=== PATIENT | female | born 1970 | race Caucasian/White ===

== ENCOUNTER → 2018-01-14 13:45 | Outpatient (CLI) | payer MEDICAID, SELFPAY ==
[2018-01-14 15:24] LABS: AST(SGOT) 19 U/L (15-37); Alanine Aminotransfer ALT/SGPT 30 U/L (13-56); Albumin, Serum 3.6 g/dL (3.2-5.0); Alkaline Phosphatase 98 U/L (45-117); Anion Gap 9 (5-15); BUN 7 mg/dL (7-18); BUN/Creat Ratio 8.8 RATIO (10-20); Calcium,Total 8.8 mg/dL (8.5-10.1); Chloride 103 mmol/L (98-107); EST Glomerular Filtration Rate 81 mL/min (>60); Est Glom Filt Rate - Afr Amer 98 mL/min (>60); Globulin 3.5 g/dL (2.2-4.2); Glucose 88 mg/dL (74-106); Protein, Total 7.1 g/dL (6.4-8.2); Sodium Level 138 mmol/L (136-145)
== END ==
PROVIDERS: Family Provider Family Medicine; PCP Family Medicine; Visit Provider Family Medicine
DX: R69 Illness, unspecified (principal)
CPT/HCPCS: 80053

== ENCOUNTER 2018-09-04 11:06 | Observation (INO) | payer MEDICAID, SELFPAY ==
[2018-06-19 10:18] VITALS: BMI 24.3
[2018-09-02 10:19] VITALS: BMI 24.3
[2018-09-04] VITALS (15 sets, daily range): BP systolic 95–115; BP diastolic 47–70; PULSE 81–91; RESP 14–16; TEMP 36.1–37.1; O2SAT 91–97; BMI 23.9
--- NOTE | 2018-09-04 00:09 | HP.PCM_ITS ---
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 She has a family history of breast cancer, and her cancerphobia has worsened over the last several months because of a recent diagnosis of breast cancer in her family. She had a mammogram in March,. No significant masses or calcifications were seen in either breast. Also it was noted that the tissue of both breasts is heterogenously dense. This may lower the sensitivity of mammography. This may make cancer surveillance difficult which is concerning to the patient. She is afraid that a breast cancer will be missed which exacerbates her cancerphobia. She denies any trauma to her breasts. A letter was written to her insurance carrier and medical approval has been obtained for prophylactic mastectomies. Her surgery is scheduled for this Friday. She states she has cut down dramatically with her smoking. She is down to about 2-3 cigarettes per day. PAST MEDICAL HISTORY Anemia Anxiety and depression Bleeding disorder Bone fracture Breast lump Cancer Frequent headaches Gallstones Goiter Heart disease Heart valve problem History of blood transfusion Hives IBS (irritable bowel syndrome) Lupus Parathyroid abnormality Pneumonia Thyroid cancer Vitamin deficiency PAST SURGICAL HISTORY cholecystectomy hysterectomy thyroid surgery ALLERGIES codeine hydromorphone [From Dilaudid] Penicillins MEDICATIONS amitriptyline atenolol lorazepam mirtazapine sumatriptan topiramate venlafaxine ER FAMILY HISTORY Other - Anemia, Anesthesia complication, Anxiety, Bleeding disorder, Bowel disease, Breast cancer, CVA (cerebral vascular accident), Cancer, Cervical cancer, Colon cancer, Depression (emotion), Diabetes. Heart disease, High cholesterol, History of blood transfusion, Hypertension, Osteoporosis, Ovarian cancer, Thyroid disorder SOCIAL HISTORY Smoking Status: Current every day smoker alcohol intake: never substance use type: does not use REVIEW OF SYSTEMS General - Denies fever, fatigue, and weight loss. Eyes - Denies cataracts and glaucoma. ENT - Denies nasal congestion and sore throat. Endocrine - Denies excessive thirst and urination. Has thyroid disease. Has f amily history of breast cancer. Skin - Denies suspicious lesions and skin cancer. Musculoskeletal - Denies joint pain, joint stiffness, weakness of muscles and joints, back pain, and arthritis. Neuro - Has headaches. Cardiovascular - Denies chest pain, fatigue, and shortness of breath with exertion. Psych - Denies anxiety and depression. Respiratory - Denies chronic cough and shortness of breath. Patient is a smoker. Gastrointestinal - Denies nausea, vomiting, and constipation. Has diarrhea. Hematologic - Has abnormal bruising. Has anemia. Has lupus. Is on Humira. Genitourinary - Denies hematuria and urinary frequency. PHYSICAL EXAMINATION General - Alert and Oriented. Bra size is 36 C. HEENT - PERRL. EOMI. Throat is clear. Neck - Supple and nontender. No cervical adenopathy. Breasts - soft and symmetrical. No breast masses palpable. Breasts are dense to palpation. No axillary adenopathy. Some pseudoptosis present with the nipples at the inframammary fold with breast tissue below that. Lungs - Clear to auscultation. Heart - Regular rate and rhythm. Abdomen - Soft and nondistended. Some redundant skin and subcutaneous tissue present between the pubic area and the umbilicus. Has a right subcostal scar from a cholecystectomy. Has an upper midline scar from a bleeding ulcer surgery. Has a horizontal scar in the pubic area from a hysterectomy. Extremities - FROM. No axillary adenopathy. Radial pulses are palpable. Neuro - CN II-XII grossly intact. Psych - Normal mood and affect. ASSESSMENT 1. Cancerphobia bilateral breasts. 2. Family history of breast cancer. 3. Lupus. 4. Immunocompromised state from Humira therapy for Lupus. 5. Inconclusive mammography due to dense breasts. 6. Smoker. PLAN Mammogram reviewed from March,. She does have dense breasts which will make cancer surveillance problematic. Discussed with the patient the procedure of prophylactic mastectomy bilateral breasts for cancer phobia. This would necessitate removal of the nipples to further decrease the risk of cancer. Subcutaneous mastectomy can also be used for prophylactic mastectomy. However by saving the nipple, a small percentage of breast tissue would remain which would necessitate future mammography and also still have a small but not zero risk of developing breast cancer. The patient states she wants to proceed with nipple removal with the mastectomy. Also with her immunocompromised state being on Humira for lupus, she is at increased risk of developing cancer in general. With the amount of fear the patient has about developing breast cancer, I feel that bilateral prophylactic mastectomies is warranted. A letter was written to her insurance carrier and medical approval has been obtained. Breast reconstruction, however, will be problematic in this patient. The placement of expanders followed by replacement cohesive gel implants is not a good idea because of her history of lupus which is an autoimmune process. She is at risk for problems with the placement of a foreign body implant with regard to rejection, increased pain, infection, and painful capsulectomy. The other option is using autogenous tissue. The latissimus dorsi flap is not a practical option since it generally requires a small implant underneath the flap for shape and contour. The goal with using autogenous tissue in this patient is not having to use foreign body implants because of her lupus. The abdominal pedicled TRAM flap would not work in this patient because the extensive scarring she has on the abdominal wall, especially the right subcostal scar thus making bilateral TRAM flap impossible. She might be a candidate for the use of the microscope depending on the quality of the vessels secondary to the previous scarring. The other microscope option for her would be bilateral gluteal flaps. That would necessitate going to a tertiary center for the microscope surgery reconstruction. She would also have to stop smoking prior to any attempts at breast reconstruction using the microscope. At the present time, she is more concerned about developing cancer and just wants to proceed with the prophylactic mastectomy. After healing has occurred, and she is more relaxed about not worrying about breast cancer, she will consider breast reconstruction at that time. In the meantime, she will just proceed with external prostheses in a mastectomy bra. In my experience with breast reconstruction after bilateral prophylactic mastectomy, insurance companies generally cover reconstruction with placement of tissue expanders followed by replacement cohesive gel implants, and they generally do not cover reconstruction using autogenous tissue. She voices unde rstanding and will concern herself with breast reconstruction insurance coverage at a later date. At the time of the prophylactic mastectomy, because of some pseudoptosis, a mastopexy incision for the mastectomy can be useful for future reconstruction. However the Tzone area can be an area of suboptimal healing that would require wound care and sometimes antibiotic therapy. This potential suboptimal healing would be exacerbated because of her history of lupus and the use of Humira. Because of that risk, I would proceed with the traditional horizontal incision around the nipple for the mastectomy which will heal easier with her medical situation. Also the Tzone mastopexy incision is usually worthwhile with the plan of placing implants in the future. Since we are not concerning ourselves with implants, that is another reason to proceed with the horizontal incision for the mastopexy. Patient was informed of the risks and complications of the procedure including alternatives to surgery. These were discussed with the patient personally. Patient voices understanding and wishes to proceed. Some of the risks and complications were included in a form from the [employer]. Surgery would be under general anesthesia with a surgical observation overnight stay in the hospital. She would have drains in for several days and be maintained on antibiotics until the drains are removed. Tissue that is removed would be sent to Pathology for analysis to rule out carcinoma. She will wear a chest wall binder for several weeks to minimize seroma formation. Encouraged patient to stop smoking as it may have deleterious effects on wound healing.
--- OUTSIDE RECORDS SUMMARY | 2018-09-04 06:57 | XMS RPT_ITS ---
INSOMNIA NOS [G47.00] INVALID FOR* Type II or unspecified type diabetes mellitus w*INVALID FOR*06/07/2013 Recurrent major depressive disorder, in partial*INVALID FOR* Anxiety state [F41.1] INVALID FOR* HYPERLIPIDEMIA NEC/NOS [E78.5] INVALID FOR* IRRITABLE COLON [K58.9] More... 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] INVALID FOR* POSTSURGICAL HYPOTHYROID [E89.0] INVALID FOR* Prescriptions ordered this encounter Disp Refills Start End TRIAMCINOLONE ACETONIDE 40 MG/ML DAVI* 06/10/2018 06/10/2018 Route: INTRABURSAL Encounter Status:Closed by ABRAHAM CANO DO, V on 06/10/18 progress on 2018-05-18 Protein mass conc HNO ID: [id number] Normal 05-18-2018 [facility] Author: Rula Baumann LPN [place] ([id number]) Service: (none) Author Type: (none) Type: Progress Notes Filed: 05/18/2018 9:57 AM Note Text: Patient presents for B-12 injection. Denies any problems at this time. Patient instructed on any SE of medication, verbalized understanding and agreed to proceed with treatment. Tolerated injection well. Rula Baumann LPN [facility] on 2018-05-18 [facility] Nurse Visit (FAMPWS) Normal 05-18-2018 [place] MARYBETH Hussein ([id number]) 1970 F [facility] Date Time Provider Department ([id number]) 1/7/19 9:30 AM [place] NURSE FAMPWS During your visit today, we recorded the following information about you: Rula Baumann LPN 05/18/2018 9:57 AM Signed Patient presents for B-12 injection. Denies any problems at this time. Patient instructed on any SE of medication, verbalized understanding and agreed to proceed with treatment. Tolerated injection well. uRla Baumann LPN Referring Provider: SPEEDY BYRNE [[id number]] Allergies As of Date: 05/18/2018 Noted Allergy Reaction CIPRO (CIPROFLOXACIN) 04/21/2007 2 - Rash Comments: Rapid heartbeat, flushed CODEINE [Other] 06/17/2005 4 - Hives DILAUDID (HYDROMORPHONE (BULK)) 06/05/2009 HYOSCYAMINE 01/09/2007 2 - Rash 9 - Itching PENICILLINS 06/17/2005 4 - Hives Date Reviewed: 04/09/2018 Reviewed by: Jaleesa Macedo Ma - Fully Assessed Reason for Visit: B-12 Injection [247] Primary Visit Diagnosis:Vitamin B 12 deficiency [E53.8] Prescriptions as of 05/18/2018 Sig: COMPOUNDED PRESCRIPTION 1 wheelchair ICD-10: R26.81 SUMATRIPTAN 100 MG TABLET Take 1 tablet by mouth as nee* TOPIRAMATE 25 MG TABLET TAKE 1 TABLET BY MOUTH AT BED* LORAZEPAM 1 MG TABLET TAKE 1 TABLET EVERY 8 HOURS A* VENLAFAXINE ER 75 MG CAPSULE,* TAKE 1 CAPSULE BY MOUTH EVERY* AMITRIPTYLINE 100 MG TABLET Take 1 AND 1/2 tablets daily at* MIRTAZAPINE 30 MG TABLET TAKE 1/2 (ONE-HALF) OF A TABL* ATENOLOL 50 MG TABLET Take 2 tablets by mouth once * CYANOCOBALAMIN (VIT B-12) 1,0* Inject 1 mL intramuscularly o* VENLAFAXINE ER 150 MG CAPSULE* Take 1 capsule by mouth once * MECLIZINE 25 MG TABLET Take 1 tablet by mouth three * Problem List As Of Date 05/18/2018 Noted Resolved OBESITY [E66.9] INVALID FOR* Migraine without aura [G43.009] INVALID FOR* PALPITATIONS [R00.2] INVALID FOR* INSOMNIA NOS [G47.00] INVALID FOR* Type II or unspecified type diabetes mellitus w*INVALID FOR*06/07/2013 Recurrent major depressive disorder, in partial*INVALID FOR* Anxiety state [F41.1] INVALID FOR* HYPERLIPIDEMIA NEC/NOS [E78.5] INVALID FOR* IRRITABLE COLON [K58.9] More... 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] INVALID FOR* POSTSURGICAL HYPOTHYROID [E89.0] INVALID FOR* Encounter Status:Closed by RULA BAUMANN LPN on 05/18/18 progress on 2018-04-16 Protein mass conc HNO ID: [id number] Normal 04-16-2018 [facility] Author: Rula Baumann LPN [place] ([id number]) Service: (none) Author Type: (none) Type: Progress Notes Filed: 04/16/2018 3:33 PM Note Text: Patient presents for B-12 injection. Denies any problems at this time. Patient instructed on any SE of medication, verbalized understanding and agreed to proceed with treatment. Tolerated injection well. Rula Baumann LPN cnnurse on 2018-04-16 [facility] Nurse Visit (FAMPWS) Normal 04-16-2018 [facility] MARYBETH PHELPS ([id number]) 1970 F [facility] Time Provider Department ([id number]) 04/16/18 3:30 PM [place] NURSE [facility] During your visit today, we recorded the following information about you: Rula Baumann LPN 04/16/2018 3:33 PM Signed Patient presents for B-12 injection. Denies any problems at this time. Patient instructed on any SE of medication, verbalized understanding and agreed to proceed with treatment. Tolerated injection well. Rula Baumann LPN Referring Provider: SPEEDY BYRNE [[id number]] Allergies As of Date: 04/16/2018 Noted Allergy Reaction CIPRO (CIPROFLOXACIN) 04/21/2007 2 - Rash Comments: Rapid heartbeat, flushed CODEINE [Other] 06/17/2005 4 - Hives DILAUDID (HYDROMORPHONE (BULK)) 06/05/2009 HYOSCYAMINE 01/09/2007 2 - Rash 9 - Itching PENICILLINS 06/17/2005 4 - Hives Date Reviewed: 04/09/2018 Reviewed by: Jaleesa Macedo Ma - Fully Assessed Reason for Visit: B-12 Injection [247] Primary Visit Diagnosis:Vitamin B 12 deficiency [E53.8] Prescriptions as of 04/16/2018 Sig: SUMATRIPTAN 100 MG TABLET Take 1 tablet by mouth as nee* TOPIRAMATE 25 MG TABLET TAKE 1 TABLET BY MOUTH AT BED* LORAZEPAM 1 MG TABLET TAKE 1 TABLET EVERY 8 HOURS A* VENLAFAXINE ER 75 MG CAPSULE,* TAKE 1 CAPSULE BY MOUTH EVERY* AMITRIPTYLINE 100 MG TABLET Take 1 AND 1/2 tablets daily at* MIRTAZAPINE 30 MG TABLET TAKE 1/2 (ONE-HALF) OF A TABL* ATENOLOL 50 MG TABLET Take 2 tablets by mouth once * CYANOCOBALAMIN (VIT B-12) 1,0* Inject 1 mL intramuscularly o* VENLAFAXINE ER 150 MG CAPSULE* Take 1 capsule by mouth once * MECLIZINE 25 MG TABLET Take 1 tablet by mouth three * Problem List As Of Date 04/16/2018 Noted Resolved OBESITY [E66.9] INVALID FOR* Migraine without aura [G43.009] INVALID FOR* PALPITATIONS [R00.2] INVALID FOR* INSOMNIA NOS [G47.00] INVALID FOR* Type II or unspecified type diabetes mellitus w*INVALID FOR*06/07/2013 Recurrent major depressive disorder, in partial*INVALID FOR* Anxiety state [F41.1] INVALID FOR* HYPERLIPIDEMIA NEC/NOS [E78.5] INVALID FOR* IRRITABLE COLON [K58.9] More... 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] INVALID FOR* POSTSURGICAL HYPOTHYROID [E89.0] INVALID FOR* Encounter Status:Closed by RULA BAUMANN LPN on 04/16/18 cnsw on 2017-12-03 CNSW Social Work (NAVWST) Normal 12-03-2017 [place] MARYBETH Hussein ([id number]) 1970 [facility] Date Time Provider Department ([id number]) 12/03/17 CHIDI GONCALVES () MANISHALuke During your visit today, we recorded the following information about you: JING Tian 01/23/2018 2:00 PM Signed Opened in error Allergies As of Date: 12/03/2017 Noted Allergy Reaction CIPRO (CIPROFLOXACIN) 04/21/2007 2 - Rash Comments: Rapid heartbeat, flushed CODEINE [Other] 06/17/2005 4 - Hives DILAUDID (HYDROMORPHONE (BULK)) 06/05/2009 HYOSCYAMINE 01/09/2007 2 - Rash 9 - Itching PENICILLINS 06/17/2005 4 - Hives Date Reviewed: 12/03/2017 Reviewed by: Adali Dueñas Teacher Selection Specialist - Fully Assessed Prescriptions as of 12/03/2017 Sig: X NAPROXEN 500 MG TABLET Take 1 tablet by mouth twice * X LORAZEPAM 1 MG TABLET Take 1 tablet by mouth every * ATENOLOL 50 MG TABLET Take 2 tablets by mouth once * X ATENOLOL 50 MG TABLET Take 100 mg by mouth once vicki* X ALBUTEROL SULFATE HFA 90 MCG/* Inhale 2 Puffs as instructed * X MIRTAZAPINE 15 MG TABLET Take 1 tablet by mouth daily * VENLAFAXINE ER 75 MG CAPSULE,* Take 1 capsule by mouth once * CYANOCOBALAMIN (VIT B-12) 1,0* Inject 1 mL intramuscularly o* TOPIRAMATE 25 MG TABLET Take 1 tablet by mouth daily * VENLAFAXINE ER 150 MG CAPSULE* Take 1 capsule by mouth once * AMITRIPTYLINE 50 MG TABLET Take 3 tablets by mouth daily* X FLUTICASONE 50 MCG/ACTUATION * Use 2 Sprays in each nostril * METOPROLOL TARTRATE 25 MG TAB* Take 1 tablet by mouth twice * MECLIZINE 25 MG TABLET Take 1 tablet by mouth three * Problem List As Of Date 12/03/2017 Noted Resolved OBESITY [E66.9] INVALID FOR* MIGRAINE COMMON [G43.009] INVALID FOR* PALPITATIONS [R00.2] INVALID FOR* INSOMNIA NOS [G47.00] INVALID FOR* Type II or unspecified type diabetes mellitus w*INVALID FOR*06/07/2013 DEPRESSIVE DISORDER NEC [F32.9] INVALID FOR* Anxiety state [F41.1] INVALID FOR* HYPERLIPIDEMIA NEC/NOS [E78.5] INVALID FOR* IRRITABLE COLON [K58.9] More... 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] INVALID FOR* POSTSURGICAL HYPOTHYROID [E89.0] INVALID FOR* Encounter Status:Closed by CHIDI BOOTHE on 01/23/18 progress on 2018-01-23 Protein mass conc HNO ID: [id number] Normal 01-23-2018 [facility] Author: Chidi Dougherty) Parth Mosher ([id number]) Service: (none) Author Type: Pilot Manager Type: Progress Notes Filed: 01/23/2018 2:00 PM Note Text: Opened in error progress on 2018-03-17 Protein mass conc HNO ID: [id number] Normal 03-17-2018 [facility] Author: Rula Mosher ([id number]) Service: (none) Author Type: (none) Type: Progress Notes Filed: 03/17/2018 3:02 PM Note Text: Patient presents for B-12 injection. Denies any problems at this time. Patient instructed on any SE of medication, verbalized understanding and agreed to proceed with treatment. Tolerated injection well. Rula Baumann LPN cnnurse on 2018-03-17 [facility] Nurse Visit (FAMPWS) Normal 03-17-2018 [place] MARYBETH Hussein ([id number]) 1970 F [place] Date Time Provider Department ([id number]) 03/17/18 2:45 PM [facility] During your visit today, we recorded the following information about you: Rula Baumann LPN 03/17/2018 3:02 PM Signed Patient presents for B-12 injection. Denies any problems at this time. Patient instructed on any SE of medication, verbalized understanding and agreed to proceed with treatment. Tolerated injection well. Rula Baumann LPN Referring Provider: SPEEDY BYRNE [[id number]] Allergies As of Date: 03/17/2018 Noted Allergy Reaction CIPRO (CIPROFLOXACIN) 04/21/2007 2 - Rash Comments: Rapid heartbeat, flushed CODEINE [Other] 06/17/2005 4 - Hives DILAUDID (HYDROMORPHONE (BULK)) 06/05/2009 HYOSCYAMINE 01/09/2007 2 - Rash 9 - Itching PENICILLINS 06/17/2005 4 - Hives Date Reviewed: 01/14/2018 Reviewed by: Rosenda Holloway - Fully Assessed Reason for Visit: B-12 Injection [247] Primary Visit Diagnosis:Vitamin B 12 deficiency [E53.8] Prescriptions as of 03/17/2018 Sig: LORAZEPAM 1 MG TABLET TAKE 1 TABLET EVERY 8 HOURS A* SUMATRIPTAN 25 MG TABLET TAKE 1 TABLET BY MOUTH ONCE D* VENLAFAXINE ER 75 MG CAPSULE,* TAKE 1 CAPSULE BY MOUTH EVERY* AMITRIPTYLINE 100 MG TABLET Take 1 AND 1/2 tablets daily at* VENTOLIN HFA 90 MCG/ACTUATION* Inhale 2 Puffs as instructed * MIRTAZAPINE 30 MG TABLET TAKE 1/2 (ONE-HALF) OF A TABL* ATENOLOL 50 MG TABLET Take 2 tablets by mouth once * CYANOCOBALAMIN (VIT B-12) 1,0* Inject 1 mL intramuscularly o* TOPIRAMATE 25 MG TABLET Take 1 tablet by mouth daily * VENLAFAXINE ER 150 MG CAPSULE* Take 1 capsule by mouth once * METOPROLOL TARTRATE 25 MG TAB* Take 1 tablet by mouth twice * MECLIZINE 25 MG TABLET Take 1 tablet by mouth three * Problem List As Of Date 03/17/2018 Noted Resolved OBESITY [E66.9] INVALID FOR* MIGRAINE COMMON [G43.009] INVALID FOR* PALPITATIONS [R00.2] INVALID FOR* INSOMNIA NOS [G47.00] INVALID FOR* Type II or unspecified type diabetes mellitus w*INVALID FOR*06/07/2013 Recurrent major depressive disorder, in partial*INVALID FOR* Anxiety state [F41.1] INVALID FOR* HYPERLIPIDEMIA NEC/NOS [E78.5] INVALID FOR* IRRITABLE COLON [K58.9] More... 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] INVALID FOR* POSTSURGICAL HYPOTHYROID [E89.0] INVALID FOR* Encounter Status:Closed by RULA BAUMANN LPN on 03/17/18 cnov on 2018-04-09 [facility] Office Visit (FAMPWS) Normal 04-09-2018 [facility] MATTIE,MARYBETH Allison ([id number]) 1970 F [place] Date Time Provider Department ([id number]) 04/09/18 3:20 PM SPEEDY BYRNE During your visit today, we recorded the following information about you: Pulse Respiration Blood pressure Weight 78/minute 16/minute 112/70 70.8 kg Speedy Byrne MD 04/09/2018 3:59 PM Signed Chief Complaint Patient presents with: F/U 3 Month HPI Marybeth Phelps is a 48 year old female who presents here today for 3 month follow up. Anxiety AND Depression: is taking Effexor XR 150 mg and 75 mg daily. Also taking Ativan 1 mg up to QID. Palpitations: is taking Atenolol 50 mg, 2 tablets daily. Headaches: is taking imitrex 25 mg, states that this dosage is not working well, insurance will only cover 9 tablets, but pt states that she needs 15 tablets a month. Is taking Topamax 25 mg daily and Amitriptyline 100 mg, 2 tablets at night and Remeron 30 mg, half tablet. Insomnia: does not have trouble falling asleep, has trouble staying asleep. She has tried sleepy time teas, and is on several medicines that help with sleep. Melatonin makes her hyper. She has tried plain sleep aids which does not help. She is fatigued. Past medical history, appointments, medications, allergies reviewed. Previous Medical History PAST MEDICAL HISTORY Diagnosis Date - Acute peptic ulcer, unspecified site, with hemorrhage, without mention of obstruction - Anxiety state, unspecified 03/27/2006 - C. difficile colitis - Depressive disorder, not elsewhere classified 03/27/2006 - Dysmenorrhea Resolved - Endometriosis, site unspecified Endometriosis ? - Excessive or frequent menstruation Heavy periods resolved - Female stress incontinence - Generalized anxiety disorder - History of pancreatitis - IBS (irritable bowel syndrome) - Irritable bowel syndrome Irritable bowel - Nontoxic uninodular goiter LEFT - Other and unspecified hyperlipidemia 03/27/2006 - PMH - PAST MEDICAL HISTORY OF 1990 ? BOWEL OBSTRUCTION - SVT (supraventricular tachycardia) (HCC) - Symptomatic menopausal or female climacteric states - Type II or unspecified type diabetes mellitus without mention of complication, not stated as uncontrolled - Unspecified constipation Constipation - Unspecified urinary incontinence - Urge incontinence - Urinary calculus, unspecified Renal stones Previous Surgical History PAST SURGICAL HISTORY Procedure Laterality Date - COLONOSCOPY W/BX 05-24-15 - EGD W/O BRSH SPECIMEN W/BX 05-24-15 - EXPLORATORY OF ABDOMEN DRAINED POST OP HEMATOMA - L'SCOPE DX W/WO BRUSHINGS/WASHINGS FOR ENDOMETRIOSIS/REMOVED R OVCYST - L'SCOPE DX W/WO BRUSHINGS/WASHINGS FOR BOWEL OBSTRUCTION - LIGATE FALLOPIAN TUBE Tubal ligation - REMOVAL GALLBLADDER 10/2004 - THYROID LOBECTOMY,UNILAT 06/02/07 LEFT - TOTAL ABDOM HYSTERECTOMY Hysterectomy, JAZMÍN BSO - TREAT ECTOPIC PREG,NON REMVAL RIGHT ECTOPIC Family History FAMILY HISTORY Problem Relation Age of Onset - Diabetes Father - Cervical Cancer Maternal Aunt - Cancer Maternal Aunt 3 aunts with breast CA - Heart Maternal Grandfather TRIPLE BYPASS SURGERY - Hypertension Maternal Aunt - Diabetes Mother - Coronary Artery Disease Maternal Uncle Lung disease, passed 06/18, - COPD Father - Heart Father Double By-Pass Surgery Patient Allergies ALLERGIES Allergen Reactions - Cipro [Ciprofloxaci* Rash Rapid heartbeat, flushed - Codeine [Other] Hives - Dilaudid [H[employer]romorp* - Hyoscyamine Rash, Itching - Penicillins Hives Current Medications Current Outpatient Prescriptions on File Prior to Visit: topiramate (TOPAMAX) 25 mg tablet TAKE 1 TABLET BY MOUTH AT BEDTIME LORazepam (ATIVAN) 1 mg tablet TAKE 1 TABLET EVERY 8 HOURS NEEDED FOR ANXIETY SUMAtriptan (IMITREX) 25 mg tablet TAKE 1 TABLET BY MOUTH ONCE DAILY NEEDED. may repeat once after 2 (TWO) hours venlafaxine ER (EFFEXOR XR) 75 mg 24 hr capsule TAKE 1 CAPSULE BY MOUTH EVERY DAY along with 150mg amitriptyline (ELAVIL) 100 mg tablet Take 1 AND 1/2 tablets daily at bedtime. mirtazapine (REMERON) 30 mg tablet TAKE 1/2 (ONE-HALF) OF A TABLET EVERY DAY AT BEDTIME atenolol (TENORMIN) 50 mg tablet Take 2 tablets by mouth once daily. cyanocobalamin 1,000 mcg/mL soln Inject 1 mL intramuscularly once every month. venlafaxine XR (EFFEXOR XR) 150 mg 24 hr capsule Take 1 capsule by mouth once daily. meclizine (ANTIVERT) 25 mg tab Take 1 tablet by mouth three times daily as needed (dizziness). VENTOLIN HFA 90 mcg/actuation inhaler Inhale 2 Puffs as instructed every 4 hours as needed for Wheezing/Shortness of Breath. metoprolol tartrate, short acting, (LOPRESSOR) 25 mg tablet Take 1 tablet by mouth twice daily. 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 General Appearance: Well appearing, alert, in no acute distress, well-hydrated, well nourished.. Lungs: lungs clear to auscultation. No wheezing, rhonchi, rales. Heart: RRR without murmur, gallop, or rubs. No ectopy. Health Maintenance List COLORECTAL CANCER SCREENING,SEE MODIFIER due on 2018 ANNUAL PCP TEAM CHRONIC DISEASE VISIT due on 01/14/2019 MAMMOGRAM due on 03/17/2019 DIABETES SCREEN due on 01/14/2021 LIPID SCREEN due on 05/01/2022 DTAP,TDAP,TD(3 - Td) due on 05/25/2026 ONE PNEUMOVAX PRIOR TO AGE 65 Completed INFLUENZA Completed Data reviewed None ASSESSMENT/PLAN: 1. Anxiety state - ICD9: 300.00, ICD10: F41.1 (primary diagnosis) Continue current medications. 2. Palpitations - ICD9: 785.1, ICD10: R00.2 Continue current medications. 3. Primary insomnia - ICD9: 307.42, ICD10: F51.01 Continue current medications. Consult Sleep Medicine-Dr. Lynch 4. Recurrent major depressive disorder, in partial remission (HCC) - ICD9: 296.35, ICD10: F33.41 Continue current medications. 5. Migraine without aura and without status migrainosus, not intractable - ICD9: 346.10, ICD10: G43.009 Increase Imitrex to 100 mg PRN - may use half tab to make Rx last longer Continue current medications. Follow up in 3 months. I agree with the Chief Complaint, ROS, and Past Histories independently gathered by the clinical network desktop support specialist and the remaining scribed note accurately describes my personal service to the patient. Speedy Byrne MD The documentation for this note was completed by Jaleesa Macedo Ma acting as scribe for Speedy Byrne MD. April 09, 2018 3:29 PM. Referring Provider: SPEEDY BYRNE [[id number]] Allergies As of Date: 04/09/2018 Noted Allergy Reaction CIPRO (CIPROFLOXACIN) 04/21/2007 2 - Rash Comments: Rapid heartbeat, flushed CODEINE [Other] 06/17/2005 4 - Hives DILAUDID (HYDROMORPHONE (BULK)) 06/05/2009 HYOSCYAMINE 01/09/2007 2 - Rash 9 - Itching PENICILLINS 06/17/2005 4 - Hives Date Reviewed: 04/09/2018 Reviewed by: Jaleesa Macedo Ma - Fully Assessed Reason for Visit: F/U 3 Month [443] Primary Visit Diagnosis:Anxiety state [F41.1] Other Visit Diagnoses:Palpitations [R00.2] Primary insomnia [F51.01] Recurrent major depressive disorder, in partial remission (HCC) [F33.41] Migraine without aura and without status migrainosus, not intractable [G43.009] Order(s):SUMAtriptan (IMITREX) 100 mg tabletTake 1 tablet by mouth as needed.Disp: 9 tabletRfl: 3 CONSULT TO SLEEP MEDICINE - ADULT [[id number]] Order #: [id number]: 1 Prescriptions as of 04/09/2018 Sig: TOPIRAMATE 25 MG TABLET TAKE 1 TABLET BY MOUTH AT BED* LORAZEPAM 1 MG TABLET TAKE 1 TABLET EVERY 8 HOURS A* VENLAFAXINE ER 75 MG CAPSULE,* TAKE 1 CAPSULE BY MOUTH EVERY* AMITRIPTYLINE 100 MG TABLET Take 1 AND 1/2 tablets daily at* MIRTAZAPINE 30 MG TABLET TAKE 1/2 (ONE-HALF) OF A TABL* ATENOLOL 50 MG TABLET Take 2 tablets by mouth once * CYANOCOBALAMIN (VIT B-12) 1,0* Inject 1 mL intramuscularly o* VENLAFAXINE ER 150 MG CAPSULE* Take 1 capsule by mouth once * MECLIZINE 25 MG TABLET Take 1 tablet by mouth three * SUMATRIPTAN 100 MG TABLET Take 1 tablet by mouth as nee* Problem List As Of Date 04/09/2018 Noted Resolved OBESITY [E66.9] INVALID FOR* Migraine without aura [G43.009] INVALID FOR* PALPITATIONS [R00.2] INVALID FOR* INSOMNIA NOS [G47.00] INVALID FOR* Type II or unspecified type diabetes mellitus w*INVALID FOR*06/07/2013 Recurrent major depressive disorder, in partial*INVALID FOR* Anxiety state [F41.1] INVALID FOR* HYPERLIPIDEMIA NEC/NOS [E78.5] INVALID FOR* IRRITABLE COLON [K58.9] More... 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] INVALID FOR* POSTSURGICAL HYPOTHYROID [E89.0] INVALID FOR* Prescriptions ordered this encounter Disp Refills Start End SUMATRIPTAN 100 MG TABLET 9 ta* 3 04/09/2018 Route: ORAL Sig: Take 1 tablet by mouth as needed. Medications Discontinued During This Encounter VENTOLIN HFA 90 mcg/actuation inhaler 18 g 0 12/31/2017 04/09/2018 Cmt: Med-sync patient. If too soon, we will put new RX on hold for next cycle. Route: INHALATION Sig: Inhale 2 Puffs as instructed every 4 hours as needed for Wheezing/Shortness of Breath. Disc: Reason for discontinue is not on file. metoprolol tartrate, short acting, (* 60 t* 5 02/18/2017 04/09/2018 Route: ORAL Sig: Take 1 tablet by mouth twice daily. Disc: Reason for discontinue is not on file. SUMAtriptan (IMITREX) 25 mg tablet 15 t* 3 02/24/2018 04/09/2018 Sig: TAKE 1 TABLET BY MOUTH ONCE DAILY NEEDED. may repeat once after 2 (TWO) hours Disc: Reason for discontinue is not on file. Disposition: Return in about 3 months (around 07/09/2018). Follow-up and Disposition History Recorded Encounter Status:Closed by SPEEDY BYRNE MD on 04/09/18 [facility] screening on 2018-03-17 [facility] SCREENING * * *Final Report* * * Normal 03-17-2018 [facility] DATE OF EXAM: Mar 17 2018 3:26PM [facility] ([id number]) [facility] 0581 - [facility] SCREENING / PROCEDURE REASON: Screening for breast cancer * * * * Physician Interpretation * * * * RESULT: #[id number] - [facility] SCREENING BILATERAL DIGITAL SCREENING MAMMOGRAM WITH CAD: 03/17/2018 HISTORY: Screening For Breast Cancer\ Screening Mammogram - patient reports NO breast symptoms /priors available for comparison. RESULT: TECHNIQUE: The study was acquired using full field digital technology and interpreted from soft copy. Current study was also evaluated with a Computer Aided Detection (CAD). Comparison is made to exams dated: 01/21/2017 mammogram - [facility], 06/24/2013 mammogram - [facility], and 12/16/2007 mammogram. The tissue of both breasts is heterogeneously dense. This may lower the sensitivity of mammography. No significant masses, calcifications, or other findings are seen in either breast. There has been no significant interval change. IMPRESSION: NEGATIVE There is no mammographic evidence of malignancy. A 1 year screening mammogram is recommended. Machelle Savage M.D., jr/hoda:03/17/2018 16:45:41 [facility]endant [facility]: Jamila WASHINGTON(Lilia)(Juventino), [facility] letter sent: Normal over 40 Mammogram BI-RADS: 1 Negative Multiple national specialty organizations have released breast cancer screening guidelines for women at average risk for developing breast cancer - guidelines that are based on both evidence and opinion, yet differ on when to start and how often to screen for breast cancer. With representation from Breast Imaging, Internal Medicine, Women's Health, Family Medicine, and Medical/Surgical Oncology, the [facility] has carefully reviewed the data and reached the following consensus: 1) All women should engage in shared decision-making with their providers to decide when to start and how often to screen; 2) All women should have the opportunity to start screening mammography at age 40; 3) For women ages 45-55, we recommend annual screening mammograms; 4) For women ages 55 and over, we support both the transition from an annual to a biennial interval if this aligns more with patient's values and preferences, or continuation with annual screening; 5) All women should discuss with their providers when to stop screening mammograms. Picking Tech: Hoda Transcribe Date/Time: Mar 17 2018 3:28P Dictated by: MACHELLE SAVAGE MD This examination was interpreted and the report reviewed and electronically signed by: MACHELLE SAVAGE MD on Mar 17 2018 4:45PM EST [id number] cnptoutreach on 2018-03-24 CNPTOUTREA Patient Outreach (FAMPST) Normal 03-24-2018 [facility] MARYBETH PHELPS ([id number]) 1970 F [facility] Date Time Provider Department ([id number]) 03/24/18 SPEEDY BYRNE FAMT During your visit today, we recorded the following information about you: Allergies As of Date: 03/24/2018 Noted Allergy Reaction CIPRO (CIPROFLOXACIN) 04/21/2007 2 - Rash Comments: Rapid heartbeat, flushed CODEINE [Other] 06/17/2005 4 - Hives DILAUDID (HYDROMORPHONE (BULK)) 06/05/2009 HYOSCYAMINE 01/09/2007 2 - Rash 9 - Itching PENICILLINS 06/17/2005 4 - Hives Date Reviewed: 01/14/2018 Reviewed by: Rosenda Mcdonald Ct - Fully Assessed Visit Diagnosis:Medication management [Z79.899] Order(s):LIPID PANEL BASIC [SQLIPB] Order #: [id number] FUTURE Prescriptions as of 03/24/2018 Sig: AMITRIPTYLINE 100 MG TABLET Take 1 AND 1/2 tablets daily at* ATENOLOL 50 MG TABLET Take 2 tablets by mouth once * CYANOCOBALAMIN (VIT B-12) 1,0* Inject 1 mL intramuscularly o* LORAZEPAM 1 MG TABLET TAKE 1 TABLET EVERY 8 HOURS A* MECLIZINE 25 MG TABLET Take 1 tablet by mouth three * MIRTAZAPINE 30 MG TABLET TAKE 1/2 (ONE-HALF) OF A TABL* VENLAFAXINE ER 75 MG CAPSULE,* TAKE 1 CAPSULE BY MOUTH EVERY* VENLAFAXINE ER 150 MG CAPSULE* Take 1 capsule by mouth once * X METOPROLOL TARTRATE 25 MG TAB* Take 1 tablet by mouth twice * X SUMATRIPTAN 25 MG TABLET TAKE 1 TABLET BY MOUTH ONCE D* X TOPIRAMATE 25 MG TABLET Take 1 tablet by mouth daily * X VENTOLIN HFA 90 MCG/ACTUATION* Inhale 2 Puffs as instructed * Problem List As Of Date 03/24/2018 Noted Resolved OBESITY [E66.9] INVALID FOR* MIGRAINE COMMON [G43.009] INVALID FOR* PALPITATIONS [R00.2] INVALID FOR* INSOMNIA NOS [G47.00] INVALID FOR* Type II or unspecified type diabetes mellitus w*INVALID FOR*06/07/2013 Recurrent major depressive disorder, in partial*INVALID FOR* Anxiety state [F41.1] INVALID FOR* HYPERLIPIDEMIA NEC/NOS [E78.5] INVALID FOR* IRRITABLE COLON [K58.9] More... 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] INVALID FOR* POSTSURGICAL HYPOTHYROID [E89.0] INVALID FOR* Encounter Status:Closed by SANTIAGO PRODUSER on 04/24/18 cnco on 2018-03-17 CNCO HNO ID: [id number] Normal 03-17-2018 [facility] Author: Mammography Coordinator ([id number]) Service: (none) Author Type: Physician Type: Letter Filed: 03/18/2018 11:33 PM Note Text: March 17, 2018 PID: [id number] Marybeth Rowe Mattie [address] 05/13 [address] [place] [address] Dear Monse Phelps, We are pleased to inform you that the results of your recent breast imaging exam on 03/17/2018 are normal. Your mammogram demonstrates that you have dense breast tissue, which could hide abnormalities. Dense breast tissue, in and of itself, is a relatively common condition. Therefore, this information is not provided to cause undue concern; rather, it is to raise your awareness and promote discussion with your health care provider regarding the presence of dense breast tissue in addition to other risk factors. Early detection of cancer is very important. We also understand recommendations regarding breast cancer screening are controversial. Please discuss with your primary care provider which strategy is best for you and whether a mammogram is right for you. Your imaging studies and report will be kept on file at [facility] as part of your permanent medical record and are available for your continuing care. Thank you for allowing us to help in meeting your health care needs. Sincerely, Dr. Savage Interpreting Radiologist [facility] (Normal over 40) cnnurse on 2017-11-07 [facility] Nurse Visit (FAMPWS) Normal 11-07-2017 [facility] MARYBETH PHELPS ([id number]) 1970 F [place] Date Time Provider Department ([id number]) 11/07/17 10:30 AM [place] NURSE FAMPWS During your visit today, we recorded the following information about you: Rula Baumann LPN 11/07/2017 10:39 AM Signed Patient presents for B-12 injection. Denies any problems at this time. Patient instructed on any SE of medication, verbalized understanding and agreed to proceed with treatment. Tolerated injection well. Rula Baumann LPN Referring Provider: SPEEDY BYRNE [[id number]] Allergies As of Date: 11/07/2017 Noted Allergy Reaction CIPRO (CIPROFLOXACIN) 04/21/2007 2 - Rash Comments: Rapid heartbeat, flushed CODEINE [Other] 06/17/2005 4 - Hives DILAUDID (HYDROMORPHONE (BULK)) 06/05/2009 HYOSCYAMINE 01/09/2007 2 - Rash 9 - Itching PENICILLINS 06/17/2005 4 - Hives Date Reviewed: 10/21/2017 Reviewed by: Mila Cuellar LPN - Fully Assessed Reason for Visit: B-12 Injection [247] Primary Visit Diagnosis:Vitamin B 12 deficiency [E53.8] Prescriptions as of 11/07/2017 Sig: ALBUTEROL SULFATE HFA 90 MCG/* Inhale 2 Puffs as instructed * MIRTAZAPINE 15 MG TABLET Take 1 tablet by mouth daily * VENLAFAXINE ER 75 MG CAPSULE,* Take 1 capsule by mouth once * CYANOCOBALAMIN (VIT B-12) 1,0* Inject 1 mL intramuscularly o* TOPIRAMATE 25 MG TABLET Take 1 tablet by mouth daily * VENLAFAXINE ER 150 MG CAPSULE* Take 1 capsule by mouth once * AMITRIPTYLINE 50 MG TABLET Take 3 tablets by mouth daily* OMEPRAZOLE 20 MG CAPSULE,CINDY* Take 1 capsule by mouth daily* Patient not taking: Reported on 10/18/2017 FLUTICASONE 50 MCG/ACTUATION * Use 2 Sprays in each nostril * METOPROLOL TARTRATE 25 MG TAB* Take 1 tablet by mouth twice * MECLIZINE 25 MG TABLET Take 1 tablet by mouth three * Problem List As Of Date 11/07/2017 Noted Resolved OBESITY [E66.9] INVALID FOR* MIGRAINE COMMON [G43.009] INVALID FOR* PALPITATIONS [R00.2] INVALID FOR* INSOMNIA NOS [G47.00] INVALID FOR* Type II or unspecified type diabetes mellitus w*INVALID FOR*06/07/2013 DEPRESSIVE DISORDER NEC [F32.9] INVALID FOR* Anxiety state [F41.1] INVALID FOR* HYPERLIPIDEMIA NEC/NOS [E78.5] INVALID FOR* IRRITABLE COLON [K58.9] More... 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] INVALID FOR* POSTSURGICAL HYPOTHYROID [E89.0] INVALID FOR* Encounter Status:Closed by RULA BAUMANN LPN on 11/07/17 progress on 2018-01-06 Protein mass HNO ID: [id number] Normal 01-06-2018 [facility] Author: [facility]edy [facility] ([id number]) Service: (none) Author Type: Physician Type: Progress Notes Filed: 01/08/2018 5:20 PM Note Text: Chief Complaint No chief complaint on file. HPI Marybeth Phelps is a 47 year old female who presents here today for medication follow up. Pt here today for a follow up. Insomnia - No improvement with use of Amitriptyline 50 mg 3 caps po at one at bedtime. Also taking Remeron 30 mg 0.5 tab hs. Still up 3-4 hours at night. HTN - Denies checking BP at home. Denies sob. Admits to tightening in her chest from time to time and dizziness. Anxiety/Depression - State that she is still doing horrible. A lot of stress with her daughter. She is on effexor 225 mg daily, amitriptyline at bedtime, topamax, remeron, ativan. WALKER - States that WALKER are a little more controllable now. States the Imitrex does work to help WALKER's. Skin: complains of erythematous patches, slighty itchy, come and goe Past medical history, appointments, medications, allergies reviewed. Previous Medical History PAST MEDICAL HISTORY Diagnosis Date - Acute peptic ulcer, unspecified site, with hemorrhage, without mention of obstruction - Anxiety state, unspecified 03/27/2006 - C. difficile colitis - Depressive disorder, not elsewhere classified 03/27/2006 - Dysmenorrhea Resolved - Endometriosis, site unspecified Endometriosis ? - Excessive or frequent menstruation Heavy periods resolved - Female stress incontinence - Generalized anxiety disorder - History of pancreatitis - IBS (irritable bowel syndrome) - Irritable bowel syndrome Irritable bowel - Nontoxic uninodular goiter LEFT - Other and unspecified hyperlipidemia 03/27/2006 - PMH - PAST MEDICAL HISTORY OF 1989 ? BOWEL OBSTRUCTION - SVT (supraventricular tachycardia) (HCC) - Symptomatic menopausal or female climacteric states - Type II or unspecified type diabetes mellitus without mention of complication, not stated as uncontrolled - Unspecified constipation Constipation - Unspecified urinary incontinence - Urge incontinence - Urinary calculus, unspecified Renal stones Previous Surgical History PAST SURGICAL HISTORY Procedure Laterality Date - COLONOSCOPY W/BX 05-24-15 - EGD W/O BRSH SPECIMEN W/BX 05-24-15 - EXPLORATORY OF ABDOMEN DRAINED POST OP HEMATOMA - L'SCOPE DX W/WO BRUSHINGS/WASHINGS FOR ENDOMETRIOSIS/REMOVED R OVCYST - L'SCOPE DX W/WO BRUSHINGS/WASHINGS FOR BOWEL OBSTRUCTION - LIGATE FALLOPIAN TUBE Tubal ligation - REMOVAL GALLBLADDER 10/2004 - THYROID LOBECTOMY,UNILAT 06/02/07 LEFT - TOTAL ABDOM HYSTERECTOMY Hysterectomy, JAZMÍN BSO - TREAT ECTOPIC PREG,NON REMVAL RIGHT ECTOPIC Family History FAMILY HISTORY Problem Relation Age of Onset - Diabetes Father - Cervical Cancer Maternal Aunt - Cancer Maternal Aunt 3 aunts with breast CA - Heart Maternal Grandfather TRIPLE BYPASS SURGERY - Hypertension Maternal Aunt - Diabetes Mother - Coronary Artery Disease Maternal Uncle Lung disease, passed 06/18, - COPD Father - Heart Father Double By-Pass Surgery Patient Allergies ALLERGIES Allergen Reactions - Cipro [Ciprofloxaci* Rash Rapid heartbeat, flushed - Codeine [Other] Hives - Dilaudid [[employer]* - Hyoscyamine Rash, Itching - Penicillins Hives Current Medications Current Outpatient Prescriptions on File Prior to Visit: VENTOLIN HFA 90 mcg/actuation inhaler Inhale 2 Puffs as instructed every 4 hours as needed for Wheezing/Shortness of Breath. LORazepam (ATIVAN) 1 mg tablet TAKE 1 TABLET BY MOUTH EVERY 8 HOURS NEEDED FOR ANXIETY SUMAtriptan (IMITREX) 25 mg tablet Take 1 tablet by mouth as needed. Ok to repeat once after 2 hours mirtazapine (REMERON) 30 mg tablet TAKE 1/2 (ONE-HALF) OF A TABLET EVERY DAY AT BEDTIME atenolol (TENORMIN) 50 mg tablet Take 2 tablets by mouth once daily. venlafaxine ER (EFFEXOR XR) 75 mg 24 hr capsule Take 1 capsule by mouth once daily. Take along with 150 mg pill cyanocobalamin 1,000 mcg/mL soln Inject 1 mL intramuscularly once every month. topiramate (TOPAMAX) 25 mg tablet Take 1 tablet by mouth daily at bedtime. venlafaxine XR (EFFEXOR XR) 150 mg 24 hr capsule Take 1 capsule by mouth once daily. amitriptyline (ELAVIL) 50 mg tablet Take 3 tablets by mouth daily at bedtime. metoprolol tartrate, short acting, (LOPRESSOR) 25 mg tablet Take 1 tablet by mouth twice daily. meclizine (ANTIVERT) 25 mg tab Take 1 tablet by mouth three times daily as needed (dizziness). 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 General Appearance: Well appearing, alert, in no acute distress, well-hydrated, well nourished.. Lungs: Lungs clear to auscultation. No wheezing, rhonchi, rales. Heart: RRR without murmur, gallop, or rubs. No ectopy. Skin: several faintly erythematous patches on arms, chest Health Maintenance List MAMMOGRAM due on 06/24/2014 INFLUENZA(1) due on 01/10/2018 DIABETES SCREEN due on 10/07/2020 LIPID SCREEN due on 05/01/2022 DTAP,TDAP,TD(3 - Td) due on 05/25/2026 ONE PNEUMOVAX PRIOR TO AGE 65 Completed Data reviewed None ASSESSMENT/PLAN: 1. Dermatitis - ICD9: 692.9, ICD10: L30.9 (primary diagnosis) Will place on a course of prednisone; appears allergic in nature - PREDNISONE 10 MG TABLET - PREDNISONE 10 MG TABLET 2. Recurrent major depressive disorder, in partial remission (HCC) - ICD9: 296.35, ICD10: F33.41 Continue current medications. Follow up in 3 months Speedy Byrne MD The documentation for this note was completed by Bhavya Lynne Ma acting as scribe for Speedy Byrne MD. January 06, 2018 3:32 PM. progress on 2018-01-13 Protein mass HNO ID: [id number] Normal 01-13-2018 [facility] conc Author: Waldo Bishop [place] ([id number]) Service: (none) Author Type: Physician Type: Progress Notes Filed: 01/13/2018 5:44 PM Note Text: Marybeth Phelps is a 47 year old female who presents for problem visit for RLQ pain. RLQ pain started a few weeks ago. Describes it as pressure. Radiates into groin and down the anterior right thigh, to the knee. She reports it hurts to touch with light pressure over RLQ. No inciting event. [id number]. She states she has the pain too many times during the day, so she cannot tell number of episodes that she has in a day. Lasts 20min-1hr. Sits still and holds a pillow over abdomen, and she says she shifts around until the pain goes away. No diarrhea or constipation. Last BM was today, describes it as watery. No blood in stools. No dysuria or hematuria. No vaginal discharge. Occasional spotting since her hysterectomy. +Nausea and fatigue. Last pap - normal - 2003 She denies hx of abnormal paps S/p JAZMÍN, BSO for menorrhagia PAST MEDICAL HISTORY Diagnosis Date - Acute peptic ulcer, unspecified site, with hemorrhage, without mention of obstruction - Anxiety state, unspecified 03/27/2006 - C. difficile colitis - Depressive disorder, not elsewhere classified 03/27/2006 - Dysmenorrhea Resolved - Endometriosis, site unspecified Endometriosis ? - Excessive or frequent menstruation Heavy periods resolved - Female stress incontinence - Generalized anxiety disorder - History of pancreatitis - IBS (irritable bowel syndrome) - Irritable bowel syndrome Irritable bowel - Nontoxic uninodular goiter LEFT - Other and unspecified hyperlipidemia 03/27/2006 - PMH - PAST MEDICAL HISTORY OF 1989 ? BOWEL OBSTRUCTION - SVT (supraventricular tachycardia) (HCC) - Symptomatic menopausal or female climacteric states - Type II or unspecified type diabetes mellitus without mention of complication, not stated as uncontrolled - Unspecified constipation Constipation - Unspecified urinary incontinence - Urge incontinence - Urinary calculus, unspecified Renal stones PAST SURGICAL HISTORY Procedure Laterality Date - COLONOSCOPY W/BX 05-24-15 - EGD W/O BRSH SPECIMEN W/BX 05-24-15 - EXPLORATORY OF ABDOMEN DRAINED POST OP HEMATOMA - L'SCOPE DX W/WO BRUSHINGS/WASHINGS FOR ENDOMETRIOSIS/REMOVED R OVCYST - L'SCOPE DX W/WO BRUSHINGS/WASHINGS FOR BOWEL OBSTRUCTION - LIGATE FALLOPIAN TUBE Tubal ligation - REMOVAL GALLBLADDER 10/2004 - THYROID LOBECTOMY,UNILAT 06/02/07 LEFT - TOTAL ABDOM HYSTERECTOMY Hysterectomy, JAZMÍN BSO - TREAT ECTOPIC PREG,NON REMVAL RIGHT ECTOPIC FAMILY HISTORY Problem Relation Age of Onset - Diabetes Father - Cervical Cancer Maternal Aunt - Cancer Maternal Aunt 3 aunts with breast CA - Heart Maternal Grandfather TRIPLE BYPASS SURGERY - Hypertension Maternal Aunt - Diabetes Mother - Coronary Artery Disease Maternal Uncle Lung disease, passed 06/18, - COPD Father - Heart Father Double By-Pass Surgery Social History Marital status: Spouse name: Antonio Years of education: 14 Number of children: 2 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 History 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 LORazepam (ATIVAN) 1 mg tablet TAKE 1 TABLET BY MOUTH EVERY 8 HOURS NEEDED FOR ANXIETY SUMAtriptan (IMITREX) 25 mg tablet Take 1 tablet by mouth as needed. Ok to repeat once after 2 hours mirtazapine (REMERON) 30 mg tablet TAKE 1/2 (ONE-HALF) OF A TABLET EVERY DAY AT BEDTIME atenolol (TENORMIN) 50 mg tablet Take 2 tablets by mouth once daily. venlafaxine ER (EFFEXOR XR) 75 mg 24 hr capsule Take 1 capsule by mouth once daily. Take along with 150 mg pill cyanocobalamin 1,000 mcg/mL soln Inject 1 mL intramuscularly once every month. topiramate (TOPAMAX) 25 mg tablet Take 1 tablet by mouth daily at bedtime. venlafaxine XR (EFFEXOR XR) 150 mg 24 hr capsule Take 1 capsule by mouth once daily. amitriptyline (ELAVIL) 50 mg tablet Take 3 tablets by mouth daily at bedtime. metoprolol tartrate, short acting, (LOPRESSOR) 25 mg tablet Take 1 tablet by mouth twice daily. meclizine (ANTIVERT) 25 mg tab Take 1 tablet by mouth three times daily as needed (dizziness). predniSONE (DELTASONE) 10 mg tablet Take 4 tabs daily for 3 days, then 2 tabs daily for 3 days, then 1 tab daily for 3 days with food. (Patient not taking: Reported on 01/13/2018 ) Current Facility-Administered Medications: cyanocobalamin 1,000 mcg injection 1,000 mcg INTRAMUSCULAR q 1 MONTH Allergies As of Date: 01/13/2018 Allergen Noted Reaction CIPRO [CIPROFLOXACIN] 04/21/2007 Rash CODEINE [OTHER] 06/17/2005 Hives DILAUDID [HYDROMORPHONE (BULK)] 06/05/2009 HYOSCYAMINE 01/09/2007 Rash and Itching PENICILLINS 06/17/2005 Hives Fully Assessed 01/13/2018 REVIEW OF SYSTEMS Abdomen: See HPI Bladder: No dysuria, gross hematuria, urinary frequency. Expanded ROS: GENERAL: No fevers or chills. Positive for fatigue BONBON CREAM WARMER: No vaginal discharge, pruritis, pain MUSCULOSKELETAL: Reports pain radiated into her right leg Allergies and current medication updated:Yes EXAM: BP 90/64 Wt 148 lb 3.2 oz (67.2kg) GENERAL: pleasant, female in no apparent distress HEENT: Normocephalic and atraumatic NECK: full range of motion DERMATOLOGY: Normal and without lesions CHEST: Normal inspiratory effort ABDOMEN: soft, no masses, non-distended, +moderate tenderness in RLQ, no rebounding, no guarding, no rigidity PELVIC: external genitalia normal, good vaginal support, physiologic discharge present, normal vaginal cuff and mucosa, no masses or lesions noted BIMANUAL: no adnexal masses and non-tender NEURO: alert and oriented x3,exam grossly non-focal EXTREMITIES: normal ASSESSMENT AND PLAN: Encounter Diagnosis ICD-10-CM 1. RLQ abdominal pain R10.31 ? Review prior op notes to confirm history of JAZMÍN, BSO ? Normal pelvic exam today ? No acute peritoneal signs on abdominal exam today. Does not appear to be acute appendicitis. Patient reports good appetite, and ate okay today. No fevers, chills, vomiting. Reviewed to go to the ED or call if she experiences severe pain, new fevers, loss of appetite, nausea and vomiting ? Encouraged patient to follow up with PCP for other ideas on what could be causing this RLQ pain radiating into her right leg ? Return for annual exams or sooner if needed Waldo Bishop, DO comp metabolic panel on 2018-01-14 Albumin mass conc Test sent to [facility] 3.9-4.9 Normal 01-14-2018 [facility] ([id number]) Comment: Result Comment: Account Credited HIDE ALP enzyme act/vol Test sent to [facility] 32-117 Normal 01-14-2018 [facility] ([id number]) Comment: Result Comment: Account Credited HIDE ALT enzyme act/vol Test sent to [facility] 7-38 Normal 2018 [facility] ([id number]) Comment: Result Comment: Account Credited HIDE Anion gap molar Test sent to [facility] 9-18 Normal 01-14-[address] [facility] ([id number]) Comment: Result Comment: Account Credited HIDE AST enzyme act/vol Test sent to [facility] 13-35 Normal 01-14-2018 [facility] ([id number]) Comment: Result Comment: Account Credited HIDE Bilirubin mass conc Test sent to 0.2-1.3 Normal 2018 [facility] ([id number]) [facility]. Comment: Result Comment: Account Credited HIDE Calcium mass conc Test sent to 8.5-10.2 Normal 2018 [facility] ([id number]) [facility]. Comment: Result Comment: Account Credited HIDE Chloride molar conc Test sent to [facility] 97-105 Normal 2018 [facility] ([id number]) Comment: Result Comment: Account Credited HIDE CO2 molar conc Test sent to [facility] 22-30 Normal 01-14-2018 [facility] ([id number]) Comment: Result Comment: Account Credited HIDE Creatinine mass Test sent to 0.58-0.96 Normal 01-14-2018 [facility] ([id number]) [facility]. Comment: Result Comment: Account Credited HIDE eGFR- Amer. Test sent to [facility] Normal 01-14-2018 [facility] ([id number]) Comment: Result Comment: Account Credited HIDE GFR/1.73 sq M Test sent to [facility] Normal 01-14-2018 [facility] ([id number]) non-blacks MDRD vol rate/area (S/P/Bld) Comment: Result Comment: Account Credited HIDE Glucose mass conc Test sent to [facility] 74-99 Normal 01-14-2018 [facility] ([id number]) Comment: Result Comment: Account Credited HIDE Potassium molar Test sent to 3.7-5.1 Normal 01-14-2018 [facility] ([id number]) [facility]. Comment: Result Comment: Account Credited HIDE Protein mass conc Test sent to [facility] 6.3-8.0 Normal 01-14-2018 [facility] ([id number]) Comment: Result Comment: Account Credited HIDE Sodium molar conc Test sent to [facility] 136-144 Normal 01-14-2018 [facility] ([id number]) Comment: Result Comment: Account Credited HIDE Urea nitrogen mass Test sent to [facility] 7-21 Normal 01-14-[address] [facility] ([id number]) Comment: Result Comment: Account Credited HIDE [facility] cbc and diff on 2018-01-14 Eosinophils/100 WBC (Bld) 1.2 % Normal 01-14-2018 [facility] ([id number]) Erythrocyte distribution 12.9 11.5-15.0 % Normal 01-14-2018 [facility] width Ratio (RBC) [facility] ([id number]) Hematocrit Volume Fraction 39.8 36.0-46.0 % Normal 01-14-2018 [facility] (Bld) [place] ([id number]) Hemoglobin mass conc (Bld) 13.3 11.5-15.5 g/dL Normal 01-14-2018 [facility] ([id number]) Lymphocytes/100 WBC (Bld) 26.5 % Normal 01-14-2018 [facility] ([id number]) MCH Entitic mass (RBC) 31.1 26.0-34.0 pg Normal 01-14-2018 [facility] ([id number]) MCHC mass conc (RBC) 33.4 30.5-36.0 g/dL Normal 01-14-2018 [facility] ([id number]) MCV Entitic volume (RBC) 93.0 80.0-100.0 fL Normal 01-14-2018 [facility] ([id number]) Platelet mean volume 9.3 9.0-12.7 fL Normal 01-14-2018 [facility] Entitic volume (Bld) Josephine ([id number]) Comment: Result Comment: Test performed at: [facility], [address] [place] [address]., [place] [address]. RBC #/vol (Bld) 4.28 3.90-5.20 m/uL Normal 01-14-2018 [facility] ([id number]) WBC #/vol (Bld) 8.63 3.70-11.00 k/uL Normal 01-14-2018 [facility] ([id number]) Jefferson Abs Baso 0.03 <0.11 k/uL Normal 01-14-2018 [facility] ([id number]) Oneil Abs Eos 0.10 <0.46 k/uL Normal 01-14-2018 [facility] ([id number]) Oneil Abs Lymp 2.29 1.00-4.00 k/uL Normal 01-14-2018 [facility] ([id number]) Jefferson Abs School[place] 0.69 <0.87 k/uL Normal 01-14-2018 [facility] ([id number]) Jefferson Abs Neut 5.52 1.45-7.50 k/uL Normal 01-14-2018 [facility] ([id number]) Oneil Baso% 0.3 % Normal 01-14-2018 [facility] ([id number]) Jefferson Schoolcraft% 8.0 % Normal 01-14-2018 [facility] ([id number]) Oneil Neut% 64.0 % Normal 01-14-2018 [facility] ([id number]) Oneil Platelet Cnt 319 150-400 k/uL Normal 01-14-2018 [facility] ([id number]) cnov on 2017-10-21 CNOV Office Visit ([facility]) Normal 10-21-2017 [facility] Eboni HIGGINSTSMARYBETH A ([id number]) 1970 F [facility] Date Time Provider Department ([id number]) 10/21/17 11:45 AM JAMISON HINES (KISHORE) [facility] During your visit today, we recorded the following information about you: Temperature Pulse Respiration Blood pressure 97.9 degrees 68/minute 16/minute 118/60 Weight 67.6 kg Jamison Hines PA-C 10/21/2017 12:54 PM Signed Subjective HPI Pt presents with chief complaint of right ear pain. She was here 4 days ago and had an abrasion from a qtip. Her ear canal has started to swell and become more painful so she came in for evaluation. She has been taking 200mg ibuprofen for pain. No nvd. No fever or chills. No cough or congestion. Review of Systems HENT: Positive for ear pain. All other systems reviewed and are negative. PAST MEDICAL HISTORY Diagnosis Date - Acute peptic ulcer, unspecified site, with hemorrhage, without mention of obstruction - Anxiety state, unspecified 03/27/2006 - C. difficile colitis - Depressive disorder, not elsewhere classified 03/27/2006 - Dysmenorrhea Resolved - Endometriosis, site unspecified Endometriosis ? - Excessive or frequent menstruation Heavy periods resolved - Female stress incontinence - Generalized anxiety disorder - History of pancreatitis - IBS (irritable bowel syndrome) - Irritable bowel syndrome Irritable bowel - Nontoxic uninodular goiter LEFT - Other and unspecified hyperlipidemia 03/27/2006 - PMH - PAST MEDICAL HISTORY OF 1990 ? BOWEL OBSTRUCTION - SVT (supraventricular tachycardia) (HCC) - Symptomatic menopausal or female climacteric states - Type II or unspecified type diabetes mellitus without mention of complication, not stated as uncontrolled - Unspecified constipation Constipation - Unspecified urinary incontinence - Urge incontinence - Urinary calculus, unspecified Renal stones Current Outpatient Prescriptions: albuterol HFA (VENTOLIN HFA) 90 mcg/actuation inhaler Inhale 2 Puffs as instructed every 4 hours as needed for Wheezing/Shortness of Breath. Disp: 1 Inhaler Rfl: 0 mirtazapine (REMERON) 15 mg tablet Take 1 tablet by mouth daily at bedtime. Disp: 30 tablet Rfl: 1 LORazepam (ATIVAN) 1 mg tablet Take 1 tablet by mouth every 8 hours as needed for Anxiety for up to 90 days. Disp: 60 tablet Rfl: 2 venlafaxine ER (EFFEXOR XR) 75 mg 24 hr capsule Take 1 capsule by mouth once daily. Take along with 150 mg pill Disp: 90 capsule Rfl: 2 cyanocobalamin 1,000 mcg/mL soln Inject 1 mL intramuscularly once every month. Disp: 1 mL Rfl: 12 topiramate (TOPAMAX) 25 mg tablet Take 1 tablet by mouth daily at bedtime. Disp: 30 tablet Rfl: 5 venlafaxine XR (EFFEXOR XR) 150 mg 24 hr capsule Take 1 capsule by mouth once daily. Disp: 90 capsule Rfl: 3 amitriptyline (ELAVIL) 50 mg tablet Take 3 tablets by mouth daily at bedtime. Disp: 270 tablet Rfl: 1 fluticasone (FLONASE) 50 mcg/actuation nasal spray Use 2 Sprays in each nostril once daily. Rinse mouth after use. Disp: 1 Bottle Rfl: 1 metoprolol tartrate, short acting, (LOPRESSOR) 25 mg tablet Take 1 tablet by mouth twice daily. Disp: 60 tablet Rfl: 5 meclizine (ANTIVERT) 25 mg tab Take 1 tablet by mouth three times daily as needed (dizziness). Disp: 30 tablet Rfl: 0 lwpjttyf-kzsggqpjn-ozgdwmdzamhzfu (CORTISPORIN) 3.5-10,000-1 mg/mL-unit/mL-% otic suspension Use 3 Drops in the right ear four times daily for 7 days. Disp: 1 Bottle Rfl: 0 omeprazole (PRILOSEC) 20 mg capsule Take 1 capsule by mouth daily before breakfast. 1/2 hr before meal. (Patient not taking: Reported on 10/18/2017 ) Disp: 30 capsule Rfl: 5 Current Facility-Administered Medications: cyanocobalamin 1,000 mcg injection 1,000 mcg INTRAMUSCULAR q 1 MONTH Speedy D [place]brock 1,000 mcg at 10/07/17 1313 PAST SURGICAL HISTORY Procedure Laterality Date - COLONOSCOPY W/BX 05-24-15 - EGD W/O BRSH SPECIMEN W/BX 05-24-15 - EXPLORATORY OF ABDOMEN DRAINED POST OP HEMATOMA - L'SCOPE DX W/WO BRUSHINGS/WASHINGS FOR ENDOMETRIOSIS/REMOVED R OVCYST - L'SCOPE DX W/WO BRUSHINGS/WASHINGS FOR BOWEL OBSTRUCTION - LIGATE FALLOPIAN TUBE Tubal ligation - REMOVAL GALLBLADDER 10/2004 - THYROID LOBECTOMY,UNILAT 06/02/07 LEFT - TOTAL ABDOM HYSTERECTOMY Hysterectomy, JAZMÍN BSO - TREAT ECTOPIC PREG,NON REMVAL RIGHT ECTOPIC FAMILY HISTORY Problem Relation Age of Onset - Diabetes Father - Cervical Cancer Maternal Aunt - Cancer Maternal Aunt 3 aunts with breast CA - Heart Maternal Grandfather TRIPLE BYPASS SURGERY - Hypertension Maternal Aunt - Diabetes Mother - Coronary Artery Disease Maternal Uncle Lung disease, passed 06/18, - COPD Father - Heart Father Double By-Pass Surgery Social History Substance Use Topics - Smoking status: Current Every Day Smoker Packs/day: 0.50 Years: 21.00 - Smokeless tobacco: Never Used Comment: 1/2 pack / day - Alcohol use Yes Comment: social event, rarely BP 118/60 Pulse 68 Temp 36.6 ?C (97.9 ?F) Resp 16 Wt 67.6 kg (149 lb) BMI 24.38 kg/m? Objective Physical Exam Constitutional: She is oriented to person, place, and time and well-developed, well-nourished, and in no distress. HENT: Head: Normocephalic and atraumatic. Right Ear: Tympanic membrane and external ear normal. Left Ear: Tympanic membrane, external ear and ear canal normal. Right EAC is swollen with erythema and drainage present. Tender when I pull on the pinna. Normal TM. Neck: Normal range of motion. Neck supple. Cardiovascular: Normal rate, regular rhythm and normal heart sounds. Pulmonary/Chest: Effort normal and breath sounds normal. Lymphadenopathy: She has no cervical adenopathy. Neurological: She is alert and oriented to person, place, and time. Skin: Skin is warm and dry. No rash noted. Psychiatric: Affect and judgment normal. Nursing note and vitals reviewed. ASSESSMENT/PLAN: 1. Acute otitis externa of right ear, unspecified type - ICD9: 380.10, ICD10: H60.501 Will treat with cortisporin otic. Discussed keeping the ear dry and taking ibuprofen and tylenol for pain with appropriate dosing addressed. Discussed with patient concerning symptoms to go to the emergency department or follow up here. Pt agreeable with this plan. Jamison Hines PA-C Referring Provider: SELF [[id number]] Allergies As of Date: 10/21/2017 Noted Allergy Reaction CIPRO (CIPROFLOXACIN) 04/21/2007 2 - Rash Comments: Rapid heartbeat, flushed CODEINE [Other] 06/17/2005 4 - Hives DILAUDID (HYDROMORPHONE (BULK)) 06/05/2009 HYOSCYAMINE 01/09/2007 2 - Rash 9 - Itching PENICILLINS 06/17/2005 4 - Hives Date Reviewed: 10/21/2017 Reviewed by: Mila Cuellar LPN - Fully Assessed Reason for Visit: Ear Pain [817] Cmt: x 1 week right ear pain and swelling Primary Visit Diagnosis:Acute otitis externa of right ear, unspecified type [H60.501] Order(s):jwjwrfai-jvybbfkvs-pmcggtbtvbntdp (CORTISPORIN) 3.5-10,000-1 mg/mL-unit/mL-% otic suspensionUse 3 Drops in the right ear four times daily for 7 days.Disp: 1 BottleRfl: 0 Prescriptions as of 10/21/2017 Sig: ALBUTEROL SULFATE HFA 90 MCG/* Inhale 2 Puffs as instructed * MIRTAZAPINE 15 MG TABLET Take 1 tablet by mouth daily * LORAZEPAM 1 MG TABLET Take 1 tablet by mouth every * VENLAFAXINE ER 75 MG CAPSULE,* Take 1 capsule by mouth once * CYANOCOBALAMIN (VIT B-12) 1,0* Inject 1 mL intramuscularly o* TOPIRAMATE 25 MG TABLET Take 1 tablet by mouth daily * VENLAFAXINE ER 150 MG CAPSULE* Take 1 capsule by mouth once * AMITRIPTYLINE 50 MG TABLET Take 3 tablets by mouth daily* FLUTICASONE 50 MCG/ACTUATION * Use 2 Sprays in each nostril * METOPROLOL TARTRATE 25 MG TAB* Take 1 tablet by mouth twice * MECLIZINE 25 MG TABLET Take 1 tablet by mouth three * ETMGUZEO-ZRQLPEFCM-KGQNMKASX * Use 3 Drops in the right ear * OMEPRAZOLE 20 MG CAPSULE,CINDY* Take 1 capsule by mouth daily* Patient not taking: Reported on 10/18/2017 Problem List As Of Date 10/21/2017 Noted Resolved OBESITY [E66.9] INVALID FOR* MIGRAINE COMMON [G43.009] INVALID FOR* PALPITATIONS [R00.2] INVALID FOR* INSOMNIA NOS [G47.00] INVALID FOR* Type II or unspecified type diabetes mellitus w*INVALID FOR*06/07/2013 DEPRESSIVE DISORDER NEC [F32.9] INVALID FOR* Anxiety state [F41.1] INVALID FOR* HYPERLIPIDEMIA NEC/NOS [E78.5] INVALID FOR* IRRITABLE COLON [K58.9] More... 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] INVALID FOR* POSTSURGICAL HYPOTHYROID [E89.0] INVALID FOR* Prescriptions ordered this encounter Disp Refills Start End JQZFAQVM-EJTJCDZVV-AOHQXJYQU 3.5 MG-* 1 Garrison* 0 10/21/2017 10/28/2017 Route: RIGHT EAR Sig: Use 3 Drops in the right ear four times daily for 7 days. Encounter Status:Closed by JAMISON HINES PA-C on 10/21/17 progress on 2017-12-28 Protein mass conc HNO ID: [id number] Normal 12-28-2017 [facility] Author: Cecelia Pierre (Rt) Lam Easley ([id number]) Service: (none) Author Type: Airline Operations Agent Type: Progress Notes Filed: 12/28/2017 11:49 AM Note Text: Radiology Service Progress Note PATIENT NAME: Marybeth Phelps DATE OF SERVICE: December 28, 2017 TIME: 11:31 AM PATIENT IDENTITY VERIFICATION COMPLETED USING TWO (2) METHODS: Patient confirmed name verbally and Date of . PATIENT GENDER DATA: Female. status: : No status: NO. PATIENT RELEVANT IMPLANT DATA REVIEWED: Not Applicable RADIOLOGY DEPARTMENT: General X-ray: Exam(s) Completed: Rib X-Ray: Right Pelvis X-Ray: Pelvis with Hip Right PERIPHERAL IV DATA: Not applicable SIGNED BY: RT Eduin December 28, 2017 11:31 AM Protein mass conc HNO ID: [id number] Normal 12-28-2017 [facility] ([id number][facility] Service: (none) Author Type: Nurse Practitioner Type: Progress Notes Filed: 12/28/2017 12:17 PM Note Text: Subjective HPI Marybeth Phelps is a 47 year old female who presents with right sided rib and hip pain after falling down 6 wooden steps at home 5 days ago. She rates the pain a 7/10 and has taken naproxen. The naproxen upsets her stomach. Review of Systems Constitutional: Negative. Negative for fever. Respiratory: Negative. Negative for cough and shortness of breath. Cardiovascular: Negative. Negative for chest pain. Gastrointestinal: Negative. Negative for abdominal pain, nausea and vomiting. Genitourinary: Negative. Negative for hematuria. Musculoskeletal: Positive for falls and joint pain. BP 90/60 Pulse 74 Temp 36.9 ?C (98.5 ?F) (Left Tympanic) Resp 14 Wt 67.6 kg (149 lb) BMI 24.38 kg/m? PAST MEDICAL HISTORY Diagnosis Date - Acute peptic ulcer, unspecified site, with hemorrhage, without mention of obstruction - Anxiety state, unspecified 03/27/2006 - C. difficile colitis - Depressive disorder, not elsewhere classified 03/27/2006 - Dysmenorrhea Resolved - Endometriosis, site unspecified Endometriosis ? - Excessive or frequent menstruation Heavy periods resolved - Female stress incontinence - Generalized anxiety disorder - History of pancreatitis - IBS (irritable bowel syndrome) - Irritable bowel syndrome Irritable bowel - Nontoxic uninodular goiter LEFT - Other and unspecified hyperlipidemia 03/27/2006 - PMH - PAST MEDICAL HISTORY OF 1990 ? BOWEL OBSTRUCTION - SVT (supraventricular tachycardia) (HCC) - Symptomatic menopausal or female climacteric states - Type II or unspecified type diabetes mellitus without mention of complication, not stated as uncontrolled - Unspecified constipation Constipation - Unspecified urinary incontinence - Urge incontinence - Urinary calculus, unspecified Renal stones PAST SURGICAL HISTORY Procedure Laterality Date - COLONOSCOPY W/BX 05-24-15 - EGD W/O BRSH SPECIMEN W/BX 05-24-15 - EXPLORATORY OF ABDOMEN DRAINED POST OP HEMATOMA - L'SCOPE DX W/WO BRUSHINGS/WASHINGS FOR ENDOMETRIOSIS/REMOVED R OVCYST - L'SCOPE DX W/WO BRUSHINGS/WASHINGS FOR BOWEL OBSTRUCTION - LIGATE FALLOPIAN TUBE Tubal ligation - REMOVAL GALLBLADDER 10/2004 - THYROID LOBECTOMY,UNILAT 06/02/07 LEFT - TOTAL ABDOM HYSTERECTOMY Hysterectomy, JAZMÍN BSO - TREAT ECTOPIC PREG,NON REMVAL RIGHT ECTOPIC ALLERGIES Cipro [Ciprofloxacin]; Codeine [Other]; Dilaudid [Hydromorphone (Bulk)]; Hyoscyamine; Penicillins MEDICATIONS SUMAtriptan (IMITREX) 25 mg tablet Take 1 tablet by mouth as needed. Ok to repeat once after 2 hours mirtazapine (REMERON) 30 mg tablet TAKE 1/2 (ONE-HALF) OF A TABLET EVERY DAY AT BEDTIME naproxen (NAPROSYN) 500 mg tablet Take 1 tablet by mouth twice daily as needed (for pain/inflammation). Take with food. LORazepam (ATIVAN) 1 mg tablet Take 1 tablet by mouth every 8 hours as needed for Anxiety for up to 90 days. atenolol (TENORMIN) 50 mg tablet Take 2 tablets by mouth once daily. atenolol (TENORMIN) 50 mg tablet Take 100 mg by mouth once daily. albuterol HFA (VENTOLIN HFA) 90 mcg/actuation inhaler Inhale 2 Puffs as instructed every 4 hours as needed for Wheezing/Shortness of Breath. venlafaxine ER (EFFEXOR XR) 75 mg 24 hr capsule Take 1 capsule by mouth once daily. Take along with 150 mg pill cyanocobalamin 1,000 mcg/mL soln Inject 1 mL intramuscularly once every month. topiramate (TOPAMAX) 25 mg tablet Take 1 tablet by mouth daily at bedtime. venlafaxine XR (EFFEXOR XR) 150 mg 24 hr capsule Take 1 capsule by mouth once daily. amitriptyline (ELAVIL) 50 mg tablet Take 3 tablets by mouth daily at bedtime. metoprolol tartrate, short acting, (LOPRESSOR) 25 mg tablet Take 1 tablet by mouth twice daily. meclizine (ANTIVERT) 25 mg tab Take 1 tablet by mouth three times daily as needed (dizziness). FAMILY HISTORY Problem Relation Age of Onset - Diabetes Father - Cervical Cancer Maternal Aunt - Cancer Maternal Aunt 3 aunts with breast CA - Heart Maternal Grandfather TRIPLE BYPASS SURGERY - Hypertension Maternal Aunt - Diabetes Mother - Coronary Artery Disease Maternal Uncle Lung disease, passed 06/18, - COPD Father - Heart Father Double By-Pass Surgery Social History Substance Use Topics - Smoking status: Current Every Day Smoker Packs/day: 1.00 Years: 21.00 - Smokeless tobacco: Never Used - Alcohol use Yes Comment: social event, rarely Objective Physical Exam Constitutional: She is well-developed, well-nourished, and in no distress. Cardiovascular: Normal rate and regular rhythm. Pulmonary/Chest: Effort normal and breath sounds normal. No respiratory distress. She has no wheezes. She has no rales. She exhibits tenderness. She exhibits no bony tenderness, no crepitus, no deformity and no swelling. Abdominal: Soft. She exhibits no distension and no mass. There is no tenderness. There is no guarding. Musculoskeletal: Legs: No bruising Neurological: She is alert. Gait normal. Skin: Skin is warm and dry. Nursing note and vitals reviewed. ASSESSMENT/PLAN: 1. Right hip pain - ICD9: 719.45, ICD10: M25.551 (primary diagnosis) - XR HIP GENERAL 3V PELV/AP/LAT RT. My reading: negative. Radiologist RESULT: Pelvic ring is intact. ?Hips are located and axial joint spaces are maintained. ?No fracture. ?No osseous erosion. ?Sacral ala largely obscured by overlying bowel gas. ?SI joints are symmetric. Impression IMPRESSION: No acute/significant pathology. Dictated by : RIA BENEDICT MD 2. Rib pain on right side - ICD9: 786.50, ICD10: R07.81 - XR RIBS/CHEST 3V AP RIB/OBLS/CXR RT. My reading: negative. Radiologist RESULT: No acute rib fracture. ?No pneumothorax. ?No alveolar airspace opacity. ?Heart size and pulmonary vasculature are within normal limits. ? Metallic clips in the right upper quadrant. Impression IMPRESSION: No rib fracture. ?No radiographic evidence for acute cardiopulmonary disease. Dictated by : RIA BENEDICT MD - recommend alternating heat and ice application. - NSAIDS and/or tylenol PRN pain. - Follow-up with your PCP in 3-5 days if symptoms have not improved or sooner if symptoms worsen - Discussed red flags and need for immediate medical evaluation if any occur. - Discussed supportive care treatment with fluids, rest and analgesia. - Discussed expected course of illness Savana Tilley APRN.FIELD ARTILLERY CANNONEER cnov on 2018-01-06 CNOV Office Visit ([facility]) Normal 01-06-2018 [facility] MARYBETH PHELPS ([id number]) 1970 [facility] Date Time Provider Department ([id number]) 01/06/18 3:20 PM [facility] During your visit today, we recorded the following information about you: Pulse Respiration Blood pressure Weight 84/minute 16/minute 100/70 67.2 kg Speedy Byrne MD 01/08/2018 5:20 PM Signed Chief Complaint No chief complaint on file. HPI Marybeth Phelps is a 47 year old female who presents here today for medication follow up. Pt here today for a follow up. Insomnia - No improvement with use of Amitriptyline 50 mg 3 caps po at one at bedtime. Also taking Remeron 30 mg 0.5 tab hs. Still up 3-4 hours at night. HTN - Denies checking BP at home. Denies sob. Admits to tightening in her chest from time to time and dizziness. Anxiety/Depression - State that she is still doing horrible. A lot of stress with her daughter. She is on effexor 225 mg daily, amitriptyline at bedtime, topamax, remeron, ativan. WALKER - States that WALKER are a little more controllable now. States the Imitrex does work to help WALKER's. Skin: complains of erythematous patches, slighty itchy, come and goe Past medical history, appointments, medications, allergies reviewed. Previous Medical History PAST MEDICAL HISTORY Diagnosis Date - Acute peptic ulcer, unspecified site, with hemorrhage, without mention of obstruction - Anxiety state, unspecified 03/27/2006 - C. difficile colitis - Depressive disorder, not elsewhere classified 03/27/2006 - Dysmenorrhea Resolved - Endometriosis, site unspecified Endometriosis ? - Excessive or frequent menstruation Heavy periods resolved - Female stress incontinence - Generalized anxiety disorder - History of pancreatitis - IBS (irritable bowel syndrome) - Irritable bowel syndrome Irritable bowel - Nontoxic uninodular goiter LEFT - Other and unspecified hyperlipidemia 03/27/2006 - PMH - PAST MEDICAL HISTORY OF 1990 ? BOWEL OBSTRUCTION - SVT (supraventricular tachycardia) (HCC) - Symptomatic menopausal or female climacteric states - Type II or unspecified type diabetes mellitus without mention of complication, not stated as uncontrolled - Unspecified constipation Constipation - Unspecified urinary incontinence - Urge incontinence - Urinary calculus, unspecified Renal stones Previous Surgical History PAST SURGICAL HISTORY Procedure Laterality Date - COLONOSCOPY W/BX 05-24-15 - EGD W/O BRSH SPECIMEN W/BX 05-24-15 - EXPLORATORY OF ABDOMEN DRAINED POST OP HEMATOMA - L'SCOPE DX W/WO BRUSHINGS/WASHINGS FOR ENDOMETRIOSIS/REMOVED R OVCYST - L'SCOPE DX W/WO BRUSHINGS/WASHINGS FOR BOWEL OBSTRUCTION - LIGATE FALLOPIAN TUBE Tubal ligation - REMOVAL GALLBLADDER 10/2004 - THYROID LOBECTOMY,UNILAT 06/02/07 LEFT - TOTAL ABDOM HYSTERECTOMY Hysterectomy, JAZMÍN BSO - TREAT ECTOPIC PREG,NON REMVAL RIGHT ECTOPIC Family History FAMILY HISTORY Problem Relation Age of Onset - Diabetes Father - Cervical Cancer Maternal Aunt - Cancer Maternal Aunt 3 aunts with breast CA - Heart Maternal Grandfather TRIPLE BYPASS SURGERY - Hypertension Maternal Aunt - Diabetes Mother - Coronary Artery Disease Maternal Uncle Lung disease, passed 06/18, - COPD Father - Heart Father Double By-Pass Surgery Patient Allergies ALLERGIES Allergen Reactions - Cipro [Ciprofloxaci* Rash Rapid heartbeat, flushed - Codeine [Other] Hives - Dilaudid [Hydromorp* - Hyoscyamine Rash, Itching - Penicillins Hives Current Medications Current Outpatient Prescriptions on File Prior to Visit: VENTOLIN HFA 90 mcg/actuation inhaler Inhale 2 Puffs as instructed every 4 hours as needed for Wheezing/Shortness of Breath. LORazepam (ATIVAN) 1 mg tablet TAKE 1 TABLET BY MOUTH EVERY 8 HOURS NEEDED FOR ANXIETY SUMAtriptan (IMITREX) 25 mg tablet Take 1 tablet by mouth as needed. Ok to repeat once after 2 hours mirtazapine (REMERON) 30 mg tablet TAKE 1/2 (ONE-HALF) OF A TABLET EVERY DAY AT BEDTIME atenolol (TENORMIN) 50 mg tablet Take 2 tablets by mouth once daily. venlafaxine ER (EFFEXOR XR) 75 mg 24 hr capsule Take 1 capsule by mouth once daily. Take along with 150 mg pill cyanocobalamin 1,000 mcg/mL soln Inject 1 mL intramuscularly once every month. topiramate (TOPAMAX) 25 mg tablet Take 1 tablet by mouth daily at bedtime. venlafaxine XR (EFFEXOR XR) 150 mg 24 hr capsule Take 1 capsule by mouth once daily. amitriptyline (ELAVIL) 50 mg tablet Take 3 tablets by mouth daily at bedtime. metoprolol tartrate, short acting, (LOPRESSOR) 25 mg tablet Take 1 tablet by mouth twice daily. meclizine (ANTIVERT) 25 mg tab Take 1 tablet by mouth three times daily as needed (dizziness). 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 General Appearance: Well appearing, alert, in no acute distress, well-hydrated, well nourished.. Lungs: Lungs clear to auscultation. No wheezing, rhonchi, rales. Heart: RRR without murmur, gallop, or rubs. No ectopy. Skin: several faintly erythematous patches on arms, chest Health Maintenance List MAMMOGRAM due on 06/24/2014 INFLUENZA(1) due on 01/10/2018 DIABETES SCREEN due on 10/07/2020 LIPID SCREEN due on 05/01/2022 DTAP,TDAP,TD(3 - Td) due on 05/25/2026 ONE PNEUMOVAX PRIOR TO AGE 63 Completed Data reviewed None ASSESSMENT/PLAN: 1. Dermatitis - ICD9: 692.9, ICD10: L30.9 (primary diagnosis) Will place on a course of prednisone; appears allergic in nature - PREDNISONE 10 MG TABLET - PREDNISONE 10 MG TABLET 2. Recurrent major depressive disorder, in partial remission (HCC) - ICD9: 296.35, ICD10: F33.41 Continue current medications. Follow up in 3 months Speedy Byrne MD The documentation for this note was completed by Bhavya Lynne Ma acting as scribe for Speedy Byrne MD. January 06, 2018 3:32 PM. Referring Provider: SPEEDY BYRNE [[id number]] Allergies As of Date: 01/06/2018 Noted Allergy Reaction CIPRO (CIPROFLOXACIN) 04/21/2007 2 - Rash Comments: Rapid heartbeat, flushed CODEINE [Other] 06/17/2005 4 - Hives DILAUDID (HYDROMORPHONE (BULK)) 06/05/2009 HYOSCYAMINE 01/09/2007 2 - Rash 9 - Itching PENICILLINS 06/17/2005 4 - Hives Date Reviewed: 01/06/2018 Reviewed by: Bhavya Lynne Ma - Fully Assessed Primary Visit Diagnosis:Dermatitis [L30.9] Other Visit Diagnoses:Recurrent major depressive disorder, in partial remission (HCC) [F33.41] Anxiety state [F41.1] Postsurgical hypothyroidism [E89.0] Order(s):predniSONE (DELTASONE) 10 mg tabletTake 4 tabs daily for 3 days, then 2 tabs daily for 3 days, then 1 tab daily for 3 days with food.Disp: 21 tabletRfl: 0 Prescriptions as of 01/06/2018 Sig: VENTOLIN HFA 90 MCG/ACTUATION* Inhale 2 Puffs as instructed * LORAZEPAM 1 MG TABLET TAKE 1 TABLET BY MOUTH EVERY * SUMATRIPTAN 25 MG TABLET Take 1 tablet by mouth as nee* MIRTAZAPINE 30 MG TABLET TAKE 1/2 (ONE-HALF) OF A TABL* ATENOLOL 50 MG TABLET Take 2 tablets by mouth once * VENLAFAXINE ER 75 MG CAPSULE,* Take 1 capsule by mouth once * CYANOCOBALAMIN (VIT B-12) 1,0* Inject 1 mL intramuscularly o* TOPIRAMATE 25 MG TABLET Take 1 tablet by mouth daily * VENLAFAXINE ER 150 MG CAPSULE* Take 1 capsule by mouth once * AMITRIPTYLINE 50 MG TABLET Take 3 tablets by mouth daily* METOPROLOL TARTRATE 25 MG TAB* Take 1 tablet by mouth twice * MECLIZINE 25 MG TABLET Take 1 tablet by mouth three * PREDNISONE 10 MG TABLET Take 4 tabs daily for 3 days,* Problem List As Of Date 01/06/2018 Noted Resolved OBESITY [E66.9] INVALID FOR* MIGRAINE COMMON [G43.009] INVALID FOR* PALPITATIONS [R00.2] INVALID FOR* INSOMNIA NOS [G47.00] INVALID FOR* Type II or unspecified type diabetes mellitus w*INVALID FOR*06/07/2013 Recurrent major depressive disorder, in partial*INVALID FOR* Anxiety state [F41.1] INVALID FOR* HYPERLIPIDEMIA NEC/NOS [E78.5] INVALID FOR* IRRITABLE COLON [K58.9] More... 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] INVALID FOR* POSTSURGICAL HYPOTHYROID [E89.0] INVALID FOR* Prescriptions ordered this encounter Disp Refills Start End PREDNISONE 10 MG TABLET 21 t* 0 01/06/2018 01/06/2018 Sig: Take 4 tabs daily for 3 days, then 2 tabs daily for 3 days, then 1 tab daily for 3 days with food. PREDNISONE 10 MG TABLET 21 t* 0 01/06/2018 01/15/2018 Sig: Take 4 tabs daily for 3 days, then 2 tabs daily for 3 days, then 1 tab daily for 3 days with food. Medications Discontinued During This Encounter naproxen (NAPROSYN) 500 mg tablet 60 t* 0 12/03/2017 01/06/2018 Route: ORAL Sig: Take 1 tablet by mouth twice daily as needed (for pain/inflammation). Take with food. Disc: Adverse Reaction atenolol (TENORMIN) 50 mg tablet 5 09/11/2017 01/06/2018 Class: Historical Med Route: ORAL Sig: Take 100 mg by mouth once daily. Disc: Duplicate Entry predniSONE (DELTASONE) 10 mg tablet 21 t* 0 01/06/2018 01/06/2018 Sig: Take 4 tabs daily for 3 days, then 2 tabs daily for 3 days, then 1 tab daily for 3 days with food. Disc: Reason for discontinue is not on file. Disposition: Return in about 3 months (around 04/08/2018). Follow-up and Disposition History Recorded Letter Text Speedy Byrne MD [address], [place] [address] 01/06/2018 TO WHOM IT MAY CONCERN: This is to confirm that Marybeth Phelps had an appointment and was seen at the [facility] in the Department of Family Medicine by Speedy Byrne MDon 01/06/2018. Sincerely yours, Dr. Speedy Byrne MD Encounter Status:Closed by SPEEDY BYRNE MD on 01/08/18 xr rib/chst 3v ap rib/obl/chst r on 2017-12-28 XR RIB/CHST 3V AP * * *Final Report* * * Normal 12-28-2017 Josephine RIB/OBL/CHST R DATE OF EXAM: Dec 28 2017 11:49AM [facility] WOX [id number] - XR RIB/CHST 3V AP RIB/OBL/CHST R / Josephine PROCEDURE REASON: Pleurodynia ([id number]) * * * * Physician Interpretation * * * * RIGHT RIBS X-RAY WITH CHEST X-RAY TECHNIQUE: 5 images: AP and oblique views of the ribs; frontal view of the chest COMPARISON: No relevant prior INDICATION: Pleurodynia RESULT: No acute rib fracture. No pneumothorax. No alveolar airspace opacity. Heart size and pulmonary vasculature are within normal limits. Metallic clips in the right upper quadrant. - IMPRESSION: No rib fracture. No radiographic evidence for acute cardiopulmonary disease. Picking Tech: PSCB Transcribe Date/Time: Dec 28 2017 11:51A Dictated by : RIA BENEDICT MD This examination was interpreted and the report reviewed and electronically signed by: RIA BENEDICT MD on Dec 28 2017 11:52AM EST [id number] cnov on 2017-10-18 CNOV Office Visit (UCWSTR) Normal 10-18-2017 Josephine MARYBETH Hussein ([id number]) 1970 [facility] Time Provider Department ([id number]) 10/18/17 8:30 AM PANCHO SMITH [facility] During your visit today, we recorded the following information about you: Temperature Pulse Respiration Blood pressure 97.3 degrees 80/minute 16/minute 102/72 Weight 65.2 kg Pancho Smith MD 10/18/2017 9:07 AM Signed Patient presents with: right ear pain-noticed blood coming out of ear: x 2 days HPI: Feeling right ear pain for 2-3 days. Noticed blood using a qtip in the shower. Positive symptoms: blood draining from the ear, external pain with palpation, pain with head movement or chewing, hearing change, intermittent headache, Negative symptoms: Nasal Congestion, Rhinorrhea, Fever, OTC: none. PAST MEDICAL HISTORY Diagnosis Date - Acute peptic ulcer, unspecified site, with hemorrhage, without mention of obstruction - Anxiety state, unspecified 03/27/2006 - C. difficile colitis - Depressive disorder, not elsewhere classified 03/27/2006 - Dysmenorrhea Resolved - Endometriosis, site unspecified Endometriosis ? - Excessive or frequent menstruation Heavy periods resolved - Female stress incontinence - Generalized anxiety disorder - History of pancreatitis - IBS (irritable bowel syndrome) - Irritable bowel syndrome Irritable bowel - Nontoxic uninodular goiter LEFT - Other and unspecified hyperlipidemia 03/27/2006 - PMH - PAST MEDICAL HISTORY OF 1990 ? BOWEL OBSTRUCTION - SVT (supraventricular tachycardia) (HCC) - Symptomatic menopausal or female climacteric states - Type II or unspecified type diabetes mellitus without mention of complication, not stated as uncontrolled - Unspecified constipation Constipation - Unspecified urinary incontinence - Urge incontinence - Urinary calculus, unspecified Renal stones MEDICATIONS: Current Outpatient Prescriptions: albuterol HFA (VENTOLIN HFA) 90 mcg/actuation inhaler Inhale 2 Puffs as instructed every 4 hours as needed for Wheezing/Shortness of Breath. mirtazapine (REMERON) 15 mg tablet Take 1 tablet by mouth daily at bedtime. LORazepam (ATIVAN) 1 mg tablet Take 1 tablet by mouth every 8 hours as needed for Anxiety for up to 90 days. venlafaxine ER (EFFEXOR XR) 75 mg 24 hr capsule Take 1 capsule by mouth once daily. Take along with 150 mg pill cyanocobalamin 1,000 mcg/mL soln Inject 1 mL intramuscularly once every month. topiramate (TOPAMAX) 25 mg tablet Take 1 tablet by mouth daily at bedtime. venlafaxine XR (EFFEXOR XR) 150 mg 24 hr capsule Take 1 capsule by mouth once daily. amitriptyline (ELAVIL) 50 mg tablet Take 3 tablets by mouth daily at bedtime. metoprolol tartrate, short acting, (LOPRESSOR) 25 mg tablet Take 1 tablet by mouth twice daily. meclizine (ANTIVERT) 25 mg tab Take 1 tablet by mouth three times daily as needed (dizziness). omeprazole (PRILOSEC) 20 mg capsule Take 1 capsule by mouth daily before breakfast. 1/2 hr before meal. (Patient not taking: Reported on 10/18/2017 ) fluticasone (FLONASE) 50 mcg/actuation nasal spray Use 2 Sprays in each nostril once daily. Rinse mouth after use. (Patient not taking: Reported on 10/18/2017 ) Current Facility-Administered Medications: cyanocobalamin 1,000 mcg injection 1,000 mcg INTRAMUSCULAR q 1 MONTH ALLERGIES: ALLERGIES Allergen Reactions - Cipro [Ciprofloxaci* Rash Rapid heartbeat, flushed - Codeine [Other] Hives - Dilaudid [Hydromorp* - Hyoscyamine Rash, Itching - Penicillins Hives VITALS: BP 102/72 Pulse 80 Temp 36.3 ?C (97.3 ?F) (Tympanic) Resp 16 Wt 65.2 kg (143 lb 12.8 oz) BMI 23.53 kg/m? Last 6 Encounter Wt Readings: Date: Wt: 10/18/2017 65.2 kg (143 lb 12.8 oz) 05/23/2017 68.5 kg (151 lb) 05/09/2017 73 kg (161 lb) 03/20/2017 71.2 kg (157 lb) 03/12/2017 71.7 kg (158 lb) 11/06/2016 71.8 kg (158 lb 6.4 oz) PHYSICAL EXAM: GEN: Pleasant, in no acute distress. HEENT: PERRL, EOMI, conjunctiva clear Ears: canals clear, TMs without erythema, bulge, or effusion. Small dark red debris against the border of the right TM at 2:00. Sinuses: non-tender frontal sinus, non-tender maxillary sinuses Throat: moist mucous membranes, mild erythema, no exudate Neck: supple, no thyromegaly, no lymphadenopathy HEART: regular rate and rhythm, no murmurs LUNGS: clear to auscultation, no wheezes or crackles, no increased WOB ASSESSMENT/PLAN: 1. Otalgia, right - ICD9: 388.70, ICD10: H92.01 Appears to be blood from cotton tipped swab injury. No visible perforation. Analgesia PRN. Avoid inserting foreign bodies into the auditory canals. Follow up with ENT if pain persists. Pancho Smith MD Referring Provider: SELF [[id number]] Allergies As of Date: 10/18/2017 Noted Allergy Reaction CIPRO (CIPROFLOXACIN) 04/21/2007 2 - Rash Comments: Rapid heartbeat, flushed CODEINE [Other] 06/17/2005 4 - Hives DILAUDID (HYDROMORPHONE (BULK)) 06/05/2009 HYOSCYAMINE 01/09/2007 2 - Rash 9 - Itching PENICILLINS 06/17/2005 4 - Hives Date Reviewed: 10/18/2017 Reviewed by: Suzanne Aleman LPN - Fully Assessed Reason for Visit: right ear pain-noticed blood coming out of ear [Other] Cmt: x 2 days Primary Visit Diagnosis:Otalgia, right [H92.01] Prescriptions as of 10/18/2017 Sig: ALBUTEROL SULFATE HFA 90 MCG/* Inhale 2 Puffs as instructed * MIRTAZAPINE 15 MG TABLET Take 1 tablet by mouth daily * LORAZEPAM 1 MG TABLET Take 1 tablet by mouth every * VENLAFAXINE ER 75 MG CAPSULE,* Take 1 capsule by mouth once * CYANOCOBALAMIN (VIT B-12) 1,0* Inject 1 mL intramuscularly o* TOPIRAMATE 25 MG TABLET Take 1 tablet by mouth daily * VENLAFAXINE ER 150 MG CAPSULE* Take 1 capsule by mouth once * AMITRIPTYLINE 50 MG TABLET Take 3 tablets by mouth daily* METOPROLOL TARTRATE 25 MG TAB* Take 1 tablet by mouth twice * MECLIZINE 25 MG TABLET Take 1 tablet by mouth three * OMEPRAZOLE 20 MG CAPSULE,CINDY* Take 1 capsule by mouth daily* Patient not taking: Reported on 10/18/2017 FLUTICASONE 50 MCG/ACTUATION * Use 2 Sprays in each nostril * Patient not taking: Reported on 10/18/2017 Problem List As Of Date 10/18/2017 Noted Resolved OBESITY [E66.9] INVALID FOR* MIGRAINE COMMON [G43.009] INVALID FOR* PALPITATIONS [R00.2] INVALID FOR* INSOMNIA NOS [G47.00] INVALID FOR* Type II or unspecified type diabetes mellitus w*INVALID FOR*06/07/2013 DEPRESSIVE DISORDER NEC [F32.9] INVALID FOR* Anxiety state [F41.1] INVALID FOR* HYPERLIPIDEMIA NEC/NOS [E78.5] INVALID FOR* IRRITABLE COLON [K58.9] More... 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] INVALID FOR* POSTSURGICAL HYPOTHYROID [E89.0] INVALID FOR* Medications Discontinued During This Encounter fluticasone (FLONASE) 50 mcg/actuati* 16 g 0 05/12/2016 10/18/2017 Route: EACH NOSTRIL Sig: Use 1 Cicero in each nostril once daily. Patient not taking: Reported on 10/18/2017 Disc: Reason for discontinue is not on file. benzonatate (TESSALON PERLE) 100 mg * 60 c* 0 05/23/2017 10/18/2017 Route: ORAL Sig: Take 1 capsule by mouth three times daily as needed. Patient not taking: Reported on 10/18/2017 Disc: Reason for discontinue is not on file. dicyclomine (BENTYL) 10 mg capsule 20 c* 0 06/27/2016 10/18/2017 Route: ORAL Sig: Take 1 capsule by mouth before meals and at bedtime. Patient not taking: Reported on 10/18/2017 Disc: Reason for discontinue is not on file. Encounter Status:Closed by PANCHO SMITH MD on 10/18/17 progress on 2017-12-03 Protein mass HNO ID: [id number] Normal 12-03-2017 [facility] Author: Brian ([employer]) Silver Mosher ([id number]) Service: (none) Author Type: Nurse Practitioner Type: Progress Notes Filed: 12/03/2017 9:55 AM Note Text: Chief Complaint Patient presents with: Pain HPI Marybeth Phelps is a 47 year old female who presents here today for Above Complaints.. Patient presents to bilateral hip pain with right greater than left. Has been present for approximately 3 weeks. No falls or injury that preceded this complaint. No abnormally new activities. She is an avid walker. Location is on the lateral side of the hip. Described as pulsating. Intermittent, stabbing pain. States that she has difficulty getting off the ground after being in a laying position with her grandson. Will walk with a stiff gait when this occurs and then will slowly improve with movement. Has used Advil, Aleve, Bengay, ice, heat, elevation without any improvement. Has a difficult time with finding a comfortable position in bed. Has received cortisone injections to both hips in the past. Past medical history, appointments, medications, allergies reviewed. Previous Medical History PAST MEDICAL HISTORY Diagnosis Date - Acute peptic ulcer, unspecified site, with hemorrhage, without mention of obstruction - Anxiety state, unspecified 03/27/2006 - C. difficile colitis - Depressive disorder, not elsewhere classified 03/27/2006 - Dysmenorrhea Resolved - Endometriosis, site unspecified Endometriosis ? - Excessive or frequent menstruation Heavy periods resolved - Female stress incontinence - Generalized anxiety disorder - History of pancreatitis - IBS (irritable bowel syndrome) - Irritable bowel syndrome Irritable bowel - Nontoxic uninodular goiter LEFT - Other and unspecified hyperlipidemia 03/27/2006 - PMH - PAST MEDICAL HISTORY OF 1989 ? BOWEL OBSTRUCTION - SVT (supraventricular tachycardia) (HCC) - Symptomatic menopausal or female climacteric states - Type II or unspecified type diabetes mellitus without mention of complication, not stated as uncontrolled - Unspecified constipation Constipation - Unspecified urinary incontinence - Urge incontinence - Urinary calculus, unspecified Renal stones Previous Surgical History PAST SURGICAL HISTORY Procedure Laterality Date - COLONOSCOPY W/BX 05-24-15 - EGD W/O BRSH SPECIMEN W/BX 05-24-15 - EXPLORATORY OF ABDOMEN DRAINED POST OP HEMATOMA - L'SCOPE DX W/WO BRUSHINGS/WASHINGS FOR ENDOMETRIOSIS/REMOVED R OVCYST - L'SCOPE DX W/WO BRUSHINGS/WASHINGS FOR BOWEL OBSTRUCTION - LIGATE FALLOPIAN TUBE Tubal ligation - REMOVAL GALLBLADDER 10/2004 - THYROID LOBECTOMY,UNILAT 06/02/07 LEFT - TOTAL ABDOM HYSTERECTOMY Hysterectomy, JAZMÍN BSO - TREAT ECTOPIC PREG,NON REMVAL RIGHT ECTOPIC Family History FAMILY HISTORY Problem Relation Age of Onset - Diabetes Father - Cervical Cancer Maternal Aunt - Cancer Maternal Aunt 3 aunts with breast CA - Heart Maternal Grandfather TRIPLE BYPASS SURGERY - Hypertension Maternal Aunt - Diabetes Mother - Coronary Artery Disease Maternal Uncle Lung disease, passed 06/18, - COPD Father - Heart Father Double By-Pass Surgery Patient Allergies ALLERGIES Allergen Reactions - Cipro [Ciprofloxaci* Rash Rapid heartbeat, flushed - Codeine [Other] Hives - Dilaudid [Hydromorp* - Hyoscyamine Rash, Itching - Penicillins Hives Current Medications Current Outpatient Prescriptions on File Prior to Visit: LORazepam (ATIVAN) 1 mg tablet Take 1 tablet by mouth every 8 hours as needed for Anxiety for up to 90 days. atenolol (TENORMIN) 50 mg tablet Take 2 tablets by mouth once daily. atenolol (TENORMIN) 50 mg tablet Take 100 mg by mouth once daily. albuterol HFA (VENTOLIN HFA) 90 mcg/actuation inhaler Inhale 2 Puffs as instructed every 4 hours as needed for Wheezing/Shortness of Breath. mirtazapine (REMERON) 15 mg tablet Take 1 tablet by mouth daily at bedtime. venlafaxine ER (EFFEXOR XR) 75 mg 24 hr capsule Take 1 capsule by mouth once daily. Take along with 150 mg pill cyanocobalamin 1,000 mcg/mL soln Inject 1 mL intramuscularly once every month. topiramate (TOPAMAX) 25 mg tablet Take 1 tablet by mouth daily at bedtime. venlafaxine XR (EFFEXOR XR) 150 mg 24 hr capsule Take 1 capsule by mouth once daily. amitriptyline (ELAVIL) 50 mg tablet Take 3 tablets by mouth daily at bedtime. fluticasone (FLONASE) 50 mcg/actuation nasal spray Use 2 Sprays in each nostril once daily. Rinse mouth after use. metoprolol tartrate, short acting, (LOPRESSOR) 25 mg tablet Take 1 tablet by mouth twice daily. meclizine (ANTIVERT) 25 mg tab Take 1 tablet by mouth three times daily as needed (dizziness). 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 Reviewed relevant PMHx, PSHx, Social Hx, current medications and allergies. EXAM: BP 92/58 Pulse 88 Temp 36.8 ?C (98.3 ?F) (Tympanic) Wt 66.7 kg (147 lb) BMI 24.05 kg/m? General Appearance: Well appearing, alert, in no acute distress, well-hydrated, well nourished.. Lungs: Lungs clear to auscultation. No wheezing, rhonchi, rales. Heart: RRR without murmur, gallop, or rubs. No ectopy. Musculoskeletal: Right hip: Moderate lateral hip pain with palpation. Patient is able to go through ROM with internal and external rotation without any restriction. Left hip: Mild lateral hip pain with palpation. Patient is able to go through ROM with internal and external rotation without any restriction Health Maintenance List MAMMOGRAM due on 06/24/2014 INFLUENZA(1) due on 01/10/2018 DIABETES SCREEN due on 10/07/2020 LIPID SCREEN due on 05/01/2022 DTAP,TDAP,TD(3 - Td) due on 05/25/2026 ONE PNEUMOVAX PRIOR TO AGE 63 Completed Data reviewed Results Final Report DATE OF EXAM: Jun ?3:32PM ? WOX ? [id number] ?- ?XR HIP AP/LAT W/PELVIS B / PROCEDURE REASON: ENTHESOPATHY OF HIP Physician Interpretation RESULT: PELVIS AND BILATERAL HIPS AP view of pelvis and AP and frogleg lateral views of bilateral hip joints reveal normal bilateral hip joint spaces. ?There is a small lateral osteophyte arising from right acetabulum. ?No bony erosion. ? Bilateral sacroiliac joints appear unremarkable. ?There is no fracture or subluxation. ?Remaining pelvic bones and soft tissue do not show any abnormality. IMPRESSION: 1. ?SMALL POSSIBLE DEGENERATIVE OSTEOPHYTE OF RIGHT HIP JOINT. ? 2. ?NORMAL LEFT HIP JOINT. 3. ?NO OTHER ABNORMALITY OF AP PELVIS. Picking Tech: KIMBERLY Transcribe Date/Time: Jun ?3:38P Dictated by : GIDEON WILLIAMSON M.D. This document has been electronically signed by: GIDEON WILLIAMSON M.D. On Jun ?3:38PM ASSESSMENT/PLAN: 1. Hip pain, bilateral - ICD9: 719.45, ICD10: M25.551, M25.552 (primary diagnosis) - Etiology includes Bursitis vs less likely arthritic. We will start with daily anti-inflammatories, get imaging of the joint space and have her see Dr. Cano in ortho for possible treatment. - Discussed rest, demonstrated stretching with patient. - NAPROXEN 500 MG TABLET - XR HIP GENERAL 3V PELV/AP/LAT RT - XR HIP GENERAL 3V PELV/AP/LAT LT - CONSULT TO ORTHOPAEDICS 2. Screening for breast cancer - ICD9: V76.10, ICD10: Z12.31 - [facility] SCREENING Get imaging, see ortho for recs. Brian Sheppard, DRIVE THRU ORDER TAKER.FIELD ARTILLERY CANNONEER progress on 2017-12-22 Protein mass HNO ID: [id number] Normal 12-22-2017 [facility] Author: Marybeth (Marixa) Hilary Mosher ([id number]) Service: (none) Author Type: Nurse Practitioner Type: Progress Notes Filed: 12/22/2017 4:08 PM Note Text: 12/22/2017 Patient presents with: Headache SUBJECTIVE: This is a 47 year old that is here today for change in headaches. She states that she has had migraines for some time and she does not feel that these are the same. She states that these seem to be coming in clusters and before the relief can completely come, the headache returns. Located in the back of the head and described as an ache. + nausea no vomiting. just feels miserable. She states that it is coming on a few times a day and it is making it really hard to do what needs done. She denies vision changes, weakness, CP, palpitations, SOB. She states that she has tried naproxen, advil, tylenol, excedrin, ice/heat. She is taking her elavil and topamax as ordered. She states that she has had toradol injections in the past and she is wondering if she could try that. PAST MEDICAL HISTORY Diagnosis Date - Acute peptic ulcer, unspecified site, with hemorrhage, without mention of obstruction - Anxiety state, unspecified 03/27/2006 - C. difficile colitis - Depressive disorder, not elsewhere classified 03/27/2006 - Dysmenorrhea Resolved - Endometriosis, site unspecified Endometriosis ? - Excessive or frequent menstruation Heavy periods resolved - Female stress incontinence - Generalized anxiety disorder - History of pancreatitis - IBS (irritable bowel syndrome) - Irritable bowel syndrome Irritable bowel - Nontoxic uninodular goiter LEFT - Other and unspecified hyperlipidemia 03/27/2006 - PMH - PAST MEDICAL HISTORY OF 1990 ? BOWEL OBSTRUCTION - SVT (supraventricular tachycardia) (HCC) - Symptomatic menopausal or female climacteric states - Type II or unspecified type diabetes mellitus without mention of complication, not stated as uncontrolled - Unspecified constipation Constipation - Unspecified urinary incontinence - Urge incontinence - Urinary calculus, unspecified Renal stones ALLERGIES Cipro [Ciprofloxacin]; Codeine [Other]; Dilaudid [Hydromorphone (Bulk)]; Hyoscyamine; Penicillins MEDICATIONS Current Outpatient Prescriptions: mirtazapine (REMERON) 30 mg tablet TAKE 1/2 (ONE-HALF) OF A TABLET EVERY DAY AT BEDTIME naproxen (NAPROSYN) 500 mg tablet Take 1 tablet by mouth twice daily as needed (for pain/inflammation). Take with food. LORazepam (ATIVAN) 1 mg tablet Take 1 tablet by mouth every 8 hours as needed for Anxiety for up to 90 days. atenolol (TENORMIN) 50 mg tablet Take 2 tablets by mouth once daily. atenolol (TENORMIN) 50 mg tablet Take 100 mg by mouth once daily. albuterol HFA (VENTOLIN HFA) 90 mcg/actuation inhaler Inhale 2 Puffs as instructed every 4 hours as needed for Wheezing/Shortness of Breath. venlafaxine ER (EFFEXOR XR) 75 mg 24 hr capsule Take 1 capsule by mouth once daily. Take along with 150 mg pill cyanocobalamin 1,000 mcg/mL soln Inject 1 mL intramuscularly once every month. topiramate (TOPAMAX) 25 mg tablet Take 1 tablet by mouth daily at bedtime. venlafaxine XR (EFFEXOR XR) 150 mg 24 hr capsule Take 1 capsule by mouth once daily. amitriptyline (ELAVIL) 50 mg tablet Take 3 tablets by mouth daily at bedtime. metoprolol tartrate, short acting, (LOPRESSOR) 25 mg tablet Take 1 tablet by mouth twice daily. meclizine (ANTIVERT) 25 mg tab Take 1 tablet by mouth three times daily as needed (dizziness). fluticasone (FLONASE) 50 mcg/actuation nasal spray Use 2 Sprays in each nostril once daily. Rinse mouth after use. Current Facility-Administered Medications: cyanocobalamin 1,000 mcg injection 1,000 mcg INTRAMUSCULAR q 1 MONTH Medications and allergies reviewed by this provider. 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 . Vital signs reviewed by this provider. PHYSICAL EXAMINATION: General appearance: Well appearing, alert, in no acute distress, well-hydrated, well nourished. Skin: Skin color, texture, turgor normal, no suspicious rashes or lesions Head: Normocephalic, no masses, lesions, tenderness or abnormalities Eyes: Anicteric sclera. Pupils are equally round and reactive to light. Extraocular movements are intact. Ears: External ears normal, canals clear, Positive findings: R TM: haile fluid noted behind TM and bulging, L TM: haile fluid noted behind TM and bulging Neck: Supple, no adenopathy; thyroid symmetric, normal size, no bruits Lungs: Lungs clear to auscultation. No wheezing, rhonchi, rales Heart: RRR without murmur, gallop, or rubs. No ectopy Extremities: No deformities, edema, skin discoloration, clubbing or cyanosis. Good capillary refill. , Pulses: 2+ Neuro: Gait normal. Reflexes normal and symmetric. Sensation grossly intact., Negative findings: speech normal, mental status intact, Romberg negative, muscle tone normal, muscle strength normal, rapid alternating movements normal, finger to nose normal ASSESSMENT/PLAN: 1. Intractable cluster headache syndrome, unspecified chronicity pattern - ICD9: 339.00, ICD10: G44.001 (primary diagnosis) - will give toradol today, educated to avoid NSAIDs. Imitrex as needed if the cluster headaches return. Will refer to neuro for the increase/change in headache symptoms. - SUMATRIPTAN 25 MG TABLET - KETOROLAC 60 MG/2 ML INTRAMUSCULAR SOLUTION - CONSULT TO NEUROLOGY 2. History of migraine - ICD9: V12.49, ICD10: Z86.69 - CONSULT TO NEUROLOGY Marybeth Haile APRN.MARIXA sosa on 2017-12-22 CNOV Office Visit (FAMPWS) Normal 12-22-2017 [facility] MARYBETH PHELPS ([id number]) 1970 F [facility] Date Time Provider Department ([id number]) 12/22/17 3:00 PM MARYBETH HAILE (MARIXA) FAMIndiaWS During your visit today, we recorded the following information about you: Pulse Respiration Blood pressure Weight 78/minute 20/minute 118/76 66.7 kg Marybeth Haile APRN.CNP 12/22/2017 4:08 PM Signed 12/22/2017 Patient presents with: Headache SUBJECTIVE: This is a 47 year old that is here today for change in headaches. She states that she has had migraines for some time and she does not feel that these are the same. She states that these seem to be coming in clusters and before the relief can completely come, the headache returns. Located in the back of the head and described as an ache. + nausea no vomiting. just feels miserable. She states that it is coming on a few times a day and it is making it really hard to do what needs done. She denies vision changes, weakness, CP, palpitations, SOB. She states that she has tried naproxen, advil, tylenol, excedrin, ice/heat. She is taking her elavil and topamax as ordered. She states that she has had toradol injections in the past and she is wondering if she could try that. PAST MEDICAL HISTORY Diagnosis Date - Acute peptic ulcer, unspecified site, with hemorrhage, without mention of obstruction - Anxiety state, unspecified 03/27/2006 - C. difficile colitis - Depressive disorder, not elsewhere classified 03/27/2006 - Dysmenorrhea Resolved - Endometriosis, site unspecified Endometriosis ? - Excessive or frequent menstruation Heavy periods resolved - Female stress incontinence - Generalized anxiety disorder - History of pancreatitis - IBS (irritable bowel syndrome) - Irritable bowel syndrome Irritable bowel - Nontoxic uninodular goiter LEFT - Other and unspecified hyperlipidemia 03/27/2006 - PMH - PAST MEDICAL HISTORY OF 1990 ? BOWEL OBSTRUCTION - SVT (supraventricular tachycardia) (HCC) - Symptomatic menopausal or female climacteric states - Type II or unspecified type diabetes mellitus without mention of complication, not stated as uncontrolled - Unspecified constipation Constipation - Unspecified urinary incontinence - Urge incontinence - Urinary calculus, unspecified Renal stones ALLERGIES Cipro [Ciprofloxacin]; Codeine [Other]; Dilaudid [Hydromorphone (Bulk)]; Hyoscyamine; Penicillins MEDICATIONS Current Outpatient Prescriptions: mirtazapine (REMERON) 30 mg tablet TAKE 1/2 (ONE-HALF) OF A TABLET EVERY DAY AT BEDTIME naproxen (NAPROSYN) 500 mg tablet Take 1 tablet by mouth twice daily as needed (for pain/inflammation). Take with food. LORazepam (ATIVAN) 1 mg tablet Take 1 tablet by mouth every 8 hours as needed for Anxiety for up to 90 days. atenolol (TENORMIN) 50 mg tablet Take 2 tablets by mouth once daily. atenolol (TENORMIN) 50 mg tablet Take 100 mg by mouth once daily. albuterol HFA (VENTOLIN HFA) 90 mcg/actuation inhaler Inhale 2 Puffs as instructed every 4 hours as needed for Wheezing/Shortness of Breath. venlafaxine ER (EFFEXOR XR) 75 mg 24 hr capsule Take 1 capsule by mouth once daily. Take along with 150 mg pill cyanocobalamin 1,000 mcg/mL soln Inject 1 mL intramuscularly once every month. topiramate (TOPAMAX) 25 mg tablet Take 1 tablet by mouth daily at bedtime. venlafaxine XR (EFFEXOR XR) 150 mg 24 hr capsule Take 1 capsule by mouth once daily. amitriptyline (ELAVIL) 50 mg tablet Take 3 tablets by mouth daily at bedtime. metoprolol tartrate, short acting, (LOPRESSOR) 25 mg tablet Take 1 tablet by mouth twice daily. meclizine (ANTIVERT) 25 mg tab Take 1 tablet by mouth three times daily as needed (dizziness). fluticasone (FLONASE) 50 mcg/actuation nasal spray Use 2 Sprays in each nostril once daily. Rinse mouth after use. Current Facility-Administered Medications: cyanocobalamin 1,000 mcg injection 1,000 mcg INTRAMUSCULAR q 1 MONTH Medications and allergies reviewed by this provider. 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 . Vital signs reviewed by this provider. PHYSICAL EXAMINATION: General appearance: Well appearing, alert, in no acute distress, well-hydrated, well nourished. Skin: Skin color, texture, turgor normal, no suspicious rashes or lesions Head: Normocephalic, no masses, lesions, tenderness or abnormalities Eyes: Anicteric sclera. Pupils are equally round and reactive to light. Extraocular movements are intact. Ears: External ears normal, canals clear, Positive findings: R TM: haile fluid noted behind TM and bulging, L TM: haile fluid noted behind TM and bulging Neck: Supple, no adenopathy; thyroid symmetric, normal size, no bruits Lungs: Lungs clear to auscultation. No wheezing, rhonchi, rales Heart: RRR without murmur, gallop, or rubs. No ectopy Extremities: No deformities, edema, skin discoloration, clubbing or cyanosis. Good capillary refill. , Pulses: 2+ Neuro: Gait normal. Reflexes normal and symmetric. Sensation grossly intact., Negative findings: speech normal, mental status intact, Romberg negative, muscle tone normal, muscle strength normal, rapid alternating movements normal, finger to nose normal ASSESSMENT/PLAN: 1. Intractable cluster headache syndrome, unspecified chronicity pattern - ICD9: 339.00, ICD10: G44.001 (primary diagnosis) - will give toradol today, educated to avoid NSAIDs. Imitrex as needed if the cluster headaches return. Will refer to neuro for the increase/change in headache symptoms. - SUMATRIPTAN 25 MG TABLET - KETOROLAC 60 MG/2 ML INTRAMUSCULAR SOLUTION - CONSULT TO NEUROLOGY 2. History of migraine - ICD9: V12.49, ICD10: Z86.69 - CONSULT TO NEUROLOGY Marybeth Haile APRN.FIELD ARTILLERY CANNONEER Referring Provider: SELF [[id number]] Allergies As of Date: 12/22/2017 Noted Allergy Reaction CIPRO (CIPROFLOXACIN) 04/21/2007 2 - Rash Comments: Rapid heartbeat, flushed CODEINE [Other] 06/17/2005 4 - Hives DILAUDID (HYDROMORPHONE (BULK)) 06/05/2009 HYOSCYAMINE 01/09/2007 2 - Rash 9 - Itching PENICILLINS 06/17/2005 4 - Hives Date Reviewed: 12/22/2017 Reviewed by: Kate (Tricia) TRICIA Henson - Fully Assessed Reason for Visit: Headache [52] Primary Visit Diagnosis:Intractable cluster headache syndrome, unspecified chronicity pattern [G44.001] Other Visit Diagnosis:History of migraine [Z86.69] Order(s):SUMAtriptan (IMITREX) 25 mg tabletTake 1 tablet by mouth as needed. Ok to repeat once after 2 hoursDisp: 15 tabletRfl: 0 [] ketorolac 60 mg injection (TORADOL)Disp: Rfl: CONSULT TO NEUROLOGY [2400] Order #: [id number]: 1 Prescriptions as of 12/22/2017 Sig: MIRTAZAPINE 30 MG TABLET TAKE 1/2 (ONE-HALF) OF A TABL* NAPROXEN 500 MG TABLET Take 1 tablet by mouth twice * LORAZEPAM 1 MG TABLET Take 1 tablet by mouth every * ATENOLOL 50 MG TABLET Take 2 tablets by mouth once * ATENOLOL 50 MG TABLET Take 100 mg by mouth once vicki* ALBUTEROL SULFATE HFA 90 MCG/* Inhale 2 Puffs as instructed * VENLAFAXINE ER 75 MG CAPSULE,* Take 1 capsule by mouth once * CYANOCOBALAMIN (VIT B-12) 1,0* Inject 1 mL intramuscularly o* TOPIRAMATE 25 MG TABLET Take 1 tablet by mouth daily * VENLAFAXINE ER 150 MG CAPSULE* Take 1 capsule by mouth once * AMITRIPTYLINE 50 MG TABLET Take 3 tablets by mouth daily* METOPROLOL TARTRATE 25 MG TAB* Take 1 tablet by mouth twice * MECLIZINE 25 MG TABLET Take 1 tablet by mouth three * SUMATRIPTAN 25 MG TABLET Take 1 tablet by mouth as nee* Problem List As Of Date 12/22/2017 Noted Resolved OBESITY [E66.9] INVALID FOR* MIGRAINE COMMON [G43.009] INVALID FOR* PALPITATIONS [R00.2] INVALID FOR* INSOMNIA NOS [G47.00] INVALID FOR* Type II or unspecified type diabetes mellitus w*INVALID FOR*06/07/2013 DEPRESSIVE DISORDER NEC [F32.9] INVALID FOR* Anxiety state [F41.1] INVALID FOR* HYPERLIPIDEMIA NEC/NOS [E78.5] INVALID FOR* IRRITABLE COLON [K58.9] More... 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] INVALID FOR* POSTSURGICAL HYPOTHYROID [E89.0] INVALID FOR* Prescriptions ordered this encounter Disp Refills Start End SUMATRIPTAN 25 MG TABLET 15 t* 0 12/22/2017 Route: ORAL Sig: Take 1 tablet by mouth as needed. Ok to repeat once after 2 hours KETOROLAC 60 MG/2 ML INTRAMUSCULAR S* 12/22/2017 12/22/2017 Route: INTRAMUSCULA Medications Discontinued During This Encounter fluticasone (FLONASE) 50 mcg/actuati* 1 Garrison* 1 03/20/2017 12/22/2017 Route: EACH NOSTRIL Sig: Use 2 Sprays in each nostril once daily. Rinse mouth after use. Disc: Reason for discontinue is not on file. Encounter Status:Closed by MARYBETH HAILE on 12/22/17 comp metabolic panel on 2017-10-07 Albumin mass conc 4.0 3.9-4.9 g/dL Normal 10-07-2017 [facility] ([id number]) Comment: Performed By: #### CBCDIF, CMP, TSH #### [facility] [address] [place], [place] [address] ALP enzyme act/vol 96 32-117 U/L Normal 10-07-2017 [facility] ([id number]) Comment: Performed By: #### CBCDIF, CMP, TSH #### [facility] [address] [place], [place] [address] ALT enzyme act/vol 25 7-38 U/L Normal 10-07-2017 [facility] ([id number]) Comment: Performed By: #### CBCDIF, CMP, TSH #### [facility] [address] [place] [phone] Anion gap molar conc 13 9-18 mmol/L Normal 10-07-2017 [facility] ([id number]) Comment: Performed By: #### CBCDIF, CMP, TSH #### [facility] [address] [place] [phone] AST enzyme act/vol 23 13-35 U/L Normal 10-07-2017 [facility] ([id number]) Comment: Performed By: #### CBCDIF, CMP, TSH #### [facility] [address] [place] [phone] Bilirubin mass conc 0.4 0.2-1.3 mg/dL Normal 10-07-2017 [facility] ([id number]) Comment: Performed By: #### CBCDIF, CMP, TSH #### [facility] [address] [phone] Calcium mass conc 9.0 8.5-10.2 mg/dL Normal 10-07-2017 [facility] ([id number]) Comment: Performed By: #### CBCDIF, CMP, TSH #### [facility] [address] [place] [phone] Chloride molar conc 101 97-105 mmol/L Normal 10-07-2017 [facility] ([id number]) Comment: Performed By: #### CBCDIF, CMP, TSH #### [facility] [address] [place] [phone] CO2 molar conc 24 22-30 mmol/L Normal 10-07-2017 [facility] ([id number]) Comment: Performed By: #### CBCDIF, CMP, TSH #### [facility] [address] [place] [phone] Creatinine mass conc 0.79 0.58-0.96 mg/dL Normal 10-07-2017 [facility] ([id number]) Comment: Performed By: #### CORAL TENORIO, TSH #### [facility] [address] [place], [place] [address] eGFR- Amer. >60 Normal 10-07-2017 [facility] ([id number]) Comment: Performed By: #### CORAL TENORIO, TSH #### [facility] [address] [place] [phone] GFR/1.73 sq M predicted >60 mL/min/{1.73_m2} Normal 10-07-2017 [facility] among non-blacks [facility] ([id number]) vol rate/area (S/P/Bld) Comment: Result Comment: eGFR (Estimated GFR) Units of measure: mL/min/1.73 meters squared eGFR is derived from the reexpressed MDRD Study equation using the following parameters: serum creatinine, age, gender and race. The creatinine assay has been calibrated to be traceable to IDMS. An eGFR <60 mL/min/1.73m2 for >3 months is consistent with chronic kidney disease. Refer to KDOQI guidelines for clinical interpretation. In patients with unstable renal function, e.g. those with acute kidney injury, the eGFR may not accurately reflect actual GFR. Performed By: #### CORAL TENORIO, TSH #### [facility] [address] [place] [place] [phone] Glucose mass conc 70 74-99 mg/dL Low 10-07-2017 [facility] ([id number]) Comment: Result Comment: The [place] [employer] (ADA) provides guidance for cutoff values for fasting glucose and random glucose. The ADA defines fasting as no caloric intake for at least 8 hours. Fas ting plasma glucose results between 100 to 125 mg/dL indicate increased risk for diabetes (prediabetes). Fasting plasma glucose results greater than or equal to 126 mg/dL meet the criteria for diagnosis of diabetes. In the absence of unequivocal hyperglycemia, results should be confirmed by repeat testing. In a patient with classic symptoms of hyperglycemia or hyperglycemic crisis, random plasma glucose results greater than or equal to 200 mg/dL meet the criteria for diagnosis of diabetes. Reference: Standards of Medical Care in Diabetes 2016, [place] [employer]. Diabetes Care. 2016.39(Suppl 1). Performed By: #### CBCDIF, CMP, TSH #### [facility] [address] [place] [address] Potassium molar conc 4.2 3.7-5.1 mmol/L Normal 10-07-2017 [facility] ([id number]) Comment: Performed By: #### CBCDIF, CMP, TSH #### [facility] [address] [place] [address] Protein mass conc 6.7 6.3-8.0 g/dL Normal 10-07-2017 [facility] ([id number]) Comment: Performed By: #### CBCDIF, CMP, TSH #### [place] [address] Sodium molar conc 138 136-144 mmol/L Normal 10-07-2017 [facility] ([id number]) Comment: Performed By: #### CBCDIF, CMP, TSH #### [facility] [address] [place] [address] Urea nitrogen mass conc 12 7-21 mg/dL Normal 10-07-2017 [facility] ([id number]) Comment: Performed By: #### CBCDIF, CMP, TSH #### [place] [phone] progress on 2017-10-21 Protein mass HNO ID: [id number] Normal 10-21-2017 [facility] Author: Jamison Sifuentes) [facility] Service: (none) [facility] Author Type: Physician [facility] ([id number]) Type: Progress Notes Filed: 10/21/2017 12:54 PM Note Text: Subjective HPI Pt presents with chief complaint of right ear pain. She was here 4 days ago and had an abrasion from a qtip. Her ear canal has started to swell and become more painful so she came in for evaluation. She has been taking 200mg ibuprofen for pain. No nvd. No fever or chills. No cough or congestion. Review of Systems HENT: Positive for ear pain. All other systems reviewed and are negative. PAST MEDICAL HISTORY Diagnosis Date - Acute peptic ulcer, unspecified site, with hemorrhage, without mention of obstruction - Anxiety state, unspecified 03/27/2006 - C. difficile colitis - Depressive disorder, not elsewhere classified 03/27/2006 - Dysmenorrhea Resolved - Endometriosis, site unspecified Endometriosis ? - Excessive or frequent menstruation Heavy periods resolved - Female stress incontinence - Generalized anxiety disorder - History of pancreatitis - IBS (irritable bowel syndrome) - Irritable bowel syndrome Irritable bowel - Nontoxic uninodular goiter LEFT - Other and unspecified hyperlipidemia 03/27/2006 - PMH - PAST MEDICAL HISTORY OF 1990 ? BOWEL OBSTRUCTION - SVT (supraventricular tachycardia) (HCC) - Symptomatic menopausal or female climacteric states - Type II or unspecified type diabetes mellitus without mention of complication, not stated as uncontrolled - Unspecified constipation Constipation - Unspecified urinary incontinence - Urge incontinence - Urinary calculus, unspecified Renal stones Current Outpatient Prescriptions: albuterol HFA (VENTOLIN HFA) 90 mcg/actuation inhaler Inhale 2 Puffs as instructed every 4 hours as needed for Wheezing/Shortness of Breath. Disp: 1 Inhaler Rfl: 0 mirtazapine (REMERON) 15 mg tablet Take 1 tablet by mouth daily at bedtime. Disp: 30 tablet Rfl: 1 LORazepam (ATIVAN) 1 mg tablet Take 1 tablet by mouth every 8 hours as needed for Anxiety for up to 90 days. Disp: 60 tablet Rfl: 2 venlafaxine ER (EFFEXOR XR) 75 mg 24 hr capsule Take 1 capsule by mouth once daily. Take along with 150 mg pill Disp: 90 capsule Rfl: 2 cyanocobalamin 1,000 mcg/mL soln Inject 1 mL intramuscularly once every month. Disp: 1 mL Rfl: 12 topiramate (TOPAMAX) 25 mg tablet Take 1 tablet by mouth daily at bedtime. Disp: 30 tablet Rfl: 5 venlafaxine XR (EFFEXOR XR) 150 mg 24 hr capsule Take 1 capsule by mouth once daily. Disp: 90 capsule Rfl: 3 amitriptyline (ELAVIL) 50 mg tablet Take 3 tablets by mouth daily at bedtime. Disp: 270 tablet Rfl: 1 fluticasone (FLONASE) 50 mcg/actuation nasal spray Use 2 Sprays in each nostril once daily. Rinse mouth after use. Disp: 1 Bottle Rfl: 1 metoprolol tartrate, short acting, (LOPRESSOR) 25 mg tablet Take 1 tablet by mouth twice daily. Disp: 60 tablet Rfl: 5 meclizine (ANTIVERT) 25 mg tab Take 1 tablet by mouth three times daily as needed (dizziness). Disp: 30 tablet Rfl: 0 yafbljmx-etefjhfmc-ipgozxmfzjampy (CORTISPORIN) 3.5-10,000-1 mg/mL-unit/mL-% otic suspension Use 3 Drops in the right ear four times daily for 7 days. Disp: 1 Bottle Rfl: 0 omeprazole (PRILOSEC) 20 mg capsule Take 1 capsule by mouth daily before breakfast. 1/2 hr before meal. (Patient not taking: Reported on 10/18/2017 ) Disp: 30 capsule Rfl: 5 Current Facility-Administered Medications: cyanocobalamin 1,000 mcg injection 1,000 mcg INTRAMUSCULAR q 1 MONTH Speedy D [place]brock 1,000 mcg at 10/07/17 1313 PAST SURGICAL HISTORY Procedure Laterality Date - COLONOSCOPY W/BX 05-24-15 - EGD W/O BRSH SPECIMEN W/BX 05-24-15 - EXPLORATORY OF ABDOMEN DRAINED POST OP HEMATOMA - L'SCOPE DX W/WO BRUSHINGS/WASHINGS FOR ENDOMETRIOSIS/REMOVED R OVCYST - L'SCOPE DX W/WO BRUSHINGS/WASHINGS FOR BOWEL OBSTRUCTION - LIGATE FALLOPIAN TUBE Tubal ligation - REMOVAL GALLBLADDER 10/2004 - THYROID LOBECTOMY,UNILAT 06/02/07 LEFT - TOTAL ABDOM HYSTERECTOMY Hysterectomy, JAZMÍN BSO - TREAT ECTOPIC PREG,NON REMVAL RIGHT ECTOPIC FAMILY HISTORY Problem Relation Age of Onset - Diabetes Father - Cervical Cancer Maternal Aunt - Cancer Maternal Aunt 3 aunts with breast CA - Heart Maternal Grandfather TRIPLE BYPASS SURGERY - Hypertension Maternal Aunt - Diabetes Mother - Coronary Artery Disease Maternal Uncle Lung disease, passed 06/18, - COPD Father - Heart Father Double By-Pass Surgery Social History Substance Use Topics - Smoking status: Current Every Day Smoker Packs/day: 0.50 Years: 21.00 - Smokeless tobacco: Never Used Comment: 1/2 pack / day - Alcohol use Yes Comment: social event, rarely BP 118/60 Pulse 68 Temp 36.6 ?C (97.9 ?F) Resp 16 Wt 67.6 kg (149 lb) BMI 24.38 kg/m? Objective Physical Exam Constitutional: She is oriented to person, place, and time and well-developed, well-nourished, and in no distress. HENT: Head: Normocephalic and atraumatic. Right Ear: Tympanic membrane and external ear normal. Left Ear: Tympanic membrane, external ear and ear canal normal. Right EAC is swollen with erythema and drainage present. Tender when I pull on the pinna. Normal TM. Neck: Normal range of motion. Neck supple. Cardiovascular: Normal rate, regular rhythm and normal heart sounds. Pulmonary/Chest: Effort normal and breath sounds normal. Lymphadenopathy: She has no cervical adenopathy. Neurological: She is alert and oriented to person, place, and time. Skin: Skin is warm and dry. No rash noted. Psychiatric: Affect and judgment normal. Nursing note and vitals reviewed. ASSESSMENT/PLAN: 1. Acute otitis externa of right ear, unspecified type - ICD9: 380.10, ICD10: H60.501 Will treat with cortisporin otic. Discussed keeping the ear dry and taking ibuprofen and tylenol for pain with appropriate dosing addressed. Discussed with patient concerning symptoms to go to the emergency department or follow up here. Pt agreeable with this plan. Jamison Hines PA-C progress on 2017-11-07 Protein mass conc HNO ID: [id number] Normal 11-07-2017 [facility] Author: Rula Baumann LPN [facility] ([id number]) Service: (none) Author Type: (none) Type: Progress Notes Filed: 11/07/2017 10:39 AM Note Text: Patient presents for B-12 injection. Denies any problems at this time. Patient instructed on any SE of medication, verbalized understanding and agreed to proceed with treatment. Tolerated injection well. Rula Baumann LPN cnely on 2017-12-03 CNOV Office Visit (FAMPWS) Normal 12-03-2017 [facility] MARYBETH PHELPS ([id number]) 1970 F [facility] Time Provider Department ([id number]) 12/03/17 9:00 AM BRIAN SHEPPARD (FIELD ARTILLERY CANNONEER) ULISES During your visit today, we recorded the following information about you: Temperature Pulse Blood pressure Weight 98.3 degrees 88/minute 92/58 66.7 kg Brian Sheppard APRN.CNP 12/03/2017 9:55 AM Signed Chief Complaint Patient presents with: Pain HPI Marybeth Phelps is a 47 year old female who presents here today for Above Complaints.. Patient presents to bilateral hip pain with right greater than left. Has been present for approximately 3 weeks. No falls or injury that preceded this complaint. No abnormally new activities. She is an avid walker. Location is on the lateral side of the hip. Described as pulsating. Intermittent, stabbing pain. States that she has difficulty getting off the ground after being in a laying position with her grandson. Will walk with a stiff gait when this occurs and then will slowly improve with movement. Has used Advil, Aleve, Bengay, ice, heat, elevation without any improvement. Has a difficult time with finding a comfortable position in bed. Has received cortisone injections to both hips in the past. Past medical history, appointments, medications, allergies reviewed. Previous Medical History PAST MEDICAL HISTORY Diagnosis Date - Acute peptic ulcer, unspecified site, with hemorrhage, without mention of obstruction - Anxiety state, unspecified 03/27/2006 - C. difficile colitis - Depressive disorder, not elsewhere classified 03/27/2006 - Dysmenorrhea Resolved - Endometriosis, site unspecified Endometriosis ? - Excessive or frequent menstruation Heavy periods resolved - Female stress incontinence - Generalized anxiety disorder - History of pancreatitis - IBS (irritable bowel syndrome) - Irritable bowel syndrome Irritable bowel - Nontoxic uninodular goiter LEFT - Other and unspecified hyperlipidemia 03/27/2006 - PMH - PAST MEDICAL HISTORY OF 1990 ? BOWEL OBSTRUCTION - SVT (supraventricular tachycardia) (HCC) - Symptomatic menopausal or female climacteric states - Type II or unspecified type diabetes mellitus without mention of complication, not stated as uncontrolled - Unspecified constipation Constipation - Unspecified urinary incontinence - Urge incontinence - Urinary calculus, unspecified Renal stones Previous Surgical History PAST SURGICAL HISTORY Procedure Laterality Date - COLONOSCOPY W/BX 05-24-15 - EGD W/O BRSH SPECIMEN W/BX 05-24-15 - EXPLORATORY OF ABDOMEN DRAINED POST OP HEMATOMA - L'SCOPE DX W/WO BRUSHINGS/WASHINGS FOR ENDOMETRIOSIS/REMOVED R OVCYST - L'SCOPE DX W/WO BRUSHINGS/WASHINGS FOR BOWEL OBSTRUCTION - LIGATE FALLOPIAN TUBE Tubal ligation - REMOVAL GALLBLADDER 10/2004 - THYROID LOBECTOMY,UNILAT 06/02/07 LEFT - TOTAL ABDOM HYSTERECTOMY Hysterectomy, JAZMÍN BSO - TREAT ECTOPIC PREG,NON REMVAL RIGHT ECTOPIC Family History FAMILY HISTORY Problem Relation Age of Onset - Diabetes Father - Cervical Cancer Maternal Aunt - Cancer Maternal Aunt 3 aunts with breast CA - Heart Maternal Grandfather TRIPLE BYPASS SURGERY - Hypertension Maternal Aunt - Diabetes Mother - Coronary Artery Disease Maternal Uncle Lung disease, passed 06/18, - COPD Father - Heart Father Double By-Pass Surgery Patient Allergies ALLERGIES Allergen Reactions - Cipro [Ciprofloxaci* Rash Rapid heartbeat, flushed - Codeine [Other] Hives - Dilaudid [Hydromorp* - Hyoscyamine Rash, Itching - Penicillins Hives Current Medications Current Outpatient Prescriptions on File Prior to Visit: LORazepam (ATIVAN) 1 mg tablet Take 1 tablet by mouth every 8 hours as needed for Anxiety for up to 90 days. atenolol (TENORMIN) 50 mg tablet Take 2 tablets by mouth once daily. atenolol (TENORMIN) 50 mg tablet Take 100 mg by mouth once daily. albuterol HFA (VENTOLIN HFA) 90 mcg/actuation inhaler Inhale 2 Puffs as instructed every 4 hours as needed for Wheezing/Shortness of Breath. mirtazapine (REMERON) 15 mg tablet Take 1 tablet by mouth daily at bedtime. venlafaxine ER (EFFEXOR XR) 75 mg 24 hr capsule Take 1 capsule by mouth once daily. Take along with 150 mg pill cyanocobalamin 1,000 mcg/mL soln Inject 1 mL intramuscularly once every month. topiramate (TOPAMAX) 25 mg tablet Take 1 tablet by mouth daily at bedtime. venlafaxine XR (EFFEXOR XR) 150 mg 24 hr capsule Take 1 capsule by mouth once daily. amitriptyline (ELAVIL) 50 mg tablet Take 3 tablets by mouth daily at bedtime. fluticasone (FLONASE) 50 mcg/actuation nasal spray Use 2 Sprays in each nostril once daily. Rinse mouth after use. metoprolol tartrate, short acting, (LOPRESSOR) 25 mg tablet Take 1 tablet by mouth twice daily. meclizine (ANTIVERT) 25 mg tab Take 1 tablet by mouth three times daily as needed (dizziness). 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 Reviewed relevant PMHx, PSHx, Social Hx, current medications and allergies. EXAM: BP 92/58 Pulse 88 Temp 36.8 ?C (98.3 ?F) (Tympanic) Wt 66.7 kg (147 lb) BMI 24.05 kg/m? General Appearance: Well appearing, alert, in no acute distress, well-hydrated, well nourished.. Lungs: Lungs clear to auscultation. No wheezing, rhonchi, rales. Heart: RRR without murmur, gallop, or rubs. No ectopy. Musculoskeletal: Right hip: Moderate lateral hip pain with palpation. Patient is able to go through ROM with internal and external rotation without any restriction. Left hip: Mild lateral hip pain with palpation. Patient is able to go through ROM with internal and external rotation without any restriction Health Maintenance List MAMMOGRAM due on 06/24/2014 INFLUENZA(1) due on 01/10/2018 DIABETES SCREEN due on 10/07/2020 LIPID SCREEN due on 05/01/2022 DTAP,TDAP,TD(3 - Td) due on 05/25/2026 ONE PNEUMOVAX PRIOR TO AGE 65 Completed Data reviewed Results Final Report DATE OF EXAM: Jun ?2007 ?3:32PM ? WOX ? [id number] ?- ?XR HIP AP/LAT W/PELVIS B / PROCEDURE REASON: ENTHESOPATHY OF HIP Physician Interpretation RESULT: PELVIS AND BILATERAL HIPS AP view of pelvis and AP and frogleg lateral views of bilateral hip joints reveal normal bilateral hip joint spaces. ?There is a small lateral osteophyte arising from right acetabulum. ?No bony erosion. ? Bilateral sacroiliac joints appear unremarkable. ?There is no fracture or subluxation. ?Remaining pelvic bones and soft tissue do not show any abnormality. IMPRESSION: 1. ?SMALL POSSIBLE DEGENERATIVE OSTEOPHYTE OF RIGHT HIP JOINT. ? 2. ?NORMAL LEFT HIP JOINT. 3. ?NO OTHER ABNORMALITY OF AP PELVIS. Picking Tech: PSC Transcribe Date/Time: Jun ?2007 ?3:38P Dictated by : GIDEON WILLIAMSON M.D. This document has been electronically signed by: GIDEON WILLIAMSON M.D. On Jun ?2007 ?3:38PM ASSESSMENT/PLAN: 1. Hip pain, bilateral - ICD9: 719.45, ICD10: M25.551, M25.552 (primary diagnosis) - Etiology includes Bursitis vs less likely arthritic. We will start with daily anti-inflammatories, get imaging of the joint space and have her see Dr. Cano in ortho for possible treatment. - Discussed rest, demonstrated stretching with patient. - NAPROXEN 500 MG TABLET - XR HIP GENERAL 3V PELV/AP/LAT RT - XR HIP GENERAL 3V PELV/AP/LAT LT - CONSULT TO ORTHOPAEDICS 2. Screening for breast cancer - ICD9: V76.10, ICD10: Z12.31 - YANIRA SCREENING Get imaging, see ortho for recs. Brian Sheppard APRN.FIELD ARTILLERY CANNONEER Referring Provider: SELF [[id number]] Allergies As of Date: 12/03/2017 Noted Allergy Reaction CIPRO (CIPROFLOXACIN) 04/21/2007 2 - Rash Comments: Rapid heartbeat, flushed CODEINE [Other] 06/17/2005 4 - Hives DILAUDID (HYDROMORPHONE (BULK)) 06/05/2009 HYOSCYAMINE 01/09/2007 2 - Rash 9 - Itching PENICILLINS 06/17/2005 4 - Hives Date Reviewed: 12/03/2017 Reviewed by: Adali Dueñas Teacher Selection Specialist - Fully Assessed Reason for Visit: Pain [78] Primary Visit Diagnosis:Hip pain, bilateral [M25.551, M25.552] Other Visit Diagnoses:Screening for breast cancer [Z12.31] Vitamin B 12 deficiency [E53.8] Order(s):[facility] SCREENING [[id number]] Order #: [id number] FUTURE naproxen (NAPROSYN) 500 mg tabletTake 1 tablet by mouth twice daily as needed (for pain/inflammation). Take with food.Disp: 60 tabletRfl: 0 XR HIP GENERAL 3V PELV/AP/LAT RT [[id number]] Order #: [id number] FUTURE XR HIP GENERAL 3V PELV/AP/LAT LT [[id number]] Order #: [id number] FUTURE CONSULT TO ORTHOPAEDICS [9026] Order #: [id number]: 1 Prescriptions as of 12/03/2017 Sig: LORAZEPAM 1 MG TABLET Take 1 tablet by mouth every * ATENOLOL 50 MG TABLET Take 2 tablets by mouth once * ATENOLOL 50 MG TABLET Take 100 mg by mouth once vicki* ALBUTEROL SULFATE HFA 90 MCG/* Inhale 2 Puffs as instructed * MIRTAZAPINE 15 MG TABLET Take 1 tablet by mouth daily * VENLAFAXINE ER 75 MG CAPSULE,* Take 1 capsule by mouth once * CYANOCOBALAMIN (VIT B-12) 1,0* Inject 1 mL intramuscularly o* TOPIRAMATE 25 MG TABLET Take 1 tablet by mouth daily * VENLAFAXINE ER 150 MG CAPSULE* Take 1 capsule by mouth once * AMITRIPTYLINE 50 MG TABLET Take 3 tablets by mouth daily* FLUTICASONE 50 MCG/ACTUATION * Use 2 Sprays in each nostril * METOPROLOL TARTRATE 25 MG TAB* Take 1 tablet by mouth twice * MECLIZINE 25 MG TABLET Take 1 tablet by mouth three * NAPROXEN 500 MG TABLET Take 1 tablet by mouth twice * Problem List As Of Date 12/03/2017 Noted Resolved OBESITY [E66.9] INVALID FOR* MIGRAINE COMMON [G43.009] INVALID FOR* PALPITATIONS [R00.2] INVALID FOR* INSOMNIA NOS [G47.00] INVALID FOR* Type II or unspecified type diabetes mellitus w*INVALID FOR*06/07/2013 DEPRESSIVE DISORDER NEC [F32.9] INVALID FOR* Anxiety state [F41.1] INVALID FOR* HYPERLIPIDEMIA NEC/NOS [E78.5] INVALID FOR* IRRITABLE COLON [K58.9] More... 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] INVALID FOR* POSTSURGICAL HYPOTHYROID [E89.0] INVALID FOR* Prescriptions ordered this encounter Disp Refills Start End NAPROXEN 500 MG TABLET 60 t* 0 12/03/2017 Route: ORAL Sig: Take 1 tablet by mouth twice daily as needed (for pain/inflammation). Take with food. Medications Discontinued During This Encounter omeprazole (PRILOSEC) 20 mg capsule 30 c* 5 05/23/2017 12/03/2017 Route: ORAL Sig: Take 1 capsule by mouth daily before breakfast. 1/2 hr before meal. Disc: Discontinued by Patient Disposition: Return if symptoms worsen or fail to improve. Follow-up and Disposition History Recorded Encounter Status:Closed by BRIAN SHEPPARD CNP on 12/03/17 cnpn on 2017-10-21 MARIXAN Telephone (FAMPWS) Normal 10-21-2017 [facility] MARYBETH PHELPS ([id number]) 1970 F [place] Date Time Provider Department ([id number]) 10/21/17 SPEEDY BYRNEWS During your visit today, we recorded the following information about you: Haroon Bruno RN 10/21/2017 1:40 PM Signed Patient calls stating Cortisporin suspension is expensive without insurance. Wondering if you can call in the solution form instead? Please advise. Haroon Hines PA-C 10/21/2017 2:05 PM Signed I switched the suspension to the solution. Per pharmacist this should be about $35. Mila Cuellar LPN 10/21/2017 2:17 PM Signed Pt aware. Mila Cuellar LPN Allergies As of Date: 10/21/2017 Noted Allergy Reaction CIPRO (CIPROFLOXACIN) 04/21/2007 2 - Rash Comments: Rapid heartbeat, flushed CODEINE [Other] 06/17/2005 4 - Hives DILAUDID (HYDROMORPHONE (BULK)) 06/05/2009 HYOSCYAMINE 01/09/2007 2 - Rash 9 - Itching PENICILLINS 06/17/2005 4 - Hives Date Reviewed: 10/21/2017 Reviewed by: Mila Cuellar LPN - Fully Assessed Reason for Visit: Medication Problem [65] Prescriptions as of 10/21/2017 Sig: [id number] * Use 3 Drops in the right ear * ALBUTEROL SULFATE HFA 90 MCG/* Inhale 2 Puffs as instructed * MIRTAZAPINE 15 MG TABLET Take 1 tablet by mouth daily * LORAZEPAM 1 MG TABLET Take 1 tablet by mouth every * VENLAFAXINE ER 75 MG CAPSULE,* Take 1 capsule by mouth once * CYANOCOBALAMIN (VIT B-12) 1,0* Inject 1 mL intramuscularly o* TOPIRAMATE 25 MG TABLET Take 1 tablet by mouth daily * VENLAFAXINE ER 150 MG CAPSULE* Take 1 capsule by mouth once * AMITRIPTYLINE 50 MG TABLET Take 3 tablets by mouth daily* OMEPRAZOLE 20 MG CAPSULE,CINDY* Take 1 capsule by mouth daily* Patient not taking: Reported on 10/18/2017 FLUTICASONE 50 MCG/ACTUATION * Use 2 Sprays in each nostril * METOPROLOL TARTRATE 25 MG TAB* Take 1 tablet by mouth twice * MECLIZINE 25 MG TABLET Take 1 tablet by mouth three * Problem List As Of Date 10/21/2017 Noted Resolved OBESITY [E66.9] INVALID FOR* MIGRAINE COMMON [G43.009] INVALID FOR* PALPITATIONS [R00.2] INVALID FOR* INSOMNIA NOS [G47.00] INVALID FOR* Type II or unspecified type diabetes mellitus w*INVALID FOR*06/07/2013 DEPRESSIVE DISORDER NEC [F32.9] INVALID FOR* Anxiety state [F41.1] INVALID FOR* HYPERLIPIDEMIA NEC/NOS [E78.5] INVALID FOR* IRRITABLE COLON [K58.9] More... 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] INVALID FOR* POSTSURGICAL HYPOTHYROID [E89.0] INVALID FOR* Encounter Status:Closed by MILA CUELLAR LPN on 10/21/17 progress on 2017-10-18 Protein mass HNO ID: [id number] Normal 10-18-2017 [facility] conc Author: Pancho Smith [place] ([id number]) Service: (none) Author Type: Physician Type: Progress Notes Filed: 10/18/2017 9:07 AM Note Text: Patient presents with: right ear pain-noticed blood coming out of ear: x 2 days HPI: Feeling right ear pain for 2-3 days. Noticed blood using a qtip in the shower. Positive symptoms: blood draining from the ear, external pain with palpation, pain with head movement or chewing, hearing change, intermittent headache, Negative symptoms: Nasal Congestion, Rhinorrhea, Fever, OTC: none. PAST MEDICAL HISTORY Diagnosis Date - Acute peptic ulcer, unspecified site, with hemorrhage, without mention of obstruction - Anxiety state, unspecified 03/27/2006 - C. difficile colitis - Depressive disorder, not elsewhere classified 03/27/2006 - Dysmenorrhea Resolved - Endometriosis, site unspecified Endometriosis ? - Excessive or frequent menstruation Heavy periods resolved - Female stress incontinence - Generalized anxiety disorder - History of pancreatitis - IBS (irritable bowel syndrome) - Irritable bowel syndrome Irritable bowel - Nontoxic uninodular goiter LEFT - Other and unspecified hyperlipidemia 03/27/2006 - PMH - PAST MEDICAL HISTORY OF 1990 ? BOWEL OBSTRUCTION - SVT (supraventricular tachycardia) (HCC) - Symptomatic menopausal or female climacteric states - Type II or unspecified type diabetes mellitus without mention of complication, not stated as uncontrolled - Unspecified constipation Constipation - Unspecified urinary incontinence - Urge incontinence - Urinary calculus, unspecified Renal stones MEDICATIONS: Current Outpatient Prescriptions: albuterol HFA (VENTOLIN HFA) 90 mcg/actuation inhaler Inhale 2 Puffs as instructed every 4 hours as needed for Wheezing/Shortness of Breath. mirtazapine (REMERON) 15 mg tablet Take 1 tablet by mouth daily at bedtime. LORazepam (ATIVAN) 1 mg tablet Take 1 tablet by mouth every 8 hours as needed for Anxiety for up to 90 days. venlafaxine ER (EFFEXOR XR) 75 mg 24 hr capsule Take 1 capsule by mouth once daily. Take along with 150 mg pill cyanocobalamin 1,000 mcg/mL soln Inject 1 mL intramuscularly once every month. topiramate (TOPAMAX) 25 mg tablet Take 1 tablet by mouth daily at bedtime. venlafaxine XR (EFFEXOR XR) 150 mg 24 hr capsule Take 1 capsule by mouth once daily. amitriptyline (ELAVIL) 50 mg tablet Take 3 tablets by mouth daily at bedtime. metoprolol tartrate, short acting, (LOPRESSOR) 25 mg tablet Take 1 tablet by mouth twice daily. meclizine (ANTIVERT) 25 mg tab Take 1 tablet by mouth three times daily as needed (dizziness). omeprazole (PRILOSEC) 20 mg capsule Take 1 capsule by mouth daily before breakfast. 1/2 hr before meal. (Patient not taking: Reported on 10/18/2017 ) fluticasone (FLONASE) 50 mcg/actuation nasal spray Use 2 Sprays in each nostril once daily. Rinse mouth after use. (Patient not taking: Reported on 10/18/2017 ) Current Facility-Administered Medications: cyanocobalamin 1,000 mcg injection 1,000 mcg INTRAMUSCULAR q 1 MONTH ALLERGIES: ALLERGIES Allergen Reactions - Cipro [Ciprofloxaci* Rash Rapid heartbeat, flushed - Codeine [Other] Hives - Dilaudid [Hydromorp* - Hyoscyamine Rash, Itching - Penicillins Hives VITALS: BP 102/72 Pulse 80 Temp 36.3 ?C (97.3 ?F) (Tympanic) Resp 16 Wt 65.2 kg (143 lb 12.8 oz) BMI 23.53 kg/m? Last 6 Encounter Wt Readings: Date: Wt: 10/18/2017 65.2 kg (143 lb 12.8 oz) 05/23/2017 68.5 kg (151 lb) 05/09/2017 73 kg (161 lb) 03/20/2017 71.2 kg (157 lb) 03/12/2017 71.7 kg (158 lb) 11/06/2016 71.8 kg (158 lb 6.4 oz) PHYSICAL EXAM: GEN: Pleasant, in no acute distress. HEENT: PERRL, EOMI, conjunctiva clear Ears: canals clear, TMs without erythema, bulge, or effusion. Small dark red debris against the border of the right TM at 2:00. Sinuses: non-tender frontal sinus, non-tender maxillary sinuses Throat: moist mucous membranes, mild erythema, no exudate Neck: supple, no thyromegaly, no lymphadenopathy HEART: regular rate and rhythm, no murmurs LUNGS: clear to auscultation, no wheezes or crackles, no increased WOB ASSESSMENT/PLAN: 1. Otalgia, right - ICD9: 388.70, ICD10: H92.01 Appears to be blood from cotton tipped swab injury. No visible perforation. Analgesia PRN. Avoid inserting foreign bodies into the auditory canals. Follow up with ENT if pain persists. Pancho Smith MD tsh on 2017-10-07 Thyrotropin Qn 4.330 0.400-5.500 uU/mL Normal 10-07-2017 [facility] ([id number]) Comment: Result Comment: If the patient is , TSH reference range varies by gestational period: First Trimester 0.100-2.500 uU/mL Second Trimester 0.200-3.000 uU/mL Third Trimester 0.300-3.000 uU/mL References: 1. De Christianot L, Dwight[place]is[place] M, Dennis EK, et al. Management of Thyroid Dysfunction during and : An Endocrine Society Clinical Practice Guideline. J Clin Endocrinol Metab, 2012:97:4451-1712. 2. Kyree DYE. Overview of thyroid disease in . UpToDate. 2016. Accessed on October 27, 2015. Performed By: #### CBCDIF, CMP, TSH #### [facility] [address] [id number] progress on 2017-10-07 Protein mass conc HNO ID: [id number] Normal 10-07-2017 [facility] Author: Rula Baumann LPN [place] ([id number]) Service: (none) Author Type: (none) Type: Progress Notes Filed: 10/07/2017 1:14 PM Note Text: Patient presents for B-12 injection. Patient instructed on any SE of medication, verbalized understanding and agreed to proceed with treatment. Tolerated injection well. Rula Baumann LPN cnnurse on 2017-10-07 [facility] Nurse Visit (FAMPWS) Normal 10-07-2017 [facility] MARYBETH PHELPS ([id number]) 1970 [facility] Date Time Provider Department ([id number]) 10/07/17 1:00 PM [facility] [facility] During your visit today, we recorded the following information about you: Rula Baumann LPN 10/07/2017 1:14 PM Signed Patient presents for B-12 injection. Patient instructed on any SE of medication, verbalized understanding and agreed to proceed with treatment. Tolerated injection well. Rula Baumann LPN Referring Provider: SPEEDY BYRNE [[id number]] Allergies As of Date: 10/07/2017 Noted Allergy Reaction CIPRO (CIPROFLOXACIN) 04/21/2007 2 - Rash Comments: Rapid heartbeat, flushed CODEINE [Other] 06/17/2005 4 - Hives DILAUDID (HYDROMORPHONE (BULK)) 06/05/2009 HYOSCYAMINE 01/09/2007 2 - Rash 9 - Itching PENICILLINS 06/17/2005 4 - Hives Date Reviewed: 05/23/2017 Reviewed by: Yoel Guillory LPN - Fully Assessed Reason for Visit: B-12 Injection [247] Primary Visit Diagnosis:Vitamin B 12 deficiency [E53.8] Prescriptions as of 10/07/2017 Sig: MIRTAZAPINE 15 MG TABLET Take 1 tablet by mouth daily * LORAZEPAM 1 MG TABLET Take 1 tablet by mouth every * VENLAFAXINE ER 75 MG CAPSULE,* Take 1 capsule by mouth once * CYANOCOBALAMIN (VIT B-12) 1,0* Inject 1 mL intramuscularly o* BENZONATATE 100 MG CAPSULE Take 1 capsule by mouth three* TOPIRAMATE 25 MG TABLET Take 1 tablet by mouth daily * VENLAFAXINE ER 150 MG CAPSULE* Take 1 capsule by mouth once * AMITRIPTYLINE 50 MG TABLET Take 3 tablets by mouth daily* OMEPRAZOLE 20 MG CAPSULE,CINDY* Take 1 capsule by mouth daily* FLUTICASONE 50 MCG/ACTUATION * Use 2 Sprays in each nostril * METOPROLOL TARTRATE 25 MG TAB* Take 1 tablet by mouth twice * DICYCLOMINE 10 MG CAPSULE Take 1 capsule by mouth befor* FLUTICASONE 50 MCG/ACTUATION * Use 1 Cicero in each nostril o* MECLIZINE 25 MG TABLET Take 1 tablet by mouth three * Problem List As Of Date 10/07/2017 Noted Resolved OBESITY [E66.9] INVALID FOR* MIGRAINE COMMON [G43.009] INVALID FOR* PALPITATIONS [R00.2] INVALID FOR* INSOMNIA NOS [G47.00] INVALID FOR* Type II or unspecified type diabetes mellitus w*INVALID FOR*06/07/2013 DEPRESSIVE DISORDER NEC [F32.9] INVALID FOR* Anxiety state [F41.1] INVALID FOR* HYPERLIPIDEMIA NEC/NOS [E78.5] INVALID FOR* IRRITABLE COLON [K58.9] More... 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] INVALID FOR* POSTSURGICAL HYPOTHYROID [E89.0] INVALID FOR* Encounter Status:Closed by RULA BAUMANN LPN on 10/07/17 cbc and differential on 2017-10-07 Abs Baso 0.04 <0.11 k/uL Normal 10-07-2017 [facility] ([id number]) Comment: Performed By: #### CBCDIF, CMP, TSH #### [facility] [address] [address] Abs [place] 0.63 <0.87 k/uL Normal 10-07-2017 [facility] ([id number]) Comment: Performed By: #### CBCDIF, CMP, TSH #### [address] [place] [address] Abs Neut 4.98 1.45-7.50 k/uL Normal 10-07-2017 [facility] ([id number]) Comment: Performed By: #### CBCDIF, CMP, TSH #### [address] [place] [address] Absolute nRBC <0.01 <0.01 Normal 10-07-2017 [facility] ([id number]) Comment: Performed By: #### CBCDIF, CMP, TSH #### [address] [place] [address] Basophils/100 WBC (Bld) 0.5 % Normal 10-07-2017 [facility] ([id number]) Comment: Performed By: #### CBCDIF, CMP, TSH #### [facility] [address] [address] DTYPE Auto Diff Normal 10-07-2017 [facility] ([id number]) Comment: Performed By: #### CBCDIF, CMP, TSH #### [facility] [address] [address] Eosinophils #/vol (Bld) 0.08 <0.46 k/uL Normal 10-07-2017 [facility] ([id number]) Comment: Performed By: #### CBCDIF, CMP, TSH #### [facility] [address] [address] Eosinophils/100 WBC (Bld) 1.0 % Normal 10-07-2017 [facility] ([id number]) Comment: Performed By: #### CBCDIF, CMP, TSH #### [facility] [address] [place] [phone] Erythrocyte distribution 13.0 11.5-15.0 % Normal 10-07-2017 [facility] width Ratio (RBC) [facility] ([id number]) Comment: Performed By: #### CBCDIF, CMP, TSH #### [address] [place] [phone] Hematocrit Volume Fraction 40.5 36.0-46.0 % Normal 10-07-2017 [facility] ([facility]) [facility] ([id number]) Comment: Performed By: #### CBCDIF, CMP, TSH #### [address] [place] [phone] Hemoglobin mass conc 13.0 11.5-15.5 g/dL Normal 10-07-2017 [facility] [facility] [place] ([id number]) Comment: Performed By: #### CBCDIF, CMP, TSH #### [place] [phone] Lymphocytes #/vol (d) 2.16 1.00-4.00 k/uL Normal 10-07-2017 [facility] ([id number]) Comment: Performed By: #### CBCDIF, CMP, TSH #### [place] [id number] [place] [phone] Lymphocytes/100 WBC (d) 27.4 % Normal 10-07-2017 [facility] ([id number]) Comment: Performed By: #### CBCDIF, CMP, TSH #### [place] [id number] [place] [phone] MCH Entitic mass (RBC) 30.7 26.0-34.0 pG Normal 10-07-2017 [facility] ([id number]) Comment: Performed By: #### CBCDIF, CMP, TSH #### [phone] MCHC mass conc (RBC) 32.1 30.5-36.0 g/dL Normal 10-07-2017 [facility] ([id number]) Comment: Performed By: #### CBCDIF, CMP, TSH #### [facility] [address] [place] [address] MCV Entitic volume 95.7 80.0-100.0 fL Normal 10-07-2017 [facility] ([facility]) [place] ([id number]) Comment: Performed By: #### CBCDIF, CMP, TSH #### [place] [address] [place] [address] Monocytes/100 WBC (Bld) 8.0 % Normal 10-07-2017 [facility] ([id number]) Comment: Performed By: #### CBCDIF, CMP, TSH #### [place] [address] [place] [address] Neutrophils/100 WBC (Bld) 63.1 % Normal 10-07-2017 [facility] ([id number]) Comment: Performed By: #### CBCDIF, CMP, TSH #### [place] [address] [place] [address] NRBCs 0.0 0 /100 WBC Normal 10-07-2017 [facility] ([id number]) Comment: Performed By: #### CBCDIF, CMP, TSH #### [facility] [address] [place] [address] Platelet mean volume 10.8 9.0-12.7 fL Normal 10-07-2017 [facility] Entitic volume (Bld) [place] ([id number]) Comment: Performed By: #### CBCDIF, CMP, TSH #### [place] [address] [place] [address] Platelets #/vol (Bld) 293 150-400 k/uL Normal 10-07-2017 [facility] ([id number]) Comment: Performed By: #### CBCDIF, CMP, TSH #### [facility] [address] [place] [id number] RBC #/vol (Bld) 4.23 3.90-5.20 m/uL Normal 10-07-2017 [facility] ([id number]) Comment: Performed By: #### CBCDIF, CMP, TSH #### [facility] [address] [place] [address] WBC #/vol (Bld) 7.89 3.70-11.00 k/uL Normal 10-07-2017 [facility] ([id number]) Comment: Performed By: #### CBCDIF, CMP, TSH #### [facility] [address] [place] [address] progress on 2017-09-05 Protein mass conc HNO ID: [id number] Normal 09-05-2017 [facility] Author: Rula Baumann LPN [place] ([id number]) Service: (none) Author Type: (none) Type: Progress Notes Filed: 09/05/2017 1:23 PM Note Text: Patient presents for B-12 injection. Denies any problems at this time. Patient instructed on any SE of medication, verbalized understanding and agreed to proceed with treatment. Tolerated injection well. Rula Baumann LPN cnnurse on 2017-09-05 [facility] Nurse Visit (FAMPWS) Normal 09-05-2017 [place] MARYBETH Hussein ([id number]) 1970 F [place] Date Time Provider Department ([id number]) 09/05/17 12:45 PM [place] NURSE FAMPWS During your visit today, we recorded the following information about you: Rula Baumann LPN 09/05/2017 1:23 PM Signed Patient presents for B-12 injection. Denies any problems at this time. Patient instructed on any SE of medication, verbalized understanding and agreed to proceed with treatment. Tolerated injection well. Rula Bauamnn LPN Referring Provider: SPEEDY BYRNE [[id number]] Allergies As of Date: 09/05/2017 Noted Allergy Reaction CIPRO (CIPROFLOXACIN) 04/21/2007 2 - Rash Comments: Rapid heartbeat, flushed CODEINE [Other] 06/17/2005 4 - Hives DILAUDID (HYDROMORPHONE (BULK)) 06/05/2009 HYOSCYAMINE 01/09/2007 2 - Rash 9 - Itching PENICILLINS 06/17/2005 4 - Hives Date Reviewed: 05/23/2017 Reviewed by: Yoel Guillory LPN - Fully Assessed Reason for Visit: B-12 Injection [247] Primary Visit Diagnosis:Vitamin B 12 deficiency [E53.8] Prescriptions as of 09/05/2017 Sig: LORAZEPAM 1 MG TABLET Take 1 tablet by mouth every * VENLAFAXINE ER 75 MG CAPSULE,* Take 1 capsule by mouth once * CYANOCOBALAMIN (VIT B-12) 1,0* Inject 1 mL intramuscularly o* BENZONATATE 100 MG CAPSULE Take 1 capsule by mouth three* TOPIRAMATE 25 MG TABLET Take 1 tablet by mouth daily * VENLAFAXINE ER 150 MG CAPSULE* Take 1 capsule by mouth once * AMITRIPTYLINE 50 MG TABLET Take 3 tablets by mouth daily* OMEPRAZOLE 20 MG CAPSULE,CINDY* Take 1 capsule by mouth daily* FLUTICASONE 50 MCG/ACTUATION * Use 2 Sprays in each nostril * METOPROLOL TARTRATE 25 MG TAB* Take 1 tablet by mouth twice * DICYCLOMINE 10 MG CAPSULE Take 1 capsule by mouth befor* FLUTICASONE 50 MCG/ACTUATION * Use 1 Cicero in each nostril o* MECLIZINE 25 MG TABLET Take 1 tablet by mouth three * Medication notes this encounter CYANOCOBALAMIN (VIT B-12) 1,000 MCG/ML INJECTION SOLUTION >> Rula Baumann LPN 09/05/2017 1:22 PM >> RULA BAUMANN LPN FriSep 05, 2017 1:22 PM The patient is here for an injection of Vitamin B12 (Cyanocobalamin). Dose: 1000mcg/1ml Amount wasted: none. Route: Intramuscular Site: right deltoid Store Mgr: [employer] Lot #: [id number] Expiration Date: 02/08/2019 The date due for the next injection is one month Rula Baumann LPN Problem List As Of Date 09/05/2017 Noted Resolved OBESITY [E66.9] INVALID FOR* MIGRAINE COMMON [G43.009] INVALID FOR* PALPITATIONS [R00.2] INVALID FOR* INSOMNIA NOS [G47.00] INVALID FOR* Type II or unspecified type diabetes mellitus w*INVALID FOR*06/07/2013 DEPRESSIVE DISORDER NEC [F32.9] INVALID FOR* Anxiety state [F41.1] INVALID FOR* HYPERLIPIDEMIA NEC/NOS [E78.5] INVALID FOR* IRRITABLE COLON [K58.9] More... 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] INVALID FOR* POSTSURGICAL HYPOTHYROID [E89.0] INVALID FOR* Encounter Status:Closed by RULA BAUMANN LPN on 09/05/17 Encounters Date Type Reason Provider Location 08-21-2018 - Patient encounter MARYBETH ([facility]) [facility] 08-24-2018 procedure [place] ([id number]) 08-19-2018 - Patient encounter MARYBETH ([facility]) [facility] 08-21-2018 procedure [place] ([id number]) 07-15-2018 - Patient encounter ABRAHAM Delatorre [facility] 07-17-2018 procedure [facility] ([id number]) 07-14-2018 - Patient encounter SPEEDY Delatorre [facility] 07-16-2018 procedure SPEEDY Delatorre [facility] ([id number]) 06-18-2018 - Patient encounter SPEEDY Delatorre [facility] 06-19-2018 procedure [place] ([id number]) 06-10-2018 - Patient encounter ABRAHAM Delatorre [facility] 06-11-2018 procedure [facility] ([id number]) 05-18-2018 - Patient encounter SPEEDY Delatorre [facility] 05-19-2018 procedure [facility] ([id number]) 04-16-2018 - Patient encounter SPEEDY Delatorre [facility] 04-17-2018 procedure [place] ([id number]) 04-09-2018 - Patient encounter SPEEDY Delatorre [facility] 04-10-2018 procedure SPEEDY Delatorre [facility] ([id number]) 03-17-2018 - Patient encounter SPEEDY Delatorre [facility] 03-18-2018 procedure BRIAN ([facility]) [facility] [place] ([id number]) 01-14-2018 - Patient encounter MARYBETH ([facility] [employer]) [facility] 01-15-2018 procedure [place] ([id number]) 01-13-2018 - Patient encounter WALDO [facility] 01-17-2018 procedure [place] ([id number]) 01-06-2018 - Patient encounter SPEEDY Delatorre [facility] 01-10-2018 procedure SPEEDY Delatorre [facility] ([id number]) 12-28-2017 - Patient encounter SAVANA ([facility]) [facility] 12-31-[facility][id number][facility] 12-22-2017 - Patient encounter MARYBETH ([facility] [employer] [facility]) [facility] 01-09-2018 procedure [place] ([id number]) 12-03-2017 - Patient encounter BRIAN ([facility]) [facility] 12-10-2017 procedure [place] ([id number]) 11-07-2017 - Patient encounter SPEEDY Delatorre [facility] 11-07-2017 procedure [facility] ([id number]) 10-21-2017 - Patient encounter [facility] 10-22-2017 procedure [place] ([id number]) 10-18-2017 - Patient encounter [facility] 10-20-2017 procedure [facility] ([id number]) 10-07-2017 - Patient encounter SPEEDY Delatorre [facility] 10-08-2017 procedure [facility] ([id number]) 09-05-2017 - Patient encounter SPEEDY Delatorre [facility] 09-08-2017 procedure [facility] ([id number]) Summary Purpose DATE CREATED AUTHOR AUTHOR'S ORGANIZATION 08/24/2018 [facility] Family History No Family History Records Found Advance Directives No Advanced Directives Records Found Additional Source Comments FOR RECORDS PERTAINING TO PATIENTS WHO ARE OR HAVE BEEN ENROLLED IN A CHEMICAL DEPENDENCY/SUBSTANCE ABUSE PROGRAM, SOME INFORMATION MAY BE OMITTED. This clinical summary was aggregated from multiple sources. Caution should be exercised in using it in the provision of clinical care. This summary normalizes information from multiple sources, and as a consequence, information in this document may materially changethe coding, format and clinical context of patient data. In addition, data may be omittedin some cases. CLINICAL DECISIONS SHOULD BE BASED ON THE PRIMARY CLINICAL RECORDS. [facility] provides no warranty or guarantee of the accuracy or completeness of information in this document. UNRECOGNIZED CONTENT PROVIDED BELOW FOR UNRECOGNIZED SECTION INFORMATION SOURCE DATE CREATED AUTHOR AUTHOR'S ORGANIZATION 08/24/2018 [facility]
--- NOTE | 2018-09-04 07:10 | EKG12_ITS ---
Test Reason : PRE OP Blood Pressure : / mmHG Vent. Rate : 087 BPM Atrial Rate : 087 BPM P-R Int : 120 ms QRS Dur : 098 ms QT Int : 348 ms P-R-T Axes : 039 092 058 degrees QTc Int : 418 ms Normal sinus rhythm Normal ECG Confirmed by COLIN ROSA, LAUREN ([id number]), editor book JER GIBBS ([id number]) on 09/08/2018 11:42:40 AM Referred By: Panfilo Hickman Confirmed By:LAUREN SHAW MD
--- NOTE | 2018-09-04 08:30 | BREAST_PTH ---
PATIENT: ERNST PHELPS LOC: MS3 U#:[id number] AGE/SX: 48/F ROOM: [facility] RE09/04/[address]: Dr. Panfilo Hickman MD : 1970 BED: 1 DIS: 09/06/2018 SPEC #: [id number] RECD: 09/04/18 12:03 STATUS: MICHAEL REAdriana #: [id number] AMANDA: 09/04/18 08:[address]: Panfilo Hickman DEPT: SURGICAL PATHOLOGY RECD BY: Jon Roman ENTERED: 09/04/18 12:29 SP TYPE: BREAST OTHR DR: Anson Rios MD Tissues: A - Right breast, NOS B - Left breast, NOS Procedures: Surgery Specimen Level V HEADER OPERATION: Prophylactic mastectomy, bilateral breast PRE-OP DIAGNOSIS: Cancer phobia bilateral breasts; family history breast cancer TISSUE SUBMITTED: A - Right breast mastectomy tissue, B - Left breast mastectomy tissue MICROSCOPIC DIAGNOSIS A. Right breast, simple prophylactic mastectomy: Benign breast tissue with extensive dense fibrosis and focal fibrocystic changes. Focal microcalcifications. Nipple, no pathologic diagnosis. B. Left breast, simple prophylactic mastectomy: Benign breast tissue with extensive dense fibrosis. Focal microcalcifications. Nipple, no pathologic diagnosis. :rosy 09/08/18 MICROSCOPIC DESCRIPTION Slides are reviewed. GROSS DESCRIPTION A - Received in fixative is one container labeled with the patient's name and designated right breast mastectomy tissue. The specimen consists of a mastectomy specimen consisting of breast tissue with overlying skin ellipse. The breast tissue measures 19 x 17 x 5 cm. The overlying skin ellipse measures 11 x 4.5 cm. The nipple measures 0.5 cm in thickness. No skin lesion is identified. The specimen is inked as follows: superior - black, inferior - green, anterior - yellow, posterior - blue, medial - red and lateral - orange. Sections reveal yellow adipose cut surfaces mixed with betts-white fibrous areas. Sections will be submitted after overnight fixation. / : 09/04/18 Environmental Intern sections are submitted as follows: 1 - nipple, entirely submitted, 2-5 - most lateral portion of the breast, 6-9 - central portion of the breast tissue, 10-12 - medial portion of the breast tissue. / :rosy 09/07/18 B - Received in fixative is one container labeled with the patient's name and designated left breast mastectomy tissue. The specimen consists of a mastectomy specimen consisting of breast tissue with overlying skin ellipse. The breast tissue measures 17 x 17 x 4.5 cm. Also present in the container are multiple pieces of fibroadipose tissue measuring in aggregate 9 x 8 x 3 cm. The overlying skin ellipse measures 12 x 4.5 cm. The nipple measures 0.8 cm in greatest dimension. No skin lesion is identified. The specimen is inked as follows: anterior - yellow, posterior - black, superior - blue, inferior - green, medial - red and lateral - orange. Sections of the breast tissue reveal yellow adipose cut surfaces mixed with betts-white fibrous areas. No mass lesion is identified. Sections of detached pieces of tissue also reveal betts-yellow adipose cut surfaces mixed with betts-white fibrous areas. Sections will be submitted after overnight fixation. / Price 09/04/18 Environmental Intern sections are submitted as follows: 1 - nipple, entirely submitted, 2-5 - most lateral portion of the breast, 6-9 - central portion of the breast tissue, 10-12 - medial portion of the breast tissue. / Price 09/07/18 TC:5 CPT: 03776 x2
--- NOTE | 2018-09-04 11:01 | PCM.OPRPT ---
Report of Operation Date of Procedure: 09/04/18 Pre-Operative Diagnosis: 1. Cancerphobia bilateral breasts. 2. Family history of breast cancer. 3. Lupus. 4. Immunocompromised state from Humira therapy for Lupus. 5. Inconclusive mammography due to dense breasts. 6. Smoker. Post-Operative Diagnosis: Same. Surgery/Procedure Performed:: Prophylactic mastectomy bilateral breasts. Description of Surgical Findings:: 48 year old woman presents with cancerphobia of her breasts. She has a family history of breast cancer, and her cancerphobia has worsened over the last several months because of a recent diagnosis of breast cancer in her family. She had a mammogram in March,. No significant masses or calcifications were seen in either breast. Also it was noted that the tissue of both breasts is heterogenously dense. This may lower the sensitivity of mammography. This may make cancer surveillance difficult which is concerning to the patient. She is afraid that a breast cancer will be missed which exacerbates her cancerphobia. She denies any trauma to her breasts. A letter was written to her insurance carrier and medical approval has been obtained for prophylactic mastectomies. Her surgery is scheduled for this Friday. She states she has cut down dramatically with her smoking. She is down to about 2-3 cigarettes per day. Patient was informed of the risks and complications of the procedure including alternatives to surgery. These were discussed with the patient personally. Patient voices understanding and wishes to proceed. Some of the risks and complications were included in a form from the [employer]. Encouraged patient to stop smoking as it may have deleterious effects on wound healing. I used Colby absorbable hemostat, (I used 2 vials, one in each breast). Reference Number - [id number]. Lot Number - [id number]. Expiration - April 08, 2023. options advisor: Lisa Ordaz. Type of Anesthesia:: General Specimen's removed: 1. Left breast tissue to Pathology. 2. Right breast tissue to Pathology. Drains: Que x2 (one in each breast). Estimated Blood Loss (mL): 50 ml. Fluids Replaced: 1225 ml (IV Fluids 1100 ml, Urine Output 125 ml). Description of Procedure: Patient was placed in sitting position in preop area and markings were made. I marked the inframammary fold and horizontal elliptical markings around the nipple area. Patient lifted her arms up to make sure not too much skin will be removed laterally. Patient was then taken to OR in supine position and was placed under general anesthesia. The breasts were prepped and draped in the usual fashion. SCD's were placed for DVT prophylaxis. Perioperative antibiotics were given intravenously. A swann catheter was placed. Using xylocaine with epinephrine, the horizontal elliptical markings were infiltrated. After waiting 5 minutes for the anesthetic to take effect, I proceeded with prophylactic mastectomy first on the left side and then on the right side. Elliptical incisions were made into the subcutaneous tissue. I dissected the left breast tissue at the level of Cecil's fascia down to the pectoralis major muscular fascia. I dissected superiorly to the clavicle and medially to the sternum and inferiorly to the inframammary fold and laterally to the anterior axillary line. The left breast tissue was then dissected off the pectoralis major muscular fascia and sent to Pathology for analysis to rule out carcinoma. The left breast wound was irrigated with saline. Hemostasis was obtained with electrocautery. I placed a size 15 Que drain through a separate stab incision laterally and secured to the skin with 3-0 Nylon suture. I then sprayed Colby absorbable hemostat into the left breast wound to minimize seroma formation. The left breast wound was then closed in a layered fashion with 3-0 Monocryl interrupted sutures for the deep dermis and subcutaneous tissue. The skin was approximated with 3-0 V lock unidirectional barbed running subcuticular suture followed by Histoacryl skin tissue adhesive. I then proceeded with prophylactic mastectomy on the right side. Elliptical incisions were made into the subcutaneous tissue. I dissected the right breast tissue at the level of Cecil's fascia down to the pectoralis major muscular fascia. I dissected superiorly to the clavicle and medially to the sternum and inferiorly to the inframammary fold and laterally to the anterior axillary line. The right breast tissue was then dissected off the pectoralis major muscular fascia and sent to Pathology for analysis to rule out carcinoma. The right breast wound was irrigated with saline. Hemostasis was obtained with electrocautery. I placed a size 15 Que drain through a separate stab incision laterally and secured to the skin with 3-0 Nylon suture. I then sprayed Colby absorbable hemostat into the right breast wound to minimize seroma formation. The right breast wound was then closed in a layered fashion with 3-0 Monocryl interrupted sutures for the deep dermis and subcutaneous tissue. The skin was approximated with 3-0 V lock unidirectional barbed running subcuticular suture followed by Histoacryl skin tissue adhesive. Kerlix gauze dressing was applied followed by a compression BARRETT wrap. Patient tolerated the procedure well and was sent to PACU in satisfactory condition. Patient will be sent upstairs for continued postop care. Grafts/Implants Used: None. - Complications None. - Admit VTE Documentation VTE Present on Admission: No VTE Mechan Device Prophylaxis: SCD's VTE Pharm Prophylaxis ordered?: Yes Code Visit Surgery Charges CPT - 68811 ICD-10 - F40.298, Z80.3, R92.2, M32.9, Z79.899, F17.200 [id number] F40.298, Z80.3, R92.2, M32.9, Z79.899, F17.200
--- NOTE | 2018-09-04 11:05 | OP.PCM_ITS ---
Report of Operation Date of Procedure: 09/04/18 Pre-Operative Diagnosis: 1. Cancerphobia bilateral breasts. 2. Family history of breast cancer. 3. Lupus. 4. Immunocompromised state from Humira therapy for Lupus. 5. Inconclusive mammography due to dense breasts. 6. Smoker. Post-Operative Diagnosis: Same. Surgery/Procedure Performed:: Prophylactic mastectomy bilateral breasts. Description of Surgical Findings:: 48 year old woman presents with cancerphobia of her breasts. She has a family history of breast cancer, and her cancerphobia has worsened over the last several months because of a recent diagnosis of breast cancer in her family. She had a mammogram in March,. No significant masses or calcifications were seen in either breast. Also it was noted that the tissue of both breasts is heterogenously dense. This may lower the sensitivity of mammography. This may make cancer surveillance difficult which is concerning to the patient. She is afraid that a breast cancer will be missed which exacerbates her c ancerphobia. She denies any trauma to her breasts. A letter was written to her insurance carrier and medical approval has been obtained for prophylactic mastectomies. Her surgery is scheduled for this Friday. She states she has cut down dramatically with her smoking. She is down to about 2-3 cigarettes per day. Patient was informed of the risks and complications of the procedure including alternatives to surgery. These were discussed with the patient personally. Patient voices understanding and wishes to proceed. Some of the risks and complications were included in a form from the [employer]. Encouraged patient to stop smoking as it may have deleterious effects on wound healing. I used Colby absorbable hemostat, (I used 2 vials, one in each breast). Reference Number - [id number]. Lot Number - [id number]. Expiration - April 08, 2023. tree surgeon helper: Lisa Ordaz. Type of Anesthesia:: General Specimen's removed: 1. Left breast tissue to Pathology. 2. Right breast tissue to Pathology. Drains: Que x2 (one in each breast). Estimated Blood Loss (mL): 50 ml. Fluids Replaced: 1225 ml (IV Fluids 1100 ml, Urine Output 125 ml). Description of Procedure: Patient was placed in sitting position in preop area and markings were made. I marked the inframammary fold and horizontal elliptical markings around the nipple area. Patient lifted her arms up to make sure not too much skin will be removed laterally. Patient was then taken to OR in supine position and was placed under general anesthesia. The breasts were prepped and draped in the usual fashion. SCD's were placed for DVT prophylaxis. Perioperative antibiotics were given intravenously. A swann catheter was placed. Using xylocaine with epinephrine, the horizontal elliptical markings were infiltrated. After waiting 5 minutes for the anesthetic to take effect, I proceeded with prophylactic mastectomy first on the left side and then on the right side. Elliptical incisions were made into the subcutaneous tissue. I dissected the left breast tissue at the level of Cecil's fascia down to the pectoralis major muscular fascia. I dissected superiorly to the clavicle and medially to the sternum and inferiorly to the inframammary fold and laterally to the anterior axillary line. The left breast tissue was then dissected off the pectoralis major muscular fascia and sent to Pathology for analysis to rule out carcinoma. The left breast wound was irrigated with saline. Hemostasis was obtained with electrocautery. I placed a size 15 Que drain through a separate stab incision laterally and secured to the skin with 3-0 Nylon suture. I then sprayed Colby absorbable hemostat into the left breast wound to minimize seroma formation. The left breast wound was then closed in a layered fashion with 3-0 Monocryl interrupted sutures for the deep dermis and subcutaneous tissue. The skin was approximated with 3-0 V lock unidirectional barbed running subcuticular suture followed by Histoacryl skin tissue adhesive. I then proceeded with prophylactic mastectomy on the right side. Elliptical incisions were made into the subcutaneous tissue. I dissected the right breast tissue at the level of Cecil's fascia down to the pectoralis major muscular fascia. I dissected superiorly to the clavicle and medially to the sternum and inferiorly to the inframammary fold and laterally to the anterior axillary line. The right breast tissue was then dissected off the pectoralis major muscular fascia and sent to Pathology for analysis to rule out carcinoma. The right breast wound was irrigated with saline. Hemostasis was obtained with electrocautery. I placed a size 15 Que drain through a separate stab incision laterally and secured to the skin with 3-0 Nylon suture. I then sprayed Colby absorbable hemostat into the right breast wound to minimize seroma formation. The right breast wound was then closed in a layered fashion with 3-0 Monocryl interrupted sutures for the deep dermis and subcutaneous tissue. The skin was approximated with 3-0 V lock unidirectional barbed running subcuticular suture followed by Histoacryl skin tissue adhesive. Kerlix gauze dressing was applied followed by a compression BARRETT wrap. Patient tolerated the procedure well and was sent to PACU in satisfactory condition. Patient will be sent upstairs for continued postop care. Grafts/Implants Used: None. - Complications None. - Admit VTE Documentation VTE Present on Admission: No VTE Mechan Device Prophylaxis: SCD's VTE Pharm Prophylaxis ordered?: Yes Code Visit Surgery Charges CPT - 38392 ICD-10 - F40.298, Z80.3, R92.2, M32.9, Z79.899, F17.200 [id number] F40.298, Z80.3, R92.2, M32.9, Z79.899, F17.200
[2018-09-04] MEDS: HYDROmorphone 1 MG/ML Syringe IV ×2 (14:14→20:49)
[2018-09-04] MEDS: Lactated Ringers 1,000 ML 60 ML IV (16:49)
[2018-09-04] MEDS: oxyCODONE 5 MG Tablet 10 MG PO (17:05)
[2018-09-04] MEDS: Ondansetron 4 MG/2 ML Vial IV (17:08)
[2018-09-04] MEDS: Acetaminophen 500 MG Tablet PO (20:08)
[2018-09-04] MEDS: Rizatriptan Benzoate 5 MG Tablet PO (20:09)
[2018-09-04] MEDS: 0.9% NaCl Peripheral Flush Adult/Peds IV (20:49)
[2018-09-04] MEDS: Amitriptyline 100 MG Tablet 150 MG PO (20:50)
[2018-09-04] MEDS: Docusate Sodium 100 MG Capsule PO (20:50)
[2018-09-04] MEDS: Mirtazapine 30 MG Tablet PO (20:51)
[2018-09-04] MEDS: Topiramate 25 MG Tablet PO (20:53)
[2018-09-05 00:02] VITALS: BP 100/52; PULSE 103; RESP 14; TEMP 37.6; O2SAT 97
--- NOTE | 2018-09-05 00:05 | NURSING ---
stood pt at bedside with FARIDEH marinelli. pt stood and took a few steps to head of bed. pt denies feeling light headed or dizzy. pt reports moderate pain and minimal nausea. medicated for nausea and pain after returning pt to bed.
[2018-09-05] MEDS: Ondansetron 4 MG/2 ML Vial IV ×2 (00:30→09:38)
[2018-09-05] MEDS: oxyCODONE 5 MG Tablet 10 MG PO ×5 (00:31→20:31)
[2018-09-05] MEDS: 0.9% NaCl Peripheral Flush Adult/Peds IV (00:31)
[2018-09-05 05:06] VITALS: BP 103/59; PULSE 110; RESP 14; TEMP 37.2; O2SAT 94
[2018-09-05] MEDS: Enoxaparin 30 MG/0.3 ML Syringe SC (05:10)
[2018-09-05 06:50] LABS: Hematocrit 43.6 % (37-47); Hemoglobin 14.6 g/dl (12.0-15.0); Mean Corp Hgb Conc 33.5 g/gl (32-36); Mean Corpuscular Hgb 31.4 pg (27.0-32.0); Mean Corpuscular Volume 93.8 fL (81-99); Mean Platelet Vol. 9.5 fl (6.2-12.0); Platelet Count 273 K/mm3 (150-450); RBC Distribution Width CV 13.2 % (11.6-14.6); RBC Distribution Width SD 44.2 fl (35.1-43.9); Red Blood Count 4.65 M/mm3 (4.2-5.4); Scan Indicated on CBC? Y/N NO; White Blood Count 12.9 K/mm3 (4.4-11.0)
[2018-09-05 07:07] LABS: Anion Gap 6 (5-15); BUN 8 mg/dL (7-18); BUN/Creat Ratio 10.2 RATIO (10-20); Calcium,Total 8.6 mg/dL (8.5-10.1); Chloride 104 mmol/L (98-107); Creatinine, Serum 0.79 mg/dL (0.55-1.02); EST Glomerular Filtration Rate 82 mL/min (>60); Est Glom Filt Rate - Afr Amer 100 mL/min (>60); Estimated Creatinine Clearance 79.75 ml/min; Glucose 116 mg/dL (74-106); Potassium 3.8 mmol/L (3.5-5.1); Prealbumin 18.7 mg/dL (20.0-40.0); Sodium Level 138 mmol/L (136-145)
[2018-09-05] MEDS: Lactated Ringers 1,000 ML 60 ML IV ×2 (09:37→23:47)
[2018-09-05] MEDS: Acetaminophen 500 MG Tablet PO ×2 (09:37→20:31)
[2018-09-05] MEDS: Docusate Sodium 100 MG Capsule PO ×2 (09:38→20:32)
[2018-09-05] MEDS: Atenolol 50 MG Tablet PO (09:43)
[2018-09-05 09:51] VITALS: BP 123/80; PULSE 112; RESP 16; TEMP 36.9; O2SAT 95
[2018-09-05 09:53] VITALS: PULSE 112
--- NOTE | 2018-09-05 10:02 | PCM.PN.SRG ---
Subjective: Postop #1 Patient has incisional pain. She is a little unsteady with ambulation. - Physical Exam General: Alert, Oriented x3 HEENT: PERRLA, EOMI Oral: Moist Mucosa Neck: Supple Abdomen: Soft, Non-Distended Skin: Incision - bilateral breast incisions are dry and intact. No clinical evidence of hematoma. Neurological: Cranial nerves II-XII grossly intact Psych/Mental Status: Normal Affect, Appropriate Vital Signs Temp Pulse Resp BP Pulse Ox 98.5 F 112 H 16 123/80 H 95 09/05/18 09:51 09/05/18 09:53 09/05/18 09:51 09/05/18 09:51 09/05/18 09:51 Oxygen Delivery Method Room Air Weight: 148 lb 5.938 oz Body Mass Index (BMI) 23.9 Intake and Output for Last 24 Hours 09/03/18 09/04/18 09/05/18 23:59 23:59 23:59 Intake Total 2678 / 2678 1809 / 1809 Output Total 1000 / 1000 1300 / 1300 Balance 1678 / 1678 509 / 509 Drainage 45 ml yesterday. Laboratory Tests Past 24 Hrs 09/05/18 09/05/18 06:20 06:20 WBC 12.9 H RBC 4.65 Hgb 14.6 Hct 43.6 MCV 93.8 MCH 31.4 MCHC 33.5 RDW 13.2 RDW Differential 44.2 H Plt Count 273 MPV 9.5 Sodium 138 Potassium 3.8 Chloride 104 Carbon Dioxide 28.0 Anion Gap 6 BUN 8 Creatinine 0.79 Estim Creat Clear Calc 79.75 Est GFR (MDRD) Af Amer 100 Est GFR (MDRD) Non-Af 82 BUN/Creatinine Ratio 10.2 Glucose 116 H Calcium 8.6 Prealbumin 18.7 L Medical Necessity - Tobacco Use Smoking Status: Current every day smoker Tobacco Use: Cigarettes Assessment/Plan 1. Cancerphobia bilateral breasts. 2. Family history of breast cancer. 3. Lupus. 4. Immunocompromised state from Humira therapy for Lupus. 5. Inconclusive mammography due to dense breasts. 6. Smoker. 7. s/p prophylactic mastectomy bilateral breasts. Incisions are dry and intact. No clinical evidence of hematoma. Patient has some incisional pain. She is a little unsteady on her feet with ambulation. Will keep one more day. Anticipate discharge tomorrow. Prealbumin was 18.7. Encourage nutritional supplementation with protein to help the healing process. Keep head elevated.
[2018-09-05 13:59] VITALS: BP 101/66; PULSE 90; RESP 18; TEMP 36.8; O2SAT 97
[2018-09-05] MEDS: Venlafaxine XR 75 MG Capsule 225 MG PO (20:31)
[2018-09-05] MEDS: Topiramate 25 MG Tablet PO (20:32)
[2018-09-05] MEDS: Mirtazapine 30 MG Tablet PO (20:32)
[2018-09-05] MEDS: Amitriptyline 100 MG Tablet 150 MG PO (20:32)
[2018-09-05 20:43] VITALS: BP 114/80; PULSE 94; RESP 16; TEMP 37.6; O2SAT 97
[2018-09-06] MEDS: oxyCODONE 5 MG Tablet 10 MG PO (03:44)
[2018-09-06 03:47] VITALS: BP 104/75; PULSE 99; RESP 16; TEMP 37; O2SAT 96
[2018-09-06] MEDS: Enoxaparin 30 MG/0.3 ML Syringe SC (05:25)
--- NOTE | 2018-09-06 09:44 | PCM.PN.SRG ---
Subjective: Postop #2 Patient is resting comfortably. - Physical Exam General: Alert, Oriented x3 HEENT: Atraumatic, EOMI Oral: Moist Mucosa Neck: Supple Abdomen: Soft, Non-Distended Skin: Incision - bilateral breast incisions are dry and intact. No clinical evidence of hematoma. Neurological: Cranial nerves II-XII grossly intact Psych/Mental Status: Normal Affect, Appropriate Vital Signs Temp Pulse Resp BP Pulse Ox 98.6 F 99 16 104/75 96 09/06/18 03:47 09/06/18 03:47 09/06/18 03:47 09/06/18 03:47 09/06/18 03:47 Oxygen Delivery Method Room Air Weight: 148 lb 5.938 oz Body Mass Index (BMI) 23.9 Intake and Output for Last 24 Hours 09/04/18 09/05/18 09/06/18 23:59 23:59 23:59 Intake Total 2678 / 2678 3937 / 3937 249 / 249 Output Total 1000 / 1000 2530 / 2530 20 / 20 Balance 1678 / 1678 1407 / 1407 229 / 229 Drainage 180 ml yesterday, 20 ml today. Medical Necessity - Tobacco Use Smoking Status: Current every day smoker Tobacco Use: Cigarettes Assessment/Plan 1. Cancerphobia bilateral breasts. 2. Family history of breast cancer. 3. Lupus. 4. Immunocompromised state from Humira therapy for Lupus. 5. Inconclusive mammography due to dense breasts. 6. Smoker. 7. s/p prophylactic mastectomy bilateral breasts. Incisions are dry and intact. No clinical evidence of hematoma. Patient has some incisional pain. She is tolerating po analgesia. She is more steady on her feet with ambulation. Prealbumin was 18.7. Encourage nutritional supplementation with protein to help the healing process. Continue lifting restriction. Keep head elevated. Discharge home today. Followup one week. Will remove drains in the office. Wrote script for Cleocin for 10 days. May stop once the drains are removed. Wrote script for Phenergan for nausea (30 tabs) with a refill. Wrote scripts for Percocet for pain (50 tabs) and for Valium for spasm (30 tabs). Encouraged patient to stop smoking as it may have deleterious effects on wound healing.
--- NOTE | 2018-09-06 10:04 | DCINST_ITS ---
You will use the following diet at home:: No restrictions Discharge Activity: May not drive while taking narcotic pain medications., May Not Shower - until the drains are removed., - - no heavy lifting. keep head elevated. May shower in (days): 10 - after the drains are removed. May resume sexual activity in: 10-14 days Weight Bearing Status: Weight bearing as tolerated Lifting Restrictions: 20 lbs. Keep extremity elevated above heart level: - - elevate head. Call your doctor if your incision/area has: Continuous Slow Oozing, Sudden Increased Bleeding, Increased Pain/ Swelling, Increased Redness, Foul Smelling Discharge, Swelling at the incision site Call your doctor if you observe: Fever of 101 or Higher, Coldness, Increased Pain, Shortness of breath, Chest pain, Calf discomfort, Uncontrolled pain Suture Line Care: - - dry dressings daily followed by compression tommie wrap. Change Dressing in (Days):: 1 - dry dressings daily followed by compression tommie wrap. Cleanse incision/area with: - - may get incisions wet in the shower after the drains are removed. Drain: Suction - kenneth drains x2 to bulb suction. empty and record output daily. Allergies/Adverse Reactions: Allergies codeine Allergy (Verified 09/02/18 10:19) ALLERGY hydromorphone [From Dilaudid] Allergy (Verified 09/02/18 10:19) ALLERGY Penicillins Allergy (Verified 09/02/18 10:19) ALLERGY Medications to take at Discharge amitriptyline 50 mg tablet 150 mg PO QHS tab 06/19/18 atenolol 50 mg tablet 50 mg PO DAILY 06/19/18 mirtazapine 30 mg tablet 30 mg PO QHS 06/19/18 sumatriptan 25 mg tablet 25 mg PO ONCE 06/19/18 topiramate 25 mg tablet 25 mg PO QHS 06/19/18 venlafaxine ER 150 mg capsule,extended release 24 hr 225 mg PO QHS 06/19/18 Clindamycin HCl [Cleocin] 300 mg PO TID #30 cap 09/06/18 Diazepam [Valium] 5 mg PO 4X/DAY PRN PRN #30 tab 09/06/18 Oxycodone HCl/Acetaminophen [Percocet 5/325] 1 - 2 tab PO 4X/DAY PRN PRN 7 Days #50 tab 09/06/18 proMETHazine tablet [Phenergan tablet] 25 mg PO 4X/DAY PRN PRN #30 tab 09/06/18 The following prescriptions were given: Diazepam [Valium] 5 mg PO 4X/DAY PRN PRN #30 tab PRN Reason: Spasms Oxycodone HCl/Acetaminophen [Percocet 5/325] 1 - 2 tab PO 4X/DAY PRN PRN 7 Days #50 tab PRN Reason: Pain proMETHazine tablet [Phenergan tablet] 25 mg PO 4X/DAY PRN PRN #30 tab PRN Reason: Nausea/Vomiting Clindamycin HCl [Cleocin] 300 mg PO TID #30 cap Primary Care Physician: Anson Rios MD [Primary Care Provider] - Test Results: Test results from this visit will be discussed in further detail at your follow- up appointment, if applicable. Please Follow Up With: Panfilo Hickman MD When: call [phone] for appt. Proposed Discharge Date: 09/06/18
[2018-09-06 10:28] VITALS: BP 110/72; PULSE 101; RESP 18; TEMP 36.9; O2SAT 95
[2018-09-06] MEDS: Docusate Sodium 100 MG Capsule PO (10:34)
[2018-09-06] MEDS: Atenolol 50 MG Tablet PO (10:34)
== END 2018-09-06 12:45 | disposition home health service (06) ==
LOC: MS3 12:31
PROVIDERS: Admitting Provider Surgery; Family Provider Family Medicine; PCP Family Medicine; Referring Provider Surgery; Visit Provider Surgery
PROC: (CPT 19303; principal; 2018-09-04 08:15)
DX: Z40.01 Encounter for prophylactic removal of breast (principal); F45.29 Other hypochondriacal disorders; M32.9 Systemic lupus erythematosus, unspecified; R92.2 Inconclusive mammogram; F17.210 Nicotine dependence, cigarettes, uncomplicated; Z80.3 Family history of malignant neoplasm of breast; Z79.899 Other long term (current) drug therapy; F41.9 Anxiety disorder, unspecified; F32.9 Major depressive disorder, single episode, unspecified; K58.9 Irritable bowel syndrome, unspecified; Z85.850 Personal history of malignant neoplasm of thyroid; N60.32 Fibrosclerosis of left breast; N60.31 Fibrosclerosis of right breast; I10 Essential (primary) hypertension
CPT/HCPCS: 00400; 19303; 36415; 80048; 84134; 85027; 88307; 93005; 96365; 96366; 96372; 96375; 96376; 99218; 99406; J7120; A4216; G0378; G0379; J2405

== ENCOUNTER → 2018-10-15 | Outpatient (CLI) | payer MEDICAID, SELFPAY ==
[2018-10-15 16:13] VITALS: BMI 23.9
== END | disposition home or self-care (01) ==
PROVIDERS: Family Provider Family Medicine; PCP Family Medicine; Referring Provider Nurse Practitioner Family; Visit Provider Nurse Practitioner Family
DX: R92.2 Inconclusive mammogram (principal); M32.9 Systemic lupus erythematosus, unspecified; F17.200 Nicotine dependence, unspecified, uncomplicated; Z80.3 Family history of malignant neoplasm of breast; F40.298 Other specified phobia; S21.001A Unspecified open wound of right breast, initial encounter
CPT/HCPCS: 87070; 87205

== ENCOUNTER 2018-11-03 13:05 | Observation (INO) | payer MEDICAID, SELFPAY ==
[2018-10-20 11:09] VITALS: BMI 23.9
[2018-10-28 15:35] VITALS: BMI 23.9
--- NOTE | 2018-10-29 11:37 | NURSING ---
PT REQUESTS THAT ONLY TO RECEIVE PERSONAL INFORMATION ABOUT SURGERY, [email or web address].
[2018-11-03] VITALS (15 sets, daily range): BP systolic 86–117; BP diastolic 50–74; PULSE 69–93; RESP 14–18; TEMP 36.2–37.1; O2SAT 93–98; BMI 23.8
--- NOTE | 2018-11-03 00:18 | HP.PCM_ITS ---
History and Physical Date of Admission: 11/03/18 HISTORY OF PRESENT ILLNESS 48 year old woman presents with cancerphobia of her breasts. She has a family history of breast cancer, and her cancerphobia has worsened over the last several months because of a recent diagnosis of breast cancer in her family. She had a mammogram in March,. No significant masses or calcifications were seen in either breast. Also it was noted that the tissue of both breasts is heterogenously dense. This may lower the sensitivity of mammography. This may make cancer surveillance difficult which is concerning to the patient. She is afraid that a breast cancer will be missed which exacerbates her cancerphobia. She denies any trauma to her breasts. A letter was written to her insurance carrier and medical approval has been obtained for prophylactic mastectomies. Her surgery is scheduled for this Friday. She states she has cut down dramatically with her smoking. She is down to about 2-3 cigarettes per day. On 09/04/18, patient underwent prophylactic mastectomies bilateral breasts. Postoperatively, she developed some skin breakdown medially on the right mastectomy scar and laterally on the left mastectomy scar with nonhealing ulceration. Wound care was started with Silver dressing changes. Wound culture was negative. PAST MEDICAL HISTORY Anemia Anxiety and depression Bleeding disorder Bone fracture Breast lump Cancer Frequent headaches Gallstones Goiter Heart disease Heart valve problem History of blood transfusion Hives IBS (irritable bowel syndrome) Lupus Parathyroid abnormality Pneumonia Thyroid cancer Vitamin deficiency Acquired absence bilateral breasts. PAST SURGICAL HISTORY cholecystectomy hysterectomy thyroid surgery Prophylactic mastectomy bilateral breasts - 09/04/18 ALLERGIES codeine hydromorphone [From Dilaudid] Penicillins MEDICATIONS amitriptyline atenolol lorazepam mirtazapine sumatriptan topiramate venlafaxine ER FAMILY HISTORY Other - Anemia, Anesthesia complication, Anxiety, Bleeding disorder, Bowel disease, Breast cancer, CVA (cerebral vascular accident), Cancer, Cervical cancer, Colon cancer, Depression (emotion), Diabetes. Heart disease, High cholesterol, History of blood transfusion, Hypertension, Osteoporosis, Ovarian cancer, Thyroid disorder SOCIAL HISTORY Smoking Status: Current every day smoker alcohol intake: never substance use type: does not use REVIEW OF SYSTEMS General - Denies fever, fatigue, and weight loss. Eyes - Denies cataracts and glaucoma. ENT - Denies nasal congestion and sore throat. Endocrine - Denies excessive thirst and urination. Has thyroid disease. Has family history of breast cancer. Skin - Denies suspicious lesions and skin cancer. Musculoskeletal - Denies joint pain, joint stiffness, weakness of muscles and joints, back pain, and arthritis. Neuro - Has headaches. Cardiovascular - Denies chest pain, fatigue, and shortness of breath with exertion. Psych - Denies anxiety and depression. Respiratory - Denies chronic cough and shortness of breath. Patient is a smoker. Gastrointestinal - Denies nausea, vomiting, and constipation. Has diarrhea. Hematologic - Has abnormal bruising. Has anemia. Has lupus. Is on Humira. Genitourinary - Denies hematuria and urinary frequency. PHYSICAL EXAMINATION General - Alert and Oriented. Bra size is 36 C. HEENT - PERRL. EOMI. Throat is clear. Neck - Supple and nontender. No cervical adenopathy. Breasts - Bilateral mastectomy scars. There are areas of nonhealing ulceration on the medial aspect right mastectomy scar and on the lateral aspect left mastectomy scar. Lungs - Clear to auscultation. Heart - Regular rate and rhythm. Abdomen - Soft and nondistended. Some redundant skin and subcutaneous tissue present between the pubic area and the umbilicus. Has a right subcostal scar from a cholecystectomy. Has an upper midline scar from a bleeding ulcer surgery. Has a horizontal scar in the pubic area from a hysterectomy. Extremities - FROM. No axillary adenopathy. Radial pulses are palpable. Neuro - CN II-XII grossly intact. Psych - Normal mood and affect. ASSESSMENT 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 3. Nonhealing ulcer medial aspect right mastectomy scar. 4. Nonhealing ulcer lateral aspect left mastectomy scar. 5. Family history of breast cancer. 6. Lupus. 7. Immunocompromised state from Humira therapy for Lupus. 8. Inconclusive mammography due to dense breasts. 9. Smoker. PLAN Mammogram reviewed from March,. She does have dense breasts which will make cancer surveillance problematic. Discussed with the patient the procedure of prophylactic mastectomy bilateral breasts for cancer phobia. This would necessitate removal of the nipples to further decrease the risk of cancer. Subcutaneous mastectomy can also be used for prophylactic mastectomy. However by saving the nipple, a small percentage of breast tissue would remain which would necessitate future mammography and also still have a small but not zero risk of developing breast cancer. The patient states she wants to proceed with nipple removal with the mastectomy. Also with her immunocompromised state being on Humira for lupus, she is at increased risk of developing cancer in general. With the amount of fear the patient has about developing breast cancer, I feel that bilateral prophylactic mastectomies is warranted. A letter was written to her insurance carrier and medical approval has been obtained. Breast reconstruction, however, will be problematic in this patient. The placement of expanders followed by replacement cohesive gel implants is not a good idea because of her history of lupus which is an autoimmune process. She is at risk for problems with the placement of a foreign body implant with regard to rejection, increased pain, infection, and painful capsulectomy. The other option is using autogenous tissue. The latissimus dorsi flap is not a practical option since it generally requires a small implant underneath the flap for shape and contour. The goal with using autogenous tissue in this patient is not having to use foreign body implants because of her lupus. The abdominal pedicled TRAM flap would not work in this patient because the extensive scarring she has on the abdominal wall, especially the right subcostal scar thus making bilateral TRAM flap impossible. She might be a candidate for the use of the microscope depending on the quality of the vessels secondary to the previous scarring. The other microscope option for her would be bilateral gluteal flaps. That would necessitate going to a tertiary center for the microscope surgery reconstruction. She would also have to stop smoking prior to any attempts at breast reconstruction using the microscope. At the present time, she is more concerned about developing cancer and just wants to proceed with the prophylactic mastectomy. After healing has occurred, and she is more relaxed about not worrying about breast cancer, she will consider breast reconstruction at that time. In the meantime, she will just proceed with external prostheses in a mastectomy bra. In my experience with breast reconstruction after bilateral prophylactic mastectomy, insurance companies generally cover reconstruction with placement of tissue expanders followed by replacement cohesive gel implants, and they generally do not cover reconstruction using autogenous tissue. She voices understanding and will concern herself with breast reconstruction insurance coverage at a later date. At the time of the prophylactic mastectomy, because of some pseudoptosis, a mastopexy incision for the mastectomy can be useful for future reconstruction. However the Tzone area can be an area of suboptimal healing that would require wound care and sometimes antibiotic therapy. This potential suboptimal healing would be exacerbated because of her history of lupus and the use of Humira. Because of that risk, I would proceed with the traditional horizontal incision around the nipple for the mastectomy which will heal easier with her medical situation. Also the Tzone mastopexy incision is usually worthwhile with the plan of placing implants in the future. Since we are not concerning ourselves with implants, that is another reason to proceed with the horizontal incision for the mastopexy. After her prophylactic mastectomies were done on 09/04/18, the patient has developed nonhealing ulcers bilateral mastectomy scars. Recommend operative intervention with surgical preparation of these ulcers with incision and drainage and excisional debridement and secondary wound closure. Tissue will be sent to Pathology for analysis to rule out carcinoma and to Microbiology for culture. A positive culture will necessitate antibiotic therapy. A drain may be necessary postop. Patient was informed of the risks and complications of the procedure including alternatives to surgery. These were discussed with the patient personally. Patient voices understanding and wishes to proceed. Some of the risks and complications were included in a form from the [employer]. Surgery would be under general anesthesia with a surgical observation overnight stay in the hospital. She would have drains in for several days and be main tained on antibiotics until the drains are removed. Tissue that is removed would be sent to Pathology for analysis to rule out carcinoma. She will wear a chest wall binder for several weeks to minimize seroma formation. Encouraged patient to stop smoking as it may have deleterious effects on wound healing.
--- NOTE | 2018-11-03 11:30 | UL_PTH ---
PATIENT: ERNST PHELPS LOC: [facility]3 U#:[id number] AGE/SX: 48/F ROOM: MS312 RE11/03/[address]: Dr. Panfilo Hickman MD : 1970 BED: 1 DIS: 11/06/2018 SPEC #: [id number] RECD: 11/04/18 07:57 STATUS: MICHAEL REAdriana #: [id number] AMANDA: 11/03/18 11:[address]: Panfilo Hickman DEPT: SURGICAL PATHOLOGY RECD BY: Best Whitehead ENTERED: 11/04/18 10:06 SP TYPE: ULCER OTHR DR: MD Anson Waller MD Tissues: A - ULCER B - ULCER Procedures: Surgery Specimen Level IV HEADER OPERATION: Surgical preparation breast, excision nonhealing ulcer PRE-OP DIAGNOSIS: Cancerphobia bilateral breasts, nonhealing ulcer medial aspect right mastectomy scar, nonhealing ulcer lateral aspect left mastectomy scar TISSUE SUBMITTED: A. Right breast tissue, B. Left breast tissue MICROSCOPIC DIAGNOSIS A. Right breast tissue: Skin and subcutaneous adipose tissue with focal ulceration, acute and chronic inflammation with granulation tissue, fat necrosis and extensive foreign body type giant cell reaction compatible with previous procedure effects. B. Left breast tissue: Skin and subcutaneous with ulceration, fat necrosis, acute and chronic inflammation with granulation tissue and extensive foreign body giant cell reaction consistent with previous procedure effects. FA:rosy 11/05/18 MICROSCOPIC DESCRIPTION Slides are reviewed. GROSS DESCRIPTION A - Received in fixative is one container labeled with the patient's name and designated right breast tissue. The specimen consists of a pinkish-betts skin ellipse measuring 7 x 2.2 x 0.3 cm. The middle portion of the skin ellipse shows an ulcerated area measuring 1.5 cm in greatest dimension. The surgical margins are inked blue. The specimen is serially sectioned and health and safety representative sections are submitted in four cassettes as follows: 1 & 2 - sections from middle section, ulcerated area, 3 - section from ulcerated and adjacent areas, 4 - with lateral tips. B - Received in fixative is one container labeled with the patient's name and designated left breast tissue. The specimen consists of a pinkish-betts skin ellipse measuring 3.5 x 1.2 x 0.5 cm. The surgical margins are inked purple. The skin surface shows an ulcerated area in the middle portion measuring 5 mm in diameter. The specimen is serially sectioned and totally submitted in two cassettes. Cassette 2 also contains both lateral tips. / FA:rosy 11/04/18 TC:3 CPT: 32066 x2
--- NOTE | 2018-11-03 12:58 | OP.PCM_ITS ---
Report of Operation Date of Procedure: 11/03/18 Pre-Operative Diagnosis: 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 3. Nonhealing ulcer medial aspect right mastectomy scar. 4. Nonhealing ulcer lateral aspect left mastectomy scar. 5. Family history of breast cancer. 6. Lupus. 7. Immunocompromised state from Humira therapy for Lupus. 8. Inconclusive mammography due to dense breasts. 9. Smoker. Post-Operative Diagnosis: Same. Surgery/Procedure Performed:: 1. Surgical preparation right breast mastectomy scar with incision and drainage and excisional debridement nonhealing ulcer with 9 cm complex secondary wound closure. 2. Surgical preparation left breast mastectomy scar with incision and drainage and excisional debridement nonhealing ulcer with 5 cm complex secondary wound closure. Description of Surgical Findings:: 48 year old woman presents with cancerphobia of her breasts. She has a family history of breast cancer, and her cancerphobia has worsened over the last several months because of a recent diagnosis of breast cancer in her family. She had a mammogram in March,. No significant masses or calcifications were seen in either breast. Also it was noted that the tissue of both breasts is heterogenously dense. This may lower the sensitivity of mammography. This may make cancer surveillance difficult which is concerning to the patient. She is afraid that a breast cancer will be missed which exacerbates her cancerphobia. She denies any trauma to her breasts. A letter was written to her insurance carrier and medical approval has been obtained for prophylactic mastectomies. Her surgery is scheduled for this Friday. She states she has cut down dramatically with her smoking. She is down to about 2-3 cigarettes per day. On 09/04/18, patient underwent prophylactic mastectomies bilateral breasts. Postoperatively, she developed some skin breakdown medially on the right mastectomy scar and laterally on the left mastectomy scar with nonhealing ulceration. Wound care was started with Silver dressing changes. Wound culture was negative. Patient was informed of the risks and complications of the procedure including alternatives to surgery. These were discussed with the patient personally. Patient voices understanding and wishes to proceed. Some of the risks and complications were included in a form from the [employer] [place] [employer]. Encouraged patient to stop smoking as it may have deleterious effects on wound healing. I used Colby absorbable hemostat. Reference Number - WX3458-FHY. Lot Number - [id number]. Expiration - June 08, 2023, (both breasts). dobby loom chain pegger: Gary Martinez. Type of Anesthesia:: General Specimen's removed: 1. Right breast tissue to Pathology and Microbiology. 2. Left breast tissue to Pathology and Microbiology. Drains: Que (right breast). Estimated Blood Loss (mL): 25 ml. Description of Procedure: Patient was taken to OR in supine position and was placed under general anes thesia. Both breast areas were prepped and draped in the usual fashion. SCD's were placed for DVT prophylaxis. Perioperative antibiotics were given intravenously. Using xylocaine with epinephrine, the nonhealing ulcers on both mastectomy scars were infiltrated. After waiting 5 minutes for the anesthetic to take effect, I proceeded with incision and drainage down into the subcutaneous tissue. No pus was seen. Some fat necrosis was seen. This was excised and debrided along with the ulcerated skin of both nonhealing ulcers. Tissue was sent from each breast to Pathology for analysis to rule out carcinoma and to Microbiology for culture. A positive culture will necessitate antibiotic therapy. On the right breast there was too much tension for wound closure, so I elevated skin flaps at the level of the underlying pectoralis muscle to aid in wound closure. I elevated the skin flap superiorly about a cm and inferiorly about 4 cm. This necessitated the use of a drain. No skin flap elevation was necessary on the left breast area. I then placed a size 15 Que drain through a separate stab incision laterally and secured to the skin with 3-0 Nylon suture. Some separation of the pectoralis muscle was seen, and it was repaired with 3-0 Monocryl figure of eight interrupted sutures. Both mastectomy wounds were irrigated with saline. I then sprayed Colby absorbable hemostat into both breast wounds to minimize seroma formation. Most of the vial was used on the right and a small amount was used on the left. Both breast mastectomy wounds were then closed in a layered fashion with 3-0 Monocryl figure of eight interrupted sutures for the deep subcutaneous tissue. The deep dermis and subcutaneous tissue was approximated with 3-0 Monocryl interrupted sutures. The skin was approximated with 3-0 V lock unidirectional barbed running subcuticular suture. This was followed by Histoacryl skin tissue adhesive. The length of the complex secondary wound closure on the right was 9 cm and on the left was 5 cm. Kerlix gauze dressing was applied to the incisions followed by a compression BARRETT wrap. Patient tolerated the procedure well and was sent to PACU in satisfactory co ndition. Patient will be sent upstairs for continued postop care. She will keep her head elevated during the initial postop period. She will also be on a lifting restriction. The drain will be removed in the office. She will be discharged when she is tolerating po analgesia and is steady on her feet with ambulation. Anticipate 1-2 days. Grafts/Implants Used: None. - Complications None. - Admit VTE Documentation VTE Present on Admission: No VTE Mechan Device Prophylaxis: SCD's VTE Pharm Prophylaxis ordered?: Yes Code Visit Surgery Charges CPT - 25174-26 ICD-10 - L98.492, Z90.13, Z40.01, R92.2, Z80.3, F17.200 03136 L98.492, Z90.13, Z40.01, R92.2, Z80.3, F17.200 57906-17 L98.492, Z90.13, Z40.01, R92.2, Z80.3, F17.200 20580 L98.492, Z90.13, Z40.01, R92.2, Z80.3, F17.200
[2018-11-03] MEDS: oxyCODONE 5 MG Tablet 10 MG PO (16:13)
[2018-11-03] MEDS: Lactated Ringers 1,000 ML 60 ML IV (16:13)
[2018-11-03] MEDS: diazePAM 5 MG Tablet PO (19:00)
[2018-11-03] MEDS: Docusate Sodium 100 MG Capsule PO (22:11)
[2018-11-03] MEDS: Topiramate 25 MG Tablet PO (22:11)
[2018-11-03] MEDS: Venlafaxine XR 75 MG Capsule PO (22:11)
[2018-11-03] MEDS: Gabapentin 300 MG Capsule PO (22:11)
[2018-11-03] MEDS: Mirtazapine 30 MG Tablet PO (22:11)
[2018-11-03] MEDS: Venlafaxine XR 150 MG Capsule PO (22:11)
[2018-11-03] MEDS: Amitriptyline 100 MG Tablet 150 MG PO (22:12)
--- OUTSIDE RECORDS SUMMARY | 2018-11-04 00:26 | XMS RPT_ITS | CCD ---
:1970 External Reference #:[id number] Demographics Address [address] [place] [address] Preferred Language Unknown Marital Status Unknown Pentecostal Affiliation Unknown Race White Ethnic Group Unknown Author Organization [facility] Care Team Providers Name Role Phone Unavailable Unavailable Unavailable Results Result Name Value Range Unit Interpretation Flag Date Location [facility] Patient Outreach (FAMPST) Normal 1 05-24-2017 [facility] MARYBETH PHELPS ([id number]) 1970 [facility] Time Provider Department ([id number]) 03/24/18 SPEEDY RISO FAMPST During your visit today, we recorded the following informati on about you: Allergies As of Date: 03/24/2018 [...] [Z79.899] Order(s):LIPID PANEL BASIC [SQLIPB] Order #: [id number] FUTU RE Prescriptions as of 03/24/2018 Sig: AMITRIPTYLINE 100 MG TABLET Take 1 AND 1/2 tablets daily at* ATENOLOL 50 MG TABLET Take 2 tablets by mouth once * CYANOCOBALAMIN (VIT B-12) 1,0* Inject 1 mL intramuscularly o * LORAZEPAM 1 MG TABLET TAKE 1 TABLET EVERY 8 HOURS A* MECLIZINE 25 MG TABLET Take 1 tablet by mouth three * MIRTAZAPINE 30 MG TABLET TAKE 1/2 (ONE-HALF) OF A TABL* VENLAFAXINE ER 75 MG CAPSULE,* TAKE 1 CAPSULE BY MOUTH EVERY * VENLAFAXINE ER 150 MG CAPSULE* Take 1 capsule by mouth once * X METOPROLOL TARTRATE 25 MG TAB* Take 1 tablet by mouth twic e * X SUMATRIPTAN 25 MG TABLET TAKE 1 TABLET BY MOUTH ONCE D* X TOPIRAMATE 25 MG TABLET Take 1 tablet by mouth daily * X VENTOLIN HFA 90 MCG/ACTUATION* Inhale 2 Puffs as instructe d * Problem List As Of Date 03/24/2018 Noted Resolved OBESITY [E66.9] INVALID FOR* MIGRAINE COMMON [G43.009] INVALID FOR* PALPITATIONS [R00.2] INVALID FOR* INSOMNIA NOS [G47.00] INVALID FOR* Type II or unspecified type diabetes mellitus w*INVALID FOR* 06/07/2013 Recurrent major depressive disorder, in partial*INVALID FOR* [...] by SANTIAGO PRODUSER on 04/24/18 cnco on 2018-10-14 [facility] Letter Text Normal 10-14-2018 [facility] ([id number]) cnco on 2018-03-17 [facility] HNO ID: [id number] Normal 03-17-2018 [facility] Author: Mammography Coordinator ([id number]) Service: (none) Author Type: Physician Type: Letter Filed: 03/18/2018 11:33 PM Note Text: March 17, 2018 PID: [id number] Marybeth Phelps [address] [place] [address] Dear Ms. Phelps, We are pleased to inform you that the results of your recent breast imaging exam on 03/17/2018 are normal. Your mammogram demonstrates that you have dense breast tissu e, which could hide abnormalities. Dense breast tissue, in and of itself, i s a relatively common condition. Therefore, this information is not provided to cause undue concern; rather, it is to raise your awarenes s and promote discussion with your health care provider regarding the pres ence of dense breast tissue in addition to other risk factors. Early detection of cancer is very important. We also underst and recommendations regarding breast cancer screening are contro versial. Please discuss with your primary care provider which strateg y is best for you and whether a mammogram is right for you. Your imaging studies and report will be kept on file at [facility] as part of your permanent medical record and are available f or your continuing care. Thank you for allowing us to help in meeting your health car e needs. Sincerely, Dr. Alberts Interpreting Radiologist [facility] (Normal over 40) progress on 2018-09 Protein mass conc HNO ID: [id number] Normal [facility] Author: Rula Baumann LPN [place] ([id number]) Service: ? Author Type: ? Type: Progress Notes Filed: 09/28/2018 3:13 PM Note Text: Patient presents for B-12 injection. Denies any problems at this time. Patient instructed on any SE of medication, verbalized under standing and agreed to proceed with treatment. Tolerated injection well. Rula Baumann LPN cnptoutreach on 01-14-21 CNPTOUTREACH Patient Outreach (INTM) Normal 0 09-29-2018 [facility] MARYBETH PHELPS ([id number]) 1970 [facility] Date Time Provider Department ([id number]) 09/29/18 SPEEDY RIOS [facility] During your visit today, we recorded the following informati on about you: Allergies As of Date: 09/29/2018 Noted Allergy Reaction CIPRO (CIPROFLOXACIN) 04/21/2007 2 - Rash Comments: Rapid heartbeat, flushed CODEINE [Other] 06/17/2005 4 - Hives DILAUDID (HYDROMORPHONE (BULK)) 06/05/2009 HYOSCYAMINE 01/09/2007 2 - Rash 9 - Itching PENICILLINS 06/17/2005 4 - Hives Date Reviewed: 08/19/2018 Reviewed by: Sarah Camacho Sand[employer] Drink Cart Operator - Fully Assessed Visit Diagnosis:Postsurgical hypothyroidism [E89.0] Order(s):TSH BLD [SQTSH] Order #: [id number] FUTURE Prescriptions as of 09/29/2018 Sig: TOPIRAMATE 50 MG TABLET Take 1 tablet by mouth daily * ONDANSETRON 4 MG DISINTEGRATI* Take 1 tablet by mouth every * LORAZEPAM 0.5 MG TABLET Take 2 tablets by mouth every* SUMATRIPTAN 100 MG TABLET Take 1 tablet by mouth as nee* AMITRIPTYLINE 100 MG TABLET Take 1 AND 1/2 tablets daily at* VENLAFAXINE ER 150 MG CAPSULE* Take 1 capsule by mouth once * COMPOUNDED PRESCRIPTION 1 wheelchair ICD-10: R26.81 VENLAFAXINE ER 75 MG CAPSULE,* TAKE 1 CAPSULE BY MOUTH EVERY * MIRTAZAPINE 30 MG TABLET TAKE 1/2 (ONE-HALF) OF A TABL* ATENOLOL 50 MG TABLET Take 2 tablets by mouth once * CYANOCOBALAMIN (VIT B-12) 1,0* Inject 1 mL intramuscularly o * MECLIZINE 25 MG TABLET Take 1 tablet by mouth three * Problem List As Of Date 09/29/2018 Noted Resolved OBESITY [E66.9] INVALID FOR* Migraine without aura [G43.009] INVALID FOR* PALPITATIONS [R00.2] INVALID FOR* INSOMNIA NOS [G47.00] INVALID FOR* Type II or unspecified type diabetes mellitus w*INVALID FOR* 06/07/2013 Recurrent major depressive disorder, in partial*INVALID FOR* [...] HYPOTHYROID [E89.0] INVALID FOR* Encounter Status:Closed by EPIC, PRODUSER on 10/14/18 [facility] screening on 29-03-06 [facility] SCREENING * * *Final Report* * * Normal [facility] DATE OF EXAM: Mar 17 2018 3:26PM [place] ([id number]) [facility] 0581 - [facility] SCREENING / PROCEDURE REASON: Screening for breast cancer * * * * Physician Interpretation * * * * RESULT: #[id number] - [facility] SCREENING BILATERAL DIGITAL SCREENING MAMMOGRAM WITH CAD: 03/17/2018 HISTORY: Screening For Breast Cancer\ Screening Mammogram - patient reports NO breast symptoms /priors available for comparison. RESULT: TECHNIQUE: The study was acquired using full field digital t echnology and interpreted from soft copy. Current study was also evaluated with a Computer Aided Detec tion (CAD). Comparison is made to exams dated: 01/21/2017 mammogram - [facility], 06/24/2013 mammogram - [facility], and 12/16/2007 mammogram. The tissue of both breasts is heterogeneously dense. This ma y lower the sensitivity of mammography. No significant masses, calcifications, or other findings are seen in either breast. There has been no significant interval change. IMPRESSION: NEGATIVE There is no mammographic evidence of malignancy. A 1 year nv reening mammogram is recommended. Machelle Alberts M.D., jr/hoda:03/17/2018 16:45:41 Pharmacy Teacher: Jamila Garcia RT(R)(M), [facility] letter sent: Normal over 40 Mammogram BI-RADS: 1 Negative Multiple national specialty organizations have released derick st cancer screening guidelines for women at average risk for developin g breast cancer - guidelines that are based on both evidence and opin ion, yet differ on when to start and how often to screen for breast c ancer. With representation from Breast Imaging, Internal Medicine, Women 's Health, Family Medicine, and Medical/Surgical Oncology, the [facility] has carefully reviewed the data and reached the following consen maddi: 1) All women should engage in shared decision-making with eir providers to decide when to start and how often to screen; 2) All women should have the opportunity to start screening mammography at age 40; 3) For women ages 45-55, we recommend annual screening mammo grams; 4) For women ages 55 and over, we support both the transitio n from an annual to a biennial interval if this aligns more with patie nt's values and preferences, or continuation with annual screening; 5) All women should discuss with their providers when to sto p screening mammograms. Textile Colorist Dyer: Hoda Transcribe Date/Time: Mar 17 2018 3:28P Dictated by: MACHELLE ALBERTS MD This examination was interpreted and the report reviewed and electronically signed by: MACHELLE ALBERTS MD on Mar 17 2018 4:45PM EST [id number] ct brain wo ivcon o n 2018-08-21 CT BRAIN WO * * *Final Report* * * Normal 08-[address] [facility] IVCON DATE OF EXAM: Aug 21 2018 3:00PM [place] ([id number]) [facility] 0504 - CT BRAIN WO IVCON / PROCEDURE REASON: multiple diagnoses * * * * Physician Interpretation * * * * EXAMINATION: CT BRAIN WO IVCON CLINICAL HISTORY: Headache. Chronic mixed headache syndrome. Convulsions. TECHNIQUE: Serial axial images without IV contrast were obta ined from the vertex to the foramen magnum. MQ: CTBWO_[id number] CT Dose-Length Product (DLP): 654 mGy*cm CT Dose Reduction Employed: Automated exposure control(AEC) and iterative recon COMPARISON: Head CT 12/04/2016. RESULT: Post-operative change: None. Acute change: No evidence of an acute infarct or other acute parenchymal process. Hemorrhage: No evidence of acute intracranial hemorrhage. Mass Lesion / Mass Effect: There is no evidence of an intrac ranial mass or extraaxial fluid collection. No significant mass effect. Chronic change: None apparent. Parenchyma: There is no significant volume loss. The brain p arenchyma is otherwise within normal limits for age. Ventricles: The ventricles are within normal limits of size and configuration for age. Paranasal sinuses and skull base: The visualized paranasal s inuses are grossly clear. The skull base and imaged soft tissues are un remarkable. IMPRESSION: No significant change compared to 12/04/[address] evide nce of acute intracranial abnormality. No intracranial hemorrhage. Textile Colorist Dyer: KILEY Transcribe Date/Time: Aug 21 2018 3:17P Dictated by : JP FERRELL MD This examination was interpreted and the report reviewed and electronically signed by: DIONISIO DUQUE MD on Aug 21 2018 3:25PM EST [id number] cnnurse on [facility] Nurse Visit (FAMPWS) Normal 9 [place] MARYBETH Hussein ([id number]) 1970 [facility] Time Provider Department ([id number]) 09/28/18 2:45 PM [place] NURSE FAMPWS During your visit today, we recorded the following informati on about you: Rula Baumann LPN 09/28/2018 3:13 PM Signed Patient presents for B-12 injection. Den ies any problems at this time. Patient instructed on any SE of medication, verbalized understanding and agreed to proceed with treatment. Tolerated injection well. Rula Baumann LPN Referring Provider: SPEEDY RIOS [[id number]] Allergies As of Date: 09/28/2018 Noted Allergy Reaction CIPRO (CIPROFLOXACIN) 04/21/2007 2 - Rash Comments: Rapid heartbeat, flushed CODEINE [Other] 06/17/2005 4 - Hives DILAUDID (HYDROMORPHONE (BULK)) 06/05/2009 HYOSCYAMINE 01/09/2007 2 - Rash 9 - Itching PENICILLINS 06/17/2005 4 - Hives Date Reviewed: 08/19/2018 Reviewed by: Sarah Camacho Sand[employer] Drink Cart Operator - Fully Assessed Reason for Visit: B-12 Injection [247] Primary Visit Diagnosis:Vitamin B 12 deficiency [E53.8] Prescriptions as of 09/28/2018 Sig: TOPIRAMATE 50 MG TABLET Take 1 tablet by mouth daily * ONDANSETRON 4 MG DISINTEGRATI* Take 1 tablet by mouth every * LORAZEPAM 0.5 MG TABLET Take 2 tablets by mouth every* SUMATRIPTAN 100 MG TABLET Take 1 tablet by mouth as nee* AMITRIPTYLINE 100 MG TABLET Take 1 AND 1/2 tablets daily at* VENLAFAXINE ER 150 MG CAPSULE* Take 1 capsule by mouth once * COMPOUNDED PRESCRIPTION 1 wheelchair ICD-10: R26.81 VENLAFAXINE ER 75 MG CAPSULE,* TAKE 1 CAPSULE BY MOUTH EVERY * MIRTAZAPINE 30 MG TABLET TAKE 1/2 (ONE-HALF) OF A TABL* ATENOLOL 50 MG TABLET Take 2 tablets by mouth once * CYANOCOBALAMIN (VIT B-12) 1,0* Inject 1 mL intramuscularly o * MECLIZINE 25 MG TABLET Take 1 tablet by mouth three * Problem List As Of Date 09/28/2018 Noted Resolved OBESITY [E66.9] INVALID FOR* Migraine without aura [G43.009] INVALID FOR* PALPITATIONS [R00.2] INVALID FOR* INSOMNIA NOS [G47.00] INVALID FOR* Type II or unspecified type diabetes mellitus w*INVALID FOR* 06/07/2013 Recurrent major depressive disorder, in partial*INVALID FOR* [...] Encounter Status:Closed by RULA BAUMANN LPN on 09/28/18 progress on 2018-08 Protein mass conc HNO ID: [id number] Normal [facility] Author: Rosenda Holloway [place] ([id number]) Service: ? Author Type: ? Type: Progress Notes Filed: 08/21/2018 3:21 PM Note Text: Radiology Service Progress Note PATIENT NAME: Marybeth Phelps DATE OF SERVICE: August 21, 2018 TIME: 3:21 PM PATIENT IDENTITY VERIFICATION COMPLETED USING TWO (2) METHOD S: Patient confirmed name verbally and Date of . PATIENT GENDER DATA: Female. status: : No status: NO. PATIENT RELEVANT IMPLANT DATA REVIEWED: Not Applicable RADIOLOGY DEPARTMENT: CT; Exam(s) Completed: Brain PERIPHERAL IV DATA: Not applicable SIGNED BY: Rosenda Holloway August 21, 2018 3:21 PM cnnurse on [facility] Nurse Visit (FAMPWS) Normal 8 [place] [facility] MARYBETH PHELPS ([id number]) 1970 F [facility] Time Provider Department ([id number]) 03/17/18 2:45 PM [place] NURSE FAMPWS During your visit today, we recorded the following informati on about you: Rula Baumann LPN 03/17/2018 3:02 PM Signed Patient presents for B-12 injection. Den ies any problems at this time. Patient instructed on any SE of medication, verbalized understanding and agreed to proceed with treatment. Tolerated injection well. Rula Baumann LPN Referring Provider: SPEEDY RIOS [[id number]] Allergies As of Date: 03/17/2018 Noted Allergy Reaction CIPRO (CIPROFLOXACIN) 04/21/2007 2 - Rash Comments: Rapid heartbeat, flushed CODEINE [Other] 06/17/2005 4 - Hives DILAUDID (HYDROMORPHONE (BULK)) 06/05/2009 HYOSCYAMINE 01/09/2007 2 - Rash 9 - Itching PENICILLINS 06/17/2005 4 - Hives Date Reviewed: 01/14/2018 Reviewed by: Rosenda Mcdonald Ct - Fully Assessed Reason for Visit: B-12 Injection [247] Primary Visit Diagnosis:Vitamin B 12 deficiency [E53.8] Prescriptions as of 03/17/2018 Sig: LORAZEPAM 1 MG TABLET TAKE 1 TABLET EVERY 8 HOURS A* SUMATRIPTAN 25 MG TABLET TAKE 1 TABLET BY MOUTH ONCE D* VENLAFAXINE ER 75 MG CAPSULE,* TAKE 1 CAPSULE BY MOUTH EVERY * AMITRIPTYLINE 100 MG TABLET Take 1 AND 1/2 tablets daily at* VENTOLIN HFA 90 MCG/ACTUATION* Inhale 2 Puffs as instructed * MIRTAZAPINE 30 MG TABLET TAKE 1/2 (ONE-HALF) OF A TABL* ATENOLOL 50 MG TABLET Take 2 tablets by mouth once * CYANOCOBALAMIN (VIT B-12) 1,0* Inject 1 mL intramuscularly o * TOPIRAMATE 25 MG TABLET Take 1 tablet [...] II or unspecified type diabetes mellitus w*INVALID FOR* 06/07/2013 Recurrent major depressive disorder, in partial*INVALID FOR* [...] RULA BAUMANN LPN on 03/17/18 cnov on 2018-08-19 CNOV Office Visit (FAMWS) Normal 08-20-19 [place] MARYBETH Hussein ([id number]) 1970 [place] Date Time Provider Department ([id number]) 08/19/18 4:00 PM MARYBETH RICHARD ([facility]) [facility] During your visit today, we recorded the following informati on about you: Temperature Pulse Respiration Blood pressure 97.7 degrees 86/minute 12/minute 110/58 Weight 68.5 kg Marybeth Richard APRN.AKBAR 08/19/2018 4:50 PM Signed 08/19/2018 Patient presents with: Seizures SUBJECTIVE: This is a 48 year old that is here today f or episode of having a lot of pressure in the top of head, felt hot, hearing like in a tunnel, said that she felt off- passed out into daugh ter's arms and was shaking and came to after a few seconds and woke up agitated. She then woke up the next morning and felt numbness to the right side of face, pressure in top of head, lip felt numb, got crabby, and passed out. She states that she does have a history of migraines, but imitrex did not help. She states that she h ad a CT years ago that shows lesions on the front of the brain and she does not think she has followed up, but was told that she needed to. Sh e states that she often feels like she does not know where she is going. Trying not to drgucci ve. Forgetful. Continues to have a headache that varies in intensity. Has not had an eye exam in quite a while. She does have family history o f stroke. She states that she is eating and drinking normally. Denies CP or SOB. Den ies lightheadedness or dizziness. Denies vision vida nges. She states that she did not go to the ER when she experienced these symptoms because she did not wan t to worry her family. PAST MEDICAL HISTORY Diagnosis Date - Acute peptic ulcer, unspecified site, with hemorrhage, w ithout mention of obstruction - Anxiety state, unspecified [...] II or unspecified type diabetes mellitus without ment ion of complication, not stated as uncontrolled - Unspecified constipation Constipation - Unspecified urinary incontinence - Urge incontinence - Urinary calculus, unspecified Renal stones ALLERGIES Cipro [Ciprofloxacin]; Codeine [Other]; Dilaudid [ Hydromorphone (Bulk)]; Hyoscyamine; Penicillins MEDICATIONS Current Outpatient Medications: topiramate (TOPAMAX) 50 mg tablet Take 1 tablet by mouth vicki ly at bedtime. ondansetron orally disintegrating (ZOFRA N ODT) 4 mg disintegrating tablet Take 1 tablet by mouth every 6 hours as needed for Nausea/Vomitin g. LORazepam (ATIVAN) 0.5 mg tab Take 2 tablets by mouth every 8 hours as needed for up to 90 days. SUMAtriptan (IMITREX) 100 mg tablet Take 1 tablet by mouth a s needed. amitriptyline (ELAVIL) 100 mg tablet Take 1 AND 1/2 tablets daily at bedtime. venlafaxine ER (EFFEXOR XR) 150 mg 24 hr capsule Take 1 capsule by mouth once daily. COMPOUNDED PRESCRIPTION 1 wheelchair ICD-10: R26.81 venlafaxine ER (EFFEXOR XR) 75 mg 24 hr capsule TAKE 1 CAPSULE BY MOUTH EVERY DAY along with 150mg mirtazapine (REMERON) 30 mg tablet TAKE 1/2 (ONE-HALF) OF A TABLET EVERY DAY AT BEDTIME atenolol (TENORMIN) 50 mg tablet Take 2 tablets by mouth onc e daily. cyanocobalamin 1,000 mcg/mL soln Inject 1 mL intramuscularly once every month. meclizine (ANTIVERT) 25 mg tab Take 1 tablet by mouth three times daily as needed (dizziness). Current Facility-Administered Medications: cyanocobalamin 1,000 mcg injection 1,000 mcg INTRAMUSCULAR q 1 MONTH Medications and allergies reviewed by this provider. 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 Tobacco Use Smoking status: Current Every Day Smoker Packs/day: 1.00 Years: 21.00 Pack years: 21 Smokeless tobacco: Never Used Tobacco comment: 05/2018 down to 05/13 ppd Substance and Sexual Activity Alcohol use: Yes Comment: social event, rarely Drug use: No Sexual activity: Yes Partners: Male control/protection: Surgical Comment: hysterectomy Other Topics Concerns: Not on file Social History Narrative 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 REVIEW OF SYSTEMS see HPI Orientation: year, season, numerical date, day of week, nisha h (0-5) 4 Place: state, county, town, facility, floor (0-5) 5 Registration:name 3 objects (apple,table,barrett)Patient repe ats(0-3) 3 Spell world backward, or cnt from 100 bkwrd x 7s - 5 answers (0-5) 5 Ask patient to remember the 3 objects from above(0-3) 3 Name pencil/watch (0-2) 2 Repeat No ifs, ands, or buts(0-1) 1 Follow three-step command (0-3) 3 Read and obey close your eyes(0-1) 1 Write a sentence (0-1) 1 Copy interlocking pentagons (0-1) 1 Score: 29 OBJECTIVE: BP 110/58 (BP Site: Left Arm, BP Position: Sitting, BP Cuff Size: Regular Adult) Pulse 86 Temp 36.5 ?C (97.7 ?F) (Left Tympanic) Resp 12 Wt 68.5 kg (151 lb) SpO2 96% BMI 24.71 kg/m? . Vital signs reviewed by this provider. PHYSICAL EXAMINATION: General appearance: Well cabrera earing, alert, in no acute distress, well-hydrated, well nourished. Skin: Skin color, texture, turgor normal, no suspicious rash es or lesions Head: Normocephalic, no masses, lesions, tenderness or abnor malities Eyes: Anicteric sclera. Pupils are equally round and reactiv e to light. Extraocular movements are intact. Ears: External ears normal, canals clear, TMS normal Neck: Supple, no adenopathy; thyroid symmetric, normal size, no bruits Lungs: lungs clear to auscultation. No wheezing, rhonchi, ra les Heart: RRR without murmur, gallop, or rubs. No ectopy Abdomen: Normal abdominal exam, Abdomen soft, non-tender. Bowel sounds normal. No masses, organomegaly Extremities: No deformities, edema, skin discolo ration, clubbing or cyanosis. Good capillary refill. , Pulses: 2+ Neuro: Gait normal. Reflexes normal and symmetri c. Sensation grossly intact., Negative findings: speech normal, mental status intact, Romb erg negative, muscle tone normal, muscle s trength normal, rapid alternating movements normal, finger to nose normal, Positive findings : balance off with standing on one leg bilaterally and with heel to toe walking ASSESSMENT/PLAN: 1. Chronic migraine with aur a - ICD9: 346.00, ICD10: G43.109 (primary diagnosis) - continue current medicatio ns until we have results from CT, may need to defer management to Neurology with these new changes - CONSULT TO NEUROLOGY 2. Syncope and collapse - ICD9: 780.2, ICD10: R55 - stable today, related to the feelings of the worst headache of her life on 2 occassions within 24 hours a week and a half ago, none sin ce. - encouraged adequate hydration and healthy diet - CT BRAIN WO IVCON - CONSULT TO NEUROLOGY - CBC - COMP METABOLIC PANEL - stressed the need to be seen in ER if she experience s these symptoms again 3. Thunderclap headache - ICD9: 784.0, ICD10: G44.53 - see above - CT BRAIN WO IVCON - CONSULT TO NEUROLOGY - stressed the need to be seen in ER if she experience s these symptoms again 4. Chronic mixed headache syndrome - ICD9: 339.89, ICD10: G4 4.89 - see above - CT BRAIN WO IVCON - CONSULT TO NEUROLOGY 5. Convulsions, unspecified convulsion t ype (HCC) - ICD9: 780.39, ICD10: R56.9 - unclear etiology - discussed that she may need further workup with EEG when s he is seen by neurology to evaluate for se izures, but since there was head pressure first and the other associated symptoms, need to have CT first - CT BRAIN WO IVCON - CONSULT TO NEUROLOGY - stressed the need to be seen in ER if she experience s these symptoms again Marybeth Richard APRN.SECURITY ANALYST Referring Provider: SELF [[id number]] Allergies As of Date: 08/19/2018 Noted Allergy Reaction CIPRO (CIPROFLOXACIN) 04/21/2007 2 - Rash Comments: Rapid heartbeat, flushed CODEINE [Other] 06/17/2005 4 - Hives DILAUDID (HYDROMORPHONE (BULK)) 06/05/2009 HYOSCYAMINE 01/09/2007 2 - Rash 9 - Itching PENICILLINS 06/17/2005 4 - Hives Date Reviewed: 08/19/2018 Reviewed by: Sarah Camacho Sandwich [employer] Drink Cart Operator - Fully Assessed Reason for Visit: Seizures [97] Primary Visit Diagnosis:Chronic migraine with aura [G43.109] Other Visit Diagnoses:Syncope and collapse [R55] Thunderclap headache [G44.53] Chronic mixed headache syndrome [G44.89] Convulsions, unspecified convulsion type (HCC) [R56.9] Order(s):CT BRAIN WO IVCON [[id number]] Order #: [id number] FUT URE CONSULT TO NEUROLOGY [9019] Order #: [id number]: 1 CBC [SQCBC] Order #: [id number] FUTURE COMP METABOLIC PANEL [SQCMP] Order #: [id number] FUTURE Prescriptions as of 08/19/2018 Sig: TOPIRAMATE 50 MG TABLET Take 1 tablet by mouth daily * ONDANSETRON 4 MG DISINTEGRATI* Take 1 tablet by mouth every * LORAZEPAM 0.5 MG TABLET Take 2 tablets by mouth every* SUMATRIPTAN 100 MG TABLET Take 1 tablet by mouth as nee* AMITRIPTYLINE 100 MG TABLET Take 1 AND 1/2 tablets daily at* VENLAFAXINE ER 150 MG CAPSULE* Take 1 capsule by mouth once * COMPOUNDED PRESCRIPTION 1 wheelchair ICD-10: R26.81 VENLAFAXINE ER 75 MG CAPSULE,* TAKE 1 CAPSULE BY MOUTH EVERY * MIRTAZAPINE 30 MG TABLET TAKE 1/2 (ONE-HALF) OF A TABL* ATENOLOL 50 MG TABLET Take 2 tablets by mouth once * CYANOCOBALAMIN (VIT B-12) 1,0* Inject 1 mL intramuscularly o * MECLIZINE 25 MG TABLET Take 1 tablet by mouth three * Problem List As Of Date 08/19/2018 Noted Resolved OBESITY [E66.9] INVALID FOR* Migraine without aura [G43.009] INVALID FOR* PALPITATIONS [R00.2] INVALID FOR* INSOMNIA NOS [G47.00] INVALID FOR* Type II or unspecified type diabetes mellitus w*INVALID FOR* 06/07/2013 Recurrent major depressive disorder, in partial*INVALID FOR* [...] HYPOTHYROID [E89.0] INVALID FOR* Encounter Status:Closed by MARYBETH RICHARD on 08/19/18 comp metabolic panel on 2018-08-19 Albumin mass conc 3.9 3.9-4.9 g/dL Normal 08-19-2018 [facility] ([id number]) Comment: Performed By: #### CMP, CBC ####[facility] [address] [phone] ALP enzyme act/vol 114 34-123 U/L Normal 08-19-2018 [facility] ([id number]) Comment: Performed By: #### CMP, CBC ####[address] [phone] ALT enzyme act/vol 19 7-38 U/L Normal 08-19-2018 [facility] ([id number]) Comment: Performed By: #### CMP, CBC ####[address] [phone] Anion gap molar conc 12 9-18 mmol/L Normal 9 [facility] ([id number]) Comment: Performed By: #### CMP, CBC ####[address] [phone] AST enzyme act/vol 18 13-35 U/L Normal 08-19-2018 [facility] ([id number]) Comment: Performed By: #### CMP, CBC ####[address] [phone] Bilirubin mass conc <0.2 0.2-1.3 mg/dL Low 08-19-2018 [facility] ([id number]) Comment: Performed By: #### CMP, CBC ####[address] [phone] Calcium mass conc 9.1 8.5-10.2 mg/dL Normal 08-19-[address] [facility] ([id number]) Comment: Performed By: #### CMP, CBC ####[address] [phone] Chloride molar conc 102 97-105 mmol/L Normal 08-19-2018 [facility] ([id number]) Comment: Performed By: #### CMP, CBC ####[address] [phone] CO2 molar conc 22 22-30 mmol/L Normal 08-19-2018 [facility] ([id number]) Comment: Performed By: #### CMP, CBC ####[facility] [place], [place] [phone] Creatinine mass conc 0.73 0.58-0.96 mg/dL Normal 9 [facility] ([id number]) Comment: Performed By: #### CMP, CBC ####[facility] [place], [place] [phone] eGFR- Amer. >60 Normal 08-19-2018 [facility] ([id number]) Comment: Performed By: #### CMP, CBC ####[address] [phone] GFR/1.73 sq M predicted >60 mL/min/{1.73_m2} Normal 08-19-[address] [facility] among non-blacks MDRD [place] ([id number]) vol rate/area (S/P/Bld) Comment: Result Comment: eGFR (Estima derek GFR) Units of measure: mL/min/1.73 meters squared eGFR is derived from the ree xpressed MDRD Study equation using the following parameters: serum creatinine, age, gender and race. The creatinine assay has been calibrated to be traceable to IDMS. An eGFR <60 mL/min/1.73m2 fo r >3 months is consistent with chronic kidney disease. Refer to KDOQI guidelines for clinical interpretation. In patients with unstable re nal function, e.g. those with acute kidney injury, the eGFR may not accurately reflect actual GFR. Performed By: #### CMP, CBC ####[facility] [place] [address] [phone] Glucose mass conc 101 74-99 mg/dL High 08-19-2018 [facility] ([id number]) Comment: Result Comment: The [place] Diabetes Association (ADA) provides guidance for cutoff values for fasting glucose and random glucose. The ADA defines fasting as no caloric intake for at least 8 hours. Fas ting plasma glucose results between 100 to 125 mg/dL indicate increased risk for diabetes (prediabetes). Fasting plasma glucose resul ts greater than or equal to 126 mg/dL meet the criteria for diagnosis of diabetes. In the absence of unequivocal hyperglycemia, results should be confirmed by repeat testing. In a patient with classic s ymptoms of hyperglycemia or hyperglycemic crisis, random plasma glucose results greater than or equal to 200 mg/dL meet the criteria for diagnosis of diabetes. Reference: Standards of [facility] Care in Diabetes 2016, [place] Diabetes Association. Diabetes Care. 2016.39(Suppl 1). Performed By: #### CMP, CBC ####[address] [phone] Potassium molar conc 3.3 3.7-5.1 mmol/L Low 9 [facility] ([id number]) Comment: Performed By: #### CMP, CBC ####[address] [phone] Protein mass conc 6.8 6.3-8.0 g/dL Normal 08-19-2018 [facility] ([id number]) Comment: Performed By: #### CMP, CBC ####[address] [phone] Sodium molar conc 136 136-144 mmol/L Normal 08-19-2018 [facility] ([id number]) Comment: Performed By: #### CMP, CBC ####[address] [phone] Urea nitrogen mass conc 8 7-21 mg/dL Normal 2018 [facility] ([id number]) Comment: Performed By: #### CMP, CBC ####[address] [phone] progress on 2018-08 Protein mass HNO ID: [id number] Normal 08-20-19 19 [facility] Author: Marybeth PutnamCollis P. Huntington HospitalSabi [facility] Service: ? [place] Author Type: Nurse Practitioner ([id number]) Type: Progress Notes Filed: 08/19/2018 4:50 PM Note Text: 08/19/2018 Patient presents with: Seizures SUBJECTIVE: This is a 48 year old that is here today for epi sode of having a lot of pressure in the top of head, felt hot, hearing like in a tunnel, said that she felt off- passed out into daughter's arms and was shaking and came to after a few seconds and woke up agitated. She th en woke up the next morning and felt numbness to the right side of face, pr essure in top of head, lip felt numb, got crabby, and passed out. She stat es that she does have a history of migraines, but imitrex did not help. She states that she had a CT years ago that shows lesions on the front of the brain and she does not think she has followed up, but was told jay t she needed to. She states that she often feels like she does not know w here she is going. Trying not to drive. Forgetful. Continues to have a h eadache that varies in intensity. Has not had an eye exam in quite a whil e. She does have family history of stroke. She states that she is eating and drinking normally. Denies CP or SOB. Denies lightheadedness or dizzin ess. Denies vision changes. She states that she did not go to the ER whe n she experienced these symptoms because she did not want to worry her family. PAST MEDICAL HISTORY Diagnosis Date - Acute peptic ulcer, unspecified site, with hemorrhage, wit hout mention of obstruction - Anxiety state, unspecified [...] II or unspecified type diabetes mellitus without ment ion of complication, not stated as uncontrolled - Unspecified constipation Constipation - Unspecified urinary incontinence - Urge incontinence - Urinary calculus, unspecified Renal stones ALLERGIES Cipro [Ciprofloxacin]; Codeine [Other]; Dilaudid [ Hydromorphone (Bulk)]; Hyoscyamine; Penicillins MEDICATIONS Current Outpatient Medications: topiramate (TOPAMAX) 50 mg tablet Take 1 tablet by mouth vicki ly at bedtime. ondansetron orally disintegrating (ZOFRAN ODT) 4 mg disinteg rating tablet Take 1 tablet by mouth every 6 hours as needed for Nausea/Vo miting. LORazepam (ATIVAN) 0.5 mg tab Take 2 tablets by mouth every 8 hours as needed for up to 90 days. SUMAtriptan (IMITREX) 100 mg tablet Take 1 tablet by mouth a s needed. amitriptyline (ELAVIL) 100 mg tablet Take 1 AND 1/2 tablets daily at bedtime. venlafaxine ER (EFFEXOR XR) 150 mg 24 hr capsule Take 1 caps ule by mouth once daily. COMPOUNDED PRESCRIPTION 1 wheelchair ICD-10: R26.81 venlafaxine ER (EFFEXOR XR) 75 mg 24 hr capsule TAKE 1 CAPSU LE BY MOUTH EVERY DAY along with 150mg mirtazapine (REMERON) 30 mg tablet TAKE 1/2 (ONE-HALF) OF A TABLET EVERY DAY AT BEDTIME atenolol (TENORMIN) 50 mg tablet Take 2 tablets by mouth onc e daily. cyanocobalamin 1,000 mcg/mL soln Inject 1 mL intramuscularly once every month. meclizine (ANTIVERT) 25 mg tab Take 1 tablet by mouth three times daily as needed (dizziness). Current Facility-Administered Medications: cyanocobalamin 1,000 mcg injection 1,000 mcg INTRAMUSCULAR q 1 MONTH Medications and allergies reviewed by this provider. 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 Tobacco Use Smoking status: Current Every Day Smoker Packs/day: 1.00 Years: 21.00 Pack years: 21 Smokeless tobacco: Never Used Tobacco comment: 05/2018 down to 05/13 ppd Substance and Sexual Activity Alcohol use: Yes Comment: social event, rarely Drug use: No Sexual activity: Yes Partners: Male control/protection: Surgical Comment: hysterectomy Other Topics Concerns: Not on file Social History Narrative 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 REVIEW OF SYSTEMS see HPI Orientation: year, season, numerical date, day of week, nisha h (0-5) 4 Place: state, county, town, facility, floor (0-5) 5 Registration:name 3 objects (apple,table,barrett)Patient repe ats(0-3) 3 Spell world backward, or cnt from 100 bkwrd x 7s - 5 answers (0-5) 5 Ask patient to remember the 3 objects from above(0-3) 3 Name pencil/watch (0-2) 2 Repeat No ifs, ands, or buts(0-1) 1 Follow three-step command (0-3) 3 Read and obey close your eyes(0-1) 1 Write a sentence (0-1) 1 Copy interlocking pentagons (0-1) 1 Score: 29 OBJECTIVE: BP 110/58 (BP Site: Left Arm, BP Position: Sitting, BP Cuff Size: Regular Adult) Pulse 86 Temp 36.5 ?C (97.7 ?F) (Left Tympanic) Resp 12 Wt 68.5 kg (151 lb) SpO2 96% BMI 24.71 kg/m? . Vital sig ns reviewed by this provider. PHYSICAL EXAMINATION: General appearance: Well appearing, alert, in no acute distr ess, well-hydrated, well nourished. Skin: Skin color, texture, turgor normal, no suspicious rash es or lesions Head: Normocephalic, no masses, lesions, tenderness or abnor malities Eyes: Anicteric sclera. Pupils are equally round and reactiv e to light. Extraocular movements are intact. Ears: External ears normal, canals clear, TMS normal Neck: Supple, no adenopathy; thyroid symmetric, normal size, no bruits Lungs: lungs clear to auscultation. No wheezing, rhonchi, ra les Heart: RRR without murmur, gallop, or rubs. No ectopy Abdomen: Normal abdominal exam, Abdomen soft, non-tender. Garrison wel sounds normal. No masses, organomegaly Extremities: No deformities, edema, skin discoloration, club yogesh or cyanosis. Good capillary refill. , Pulses: 2+ Neuro: Gait normal. Reflexes normal and symmetric. Sensation grossly intact., Negative findings: speech normal, mental status int act, Romberg negative, muscle tone normal, muscle strength normal, rapid alternating movements normal, finger to nose normal, Positive findings: balance off with standing on one leg bilaterally and with heel to toe wa lking ASSESSMENT/PLAN: 1. Chronic migraine with aura - ICD9: 346.00, ICD10: G43.109 (primary diagnosis) - continue current medications until we have results from CT , may need to defer management to Neurology with these new changes - CONSULT TO NEUROLOGY 2. Syncope and collapse - ICD9: 780.2, ICD10: R55 - stable today, related to the feelings of the worst headac he of her life on 2 occassions within 24 hours a week and a half ago, none since. - encouraged adequate hydration and healthy diet - CT BRAIN WO IVCON - CONSULT TO NEUROLOGY - CBC - COMP METABOLIC PANEL - stressed the need to be seen in ER if she experiences thes e symptoms again 3. Thunderclap headache - ICD9: 784.0, ICD10: G44.53 - see above - CT BRAIN WO IVCON - CONSULT TO NEUROLOGY - stressed the need to be seen in ER if she experiences thes e symptoms again 4. Chronic mixed headache syndrome - ICD9: 339.89, ICD10: G4 4.89 - see above - CT BRAIN WO IVCON - CONSULT TO NEUROLOGY 5. Convulsions, unspecified convulsion type (HCC) - ICD9: 78 0.39, ICD10: R56.9 - unclear etiology - discussed that she may need further workup with EEG when s he is seen by neurology to evaluate for seizures, but since there was head pressure first and the other associated symptoms, need to have CT fir st - CT BRAIN WO IVCON - CONSULT TO NEUROLOGY - stressed the need to be seen in ER if she experiences thes e symptoms again Marybeth Richard APRN.SECURITY ANALYST progress on 2018-01 Protein mass conc HNO ID: [id number] Normal [facility] Author: Rosenda Mcdonald [facility] ([id number]) Service: (none) Author Type: (none) Type: Progress Notes Filed: 01/14/2018 3:17 PM Note Text: Radiology Service Progress Note PATIENT NAME: Marybeth Phelps DATE OF SERVICE: January 14, 2018 TIME: 3:16 PM PATIENT IDENTITY VERIFICATION COMPLETED USING TWO (2) METHOD S: Patient confirmed name verbally and Date of . PATIENT GENDER DATA: Female. status: : No status: NO. PATIENT RELEVANT IMPLANT DATA REVIEWED: Not Applicable CONTRAST INDUCED NEPHROPATHY RISK FACTORS: Not applicable CREATININE: Creatinine Date Value Ref Range Status 01/14/2018 Test sent to [facility]. 0.58 - 0 .96 mg/dL Final Comment: Account Credited HIDE 10/07/2017 0.79 0.58 - 0.96 mg/dL Final 05/01/2017 0.84 0.58 - 0.96 mg/dL Final eGFR-All Other Races Date Value Ref Range Status 01/14/2018 Test sent to [facility]. . Final Comment: Account Credited HIDE eGFR- Date Value Ref Range Status 01/14/2018 Test sent to [facility]. Final Comment: Account Credited HIDE P.O.C.T. RESULTS: POC done: Yes, See Lab Tab January 14 18 RADIOLOGIST NOTIFIED?: No ALLERGIES: Reviewed and unchanged CONTRAST ALLERGY: NO. PERIPHERAL IV ACCESS: Ambulatory: IV type: A peripheral IV w as started in the Left antecubital site with a Angio cath: 22 gauge., S ite assessment: Clean,Dry and Intact, Site disposition Discontin ued RADIOLOGY DEPARTMENT: CT; Exam(s) Completed: Abdomen/Pelvis SIGNED BY: Rosenda Mcdonald Ct January 14, 2018 3:16 PM Protein mass conc HNO ID: [id number] Normal [facility] Author: Marybeth (Physical Ther) Hilary [facility] ([id number]) Service: (none) Author Type: Nurse Practitioner Type: Progress Notes Filed: 01/14/2018 1:53 PM Note Text: 01/14/2018 Patient presents with: Abdominal Pain: Right Upper Quadrant abdominal pain x 3 week s SUBJECTIVE: This is a 47 year old that is here today for Abo ve Complaints. She states that the pain has progressively gotten worse. Pascual n is occurring several times a day. Can't seem to be able to make it better . She went to see [facility] yesterday and was told that they do not feel that it is [employer] related, but could be appendix, so she scheduled to see me t rosas. She describes the pain as sharp and grabbing going between umbil ical area and RLQ. Pain wakes her up at night. She woke up with a sweat la st night, with AC set at 68. She was also in so much pain that daughter wan derek to take her to ER, but she refused. She is also having diarrhea, nirav sea, decreased to no appetite, and fatigue over the last week. PAST MEDICAL HISTORY Diagnosis Date - Acute peptic ulcer, unspecified site, with hemorrhage, wit ann mention of obstruction - Anxiety state, unspecified [...] II or unspecified type diabetes mellitus without ment ion of complication, not stated as uncontrolled - Unspecified constipation Constipation - Unspecified urinary incontinence - Urge incontinence - Urinary calculus, unspecified Renal stones ALLERGIES Cipro [Ciprofloxacin]; Codeine [Other]; Dilaudid [ Hydromorphone (Bulk)]; Hyoscyamine; Penicillins MEDICATIONS Current Outpatient Prescriptions: VENTOLIN HFA 90 mcg/actuation inhaler Inhale 2 Puffs as inst ructed every 4 hours as needed for Wheezing/Shortness [...] mg tablet Take 2 tablets by mouth onc e daily. venlafaxine ER (EFFEXOR XR) 75 mg 24 hr capsule Take 1 capsu le by mouth once daily. Take along with 150 mg pill cyanocobalamin 1,000 mcg/mL soln Inject 1 mL intramuscularly once every month. topiramate (TOPAMAX) 25 mg tablet Take 1 tablet by mouth vicki ly at bedtime. venlafaxine XR (EFFEXOR XR) 150 mg 24 hr capsule Take 1 caps ule by mouth once daily. amitriptyline (ELAVIL) 50 [...] 1 tab daily for 3 days with food . 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 . Vital signs reviewed by t his provider. PHYSICAL EXAMINATION: General appearance: Well appearing, alert, in no acute distr ess, well-hydrated, well nourished. Obvious discomfort with posit ion changes. Skin: Skin color, texture, turgor normal, no suspicious rash es or lesions Lungs: Lungs clear to auscultation. No wheezing, rhonchi, ra les Heart: RRR without murmur, gallop, or rubs. No ectopy Abdomen: Normoactive BS. Abdomen soft. Positive findings: te nderness moderate and involuntary guarding RLQ and Periumbilical, + p soas and obturator sign- pain took breath away with these tests Extremities: No deformities, edema, skin discoloration, club yogesh or cyanosis. Good capillary refill. , Pulses: 2+ ASSESSMENT/PLAN: 1. RLQ abdominal pain - ICD9: 789.03, ICD10: R10.31 (primary diagnosis) Differential Diagnosis includes Appendicitis. Suggested that she be seen in ER and she declined. Will order STAT testing and pt agree able to be seen in ER if worsening symptoms. - CT ABD/PEL W IVCON - IV CONTRAST (RADIOLOGY PROCEDURE) - ENTERIC CONTRAST (RADIOLOGY PROCEDURE) - CBC + DIFF - COMP METABOLIC PANEL 2. Periumbilical pain - ICD9: 789.05, ICD10: R10.33 - see above - CT ABD/PEL W IVCON - IV CONTRAST (RADIOLOGY PROCEDURE) - ENTERIC CONTRAST (RADIOLOGY PROCEDURE) - CBC + DIFF - COMP METABOLIC PANEL 3. Diarrhea, unspecified type - ICD9: 787.91, ICD10: R19.7 - see above - if not appendicitis and diarrhea persists, will order stoo l studies to rule out infectious cause - CT ABD/PEL W IVCON - IV CONTRAST (RADIOLOGY PROCEDURE) - ENTERIC CONTRAST (RADIOLOGY PROCEDURE) - CBC + DIFF - COMP METABOLIC PANEL 4. Nausea - ICD9: 787.02, ICD10: R11.0 - see above - CT ABD/PEL W IVCON - IV CONTRAST (RADIOLOGY PROCEDURE) - ENTERIC CONTRAST (RADIOLOGY PROCEDURE) - CBC + DIFF - COMP METABOLIC PANEL 5. Anorexia - ICD9: 783.0, ICD10: R63.0 - see above - CT ABD/PEL W IVCON - IV CONTRAST (RADIOLOGY PROCEDURE) - ENTERIC CONTRAST (RADIOLOGY PROCEDURE) - CBC + DIFF - COMP METABOLIC PANEL 6. Fatigue, unspecified type - ICD9: 780.79, ICD10: R53.83 - see above - CT ABD/PEL W IVCON - IV CONTRAST (RADIOLOGY PROCEDURE) - ENTERIC CONTRAST (RADIOLOGY PROCEDURE) - CBC + DIFF - COMP METABOLIC PANEL Marybeth AndradePETE delcid.SECURITY ANALYST cnov on 2018-07-14 [facility] Office Visit (FAMPWS) Normal 07-15-19 [facility] MARYBETH PHELPS ([id number]) 1970 [place] Date Time Provider Department ([id number]) 07/14/18 11:00 AM SPEEDY RIOS During your visit today, we recorded the following informati on about you: Pulse Respiration Blood pressure Weight 76/minute 16/minute 100/68 69.9 kg Speedy Rios MD 08/19/2018 5:07 PM Addendum Chief Complaint Patient presents with: F/U 3 Month HPI Marybeth Phelps is a 48 year old female who presents here today for 3 month follow up. Is excited, son moved back to the [facility] living in [facility] or the next 4 years. 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 Migraines: not controlled, has several a week, t hey last for days. Denies any vomiting. Does get nausea at times. Stat es she see's stars and gets numbness and pressure at the crown of the head and pain and pressure down into the back. Is taking Imitrex and Amitriptyline 100 mg. Also uses Topama x 25 mg daily and Remeron 30 mg, half tablet. Anxiety: feels it is stable at this time. Is taking Ef fexor XR 150 mg and 75 mg daily and Ativan 0.5 mg, 2 tablets every 8 ho urs. States she takes about 6 tablets a day. Insomnia: she tries to get go to a quite place b efore bed, did have one night when she slept from 7 PM to 7 AM. She states that she does n ot discuss anything that will cause anxiety prior to going to sleep. Palpitations: come and go, is taking Atenolol 50 mg, 2 table ts once daily. Swelling and tightness of the left leg and and hand and re d splotches and a burning sensation off and on. Will last about a day. S he is unsure what will trigger the swelling and redness to start. Denies any itching. This does not seem to be associated with the headaches. Feels that keeping legs elevated would help with swell ing in legs; unable to elevate with regular bed. Hospital bed would probably be aron eficial. Past medical history, appointments, medications, allergies r fernanda. Previous Medical History PAST MEDICAL HISTORY Diagnosis Date - Acute peptic ulcer, unspecified site, with hemorrhage, w ithout mention of obstruction - Anxiety state, unspecified [...] II or unspecified type diabetes mellitus without ment ion of complication, not stated as uncontrolled - [...] - Penicillins Hives Current Medications Current Outpatient Medications on File Prior to Visit: LORazepam (ATIVAN) 0.5 mg tab Take 2 tablets by mouth every 8 hours as needed for up to 90 days. SUMAtriptan (IMITREX) 100 mg tablet Take 1 tablet by mouth a s needed. amitriptyline (ELAVIL) 100 mg tablet Take 1 AND 1/2 tablets daily at bedtime. venlafaxine ER (EFFEXOR XR) 150 mg 24 hr capsule Take 1 capsule by mouth once daily. COMPOUNDED PRESCRIPTION 1 wheelchair ICD-10: R26.81 topiramate (TOPAMAX) 25 mg tablet TAKE 1 TABLET BY MOUTH AT BEDTIME venlafaxine ER (EFFEXOR XR) 75 mg 24 hr capsule TAKE 1 CAPSULE BY MOUTH EVERY DAY along with 150mg mirtazapine (REMERON) 30 mg tablet TAKE 1/2 (ONE-HALF) OF A TABLET EVERY DAY AT BEDTIME atenolol (TENORMIN) 50 mg tablet Take 2 tablets by mouth onc e daily. cyanocobalamin 1,000 mcg/mL soln Inject 1 mL intramuscularly once every month. meclizine (ANTIVERT) 25 mg tab Take 1 tablet by mouth three times daily as needed (dizziness). 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 General Appearance: Well cabrera earing, alert, in no acute distress, well-hydrated, well nourished.. Lungs: lungs clear to auscultation. No wheezing, rhonchi, ra les. Heart: RRR without murmur, gallop, or rubs. No ectopy. Extremities: no swelling of hands or legs at this time, no r edness at this time.. Health Maintenance List COLORECTAL CANCER SCREENING,SEE MODIFIER due on 2018 MAMMOGRAM due on 03/17/2019 ANNUAL PCP TEAM CHRONIC DISEASE VISIT due on 04/09/2019 DIABETES SCREEN due on 01/14/2021 LIPID SCREEN due on 05/01/2022 DTAP,TDAP,TD(3 - Td) due on 05/25/2026 ONE PNEUMOVAX PRIOR TO AGE 65 Completed INFLUENZA Completed PAP TESTING Completed HPV TESTING Completed Data reviewed none ASSESSMENT/PLAN: 1. Anxiety state - ICD9: 300.00, ICD10: F41.1 (primary diagn osis) Stable Continue current medications. 2. Special screening for malignant neoplasms, colon - ICD9: V76.51, ICD10: Z12.11 consult Gastro 3. Migraine without aura and without status migrainosus, not intractable - ICD9: 346.10, ICD10: G43.009 Increase Topamax to 50 mg at bedtime Continue current medications. 4. Palpitations - ICD9: 785.1, ICD10: R00.2 Continue current medications. 5. Primary insomnia - ICD9: 307.42, ICD10: F51.01 Continue with natural relaxation techniques 6. Swelling of extremity, left - ICD9: 729.81, ICD10: M79.89 Both leg and hand Continue to monitor Follow up in 3 months. I agree with the Chief Complaint, ROS, and Past Histories in dependently gathered by the clinical community support worker and the remaining scr ibed note accurately describes my personal service to the patient. Speedy Rios MD The documentation for this note was completed by Jaleesa Macedo Ma acting as scribe for Speedy Rios MD. July 14, 2018 11:08 AM. Jaleesa Macedo Ma 07/14/2018 11:00 AM Signed Health Information For Patients and the Community How to Prepare for Your [place] noscopy Using Golytely, Nulytely, Trilyte or Colyte Preparations IMPORTANT - Please Read These Instructions at Least 2 Weeks Before Your Colonoscopy Veronica Instructions: ?Your bowel must be empty so that your doctor can clearly vi ew your colon. Follow all of the instructions in this handout EXACTLY as they are written. If you do NOT follow the directions for when to start drinki ng the bowel preparation (see next page), your colonoscopy WILL be cancel led. ?Do NOT eat any solid food the ENTIRE day before your colono scopy. ?Buy your bowel preparation at least 5 days before your colo noscopy. ?Do NOT mix the solution until the day before your colonosco py. Designated Display And Banner Designer on the Day of Your Exam A responsible family member or friend MUST come with y ou to your colonoscopy and REMAIN in the endoscopy area until you are discharged! You are NOT ALLOWED to drive, take a taxi or bus, or leave the Endoscopy Center ALONE. If you do not have a responsible contract driver (family member or friend) with you to take you home, your exam cannot be done with sedation and will be cancelled. Medications Some of the medicines you take may need to be st opped or adjusted before your colonoscopy. You MUST call the doctor who ordered any of the following medicines at least 2 weeks before your colonoscopy. ?Blood thinners -- such as C oumadin? (warfarin), Plavix? (clopidogrel), Ticlid? (ticlopidine hydrochloride), Agrylin? (anagrelide), Xarelt o? (Rivaroxaban), Pradaxa? (Dabigatran), Eliquis? (Apixaban), and Effient? (Pr asugrel). ?Insulin or diabetes pills. Please call the doct or that monitors your glucose levels. Your insulin dosage may need to be adjusted due to t he diet restrictions required with this bowel pr eparation. (Please bring your diabetes medicines with you on the day of your procedure.) If you take aspirin, take it and ALL other medications presc ribed by your doctor. On the day of your colonoscopy, take your medicati ons with a sip of water. Revised 06/2016 1 Five (5) Days Before Your Colonoscopy ?Do NOT take medicines that stop diarrhe a -- such as Imodium?, Kaopectate?, or Pepto Bismol?. ?Do NOT take fiber supplements -- such as Metamu cil?, Citrucel?, or Perdiem?. ?Do NOT take products that c ontain iron -- such as multi-vitamins -- (the label lists what is in the products). ?Do NOT take vitamin E. Buy the prescription bowel preparation solution at your [facility] or [facility]. Three (3) Days Before Your Colonoscopy Do NOT eat high-fiber foods -- such as p opcorn, beans, seeds (flax, sunflower, quinoa), multigrain bread, nuts, salad/vegetables, or fresh and dried fruit. One (1) Day Before Your Colonoscopy Only drink clear liquids the ENTIRE DAY before your colonoscopy. Do NOT eat any solid foods. Drink at least 8 ounces of clear li quids every hour after waking up. The clear liquids you can drink include: ?water, apple, or white grape juice; broth; coffee or tea (without milk or creamer); clear carbonated beverages such as saba marcie or lemon-angoon soda; Gatorade? o r other sports drinks (not red); Francisco-Aid? or other flavored drinks (not red). You may eat plain jello or other gelatins (not red) or pop sicles (not red). Do NOT drink alcohol on the day before or the day of the pro cedure. 2 Revised 06/2016 When to Mix and Drink Your Bowel Prep Follow the instructions on the label. After mixi ng, place the solution in the refrigerator for a couple of hours before drinking. You may add the flavor packet that came with the bowel preparation. DO NOT add ice, sugar or any flavorings to the solution. Evening Before Your Colonoscopy ?Start drinking the bowel preparation at 6 PM the evening be fore your colonoscopy. Drink an 8-oz glass of bowel preparation ever y 10 minutes. You must finish drinking the solution by 9 PM the night before y our scheduled procedure. ?You may continue to drink clear liquids only until midnight . Do NOT eat or drink ANYTHING after midni ght the night before your procedure or your procedure may be cancelled. This is for your safe ty and will reduce the risk of having any food or liquid in your stomach move into your lungs (aspiration) during a procedure. If you take aspirin, take it and ALL other presc ribed medicines with a sip of water on the day of your colonoscopy. Contact Information: If you are unable to keep your appoin tment or have any questions about the instructions, please call the facility where the procedure is being performed. Call between the hours of 8:00 AM and 5:0 0 PM. If you are calling after 5:00 PM, please call Nurse collection administrator at [phone]. [facility] [address] [address] Index # [id number] Revised 06/2016 3 Colonoscopy Procedure Overview Please Read Prior to the Procedure What is a Colonoscopy A colonoscopy is an outpatient procedure in which the inside of the large intestine (colon and rectum) is examined. A colonoscopy is commonly used to evaluate gastrointestinal symptoms, such as rectal and int estinal bleeding, abdominal pain, or changes i n bowel habits. Colonoscopies are also performed in individuals without symptoms to check for colorectal polyps or cancer. A screening colonoscopy is recommended for anyone 50 years of age and older, and for anyone with parents, siblings or children with a history of colorectal cancer or polyps. What Happens Before a Colonoscopy To have a successful colonoscopy, your bowel must be empty s o that your physician can clearly view the colon. To do this, it is very important to read and follow all of the instructions given to you at [facility] 2 weeks BEFORE your exam. If your bowel is not empty, your colonoscopy will not be successful and may have to be repeated. If you feel nauseated or vomit while taking the bowel prepar ation, wait 30 minutes before drinking more fluid and s tart with small sips of solution. Some activity (such as walking) or a few soda crackers may help decrease the nausea you are feeling. If the nausea persists, please contact nurs e concrete journeyman at [phone]. You may experience skin irri tation around the anus due to the passage of liquid stools. To prevent and treat skin irritation, you should: ?Apply Vaseline? or Desitin? ointment to the skin around the anus before drinking the bowel preparation medicatio ns. These products can be purchased at any drugstore. ?Wipe the skin after each bowel movement with di sposable wet wipes instead of toilet paper. These are found in the toilet paper area of [employer]. ?Sit in a bathtub filled with warm water for 10 to 15 minutes after you finish passing a stool; after soaking, blot the skin dry with a sof t cloth, apply Vaseline? or Desitin? ointment to the anal area, and place a cotton ball just outside your anus to absorb leaking fluid. What Happens During a Colonoscopy During a colonoscopy, an experienced physician uses a colono scope (a long, flexible instrument about 1/2 inch in diameter) to view the lining of the colon. The colonoscope is inserted into the rectum and adv anced through the large intestine. If necessar y during a colonoscopy, small amounts of tissue can be removed for analysis (a biopsy) and polyps can be i dentified and entirely removed. In many cases, a colonoscopy allows acc urate diagnosis and treatment of colorectal problems without the need for a major operatio n. Revised 06/2016 5 ?You are asked to wear a hospital gown and an IV will be sta rted. ?You are given a pain reliev er and a sedative intravenously (in your vein). You will feel relaxed and somewhat drowsy. ?You will lie on your left side, with your knees drawn up towards your chest. ?A small amount of air is us ed to expand the colon so the physician can see the colon english. ?You may feel mild cramping during the procedure. Cramping can be reduced by taking slow, deep breaths. ?The colonoscope is slowly withdrawn while the lining of you r bowel is carefully examined. ?The procedure lasts from 30 minutes to 1 hour. What Happens After a Colonoscopy ?You will stay in a recovery room for observation until you are ready for discharge. ?You may feel some cramping or a sensation of having gas, bu t this quickly passes. ?If sedation has been given, a responsible family member or friend must drive you home. ?Avoid alcohol, driving, and operating machinery for 24 hours following the procedure. ?Unless otherwise instructed, you may immediatel y return to your normal diet. We recommend you wait until the day after your procedure to resume normal activities. ?If polyps were removed or a biopsy was taken, the [facility] sician performing your colonoscopy will tell you wh en it is safe to resume taking your blood thinners. ?If a biopsy was taken or a polyp was removed, y ou may notice a little amount of rectal bleeding for 1 to 2 days after the procedure. If you have a large amount of rectal bleeding, high or persi stent fevers, or severe abdominal pain within the next 2 weeks, please go to your local emerg ency room and call the physician who performed your exam. 6 Revised 06/2016 ?Copyright 5666-4146 [facility]. All rights reserved. Revised 06/2016 Referring Provider: SPEEDY RIOS [[id number]] Allergies As of Date: 07/14/2018 Noted Allergy Reaction CIPRO (CIPROFLOXACIN) 04/21/2007 2 - Rash Comments: Rapid heartbeat, flushed CODEINE [Other] 06/17/2005 4 - Hives DILAUDID (HYDROMORPHONE (BULK)) 06/05/2009 HYOSCYAMINE 01/09/2007 2 - Rash 9 - Itching PENICILLINS 06/17/2005 4 - Hives Date Reviewed: 07/14/2018 Reviewed by: Jaleesa Macedo Ma - Fully Assessed Reason for Visit: F/U 3 Month [443] Primary Visit Diagnosis:Anxiety state [F41.1] Other Visit Diagnoses:Special screening for malignant neopla sms, colon [Z12.11] Migraine without aura and without status migrainosus, not intractable [G43.009] Palpitations [R00.2] Primary insomnia [F51.01] Swelling of extremity, left [M79.89] Panic disorder without agoraphobia [F41.0] Vitamin B 12 deficiency [E53.8] Order(s):CONSULT TO GASTROENTEROLOGY [2176] Order #: [id number] [id number]: 1 topiramate (TOPAMAX) 50 mg tabletTake 1 tablet by mouth andi y at bedtime.Disp: 30 tabletRfl: 5 ondansetron orally disintegrating (ZOFRAN ODT) 4 mg disinteg rating tabletTake 1 tablet by mouth every 6 hours as needed for Nausea/Vomiting.Disp: 10 tabletRfl: 2 Prescriptions as of 07/14/2018 Sig: LORAZEPAM 0.5 MG TABLET Take 2 tablets by mouth every* SUMATRIPTAN 100 MG TABLET Take 1 tablet by mouth as nee* AMITRIPTYLINE 100 MG TABLET Take 1 AND 1/2 tablets daily at* VENLAFAXINE ER 150 MG CAPSULE* Take 1 capsule by mouth once * COMPOUNDED PRESCRIPTION 1 wheelchair ICD-10: R26.81 VENLAFAXINE ER 75 MG CAPSULE,* TAKE 1 CAPSULE BY MOUTH EVERY * MIRTAZAPINE 30 MG TABLET TAKE 1/2 (ONE-HALF) OF A TABL* ATENOLOL 50 MG TABLET Take 2 tablets by mouth once * CYANOCOBALAMIN (VIT B-12) 1,0* Inject 1 mL intramuscularly o * MECLIZINE 25 MG TABLET Take 1 tablet by mouth three * TOPIRAMATE 50 MG TABLET Take 1 tablet by mouth daily * ONDANSETRON 4 MG DISINTEGRATI* Take 1 tablet by mouth every * Problem List As Of Date 07/14/2018 Noted Resolved OBESITY [E66.9] INVALID FOR* Migraine without aura [G43.009] INVALID FOR* PALPITATIONS [R00.2] INVALID FOR* INSOMNIA NOS [G47.00] INVALID FOR* Type II or unspecified type diabetes mellitus w*INVALID FOR* 06/07/2013 Recurrent major depressive disorder, in partial*INVALID FOR* [...] INVALID FOR* POSTSURGICAL HYPOTHYROID [E89.0] INVALID FOR* Other instructions from your clinician: Health Information For Patients and the Community How to Prepare for Your Colonoscopy Using Golytely, Nulytely , Trilyte or Colyte Preparations IMPORTANT - Please Read These Instructions at Least 2 Weeks Before Your Colonoscopy Veronica Instructions: ?Your bowel must be empty so that your doctor can clearly vi ew your colon. Follow all of the instructions in this handout EXACTLY as shanta hagen are written. If you do NOT follow the directions for when to start drinki ng the bowel preparation (see next page), your colonoscopy WILL be cancel led. ?Do NOT eat any solid food the ENTIRE day before your colono scopy. ?Buy your bowel preparation at least 5 days before your colo noscopy. ?Do NOT mix the solution until the day before your colonosco py. Designated Display And Banner Designer on the Day of Your Exam A responsible family member or friend MUST come with you to your colonoscopy and REMAIN in the endoscopy area until you are discharged! You are NOT ALLOWED to drive, take a taxi or bus, or leave the Endoscopy Center ALONE. If you do not have a responsible contract driver (family member or fr iend) with you to take you home, your exam cannot be done with sedation and will be cancelled. Medications Some of the medicines you take may need to be stopped or adj usted before your colonoscopy. You MUST call the doctor who ordered any of the following me dicines at least 2 weeks before your colonoscopy. ?Blood thinners -- such as Coumadin? (warfarin), Plavix? (cl opidogrel), Ticlid? (ticlopidine hydrochloride), Agrylin? (anagrelide), Xarelto? (Rivaroxaban), Pradaxa? (Dabigatran), Eliquis? (Apixaban), a nd Effient? (Prasugrel). ?Insulin or diabetes pills. Please call the doctor that konrad tors your glucose levels. Your insulin dosage may need to be adjusted due to the diet restrictions required with this bowel preparation. (Ple ase bring your diabetes medicines with you on the day of your procedure.) If you take aspirin, take it and ALL other medications presc ribed by your doctor. On the day of your colonoscopy, take your medication s with a sip of water. Revised 06/2016 1 Five (5) Days Before Your Colonoscopy ?Do NOT take medicines that stop diarrhea -- such as Imodium ?, Kaopectate?, or Pepto Bismol?. ?Do NOT take fiber supplements -- such as Metamucil?, Citruc el?, or Perdiem?. ?Do NOT take products that contain iron -- such as multi-vit amins -- (the label lists what is in the products). ?Do NOT take vitamin E. Buy the prescription bowel preparation solution at your [facility] pharmacy or drugstore pharmacy. Three (3) Days Before Your Colonoscopy Do NOT eat high-fiber foods -- such as popcorn, beans, seeds (flax, sunflower, quinoa), multigrain bread, nuts, salad/vegetables , or fresh and dried fruit. One (1) Day Before Your Colonoscopy Only drink clear liquids the ENTIRE DAY before your colonosc opy. Do NOT eat any solid foods. Drink at least 8 ounces of clear liquid s every hour after waking up. The clear liquids you can drink include: ?water, apple, or white grape juice; broth; coffee or tea (without milk or creamer); clear carbonated beverages such as saba marcie or lemon-angoon soda; Gatorade? o r other sports drinks (not red); Francisco-Aid? or other flavored drinks (not red). You may eat plain jello or other gelatins (not red) or popsi cles (not red). Do NOT drink alcohol on the day before or the day of the pro cedure. 2 Revised 06/2016 When to Mix and Drink Your Bowel Prep Follow the instructions on the label. After mixing, place th e solution in the refrigerator for a couple of hours before drinking. You may add the flavor packet that came with the bowel preparation. DO NOT a dd ice, sugar or any flavorings to the solution. Evening Before Your Colonoscopy ?Start drinking the bowel preparation at 6 PM the evening be fore your colonoscopy. Drink an 8-oz glass of bowel preparation every 10 minutes. You must finish drinking the solution by 9 PM the night befo re your scheduled procedure. ?You may continue to drink clear liquids only until midnight . Do NOT eat or drink ANYTHING after midnight the night before your procedure or your procedure may be cancelled. This is for yo ur safety and will reduce the risk of having any food or liquid in your st omach move into your lungs (aspiration) during a procedure. If you take aspirin, take it and ALL other prescribed medici abran with a sip of water on the day of your colonoscopy. Contact Information: If you are unable to keep your appointm ent or have any questions about the instructions, please call the facility where the procedure is being perfor med. Call between the hours of 8:00 AM and 5:00 PM. If you are calling after 5:00 PM, please call Nurse collection administrator at [phone]. [facility] [address] [place] [id number] Index # [id number] Revised 06/2016 3 Colonoscopy Procedure Overview Please Read Prior to the Procedure What is a Colonoscopy A colonoscopy is an outpatient procedure in which the inside of the large intestine (colon and rectum) is examined. A colonoscopy is c ommonly used to evaluate gastrointestinal symptoms, such as rectal and in testinal bleeding, abdominal pain, or changes in bowel habits. Colono scopies are also performed in individuals without symptoms to check for colorectal polyps or cancer. A screening colonoscopy is recommended for anyone 50 years of age and older, and for anyone with parents, sibling s or children with a history of colorectal cancer or polyps. What Happens Before a Colonoscopy To have a successful colonoscopy, your bowel must be empty s o that your physician can clearly view the colon. To do this, it is very important to read and follow all of the instructions given to you at [facility] weeks BEFORE your exam. If your bowel is not empty, your colonoscopy will not be successful and may have to be repeated. If you feel nauseated or vomit while taking the bowel prepar ation, wait 30 minutes before drinking more fluid and start with small sips of solution. Some activity (such as walking) or a few soda crackers may h elp decrease the nausea you are feeling. If the nausea persists, please c ontact nurse concrete journeyman at [phone]. You may experience skin irritation around the anus due to th e passage of liquid stools. To prevent and treat skin irritation, you pia uld: ?Apply Vaseline? or Desitin? ointment to the skin around the anus before drinking the bowel preparation medications. These products c an be purchased at any drugstore. ?Wipe the skin after each bowel movement with disposable wet wipes instead of toilet paper. These are found in the toilet paper area of the store. ?Sit in a bathtub filled with warm water for 10 to 15 minute s after you finish passing a stool; after soaking, blot the skin dry wit h a soft cloth, apply Vaseline? or Desitin? ointment to the anal area , and place a cotton ball just outside your anus to absorb leaking fluid. What Happens During a Colonoscopy During a colonoscopy, an experienced physician uses a colono scope (a long, flexible instrument about 1/2 inch in diameter) to view the lining of the colon. The colonoscope is inserted into the rectum and advan camila through the large intestine. If necessary during a colonoscopy, smal l amounts of tissue can be removed for analysis (a biopsy) and polyps can be identified and entirely removed. In many cases, a colonoscopy allows ac curate diagnosis and treatment of colorectal problems without the n eed for a major operation. Revised 06/2016 5 ?You are asked to wear a hospital gown and an IV will be sta rted. ?You are given a pain reliever and a sedative intravenously (in your vein). You will feel relaxed and somewhat drowsy. ?You will lie on your left side, with your knees drawn up to wards your chest. ?A small amount of air is used to expand the colon so the ph ysician can see the colon english. ?You may feel mild cramping during the procedure. Cramping can be reduced by taking slow, deep breaths. ?The colonoscope is slowly withdrawn while the lining of you r bowel is carefully examined. ?The procedure lasts from 30 minutes to 1 hour. What Happens After a Colonoscopy ?You will stay in a recovery room for observation until you are ready for discharge. ?You may feel some cramping or a sensation of having gas, bu t this quickly passes. ?If sedation has been given, a responsible family member or friend must drive you home. ?Avoid alcohol, driving, and operating machinery for 24 hours following the procedure. ?Unless otherwise instructed, you may immediately return to your normal diet. We recommend you wait until the day after your procedu re to resume normal activities. ?If polyps were removed or a biopsy was taken, the physician performing your colonoscopy will tell you when it is safe to resume erich ing your blood thinners. ?If a biopsy was taken or a polyp was removed, you may notic e a little amount of rectal bleeding for 1 to 2 days after the procedur e. If you have a large amount of rectal bleeding, high or persistent fevers , or severe abdominal pain within the next 2 weeks, please go to your [facility] emergency room and call the physician who performed your exam. 6 Revised 06/2016 ?Copyright 7884-4564 [facility]. All rights reserved. Revised 06/2016 Prescriptions ordered this encounter Disp Refills Start End TOPIRAMATE 50 MG TABLET 30 t* 5 07/14/2018 Route: ORAL Sig: Take 1 tablet by mouth daily at bedtime. ONDANSETRON 4 MG DISINTEGRATING TABL* 10 t* 2 07/14/2018 Route: ORAL Sig: Take 1 tablet by mouth every 6 hours as needed for Naus ea/Vomiting. Medications Discontinued During This Encounter topiramate (TOPAMAX) 25 mg tablet 30 t* 5 04/06/2018 9 Cmt: Med-sync patient. If too soon, we w ill put new RX on hold for next cycle. Sig: TAKE 1 TABLET BY MOUTH AT BEDTIME Disc: Reason for discontinue is not on file. Disposition: Return in about 3 months (around 10/14/2018). Follow-up and Disposition History Recorded Encounter Status:Closed by SPEEDY RIOS MD on 07/14/18 progress on 2018-07 Protein mass HNO ID: [id number] Normal 07-16-19 [facility] Author: Kimo Hidalgo ([id number]) Service: ? Author Type: Physician Type: Progress Notes Filed: 07/15/2018 11:33 AM Note Text: Ms. Phelps presents today for follow up of hip pain. She clai ms that injections from last visit were helpful, but pain has return ed. ALLERGIES: Cipro [Ciprofloxacin]; Codeine [Other]; Dilaudid [Hydromorphone (Bulk)]; Hyoscyamine; Penicillins MEDICATIONS: Current Outpatient Medications: topiramate (TOPAMAX) 50 mg tablet Take 1 tablet by mouth vicki ly at bedtime. ondansetron orally disintegrating (ZOFRAN ODT) 4 mg disinteg rating tablet Take 1 tablet by mouth every 6 hours as needed for Nausea/Vo miting. LORazepam (ATIVAN) 0.5 mg tab Take 2 tablets by mouth every 8 hours as needed for up to 90 days. SUMAtriptan (IMITREX) 100 mg tablet Take 1 tablet by mouth a s needed. amitriptyline (ELAVIL) 100 mg tablet Take 1 AND 1/2 tablets daily at bedtime. venlafaxine ER (EFFEXOR XR) 150 mg 24 hr capsule Take 1 caps ule by mouth once daily. venlafaxine ER (EFFEXOR XR) 75 mg 24 hr capsule TAKE 1 CAPSU LE BY MOUTH EVERY DAY along with 150mg mirtazapine (REMERON) 30 mg tablet TAKE 1/2 (ONE-HALF) OF A TABLET EVERY DAY AT BEDTIME atenolol (TENORMIN) 50 mg tablet Take 2 tablets by mouth onc e daily. cyanocobalamin 1,000 mcg/mL soln Inject 1 mL intramuscularly once every month. meclizine (ANTIVERT) 25 mg tab Take 1 tablet by mouth three times daily as needed (dizziness). COMPOUNDED PRESCRIPTION 1 wheelchair ICD-10: R26.81 Current Facility-Administered Medications: cyanocobalamin 1,000 mcg injection 1,000 mcg INTRAMUSCULAR q 1 MONTH MEDICAL HISTORY: PAST MEDICAL HISTORY Diagnosis Date - Acute peptic ulcer, unspecified site, with hemorrhage, wit hout mention of obstruction - Anxiety state, unspecified [...] II or unspecified type diabetes mellitus without ment ion of complication, not stated as uncontrolled - Unspecified constipation Constipation - Unspecified urinary incontinence - Urge incontinence - Urinary calculus, unspecified Renal stones SURGICAL HISTORY: PAST SURGICAL HISTORY Procedure Laterality Date - [...] TREAT ECTOPIC PREG,NON REMVAL RIGHT ECTOPIC FAMILY HISTORY: FAMILY HISTORY Problem Relation Age of Onset - Diabetes Father - Cervical Cancer Maternal Aunt - Cancer Maternal Aunt 3 aunts with breast CA - Heart Maternal Grandfather TRIPLE BYPASS SURGERY - Hypertension Maternal Aunt - Diabetes Mother - Coronary Artery Disease Maternal Uncle Lung disease, passed 06/18, - COPD Father - Heart Father Double By-Pass Surgery SOCIAL HISTORY: Social History Socioeconomic History Marital status: Spouse name: Antonio Number of children: 2 Years of education: 14 Highest education level: Not on file Social Needs Financial resource strain: Not on file Food insecurity - worry: Not on file Food insecurity - inability: Not on file Transportation needs - medical: Not on file Transportation needs - non-medical: Not on file 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 Tobacco Use Smoking status: Current Every Day Smoker Packs/day: 1.00 Years: 21.00 Pack years: 21 Smokeless tobacco: Never Used Tobacco comment: 05/2018 down to 05/13 ppd Substance and Sexual Activity Alcohol use: Yes Comment: social event, rarely Drug use: No Sexual activity: Yes Partners: Male control/protection: Surgical Comment: hysterectomy Other Topics Concerns: Not on file Social History Narrative 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 Abduction to 45 degrees and adduction to 20 degrees. There is pain with palpation over the greater trochanter. The Right hip reveals a no hip flexion contracture, 0-100 de grees of flexion, Internal Rotation to 20 degrees in flexion and exte rnal rotation to 45 degrees in flexion. Abduction to 45 degrees and adduct ion to 20 degrees. There is pain with palpation over the greater troch anter. EHL 5/5 DF 5/5 PF 5/5 DP Pulses 2/2 PT Pulses 2/2 RADIOGRAPH:no acute abnormality or significant degenerative changes ASSESSMENT: trochanteric bursitis bilateral hips PLAN: discussed with patient that it is a bit soon to repeat injec tions, but with the discomfort she is having, she would like to proceed with injections today. I recommend also referral to PT to begin t herapy- order entered. Risks, benefits, alternatives and personnel discussed with p kwame who consents to proceed. Patient wished to proceed. 40 mg kenalo g with 2cc, 1% lidocaine and 2cc .5% marcaine was injected. Injection wa s carried out under sterile conditions through a LATERAL site into the rig ht and left trochanteric bursae. Patient had no immediate complications and tolerated the procedure well. Villa Cano, DO Protein mass HNO ID: [id number] Normal 07-16-[address] [facility] conc Author: Alexandra Durant Ma [place] ([id number]) Service: ? Author Type: ? Type: Progress Notes Filed: 07/15/2018 11:33 AM Note Text: Patient presents with: Established Patient: 5 weeks post visit trochanteric bursiti s bilateral hips with injection given AMB ROOMING INTAKE FLOWSHEET DATA Risk Screening Do you have concerns about personal safety or safety in the home?: No Pain Pain Level: 6 Pain Location: (Bilateral hips) Description: (Feels like someone pounding on her hips) Duration Amount of Time: (ongoing) Frequency: Continuous Patient states injections helped for about 3 weeks. Taking A leve for the pain and does not help. Patient states she is having difficu lty in and out of bed, and up out of a chair. Patient states she has a whee lchair to use at home and when she is out of the house for a period of mamadou e. cbc on 2018-08-19 Absolute nRBC <0.01 <0.01 Normal 08-19-2018 [facility] ([id number]) Comment: Performed By: #### CMP, CBC ####[facility] [place], [place] [phone] Erythrocyte distribution 13.1 11.5-15.0 % Normal 08-[address] [facility] width Ratio (RBC) Cl saima ([id number]) Comment: Performed By: #### CMP, CBC ####[facility] [place], [place] [phone]- [phone] Hematocrit Volume Fraction 41.7 36.0-46.0 % Normal [facility] (Bld) [place] ([id number]) Comment: Performed By: #### CMP, CBC ####[place] [address] [address] [place] [address] [place], [place] [phone] Hemoglobin mass conc 13.7 11.5-15.5 g/dL Normal [address] [facility] (Bld) [place] ([id number]) Comment: Performed By: #### CMP, CBC ####[place] [address] [address] [place] [address] [place], [place] [phone] MCH Entitic mass (RBC) 31.5 26.0-34.0 pG Normal 019 [facility] ([id number]) Comment: Performed By: #### CMP, CBC ####[address], [place] [phone] MCHC mass conc (RBC) 32.9 30.5-36.0 g/dL Normal 9 [facility] ([id number]) Comment: Performed By: #### CMP, CBC ####[address], [place] [phone] MCV Entitic volume 95.9 80.0-100.0 fL Normal 08-19-[address] [facility] (RBC) [place] ([id number]) Comment: Performed By: #### CMP, CBC ####[address], [place] [phone]- [phone] Platelet mean volume 10.1 9.0-12.7 fL Normal [address] [facility] Entitic volume (Bld) [place] ([id number]) Comment: Performed By: #### CMP, CBC ####[place] [address] [address] [place] [address] [place], [place] [phone] Platelets #/vol (Bld) 289 150-400 k/uL Normal 08-20-19 19 [facility] ([id number]) Comment: Performed By: #### CMP, CBC ####[place] [address] [address] [place] [address] [place], [place] [phone] RBC #/vol (Bld) 4.35 3.90-5.20 m/uL Normal 08-19-2018 [facility] ([id number]) Comment: Performed By: #### CMP, CBC ####[facility] [address] [place], [place] [phone] WBC #/vol (Bld) 7.26 3.70-11.00 k/uL Normal [facility]-19-[facility] ([id number][facility] Comment: Performed By: #### CMP, CBC ####[facility] [address] [place], [place] [phone]- [phone] cnov on 2018-07-15 [facility] Office Visit ([facility]) Normal 07-15-2018 [facility] MARYBETH PHELPS ([id number]) 1970 [facility] Date Time Provider Department ([id number]) 07/15/18 11:00 AM VILLA CANO During your visit today, we recorded the following informati on about you: Alexandra Durant Ma 07/15/2018 11:33 AM Signed Patient presents with: Established Patient: 5 weeks post visit trochanteric b ursitis bilateral hips with injection given AMB ROOMING INTAKE FLOWSHEET DATA Risk Screening Do you have concerns about personal safety or safety in the home?: No Pain Pain Level: 6 Pain Location: (Bilateral hips) Description: (Feels like someone pounding on her hips) Duration Amount of Time: (ongoing) Frequency: Continuous Patient states injections helped for about 3 wee ks. Taking Aleve for the pain and does not help. Patient states she is having difficulty in and out of bed, and up out of a chair. Patient states she has a wheelchair to use at home and when she is out of the house for a period of time. Villa Cano DO 07/15/2018 11:33 AM Signed Ms. Phelps presents today for follow up of hip pain. She clai ms that injections from last visit were helpful, but pain has return ed. ALLERGIES: Cipro [Ciprofloxacin]; Codeine [Other]; Dilaudid [Hydromorphone (Bulk)]; Hyoscyamine; Penicillins MEDICATIONS: Current Outpatient Medications: topiramate (TOPAMAX) 50 mg tablet Take 1 tablet by mouth vicki ly at bedtime. ondansetron orally disintegrating (ZOFRA N ODT) 4 mg disintegrating tablet Take 1 tablet by mouth every 6 hours as needed for Nausea/Vomitin g. LORazepam (ATIVAN) 0.5 mg tab Take 2 tablets by mouth every 8 hours as needed for up to 90 days. SUMAtriptan (IMITREX) 100 mg tablet Take 1 tablet by mouth a s needed. amitriptyline (ELAVIL) 100 mg tablet Take 1 AND 1/2 tablets daily at bedtime. venlafaxine ER (EFFEXOR XR) 150 mg 24 hr capsule Take 1 capsule by mouth once daily. venlafaxine ER (EFFEXOR XR) 75 mg 24 hr capsule TAKE 1 CAPSULE BY MOUTH EVERY DAY along with 150mg mirtazapine (REMERON) 30 mg tablet TAKE 1/2 (ONE-HALF) OF A TABLET EVERY DAY AT BEDTIME atenolol (TENORMIN) 50 mg tablet Take 2 tablets by mouth onc e daily. cyanocobalamin 1,000 mcg/mL soln Inject 1 mL intramuscularly once every month. meclizine (ANTIVERT) 25 mg tab Take 1 tablet by mouth three times daily as needed (dizziness). COMPOUNDED PRESCRIPTION 1 wheelchair ICD-10: R26.81 Current Facility-Administered Medications: cyanocobalamin 1,000 mcg injection 1,000 mcg INTRAMUSCULAR q 1 MONTH MEDICAL HISTORY: PAST MEDICAL HISTORY Diagnosis Date - Acute peptic ulcer, unspecified site, with hemorrhage, w ithout mention of obstruction - Anxiety state, unspecified [...] II or unspecified type diabetes mellitus without ment ion of complication, not stated as uncontrolled - Unspecified constipation Constipation - Unspecified urinary incontinence - Urge incontinence - Urinary calculus, unspecified Renal stones SURGICAL HISTORY: PAST SURGICAL HISTORY Procedure Laterality Date - [...] TREAT ECTOPIC PREG,NON REMVAL RIGHT ECTOPIC FAMILY HISTORY: FAMILY HISTORY Problem Relation Age of Onset - Diabetes Father - Cervical Cancer Maternal Aunt - Cancer Maternal Aunt 3 aunts with breast CA - Heart Maternal Grandfather TRIPLE BYPASS SURGERY - Hypertension Maternal Aunt - Diabetes Mother - Coronary Artery Disease Maternal Uncle Lung disease, passed 06/18, - COPD Father - Heart Father Double By-Pass Surgery SOCIAL HISTORY: Social History Socioeconomic History Marital status: Spouse name: Antonio Number of children: 2 Years of education: 14 Highest education level: Not on file Social Needs Financial resource strain: Not on file Food insecurity - worry: Not on file Food insecurity - inability: Not on file Transportation needs - medical: Not on file Transportation needs - non-medical: Not on file 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 Tobacco Use Smoking status: Current Every Day Smoker Packs/day: 1.00 Years: 21.00 Pack years: 21 Smokeless tobacco: Never Used Tobacco comment: 05/2018 down to 05/13 ppd Substance and Sexual Activity Alcohol use: Yes Comment: social event, rarely Drug use: No Sexual activity: Yes Partners: Male control/protection: Surgical Comment: hysterectomy Other Topics Concerns: Not on file Social History Narrative 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 Abduction to 45 degrees and adduction to 20 degr ees. There is pain with palpation over the greater trochanter. The Right hip reveals a no hip flexion contractu re, 0-100 degrees of flexion, Internal Rotation to 20 degrees in flexi on and external rotation to 45 degrees in flexion. Abduction to 45 degrees and adduction to 20 degr ees. There is pain with palpation over the greater trochanter. EHL 5/5 DF 5/5 PF 5/5 DP Pulses 2/2 PT Pulses 2/2 RADIOGRAPH:no acute abnormality or significant degenerative changes ASSESSMENT: trochanteric bursitis bilateral hips PLAN: discussed with patient that it is a bit soon to repeat injections, but with the discomfort she is having, she would like to proceed wi th injections today. I recommend also referral to PT to begin therapy- order haile krueger Risks, benefits, alternative s and personnel discussed with patient who consents to proceed. Patient wished to proceed. 40 mg kenalog with 2cc, 1% lidocaine and 2cc .5% marcaine was injected. Injection was carried out under sterile conditions through a LATERAL site into t he right and left trochanteric bursae. Patient had no immediate complications and tolerated the pro cedure well. Villa Cano DO Referring Provider: SPEEDY RIOS [[id number]] Allergies As of Date: 07/15/2018 Noted Allergy Reaction CIPRO (CIPROFLOXACIN) 04/21/2007 2 - Rash Comments: Rapid heartbeat, flushed CODEINE [Other] 06/17/2005 4 - Hives DILAUDID (HYDROMORPHONE (BULK)) 06/05/2009 HYOSCYAMINE 01/09/2007 2 - Rash 9 - Itching PENICILLINS 06/17/2005 4 - Hives Date Reviewed: 07/15/2018 Reviewed by: Alexandra Durant Ma - Fully Assessed Reason for Visit: Established Patient [175] Cmt: 5 weeks post visit trochanter ic bursitis bilateral hips with injection given Reason For Visit History Recorded Primary Visit Diagnosis:Trochanteric bursitis of both hips [M70.61, M70.62] Order(s):CONSULT TO PHYSICAL THERAPY [9032] Order #: [id number]: 1 [] triamcinolone acetonide 80 mg injection (KENALOG 4 0)Disp: Rfl: Prescriptions as of 07/15/2018 Sig: TOPIRAMATE 50 MG TABLET Take 1 tablet by mouth daily * ONDANSETRON 4 MG DISINTEGRATI* Take 1 tablet by mouth every * LORAZEPAM 0.5 MG TABLET Take 2 tablets by mouth every* SUMATRIPTAN 100 MG TABLET Take 1 tablet by mouth as nee* AMITRIPTYLINE 100 MG TABLET Take 1 AND 1/2 tablets daily at* VENLAFAXINE ER 150 MG CAPSULE* Take 1 capsule by mouth once * VENLAFAXINE ER 75 MG CAPSULE,* TAKE 1 CAPSULE BY MOUTH EVERY * MIRTAZAPINE 30 MG TABLET TAKE 1/2 (ONE-HALF) OF A TABL* ATENOLOL 50 MG TABLET Take 2 tablets by mouth once * CYANOCOBALAMIN (VIT B-12) 1,0* Inject 1 mL intramuscularly o * MECLIZINE 25 MG TABLET Take 1 tablet by mouth three * COMPOUNDED PRESCRIPTION 1 wheelchair ICD-10: R26.81 Problem List As Of Date 07/15/2018 Noted Resolved OBESITY [E66.9] INVALID FOR* Migraine without aura [G43.009] INVALID FOR* PALPITATIONS [R00.2] INVALID FOR* INSOMNIA NOS [G47.00] INVALID FOR* Type II or unspecified type diabetes mellitus w*INVALID FOR* 06/07/2013 Recurrent major depressive disorder, in partial*INVALID FOR* [...] Refills Start End TRIAMCINOLONE ACETONIDE 40 MG/ML MADDI* 07/15/2018 07/15/2018 Route: INTRABURSAL Encounter Status:Closed by VILLA CANO DO, V on 07/15/18 progress on 2018-07 Protein mass HNO ID: [id number] Normal 07-15-[address] [facility] conc Author: Speedy Rios [place] ([id number]) Service: ? Author Type: Physician Type: Progress Notes Filed: 08/19/2018 5:07 PM Note Text: Chief Complaint Patient presents with: F/U 3 Month HPI Marybeth Phelps is a 48 year old female who presents here to [facility] for 3 month follow up. Is excited, son moved back to the [facility] living in [facility] or the next 4 years. 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 Migraines: not controlled, has several a week, they last for days. Denies any vomiting. Does get nausea at times. States she see's [facility] and gets numbness and pressure at the crown of the head and pain and pressure down into the back. Is taking Imitrex and Amitriptyline 100 mg. A lso uses Topamax 25 mg daily and Remeron 30 mg, half tablet. Anxiety: feels it is stable at this time. Is taking Effexor XR 150 mg and 75 mg daily and Ativan 0.5 mg, 2 tablets every 8 hours. Stat es she takes about 6 tablets a day. Insomnia: she tries to get go to a quite place before bed, d id have one night when she slept from 7 PM to 7 AM. She states that she does not discuss anything that will cause anxiety prior to going to [facility]. Palpitations: come and go, is taking Atenolol 50 mg, 2 table ts once daily. Swelling and tightness of the left leg and and hand and red splotches and a burning sensation off and on. Will last about a day. She i s unsure what will trigger the swelling and redness to start. Denies any itching. This does not seem to be associated with the headaches. Feels that keeping legs elevated would help with swelling in legs; unable to elevate with regular bed. Hospital bed would probably be beneficial. Past medical history, appointments, medications, allergies r eviewed. Previous Medical History PAST MEDICAL HISTORY Diagnosis Date - Acute peptic ulcer, unspecified site, with hemorrhage, wit hout mention of obstruction - Anxiety state, unspecified [...] II or unspecified type diabetes mellitus without ment ion of complication, not stated as uncontrolled - [...] - Penicillins Hives Current Medications Current Outpatient Medications on File Prior to Visit: LORazepam (ATIVAN) 0.5 mg tab Take 2 tablets by mouth every 8 hours as needed for up to 90 days. SUMAtriptan (IMITREX) 100 mg tablet Take 1 tablet by mouth a s needed. amitriptyline (ELAVIL) 100 mg tablet Take 1 AND 1/2 tablets daily at bedtime. venlafaxine ER (EFFEXOR XR) 150 mg 24 hr capsule Take 1 caps ule by mouth once daily. COMPOUNDED PRESCRIPTION 1 wheelchair ICD-10: R26.81 topiramate (TOPAMAX) 25 mg tablet TAKE 1 TABLET BY MOUTH AT BEDTIME venlafaxine ER (EFFEXOR XR) 75 mg 24 hr capsule TAKE 1 CAPSU LE BY MOUTH EVERY DAY along with 150mg mirtazapine (REMERON) 30 mg tablet TAKE 1/2 (ONE-HALF) OF A TABLET EVERY DAY AT BEDTIME atenolol (TENORMIN) 50 mg tablet Take 2 tablets by mouth onc e daily. cyanocobalamin 1,000 mcg/mL soln Inject 1 mL intramuscularly once every month. meclizine (ANTIVERT) 25 mg tab Take 1 tablet by mouth three times daily as needed (dizziness). 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 General Appearance: Well appearing, alert, in no acute distr ess, well-hydrated, well nourished.. Lungs: lungs clear to auscultation. No wheezing, rhonchi, ra les. Heart: RRR without murmur, gallop, or rubs. No ectopy. Extremities: no swelling of hands or legs at this time, no r edness at this time.. Health Maintenance List COLORECTAL CANCER SCREENING,SEE MODIFIER due on 2018 MAMMOGRAM due on 03/17/2019 ANNUAL PCP TEAM CHRONIC DISEASE VISIT due on 04/09/2019 DIABETES SCREEN due on 01/14/2021 LIPID SCREEN due on 05/01/2022 DTAP,TDAP,TD(3 - Td) due on 05/25/2026 ONE PNEUMOVAX PRIOR TO AGE 65 Completed INFLUENZA Completed PAP TESTING Completed HPV TESTING Completed Data reviewed none ASSESSMENT/PLAN: 1. Anxiety state - ICD9: 300.00, ICD10: F41.1 (primary diagn osis) Stable Continue current medications. 2. Special screening for malignant neoplasms, colon - ICD9: V76.51, ICD10: Z12.11 consult Gastro 3. Migraine without aura and without status migrainosus, not intractable - ICD9: 346.10, ICD10: G43.009 Increase Topamax to 50 mg at bedtime Continue current medications. 4. Palpitations - ICD9: 785.1, ICD10: R00.2 Continue current medications. 5. Primary insomnia - ICD9: 307.42, ICD10: F51.01 Continue with natural relaxation techniques 6. Swelling of extremity, left - ICD9: 729.81, ICD10: M79.89 Both leg and hand Continue to monitor Follow up in 3 months. I agree with the Chief Complaint, ROS, and Past Histories in dependently gathered by the clinical community support worker and the remaining scr ibed note accurately describes my personal service to the patient. Speedy Rios MD The documentation for this note was completed by Jaleesa shah Ma acting as scribe for Speedy Rios MD. July 14, 2018 11:08 AM. oneil cbc and diff on 2018-01-14 Eosinophils/100 WBC (Bld) 1.2 % Normal [facility] ([id number]) Erythrocyte distribution 12.9 11.5-15.0 % Normal 01-[address] [facility] width Ratio (RBC) Cl saima ([id number]) Hematocrit Volume Fraction 39.8 36.0-46.0 % Normal [facility] (Bld) [place] ([id number]) Hemoglobin mass conc (Bld) 13.3 11.5-15.5 g/dL Normal [facility] (47530) Lymphocytes/100 WBC (Bld) 26.5 % Normal [facility] ([id number]) MCH Entitic mass (RBC) 31.1 26.0-34.0 pg Normal 018 [facility] ([id number]) MCHC mass conc (RBC) 33.4 30.5-36.0 g/dL Normal 8 [facility] ([id number]) MCV Entitic volume (RBC) 93.0 80.0-100.0 fL Normal [facility] (17041) Platelet mean volume 9.3 9.0-12.7 fL Normal [address] [facility] Entitic volume (Bld) [place] ([id number]) Comment: Result Comment: Test perform ed at: [facility], [address] [place] [address] [address] [place], [place] [address]. RBC #/vol (Bld) 4.28 3.90-5.20 m/uL Normal 01-14-2018 [facility] ([id number]) WBC #/vol (Bld) 8.63 3.70-11.00 k/uL Normal 01-14-[address] [facility] ([id number]) [place] Abs Baso 0.03 <0.11 k/uL Normal 01-14-[address] [facility] ([id number]) [place] Abs Eos 0.10 <0.46 k/uL Normal 01-14-2018 [facility] ([id number]) [place] Abs Lymp 2.29 1.00-4.00 k/uL Normal 01-14-[address] [facility] ([id number]) Oneil Abs [place]on 0.69 <0.87 k/uL Normal 01-14-[address] [facility] ([id number]) [place] Abs Neut 5.52 1.45-7.50 k/uL Normal 01-14-[address] [facility] ([id number]) [place] Baso% 0.3 % Normal 01-14-2018 [facility] ([id number]) [place] Tipton% 8.0 % Normal 01-14-2018 [facility] (16154) [place] Neut% 64.0 % Normal 01-14-2018 [facility] ([id number]) [place] Platelet Cnt 319 150-400 k/uL Normal 8 [facility] (36436) cnnurse on [facility] Nurse Visit (FAMPWS) Normal 9 [place] [facility] MARYBETH PHELPS ([id number]) 1970 [place] [place] Date Time Provider Department ([id number]) 06/18/18 1:30 PM [place] [facility] During your visit today, we recorded the following informati on about you: Milagros Salgado 06/18/2018 1:40 PM Signed Patient presents for B-12 injection. Den ies any problems at this time. Patient instructed on any SE of medication, verbalized understanding and agreed to proceed with treatment. Tolerated injection well. Milagros Salgado Referring Provider: SPEEDY RIOS [[id number]] Allergies As of Date: 06/18/2018 Noted Allergy Reaction CIPRO (CIPROFLOXACIN) 04/21/2007 2 - Rash Comments: Rapid heartbeat, flushed CODEINE [Other] 06/17/2005 4 - Hives DILAUDID (HYDROMORPHONE (BULK)) 06/05/2009 HYOSCYAMINE 01/09/2007 2 - Rash 9 - Itching PENICILLINS 06/17/2005 4 - Hives Date Reviewed: 06/18/2018 Reviewed by: Milagros Salgado - Fully Assessed Reason for Visit: Imm/Inj [58] Visit Diagnosis:Vitamin B12 deficiency [E53.8] Prescriptions as of 06/18/2018 Sig: VENLAFAXINE ER 150 MG CAPSULE* Take 1 capsule by mouth once * COMPOUNDED PRESCRIPTION 1 wheelchair ICD-10: R26.81 SUMATRIPTAN 100 MG TABLET Take 1 tablet by mouth as nee* TOPIRAMATE 25 MG TABLET TAKE 1 TABLET BY MOUTH AT BED* VENLAFAXINE ER 75 MG CAPSULE,* TAKE 1 CAPSULE BY MOUTH EVERY * AMITRIPTYLINE 100 MG TABLET Take 1 AND 1/2 tablets daily at* MIRTAZAPINE 30 MG TABLET TAKE 1/2 (ONE-HALF) OF A TABL* ATENOLOL 50 MG TABLET Take 2 tablets by mouth once * CYANOCOBALAMIN (VIT B-12) 1,0* Inject 1 mL intramuscularly o * MECLIZINE 25 MG TABLET Take 1 tablet by mouth three * Problem List As Of Date 06/18/2018 Noted Resolved OBESITY [E66.9] INVALID FOR* Migraine without aura [G43.009] INVALID FOR* PALPITATIONS [R00.2] INVALID FOR* INSOMNIA NOS [G47.00] INVALID FOR* Type II or unspecified type diabetes mellitus w*INVALID FOR* 06/07/2013 Recurrent major depressive disorder, in partial*INVALID FOR* [...] HYPOTHYROID [E89.0] INVALID FOR* Encounter Status:Closed by MILAGROS SALGADO on 06/18/18 obsolete on 2018-07 OBSOLETE Refill (FAMPWS) Normal 07-13-2018 [facility] MARYBETH Hussein ([id number]) 1970 [facility] Time Provider Department ([id number]) 07/13/18 SPEEDY RIOS FAMPWS During your visit today, we recorded the following informati on about you: Sherrell Gray 07/13/2018 11:22 AM Signed Patient's request for medication is as follows: Pending Prescriptions Disp Refills SUMATRIPTAN 100 MG TABLET 9 tablet 3 Sig: Take 1 tablet by mouth as needed. BILL: No Prescription(s) as above. Please process accordingly. Sherrell Macedo Ma 07/13/2018 1:31 PM Signed This was refilled on #9 with 3 refills. Pharmacy notified. Allergies As of Date: 07/13/2018 Noted Allergy Reaction CIPRO (CIPROFLOXACIN) 04/21/2007 2 - Rash Comments: Rapid heartbeat, flushed CODEINE [Other] 06/17/2005 4 - Hives DILAUDID (HYDROMORPHONE (BULK)) 06/05/2009 HYOSCYAMINE 01/09/2007 2 - Rash 9 - Itching PENICILLINS 06/17/2005 4 - Hives Date Reviewed: 06/18/2018 Reviewed by: Milagros Salgado - Fully Assessed Reason for Visit: Refill Request [94] Refill Request [94] Reason For Visit History Recorded Visit Diagnosis:Migraine without aura and without status ko rainosus, not intractable [G43.009] Prescriptions as of 07/13/2018 Sig: LORAZEPAM 0.5 MG TABLET Take 2 tablets by mouth every* SUMATRIPTAN 100 MG TABLET Take 1 tablet by mouth as nee* AMITRIPTYLINE 100 MG TABLET Take 1 AND 1/2 tablets daily at* VENLAFAXINE ER 150 MG CAPSULE* Take 1 capsule by mouth once * COMPOUNDED PRESCRIPTION 1 wheelchair ICD-10: R26.81 TOPIRAMATE 25 MG TABLET TAKE 1 TABLET BY MOUTH AT BED* VENLAFAXINE ER 75 MG CAPSULE,* TAKE 1 CAPSULE BY MOUTH EVERY * MIRTAZAPINE 30 MG TABLET TAKE 1/2 (ONE-HALF) OF A TABL* ATENOLOL 50 MG TABLET Take 2 tablets by mouth once * CYANOCOBALAMIN (VIT B-12) 1,0* Inject 1 mL intramuscularly o * MECLIZINE 25 MG TABLET Take 1 tablet by mouth three * Problem List As Of Date 07/13/2018 Noted Resolved OBESITY [E66.9] INVALID FOR* Migraine without aura [G43.009] INVALID FOR* PALPITATIONS [R00.2] INVALID FOR* INSOMNIA NOS [G47.00] INVALID FOR* Type II or unspecified type diabetes mellitus w*INVALID FOR* 06/07/2013 Recurrent major depressive disorder, in partial*INVALID FOR* [...] HYPOTHYROID [E89.0] INVALID FOR* Encounter Status:Closed by JALEESA MACEDO MA on 07/13/18 obsolete on 2018-06 OBSOLETE Refill (FAMPWS) Normal 07-06-2018 [facility] MARYBETH PHELPS ([id number]) 1970 [facility] Time Provider Department ([id number]) 07/06/18 SPEEDY RIOS During your visit today, we recorded the following informati on about you: Bhavya Lynne Ma 07/06/2018 10:27 AM Signed Received Rx Request form MARCIAL Miguel on Ativan 1 mg tab. Requesting an alternative medication to be sent in due to 1 mg Ativan on back order. I have pended 0.5 mg. Last office visit: 04/09/18 Last refill date 03/10/18 with 90 and 3 refills OARRS report: Next office visit: 07/14/18 Bhavya Rios MD 07/06/2018 2:44 PM Signed OK to refill as ordered MD Adali Ceballos [facility] 07/06/2018 3:01 PM Signed Rx called to pharmacy Allergies As of Date: 07/06/2018 Noted Allergy Reaction CIPRO (CIPROFLOXACIN) 04/21/2007 2 - Rash Comments: Rapid heartbeat, flushed CODEINE [Other] 06/17/2005 4 - Hives DILAUDID (HYDROMORPHONE (BULK)) 06/05/2009 HYOSCYAMINE 01/09/2007 2 - Rash 9 - Itching PENICILLINS 06/17/2005 4 - Hives Date Reviewed: 06/18/2018 Reviewed by: Milagros Salgado - Fully Assessed Reason for Visit: Refill Request [94] Visit Diagnosis:Panic disorder without agoraphobia [F41.0] Order(s):LORazepam (ATIVAN) 0.5 mg tabTa ke 2 tablets by mouth every 8 hours as needed for up to 90 days.Disp: 120 tabletRfl: 3 Prescriptions as of 07/06/2018 Sig: LORAZEPAM 0.5 MG TABLET Take 2 tablets by mouth every* SUMATRIPTAN 100 MG TABLET Take 1 tablet by mouth as nee* AMITRIPTYLINE 100 MG TABLET Take 1 AND 1/2 tablets daily at* VENLAFAXINE ER 150 MG CAPSULE* Take 1 capsule by mouth once * COMPOUNDED PRESCRIPTION 1 wheelchair ICD-10: R26.81 TOPIRAMATE 25 MG TABLET TAKE 1 TABLET BY MOUTH AT BED* VENLAFAXINE ER 75 MG CAPSULE,* TAKE 1 CAPSULE BY MOUTH EVERY * MIRTAZAPINE 30 MG TABLET TAKE 1/2 (ONE-HALF) OF A TABL* ATENOLOL 50 MG TABLET Take 2 tablets by mouth once * CYANOCOBALAMIN (VIT B-12) 1,0* Inject 1 mL intramuscularly o * MECLIZINE 25 MG TABLET Take 1 tablet by mouth three * Problem List As Of Date 07/06/2018 Noted Resolved OBESITY [E66.9] INVALID FOR* Migraine without aura [G43.009] INVALID FOR* PALPITATIONS [R00.2] INVALID FOR* INSOMNIA NOS [G47.00] INVALID FOR* Type II or unspecified type diabetes mellitus w*INVALID FOR* 06/07/2013 Recurrent major depressive disorder, in partial*INVALID FOR* [...] ordered this encounter Disp Refills Start End LORAZEPAM 0.5 MG TABLET 120 * 3 07/06/2018 10/04/2018 Class: Call Rx Route: ORAL Sig: Take 2 tablets by mouth every 8 hours as needed for up to 90 days. Medications Discontinued During This Encounter LORazepam (ATIVAN) 1 mg tablet 60 t* 3 03/10/2018 07/06/2018 Class: Call Rx Cmt: Med-sync patient. If too soon, we w ill put new RX on hold for next cycle. Sig: TAKE 1 TABLET EVERY 8 HOURS NEEDED FOR ANXIETY Disc: Reason for discontinue is not on file. Encounter Status:Closed by ADALI DUEÑAS CMA on 07/06 obsolete on 2018-06 OBSOLETE Refill (FAMPWS) Normal 06-29-2018 [facility] MARYBETH PHELPS ([id number]) 1970 [facility] Time Provider Department ([id number]) 06/29/18 SPEEDY RIOS FAMPWS During your visit today, we recorded the following informati on about you: Bhavya Lynne Ma 06/29/2018 5:09 PM Signed Last office visit: 04/09/18 Last refill date 04/09/18 with 9 and 3 refills OARRS report: NA Next office visit: 07/14/18 Bhavya Sheppard APRN.SECURITY ANALYST 06/30/2018 7:48 AM Signed The following approved medic ation requests have been transmitted electronically. Pending Prescriptions Disp Refills SUMATRIPTAN 100 MG TABLET 9 tablet 3 Sig: Take 1 tablet by mouth as needed. BILL: No Brian Sheppard APRN.CNP Allergies As of Date: 06/29/2018 Noted Allergy Reaction CIPRO (CIPROFLOXACIN) 04/21/2007 2 - Rash Comments: Rapid heartbeat, flushed CODEINE [Other] 06/17/2005 4 - Hives DILAUDID (HYDROMORPHONE (BULK)) 06/05/2009 HYOSCYAMINE 01/09/2007 2 - Rash 9 - Itching PENICILLINS 06/17/2005 4 - Hives Date Reviewed: 06/18/2018 Reviewed by: Milagros Salgado - Fully Assessed Reason for Visit: Refill Request [94] Visit Diagnosis:Migraine without aura and without status ko rainosus, not intractable [G43.009] Order(s):SUMAtriptan (IMITREX) 100 mg tabletTake 1 tablet by mouth as needed.Disp: 9 tabletRfl: 3 Prescriptions as of 06/29/2018 Sig: SUMATRIPTAN 100 MG TABLET Take 1 tablet by mouth as nee* AMITRIPTYLINE 100 MG TABLET Take 1 AND 1/2 tablets daily at* VENLAFAXINE ER 150 MG CAPSULE* Take 1 capsule by mouth once * COMPOUNDED PRESCRIPTION 1 wheelchair ICD-10: R26.81 TOPIRAMATE 25 MG TABLET TAKE 1 TABLET BY MOUTH AT BED* VENLAFAXINE ER 75 MG CAPSULE,* TAKE 1 CAPSULE BY MOUTH EVERY * MIRTAZAPINE 30 MG TABLET TAKE 1/2 (ONE-HALF) OF A TABL* ATENOLOL 50 MG TABLET Take 2 tablets by mouth once * CYANOCOBALAMIN (VIT B-12) 1,0* Inject 1 mL intramuscularly o * MECLIZINE 25 MG TABLET Take 1 tablet by mouth three * Problem List As Of Date 06/29/2018 Noted Resolved OBESITY [E66.9] INVALID FOR* Migraine without aura [G43.009] INVALID FOR* PALPITATIONS [R00.2] INVALID FOR* INSOMNIA NOS [G47.00] INVALID FOR* Type II or unspecified type diabetes mellitus w*INVALID FOR* 06/07/2013 Recurrent major depressive disorder, in partial*INVALID FOR* [...] SUMATRIPTAN 100 MG TABLET 9 ta* 3 06/30/2018 Route: ORAL Sig: Take 1 tablet by mouth as needed. Medications Discontinued During This Encounter SUMAtriptan (IMITREX) 100 mg tablet 9 ta* 3 04/09/20182018 Route: ORAL Sig: Take 1 tablet by mouth as needed. Disc: Reason for discontinue is not on file. Encounter Status:Closed by BRIAN SHEPPARD CNP on 06/30/18 obsolete on 2018-06 OBSOLETE Refill (FAMPWS) Normal 06-23-2018 [facility] MARYBETH PHELPS ([id number]) 1970 [facility] Time Provider Department ([id number]) 06/23/18 SPEEDY RIOS FAMPWS During your visit today, we recorded the following informati on about you: Adali uDeñas [facility] 06/23/2018 11:40 AM Signed Patient has been identified by name and date of : Yes Pending Prescriptions Disp Refills AMITRIPTYLINE 100 MG TABLET 135 tablet 1 BILL: No RX INSTRUCTIONS: Patient aware RX will be sent to pharmacy. No need to notify patient. Last visit 04/09/18 Future visit 07/14/18 Last filled 01/13/18 135 with 1 Adali Sheppard APRN.CNP 06/23/2018 11:46 AM Signed The following approved medic ation requests have been transmitted electronically. Pending Prescriptions Disp Refills AMITRIPTYLINE 100 MG TABLET 135 tablet 1 Sig: Take 1 AND 1/2 tablets daily at bedtime. BILL: No MARY ALICE Spicer Cma 06/23/2018 3:53 PM Signed The following approved medic ation requests have been transmitted electronically. Signed Prescriptions Disp Refills amitriptyline (ELAVIL) 100 mg tablet 135 tablet 1 Sig: Take 1 AND 1/2 tablets daily at bedtime. BILL: No Authorizing Provider: BRAIN SHEPPARD (AKBAR) Adali Dueñas Cma Allergies As of Date: 06/23/2018 Noted Allergy Reaction CIPRO (CIPROFLOXACIN) 04/21/2007 2 - Rash Comments: Rapid heartbeat, flushed CODEINE [Other] 06/17/2005 4 - Hives DILAUDID (HYDROMORPHONE (BULK)) 06/05/2009 HYOSCYAMINE 01/09/2007 2 - Rash 9 - Itching PENICILLINS 06/17/2005 4 - Hives Date Reviewed: 06/18/2018 Reviewed by: Milagros Salgado - Fully Assessed Reason for Visit: Refill Request [94] Visit Diagnoses:Panic disorder without agoraphobia [F41.0] Chronic insomnia [F51.04] Order(s):amitriptyline (ELAVIL) 100 mg tabletTake 1 AN D 1/2 tablets daily at bedtime.Disp: 135 tabletRfl: 1 Prescriptions as of 06/23/2018 Sig: AMITRIPTYLINE 100 MG TABLET Take 1 AND 1/2 tablets daily at* VENLAFAXINE ER 150 MG CAPSULE* Take 1 capsule by mouth once * COMPOUNDED PRESCRIPTION 1 wheelchair ICD-10: R26.81 SUMATRIPTAN 100 MG TABLET Take 1 tablet by mouth as nee* TOPIRAMATE 25 MG TABLET TAKE 1 TABLET BY MOUTH AT BED* VENLAFAXINE ER 75 MG CAPSULE,* TAKE 1 CAPSULE BY MOUTH EVERY * MIRTAZAPINE 30 MG TABLET TAKE 1/2 (ONE-HALF) OF A TABL* ATENOLOL 50 MG TABLET Take 2 tablets by mouth once * CYANOCOBALAMIN (VIT B-12) 1,0* Inject 1 mL intramuscularly o * MECLIZINE 25 MG TABLET Take 1 tablet by mouth three * Problem List As Of Date 06/23/2018 Noted Resolved OBESITY [E66.9] INVALID FOR* Migraine without aura [G43.009] INVALID FOR* PALPITATIONS [R00.2] INVALID FOR* INSOMNIA NOS [G47.00] INVALID FOR* Type II or unspecified type diabetes mellitus w*INVALID FOR* 06/07/2013 Recurrent major depressive disorder, in partial*INVALID FOR* [...] ordered this encounter Disp Refills Start End AMITRIPTYLINE 100 MG TABLET 135 * 1 06/23/2018 Sig: Take 1 AND 1/2 tablets daily at bedtime. Medications Discontinued During This Encounter amitriptyline (ELAVIL) 100 mg tablet 135 * 1 01/23/20182018 Cmt: Med-sync patient. If too soon, we w ill put new RX on hold for next cycle. Sig: Take 1 AND 1/2 tablets daily at bedtime. Disc: Reason for discontinue is not on file. Encounter Status:Closed by ADALI DUEÑAS CMA on 06/23 progress on 2018-06 Protein mass conc HNO ID: [id number] Normal [facility] Author: Milagros pringle ([id number]) Service: (none) Author Type: (none) Type: Progress Notes Filed: 06/18/2018 1:40 PM Note Text: Patient presents for B-12 injection. Denies any problems at this time. Patient instructed on any SE of medication, verbalized under standing and agreed to proceed with treatment. Tolerated injection well. Milagros Salgado progress on 2017-12 Protein mass HNO ID: [id number] Normal 01-07-20 18 [facility] Author: Speedy Rios [place] ([id number]) Service: (none) Author Type: Physician Type: Progress Notes Filed: 01/08/2018 5:20 PM Note Text: Chief Complaint No chief complaint on file. HPI Marybeth Phelps is a 47 year old female who presents here to day for medication follow up. Pt here today for a follow up. Insomnia - No improvement with use of Amitriptyline 50 mg 3 caps po at one at bedtime. Also taking Remeron 30 mg 0.5 tab hs. Still up 3 -4 hours at night. HTN - Denies checking BP at home. Denies sob. Admits to tigh tening in her chest from time to time and dizziness. Anxiety/Depression - State that she is still doing horrible. A lot of stress with her daughter. She is on effexor 225 mg daily, am itriptyline at bedtime, topamax, remeron, ativan. WALKER - States that WALKER are a little more controllable now. Stat es the Imitrex does work to help WALKER's. Skin: complains of erythematous patches, slighty itchy, come and goe Past medical history, appointments, medications, allergies r eviewed. Previous Medical History PAST MEDICAL HISTORY Diagnosis Date - Acute peptic ulcer, unspecified site, with hemorrhage, wit hout mention of obstruction - Anxiety state, unspecified [...] II or unspecified type diabetes mellitus without ment ion of complication, not stated as uncontrolled - [...] 90 mcg/actuation inhaler Inhale 2 Puffs as inst ructed every 4 hours as needed for Wheezing/Shortness [...] mg tablet Take 2 tablets by mouth onc e daily. venlafaxine ER (EFFEXOR XR) 75 mg 24 hr capsule Take 1 capsu le by mouth once daily. Take along with 150 mg pill cyanocobalamin 1,000 mcg/mL soln Inject 1 mL intramuscularly once every month. topiramate (TOPAMAX) 25 mg tablet Take 1 tablet by mouth vicki ly at bedtime. venlafaxine XR (EFFEXOR XR) 150 mg 24 hr capsule Take 1 caps ule by mouth once daily. amitriptyline (ELAVIL) 50 mg tablet Take 3 tablets by mouth daily at bedtime. metoprolol tartrate, short acting, (LOPRESSOR) 25 mg tablet Take 1 tablet by mouth twice daily. meclizine (ANTIVERT) 25 mg tab Take 1 tablet by mouth three times daily as needed (dizziness). 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 General Appearance: Well appearing, alert, in no acute distr ess, well-hydrated, well nourished.. Lungs: Lungs clear to auscultation. No wheezing, rhonchi, ra les. Heart: RRR without murmur, gallop, or rubs. No ectopy. Skin: several faintly erythematous patches on arms, chest Health Maintenance List MAMMOGRAM due on 06/24/2014 INFLUENZA(1) due on 01/10/2018 DIABETES SCREEN due on 10/07/2020 LIPID SCREEN due on 05/01/2022 DTAP,TDAP,TD(3 - Td) due on 05/25/2026 ONE PNEUMOVAX PRIOR TO AGE 65 Completed Data reviewed None ASSESSMENT/PLAN: 1. Dermatitis - ICD9: 692.9, ICD10: L30.9 (primary diagnosis ) Will place on a course of prednisone; appears allergic in na ture - PREDNISONE 10 MG TABLET - PREDNISONE 10 MG TABLET 2. Recurrent major depressive disorder, in partial remission (HCC) - ICD9: 296.35, ICD10: F33.41 Continue current medications. Follow up in 3 months Speedy Rios MD The documentation for this note was completed by Bhavya pepper Ma acting as scribe for Speedy Rios MD. January 06, 2018 3:32 PM. cnnurse on CNNURSE Nurse Visit (FAMPWS) Normal 8 [place] [facility] MARYBETH PHELPS ([id number]) 1970 [facility] Date Time Provider Department ([id number]) 04/16/18 3:30 PM [place] [facility] During your visit today, we recorded the following informati on about you: Rula Baumann LPN 04/16/2018 3:33 PM Signed Patient presents for B-12 injection. Den ies any problems at this time. Patient instructed on any SE of medication, verbalized understanding and agreed to proceed with treatment. Tolerated injection well. Rlua Baumann LPN Referring Provider: SPEEDY RIOS [[id number]] Allergies As of Date: 04/16/2018 Noted Allergy [...] MG CAPSULE,* TAKE 1 CAPSULE BY MOUTH EVERY * AMITRIPTYLINE 100 MG TABLET Take 1 AND 1/2 tablets daily at* MIRTAZAPINE 30 MG TABLET TAKE 1/2 (ONE-HALF) OF A TABL* ATENOLOL 50 MG TABLET Take 2 tablets by mouth once * CYANOCOBALAMIN (VIT B-12) 1,0* Inject 1 mL intramuscularly o * VENLAFAXINE ER 150 MG CAPSULE* Take 1 capsule by mouth once * MECLIZINE 25 MG TABLET Take 1 tablet by mouth three * Problem List As Of Date 04/16/2018 Noted Resolved OBESITY [E66.9] INVALID FOR* Migraine without aura [G43.009] INVALID FOR* PALPITATIONS [R00.2] INVALID FOR* INSOMNIA NOS [G47.00] INVALID FOR* Type II or unspecified type diabetes mellitus w*INVALID FOR* 06/07/2013 Recurrent major depressive disorder, in partial*INVALID FOR* [...] Status:Closed by RULA BAUMANN LPN on 04/16/18 obsolete on 2018-06 OBSOLETE Refill (FAMPWS) Normal 06-17-2018 [facility] MARYBETH Hussein ([id number]) 1970 [place] Date Time Provider Department ([id number]) 06/17/18 SPEEDY RIOS FAMPWS During your visit today, we recorded the following informati on about you: Speedy Rios MD 06/17/2018 3:10 PM Signed OK to refill as ordered MD Adali Ceballos [employer] 06/17/2018 3:42 PM Signed The following approved medic ation requests have been transmitted electronically. Signed Prescriptions Disp Refills venlafaxine ER (EFFEXOR XR) 150 mg 24 hr capsule 90 capsule 3 Sig: Take 1 capsule by mouth once daily. BILL: No Authorizing Provider: SPEEDY RIOS Cma Allergies As of Date: 06/17/2018 Noted Allergy Reaction CIPRO (CIPROFLOXACIN) 04/21/2007 2 - Rash Comments: Rapid heartbeat, flushed CODEINE [Other] 06/17/2005 4 - Hives DILAUDID (HYDROMORPHONE (BULK)) 06/05/2009 HYOSCYAMINE 01/09/2007 2 - Rash 9 - Itching PENICILLINS 06/17/2005 4 - Hives Date Reviewed: 06/10/2018 Reviewed by: Lamar Villafuerte Ma - Fully Assessed Reason for Visit: Refill Request [94] Order(s):venlafaxine ER (EFFEXOR XR) 150 mg 24 hr capsuleTak e 1 capsule by mouth once daily.Disp: 90 capsuleRfl: 3 Prescriptions as of 06/17/2018 Sig: VENLAFAXINE ER 150 MG CAPSULE* Take 1 capsule by mouth once * COMPOUNDED PRESCRIPTION 1 wheelchair ICD-10: R26.81 SUMATRIPTAN 100 MG TABLET Take 1 tablet by mouth as nee* TOPIRAMATE 25 MG TABLET TAKE 1 TABLET BY MOUTH AT BED* VENLAFAXINE ER 75 MG CAPSULE,* TAKE 1 CAPSULE BY MOUTH EVERY * AMITRIPTYLINE 100 MG TABLET Take 1 AND 1/2 tablets daily at* MIRTAZAPINE 30 MG TABLET TAKE 1/2 (ONE-HALF) OF A TABL* ATENOLOL 50 MG TABLET Take 2 tablets by mouth once * CYANOCOBALAMIN (VIT B-12) 1,0* Inject 1 mL intramuscularly o * MECLIZINE 25 MG TABLET Take 1 tablet by mouth three * Problem List As Of Date 06/17/2018 Noted Resolved OBESITY [E66.9] INVALID FOR* Migraine without aura [G43.009] INVALID FOR* PALPITATIONS [R00.2] INVALID FOR* INSOMNIA NOS [G47.00] INVALID FOR* Type II or unspecified type diabetes mellitus w*INVALID FOR* 06/07/2013 Recurrent major depressive disorder, in partial*INVALID FOR* [...] ordered this encounter Disp Refills Start End VENLAFAXINE ER 150 MG CAPSULE,EXTEND* 90 c* 3 06/17/2018 Route: ORAL Sig: Take 1 capsule by mouth once daily. Medications Discontinued During This Encounter venlafaxine XR (EFFEXOR XR) 150 mg 2* 90 c* 3 05/23/20172018 Route: ORAL Sig: Take 1 capsule by mouth once daily. Disc: Reason for discontinue is not on file. Encounter Status:Closed by ADALI DUEÑAS CMA on progress on 2018-04 Protein mass conc HNO ID: [id number] Normal [facility] Author: Rula Baumann LPN [place] ([id number]) Service: (none) Author Type: (none) Type: Progress Notes Filed: 04/16/2018 3:33 PM Note Text: Patient presents for B-12 injection. Denies any problems at this time. Patient instructed on any SE of medication, verbalized under standing and agreed to proceed with treatment. Tolerated injection well. Rula Baumann LPN cnnurse on CNNURSE Nurse Visit (FAMPWS) Normal [address] [place] [address] [facility] MARYBETH PHELPS ([id number]) 1970 [facility] Time Provider Department ([id number]) 05/18/18 9:30 AM [place] NURSE [facility] During your visit today, we recorded the following informati on about you: Rula Baumann LPN 05/18/2018 9:57 AM Signed Patient presents for B-12 injection. Den ies any problems at this time. Patient instructed on any SE of medication, verbalized understanding and agreed to proceed with treatment. Tolerated injection well. Rula Baumann LPN Referring Provider: SPEEDY RIOS [[id number]] Allergies As of Date: 05/18/2018 Noted Allergy [...] MG CAPSULE,* TAKE 1 CAPSULE BY MOUTH EVERY * AMITRIPTYLINE 100 MG TABLET Take 1 AND 1/2 tablets daily at* MIRTAZAPINE 30 MG TABLET TAKE 1/2 (ONE-HALF) OF A TABL* ATENOLOL 50 MG TABLET Take 2 tablets by mouth once * CYANOCOBALAMIN (VIT B-12) 1,0* Inject 1 mL intramuscularly o * VENLAFAXINE ER 150 MG CAPSULE* Take 1 capsule by mouth once * MECLIZINE 25 MG TABLET Take 1 tablet by mouth three * Problem List As Of Date 05/18/2018 Noted Resolved OBESITY [E66.9] INVALID FOR* Migraine without aura [G43.009] INVALID FOR* PALPITATIONS [R00.2] INVALID FOR* INSOMNIA NOS [G47.00] INVALID FOR* Type II or unspecified type diabetes mellitus w*INVALID FOR* 06/07/2013 Recurrent major depressive disorder, in partial*INVALID FOR* [...] RULA BAUMANN LPN on 05/18/18 progress on 2018-05 Protein mass conc HNO ID: [id number] Normal [facility] Author: Rula Baumann LPN [place] ([id number]) Service: (none) Author Type: (none) Type: Progress Notes Filed: 05/18/2018 9:57 AM Note Text: Patient presents for B-12 injection. Denies any problems at this time. Patient instructed on any SE of medication, verbalized under standing and agreed to proceed with treatment. Tolerated injection well. Rula Baumann LPN progress on 2018-05 Protein mass HNO ID: [id number] Normal 06-10-[address] [facility] conc Author: [place] ([id number]) Service: (none) Author Type: Physician Type: Progress Notes Filed: 06/10/2018 11:29 AM Note Text: Speedy Rios MD [id number] [facility] [address] Ms. Phelps is a 48 year old female that presents today compla ining of hip problems bilaterally for the last 2 months. She claims that there is no specific incident that brought on this pain. The pain is adri cribed as chronic located in the outer aspect of the hip. Patient states that her pain level is a number 7 on a scale of 1-10 ALLERGIES: Cipro [Ciprofloxacin]; Codeine [Other]; Dilaudid [Hydromorphone (Bulk)]; Hyoscyamine; Penicillins MEDICATIONS: Current Outpatient Prescriptions: SUMAtriptan (IMITREX) 100 mg tablet Take 1 tablet by mouth a s needed. topiramate (TOPAMAX) 25 mg tablet TAKE 1 TABLET BY MOUTH AT BEDTIME venlafaxine ER (EFFEXOR XR) 75 mg 24 hr capsule TAKE 1 CAPSU LE BY MOUTH EVERY DAY along with 150mg amitriptyline (ELAVIL) 100 mg tablet Take 1 AND 1/2 tablets daily at bedtime. mirtazapine (REMERON) 30 mg tablet TAKE 1/2 (ONE-HALF) OF A TABLET EVERY DAY AT BEDTIME atenolol (TENORMIN) 50 mg tablet Take 2 tablets by mouth onc e daily. cyanocobalamin 1,000 mcg/mL soln Inject 1 mL intramuscularly once every month. venlafaxine XR (EFFEXOR XR) 150 mg 24 hr capsule Take 1 caps ule by mouth once daily. meclizine (ANTIVERT) 25 mg tab Take 1 tablet by mouth three times daily as needed (dizziness). COMPOUNDED PRESCRIPTION 1 wheelchair ICD-10: R26.81 Current Facility-Administered Medications: cyanocobalamin 1,000 mcg injection 1,000 mcg INTRAMUSCULAR q 1 MONTH MEDICAL HISTORY: PAST MEDICAL HISTORY Diagnosis Date - Acute peptic ulcer, unspecified site, with hemorrhage, wit hout mention of obstruction - Anxiety state, unspecified [...] II or unspecified type diabetes mellitus without ment ion of complication, not stated as uncontrolled - Unspecified constipation Constipation - Unspecified urinary incontinence - Urge incontinence - Urinary calculus, unspecified Renal stones SURGICAL HISTORY: PAST SURGICAL HISTORY Procedure Laterality Date - [...] TREAT ECTOPIC PREG,NON REMVAL RIGHT ECTOPIC FAMILY HISTORY: FAMILY HISTORY Problem Relation Age of Onset - Diabetes Father - Cervical Cancer Maternal Aunt - Cancer Maternal Aunt 3 aunts with breast CA - Heart Maternal Grandfather TRIPLE BYPASS SURGERY - Hypertension Maternal Aunt - Diabetes Mother - Coronary Artery Disease Maternal Uncle Lung disease, passed 06/18, - COPD Father - Heart Father Double By-Pass Surgery SOCIAL HISTORY: Social History Marital status: Spouse name: Antonio Years of education: 14 Number of children: 2 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 History 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 Social History Main Topics Smoking status: Current Every Day Smoker Packs/day: 1.00 Years: 21.00 Smokeless tobacco: Never Used Comment: 05/2018 down to 05/13 ppd Alcohol use: Yes Comment: social event, rarely Drug use: No Sexual activity: Yes Partners with: Male control/protection: Surgical Comment: hysterectomy Social History Narrative 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 Abduction to 45 degrees and adduction to 20 degrees. There is pain with palpation over the greater trochanter. The Right hip reveals a no hip flexion contracture, 0-100 de grees of flexion, Internal Rotation to 20 degrees in flexion and exte rnal rotation to 45 degrees in flexion. Abduction to 45 degrees and adduct ion to 20 degrees. There is pain with palpation over the greater troch anter. EHL 5/5 DF 5/5 PF 5/5 DP Pulses 2/2 PT Pulses 2/2 RADIOGRAPH:no acute abnormality or significant degenerative changes ASSESSMENT: trochanteric bursitis bilateral hips PLAN: Physical exam reviewed there are no apparent changes since l ast visit. Risks, benefits, alternatives and personnel discussed with [place] puente who consents to proceed. Patient wished to proceed. 40 mg kenalo g with 2cc, 1% lidocaine and 2cc .5% marcaine was injected. Injection wa s carried out under sterile conditions through a LATERAL site into the rig ht and left trochanteric bursae. Patient had no immediate complications and tolerated the procedure well. HEP handout given Villa Cano DO Protein mass HNO ID: [id number] Normal 06-10-19 19 [facility] Author: Lamar Villafuerte Ma [place] ([id number]) Service: (none) Author Type: (none) Type: Progress Notes Filed: 06/10/2018 11:29 AM Note Text: AMB ROOMING INTAKE FLOWSHEET DATA Risk Screening Do you have concerns about personal safety or safety in the home?: No Pain Pain Score: 7/10 Pain Location: Other: See Comment (bilateral hips) Description: Stabbing Duration Amount of Time: 2 Duration Units: Months Frequency: Continuous Intervention: Medication, Other: See comment (Aron Crowder) cnov on 2018-06-10 CNOV Office Visit ([facility]) Normal 06-10-2018 [facility] MARYBETH PHELPS ([id number]) 1970 [facility] Date Time Provider Department ([id number]) 06/10/18 11:00 AM VILLA CANO During your visit today, we recorded the following informati on about you: Lamar Villafuerte Ma 06/10/2018 11:29 AM Signed AMB ROOMING INTAKE FLOWSHEET DATA Risk Screening Do you have concerns about personal safety or safety in the home?: No Pain Pain Score: 7/10 Pain Location: Other: See Comment (bilateral hips) Description: Stabbing Duration Amount of Time: 2 Duration Units: Months Frequency: Continuous Intervention: Medication, Other: See comment (Aron Crowder) Villa Cano DO 06/10/2018 11:29 AM Signed Speedy Rios MD [id number] [facility] [id number] Ms. Phelps is a 48 year old female that presents today compla ining of hip problems bilaterally for the last 2 months. She claims that there is no specific incident that brought on this pain. The pain is described as chronic located in the outer aspect of the hip. Patient states that her pain level is a number 7 on a scale of 1-10 ALLERGIES: Cipro [Ciprofloxacin]; Codeine [Other]; Dilaudid [Hydromorphone (Bulk)]; Hyoscyamine; Penicillins MEDICATIONS: Current Outpatient Prescriptions: SUMAtriptan (IMITREX) 100 mg tablet Take 1 tablet by mouth a s needed. topiramate (TOPAMAX) 25 mg tablet TAKE 1 TABLET BY MOUTH AT BEDTIME venlafaxine ER (EFFEXOR XR) 75 mg 24 hr capsule TAKE 1 CAPSULE BY MOUTH EVERY DAY along with 150mg amitriptyline (ELAVIL) 100 mg tablet Take 1 AND 1/2 tablets daily at bedtime. mirtazapine (REMERON) 30 mg tablet TAKE 1/2 (ONE-HALF) OF A TABLET EVERY DAY AT BEDTIME atenolol (TENORMIN) 50 mg tablet Take 2 tablets by mouth onc e daily. cyanocobalamin 1,000 mcg/mL soln Inject 1 mL intramuscularly once every month. venlafaxine XR (EFFEXOR XR) 150 mg 24 hr capsule Take 1 capsule by mouth once daily. meclizine (ANTIVERT) 25 mg tab Take 1 tablet by mouth three times daily as needed (dizziness). COMPOUNDED PRESCRIPTION 1 wheelchair ICD-10: R26.81 Current Facility-Administered Medications: cyanocobalamin 1,000 mcg injection 1,000 mcg INTRAMUSCULAR q 1 MONTH MEDICAL HISTORY: PAST MEDICAL HISTORY Diagnosis Date - Acute peptic ulcer, unspecified site, with hemorrhage, w ithout mention of obstruction - Anxiety state, unspecified [...] II or unspecified type diabetes mellitus without ment ion of complication, not stated as uncontrolled - Unspecified constipation Constipation - Unspecified urinary incontinence - Urge incontinence - Urinary calculus, unspecified Renal stones SURGICAL HISTORY: PAST SURGICAL HISTORY Procedure Laterality Date - [...] TREAT ECTOPIC PREG,NON REMVAL RIGHT ECTOPIC FAMILY HISTORY: FAMILY HISTORY Problem Relation Age of Onset - Diabetes Father - Cervical Cancer Maternal Aunt - Cancer Maternal Aunt 3 aunts with breast CA - Heart Maternal Grandfather TRIPLE BYPASS SURGERY - Hypertension Maternal Aunt - Diabetes Mother - Coronary Artery Disease Maternal Uncle Lung disease, passed 06/18, - COPD Father - Heart Father Double By-Pass Surgery SOCIAL HISTORY: Social History Marital status: Spouse name: Antonio Years of education: 14 Number of children: 2 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 History 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 Social History Main Topics Smoking status: Current Every Day Smoker Packs/day: 1.00 Years: 21.00 Smokeless tobacco: Never Used Comment: 05/2018 down to 05/13 ppd Alcohol use: Yes Comment: social event, rarely Drug use: No Sexual activity: Yes Partners with: Male control/protection: Surgical Comment: hysterectomy Social History Narrative 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 Abduction to 45 degrees and adduction to 20 degr ees. There is pain with palpation over the greater trochanter. The Right hip reveals a no hip flexion contractu re, 0-100 degrees of flexion, Internal Rotation to 20 degrees in flexi on and external rotation to 45 degrees in flexion. Abduction to 45 degrees and adduction to 20 degr ees. There is pain with palpation over the greater trochanter. EHL 5/5 DF 5/5 PF 5/5 DP Pulses 2/2 PT Pulses 2/2 RADIOGRAPH:no acute abnormality or significant degenerative changes ASSESSMENT: trochanteric bursitis bilateral hips PLAN: Physical exam reviewed there are no apparent changes since l ast visit. Risks, benefits, alternative s and personnel discussed with patient who consents to proceed. Patient wished to proceed. 40 mg kenalog with 2cc, 1% lidocaine and 2cc .5% marcaine was injected. Injection was carried out under sterile conditions through a LATERAL site into t he right and left trochanteric bursae. Patient had no immediate complications and tolerated the pro cedure well. HEP handout given Villa Cano DO Referring Provider: SPEEYD RIOS [[id number]] Allergies As of Date: 06/10/2018 Noted Allergy Reaction CIPRO (CIPROFLOXACIN) 04/21/2007 2 - Rash Comments: Rapid heartbeat, flushed CODEINE [Other] 06/17/2005 4 - Hives DILAUDID (HYDROMORPHONE (BULK)) 06/05/2009 HYOSCYAMINE 01/09/2007 2 - Rash 9 - Itching PENICILLINS 06/17/2005 4 - Hives Date Reviewed: 06/10/2018 Reviewed by: Lamar Villafuerte Ma - Fully Assessed Reason for Visit: New Patient [172] Cmt: Bilateral Hip bursitis x-ray: 12/29/19 18 Reason For Visit History Recorded Primary Visit Diagnosis:Trochanteric bursitis of both hips [M70.61, M70.62] Order(s):[] triamcinolone acetonide 80 mg injec tion (KENALOG 40)Disp: Rfl: Prescriptions as of 06/10/2018 Sig: SUMATRIPTAN 100 MG TABLET Take 1 tablet by mouth as nee* TOPIRAMATE 25 MG TABLET TAKE 1 TABLET BY MOUTH AT BED* VENLAFAXINE ER 75 MG CAPSULE,* TAKE 1 CAPSULE BY MOUTH EVERY * AMITRIPTYLINE 100 MG TABLET Take 1 AND 1/2 tablets daily at* MIRTAZAPINE 30 MG TABLET TAKE 1/2 (ONE-HALF) OF A TABL* ATENOLOL 50 MG TABLET Take 2 tablets by mouth once * CYANOCOBALAMIN (VIT B-12) 1,0* Inject 1 mL intramuscularly o * VENLAFAXINE ER 150 MG CAPSULE* Take 1 capsule by mouth once * MECLIZINE 25 MG TABLET Take 1 tablet by mouth three * COMPOUNDED PRESCRIPTION 1 wheelchair ICD-10: R26.81 Problem List As Of Date 06/10/2018 Noted Resolved OBESITY [E66.9] INVALID FOR* Migraine without aura [G43.009] INVALID FOR* PALPITATIONS [R00.2] INVALID FOR* INSOMNIA NOS [G47.00] INVALID FOR* Type II or unspecified type diabetes mellitus w*INVALID FOR* 06/07/2013 Recurrent major depressive disorder, in partial*INVALID FOR* [...] Refills Start End TRIAMCINOLONE ACETONIDE 40 MG/ML MADDI* 06/10/2018 06/10/2018 Route: INTRABURSAL Encounter Status:Closed by VILLA CANO DO, V on 06/10/18 progress on 2017-12 Protein mass conc HNO ID: [id number] Normal [facility] Author: Cecelia Pierre (Rt) Lam Easley ([id number]) Service: (none) Author Type: Product Marketing Analyst Type: Progress Notes Filed: 12/28/2017 11:49 AM Note Text: Radiology Service Progress Note PATIENT NAME: Marybeth Phelps DATE OF SERVICE: December 28, 2017 TIME: 11:31 AM PATIENT IDENTITY VERIFICATION COMPLETED USING TWO (2) METHOD S: Patient confirmed name verbally and Date of . PATIENT GENDER DATA: Female. status: : No status: NO. PATIENT RELEVANT IMPLANT DATA REVIEWED: Not Applicable RADIOLOGY DEPARTMENT: General X-ray: Exam(s) Completed: Rib X-Ray: Right Pelvis X-Ray: Pelvis with Hip Right PERIPHERAL IV DATA: Not applicable SIGNED BY: RT Eduin December 28, 2017 11:31 AM Protein mass conc HNO ID: [id number] Normal [facility] Author: Savana PutnamPhysical Ther) [facility] ([id number]) Service: (none) Author Type: Nurse Practitioner Type: Progress Notes Filed: 12/28/2017 12:17 PM Note Text: Subjective HPI Marybeth Phelps is a 47 year old female who presents wit h right sided rib and hip pain after falling down 6 wooden steps at home 5 days ago. She rates the pain a 7/10 and has taken naproxen. The naproxen u psets her stomach. Review of Systems Constitutional: Negative. Negative for fever. Respiratory: Negative. Negative for cough and shortness of b reath. Cardiovascular: Negative. Negative for chest pain. Gastrointestinal: Negative. Negative for abdominal pain, nirav sea and vomiting. Genitourinary: Negative. Negative for hematuria. Musculoskeletal: Positive for falls and joint pain. BP 90/60 Pulse 74 Temp 36.9 ?C (98.5 ?F) (Left Tympanic) Resp 14 Wt 67.6 kg (149 lb) BMI 24.38 kg/m? PAST MEDICAL HISTORY Diagnosis Date - Acute peptic ulcer, unspecified site, with hemorrhage, wit hout mention of obstruction - Anxiety state, unspecified [...] II or unspecified type diabetes mellitus without ment ion of complication, not stated as uncontrolled - [...] ECTOPIC ALLERGIES Cipro [Ciprofloxacin]; Codeine [Other]; Dilaudid [ Hydromorphone (Bulk)]; Hyoscyamine; Penicillins MEDICATIONS SUMAtriptan (IMITREX) 25 mg tablet Take 1 tablet by mouth as needed. Ok to repeat once after 2 hours mirtazapine (REMERON) 30 mg tablet TAKE 1/2 (ONE-HALF) OF A TABLET EVERY DAY AT BEDTIME naproxen (NAPROSYN) 500 mg tablet Take 1 tablet by mouth twi ce daily as needed (for pain/inflammation). Take with food. LORazepam (ATIVAN) 1 mg tablet Take 1 tablet by mouth every 8 hours as needed for Anxiety for up to 90 days. atenolol (TENORMIN) 50 mg tablet Take 2 tablets by mouth onc e daily. atenolol (TENORMIN) 50 mg tablet Take 100 mg by mouth once d aily. albuterol HFA (VENTOLIN HFA) 90 mcg/actuation inhaler Inhale 2 Puffs as instructed every 4 hours as needed for Wheezing/Shortness of Breath. venlafaxine ER (EFFEXOR XR) 75 mg 24 hr capsule Take 1 capsu le by mouth once daily. Take along with 150 mg pill cyanocobalamin 1,000 mcg/mL soln Inject 1 mL intramuscularly once every month. topiramate (TOPAMAX) 25 mg tablet Take 1 tablet by mouth vicki ly at bedtime. venlafaxine XR (EFFEXOR XR) 150 mg 24 hr capsule Take 1 caps ule by mouth once daily. amitriptyline (ELAVIL) 50 [...] Exam Constitutional: She is well-developed, well-nourished, and i n no distress. Cardiovascular: Normal rate and regular rhythm. Pulmonary/Chest: Effort normal and breath sounds normal. No respiratory distress. She has no wheezes. She has no rales. She exhibits tenderness. She exhibits no bony tenderness, no crepitus, no deformity a nd no swelling. Abdominal: Soft. She exhibits no distension and no mass. The re is no tenderness. There is no guarding. Musculoskeletal: Legs: No bruising Neurological: She is alert. Gait normal. Skin: Skin is warm and dry. Nursing note and vitals reviewed. ASSESSMENT/PLAN: 1. Right hip pain - ICD9: 719.45, ICD10: M25.551 (primary di agnosis) - XR HIP GENERAL 3V PELV/AP/LAT RT. My reading: negative. Ra diologist RESULT: Pelvic ring is intact. ?Hips are located and axial j oint spaces are maintained. ?No fracture. ?No osseous erosion. ?Sacral a la largely obscured by overlying bowel gas. ?SI joints are symmetric. Impression IMPRESSION: No acute/significant pathology. Dictated by : RIA BENEDICT MD 2. Rib pain on right side - ICD9: 786.50, ICD10: R07.81 - XR RIBS/CHEST 3V AP RIB/OBLS/CXR RT. My reading: negative. Radiologist RESULT: No acute rib fracture. ?No pneumothorax. ?No alveola r airspace opacity. ?Heart size and pulmonary vasculature are within no rmal limits. ? Metallic clips in the right upper quadrant. Impression IMPRESSION: No rib fracture. ?No radiographic evidence for a cute cardiopulmonary disease. Dictated by : RIA BENEDICT MD - recommend alternating heat and ice application. - NSAIDS and/or tylenol PRN pain. - Follow-up with your PCP in 3-5 days if symptoms have not i mproved or sooner if symptoms worsen - Discussed red flags and need for immediate medical evaluat ion if any occur. - Discussed supportive care treatment with fluids, rest and analgesia. - Discussed expected course of illness Savana Tilley APRN.[facility] progress on 2018-01 Protein mass conc HNO ID: [id number] Normal [facility] Author: Chidi Alba (Sw) [place] ([id number]) Service: (none) Author Type: Television Program Director Type: Progress Notes Filed: 01/23/2018 2:00 PM Note Text: Opened in error progress on 2018-03 Protein mass conc HNO ID: [id number] Normal [facility] Author: Rula Baumann LPN [place] ([id number]) Service: (none) Author Type: (none) Type: Progress Notes Filed: 03/17/2018 3:02 PM Note Text: Patient presents for B-12 injection. Denies any problems at this time. Patient instructed on any SE of medication, verbalized under standing and agreed to proceed with treatment. Tolerated injection well. Rula Baumann LPN progress on 2018-03 Protein mass HNO ID: [id number] Normal 04-09-[address] [facility] conc Author: Speedy Rios [place] ([id number]) Service: (none) Author Type: Physician Type: Progress Notes Filed: 04/09/2018 3:59 PM Note Text: Chief Complaint Patient presents with: F/U 3 Month HPI Marybeth Phelps is a 48 year old female who presents here to day for 3 month follow up. Anxiety AND Depression: is taking Effexor XR 150 mg and 75 m g daily. Also taking Ativan 1 mg up to QID. Palpitations: is taking Atenolol 50 mg, 2 tablets daily. Headaches: is taking imitrex 25 mg, states that this dosage is not working well, insurance will only cover 9 tablets, but pt states jay t she needs 15 tablets a month. Is taking Topamax 25 mg daily and Amitripty line 100 mg, 2 tablets at night and Remeron 30 mg, half tablet. Insomnia: does not have trouble falling asleep, has trouble staying asleep. She has tried sleepy time teas, and is on several me dicines that help with sleep. Melatonin makes her hyper. She has tried pl ain sleep aids which does not help. She is fatigued. Past medical history, appointments, medications, allergies r eviewed. Previous Medical History PAST MEDICAL HISTORY Diagnosis Date - Acute peptic ulcer, unspecified site, with hemorrhage, wit hout mention of obstruction - Anxiety state, unspecified [...] II or unspecified type diabetes mellitus without ment ion of complication, not stated as uncontrolled - [...] tablet TAKE 1 TABLET EVERY 8 HOURS A S NEEDED FOR ANXIETY SUMAtriptan (IMITREX) 25 mg tablet TAKE 1 TABLET BY MOUTH ON CE DAILY NEEDED. may repeat once after 2 (TWO) hours venlafaxine ER (EFFEXOR XR) 75 mg 24 hr capsule TAKE 1 CAPSU LE BY MOUTH EVERY DAY along with 150mg amitriptyline (ELAVIL) 100 mg tablet Take 1 AND 1/2 tablets daily at bedtime. mirtazapine (REMERON) 30 mg tablet TAKE 1/2 (ONE-HALF) OF A TABLET EVERY DAY AT BEDTIME atenolol (TENORMIN) 50 mg tablet Take 2 tablets by mouth onc e daily. cyanocobalamin 1,000 mcg/mL soln Inject 1 mL intramuscularly once every month. venlafaxine XR (EFFEXOR XR) 150 mg 24 hr capsule Take 1 caps ule by mouth once daily. meclizine (ANTIVERT) 25 mg tab Take 1 tablet by mouth three times daily as needed (dizziness). VENTOLIN HFA 90 mcg/actuation inhaler Inhale 2 Puffs as inst ructed every 4 hours as needed for Wheezing/Shortness of Breath. metoprolol tartrate, short acting, (LOPRESSOR) 25 mg tablet Take 1 tablet by mouth twice daily. 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 General Appearance: Well appearing, alert, in no acute distr ess, well-hydrated, well nourished.. Lungs: lungs clear to auscultation. No wheezing, rhonchi, ra les. Heart: RRR without murmur, gallop, or rubs. [...] state - ICD9: 300.00, ICD10: F41.1 (primary diagn osis) Continue current medications. 2. Palpitations - ICD9: [...] the Chief Complaint, ROS, and Past Histories in dependently gathered by the clinical community support worker and the remaining scr ibed note accurately describes my personal service to the patient. Speedy Rios MD The documentation for this note was completed by Jaleesa shah Ma acting as scribe for Speedy Rios MD. April 09, 2018 3:29 PM. cnov on 2018-04-09 CNOV Office Visit ([facility]) Normal 04-09-20 [facility] MARYBETH PHELPS ([id number]) 1970 [facility] Date Time Provider Department ([id number]) 04/09/18 3:20 PM [facility] During your visit today, we recorded the following informati on about you: Pulse Respiration Blood pressure Weight 78/minute 16/minute 112/70 70.8 kg Speedy Rios MD 04/09/2018 3:59 PM Signed Chief Complaint Patient presents with: F/U 3 Month HPI Marybeth Phelps is a 48 year old female who presents here today for 3 month follow up. Anxiety AND Depression: is t aking Effexor XR 150 mg and 75 mg daily. Also taking Ativan 1 mg up to QID. Palpitations: is taking Atenolol 50 mg, 2 tablets daily. Headaches: is taking imitrex 25 mg, states that this dosage is not working well, insurance will only cover 9 tablets, but pt states jay t she needs 15 tablets a month. Is taking Topamax 25 mg daily and Amitripty line 100 mg, 2 tablets at night and Remeron 30 mg, half tablet. Insomnia: does not have trouble falling asleep, has troubl e staying asleep. She has tried sleepy time teas, and is on several medicines that help with sleep. Melatonin makes her hyper. She has tried plain slee p aids which does not help. She is fatigued. Past medical history, appointments, medications, allergies r gilbertowed. Previous Medical History PAST MEDICAL HISTORY Diagnosis Date - Acute peptic ulcer, unspecified site, with hemorrhage, w ithout mention of obstruction - Anxiety state, unspecified [...] II or unspecified type diabetes mellitus without ment ion of complication, not stated as uncontrolled - [...] tablet TAKE 1 TABLET EVERY 8 HOURS A S NEEDED FOR ANXIETY SUMAtriptan (IMITREX) 25 mg [...] mg tablet Take 2 tablets by mouth onc e daily. cyanocobalamin 1,000 mcg/mL soln Inject 1 mL intramuscularly once every month. venlafaxine XR (EFFEXOR XR) 150 mg 24 hr capsule Take 1 capsule by mouth once daily. meclizine (ANTIVERT) 25 mg tab Take 1 tablet by mouth three times daily as needed (dizziness). VENTOLIN HFA 90 mcg/actuation inhaler Inhale 2 Puffs as inst ructed every 4 hours as needed for Wheezing/Shortness of Breath. metoprolol tartrate, short acting, (LOPRESSOR) 25 mg t ablet Take 1 tablet by mouth twice daily. 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 General Appearance: Well cabrera earing, alert, in no acute distress, well-hydrated, well nourished.. Lungs: lungs clear to auscultation. No wheezing, rhonchi, ra les. Heart: RRR without murmur, gallop, or rubs. [...] state - ICD9: 300.00, ICD10: F41.1 (primary diagn osis) Continue current medications. 2. Palpitations - ICD9: [...] the Chief Complaint, ROS, and Past Histories in dependently gathered by the clinical community support worker and the remaining scr ibed note accurately describes my personal service to the patient. Speedy Rios MD The documentation for this note was completed by Jaleesa Macedo Ma acting as scribe for Speedy Rios MD. April 09, 2018 3:29 PM. Referring Provider: SPEEDY RIOS [[id number]] Allergies As of Date: 04/09/2018 Noted Allergy [...] 3 CONSULT TO SLEEP MEDICINE - ADULT [[id number]] Order #: [id number]: 1 Prescriptions as of 04/09/2018 Sig: TOPIRAMATE 25 MG TABLET TAKE 1 TABLET BY MOUTH AT BED* LORAZEPAM 1 MG TABLET TAKE 1 TABLET EVERY 8 HOURS A* VENLAFAXINE ER 75 MG CAPSULE,* TAKE 1 CAPSULE BY MOUTH EVERY * AMITRIPTYLINE 100 MG TABLET Take 1 AND 1/2 tablets daily at* MIRTAZAPINE 30 MG TABLET TAKE 1/2 (ONE-HALF) OF A TABL* ATENOLOL 50 MG TABLET Take 2 tablets by mouth once * CYANOCOBALAMIN (VIT B-12) 1,0* Inject 1 mL intramuscularly o * VENLAFAXINE ER 150 MG CAPSULE* Take [...] II or unspecified type diabetes mellitus w*INVALID FOR* 06/07/2013 Recurrent major depressive disorder, in partial*INVALID FOR* [...] HFA 90 mcg/actuation inhaler 18 g 0 12/31/201704/09 Cmt: Med-sync patient. If too soon, we w ill put new RX on hold for next cycle. Route: INHALATION Sig: Inhale 2 Puffs as instr ucted every 4 hours as needed for Wheezing/Shortness of Breath. Disc: Reason for discontinue is not on file. metoprolol tartrate, short acting, (* 60 t* 5 02/18/2017 Route: ORAL Sig: Take 1 tablet by mouth twice daily. Disc: Reason for discontinue is not on file. SUMAtriptan (IMITREX) 25 mg tablet 15 t* 3 02/24/20182017 Sig: TAKE 1 TABLET BY MOUTH ONCE DAILY NEEDED. may repeat once after 2 (TWO) hours Disc: Reason for discontinue is not on file. Disposition: Return in about 3 months (around 07/09/2018). Follow-up and Disposition History Recorded Encounter Status:Closed by SPEEDY RIOS MD on 04/09/18 progress on 2017-12 Protein mass HNO ID: [id number] Normal 12-23-19 18 [facility] Author: Marybeth (Physical Ther) Hilary Mosher ([id number]) Service: (none) Author Type: Nurse Practitioner Type: Progress Notes Filed: 12/22/2017 4:08 PM Note Text: 12/22/2017 Patient presents with: Headache SUBJECTIVE: This is a 47 year old that is here today for [facility] nge in headaches. She states that she has had migraines for some ti me and she does not feel that these are the same. She states that these seem to be coming in clusters and before the relief can completely come , the headache returns. Located in the back of the head and described as an ache. + nausea no vomiting. just feels miserable. She states that it is coming on a few times a day and it is making it really hard to do w hat needs done. She denies vision changes, weakness, CP, palpitations, SOB. She states that she has tried naproxen, advil, tylenol, excedrin , ice/heat. She is taking her elavil and topamax as ordered. She states that she has had toradol injections in the past and she is wondering if s he could try that. PAST MEDICAL HISTORY Diagnosis Date - Acute peptic ulcer, unspecified site, with hemorrhage, wit hout mention of obstruction - Anxiety state, unspecified [...] II or unspecified type diabetes mellitus without ment ion of complication, not stated as uncontrolled - Unspecified constipation Constipation - Unspecified urinary incontinence - Urge incontinence - Urinary calculus, unspecified Renal stones ALLERGIES Cipro [Ciprofloxacin]; Codeine [Other]; Dilaudid [ Hydromorphone (Bulk)]; Hyoscyamine; Penicillins MEDICATIONS Current Outpatient Prescriptions: mirtazapine (REMERON) 30 mg tablet TAKE 1/2 (ONE-HALF) OF A TABLET EVERY DAY AT BEDTIME naproxen (NAPROSYN) 500 mg tablet Take 1 tablet by mouth twi ce daily as needed (for pain/inflammation). Take with food. LORazepam (ATIVAN) 1 mg tablet Take 1 tablet by mouth every 8 hours as needed for Anxiety for up to 90 days. atenolol (TENORMIN) 50 mg tablet Take 2 tablets by mouth onc e daily. atenolol (TENORMIN) 50 mg tablet Take 100 mg by mouth once d aily. albuterol HFA (VENTOLIN HFA) 90 mcg/actuation inhaler Inhale 2 Puffs as instructed every 4 hours as needed for Wheezing/Shortness of Breath. venlafaxine ER (EFFEXOR XR) 75 mg 24 hr capsule Take 1 capsu le by mouth once daily. Take along with 150 mg pill cyanocobalamin 1,000 mcg/mL soln Inject 1 mL intramuscularly once every month. topiramate (TOPAMAX) 25 mg tablet Take 1 tablet by mouth vicki ly at bedtime. venlafaxine XR (EFFEXOR XR) 150 mg 24 hr capsule Take 1 caps ule by mouth once daily. amitriptyline (ELAVIL) 50 mg tablet Take 3 tablets by mouth daily at bedtime. metoprolol tartrate, short acting, (LOPRESSOR) 25 mg tablet Take 1 tablet by mouth twice daily. meclizine (ANTIVERT) 25 mg tab Take 1 tablet by mouth three times daily as needed (dizziness). fluticasone (FLONASE) 50 mcg/actuation nasal spray Use 2 Spr ays in each nostril once daily. 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 . Vital signs reviewed by this provider. PHYSICAL EXAMINATION: General appearance: Well appearing, alert, in no acute distr ess, well-hydrated, well nourished. Skin: Skin color, texture, turgor normal, no suspicious rash es or lesions Head: Normocephalic, no masses, lesions, tenderness or abnor malities Eyes: Anicteric sclera. Pupils are equally round and reactiv e to light. Extraocular movements are intact. Ears: External ears normal, canals clear, Positive findings: R TM: haile fluid noted behind TM and bulging, L TM: haile fluid noted b ehind TM and bulging Neck: Supple, no adenopathy; thyroid symmetric, normal size, no bruits Lungs: Lungs clear to auscultation. No wheezing, rhonchi, ra les Heart: RRR without murmur, gallop, or rubs. No ectopy Extremities: No deformities, edema, skin discoloration, club yogesh or cyanosis. Good capillary refill. , Pulses: 2+ Neuro: Gait normal. Reflexes normal and symmetric. Sensation grossly intact., Negative findings: speech normal, mental status int act, Romberg negative, muscle tone normal, muscle strength normal, rapid alternating movements normal, finger to nose normal ASSESSMENT/PLAN: 1. Intractable cluster headache syndrome, unspecified chroni city pattern - ICD9: 339.00, ICD10: G44.001 (primary diagnosis) - will give toradol today, educated to avoid NSAIDs. Imitrex as needed if the cluster headaches return. Will refer to neuro for the in crease/change in headache symptoms. - SUMATRIPTAN 25 MG TABLET - KETOROLAC 60 MG/2 ML INTRAMUSCULAR SOLUTION - CONSULT TO NEUROLOGY 2. History of migraine - ICD9: V12.49, ICD10: Z86.69 - CONSULT TO NEUROLOGY MARY ALICE Trammell on 2018-01-14 CNOV Office Visit (FAMPWS) Normal 01-15-[address] [place] [address] MARYBETH Hussein ([id number]) 1970 [facility] Date Time Provider Department ([id number]) 01/14/18 11:00 AM MARYBETH RICHARD ([facility] During your visit today, we recorded the following informati on about you: Temperature Pulse Respiration Blood pressure 98.3 degrees 85/minute 16/minute 104/62 Weight 67.6 kg Marybeth Richard APRN.CNP 01/14/2018 1:53 PM Signed 01/14/2018 Patient presents with: Abdominal Pain: Right Upper Quadrant abdominal pain x 3 week s SUBJECTIVE: This is a 47 year old that i s here today for Above Complaints. She states that the pain has progressively g maria d worse. Pain is occurring several times a day. Can't seem to be able to make it better. She we nt to see [employer]CH PRESS OPERATOR HELPER yesterday and was told that they do not feel that it is P[employer] PRESS OPERATOR HELPER related, but could be appendix, so she scheduled to see me today. She describes the pain as sharp and grabbing going between umbilical are a and RLQ. Pain wakes her up at night. She woke up with a sweat las t night, with AC set at 68. She was also in so much pain that daughter wanted to take her to ER, but she refused . She is also having diarrhea, nausea, decreased to no appetite, and fatigue over the last week. PAST MEDICAL HISTORY Diagnosis Date - Acute peptic ulcer, unspecified site, with hemorrhage, w ithout mention of obstruction - Anxiety state, unspecified [...] II or unspecified type diabetes mellitus without ment ion of complication, not stated as uncontrolled - Unspecified constipation Constipation - Unspecified urinary incontinence - Urge incontinence - Urinary calculus, unspecified Renal stones ALLERGIES Cipro [Ciprofloxacin]; Codeine [Other]; Dilaudid [ Hydromorphone (Bulk)]; Hyoscyamine; Penicillins MEDICATIONS Current Outpatient Prescriptions: VENTOLIN HFA 90 mcg/actuation inhaler Inhale 2 Puffs as inst ructed every 4 hours as needed for Wheezing/Shortness [...] mg tablet Take 2 tablets by mouth onc e daily. venlafaxine ER (EFFEXOR XR) 75 mg 24 hr capsule Take 1 capsule by mouth once daily. Take along with 150 mg pill cyanocobalamin 1,000 mcg/mL soln Inject 1 mL intramuscularly once every month. topiramate (TOPAMAX) 25 mg tablet Take 1 tablet by mouth vicki ly at bedtime. venlafaxine XR (EFFEXOR XR) 150 mg 24 hr capsule Take 1 capsule by mouth once daily. amitriptyline (ELAVIL) 50 mg tablet Take 3 table ts by mouth daily at bedtime. metoprolol tartrate, short acting, (LOPRESSOR) 25 mg t ablet Take 1 tablet by mouth twice daily. meclizine (ANTIVERT) 25 mg tab Take 1 tablet by mouth three times daily as needed (dizziness). predniSONE (DELTASONE) 10 mg tablet Take 4 tabs daily for 3 days, then 2 tabs daily for 3 days, then 1 tab daily for 3 days wi th food. 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 . Vital signs reviewed by this provider. PHYSICAL EXAMINATION: General appearance: Well cabrera earing, alert, in no acute distress, well-hydrated, well nourished. Obvious discomfort with position changes. Skin: Skin color, texture, turgor normal, no suspicious rash es or lesions Lungs: Lungs clear to auscultation. No wheezing, rhonchi, ra les Heart: RRR without murmur, gallop, or rubs. No ectopy Abdomen: Normoactive BS. Abdomen soft. Positive findings: tenderness moderate and involuntary guarding RLQ and Periumbilical, + psoas an d obturator sign- pain took breath away with these tests Extremities: No deformities, edema, skin discolo ration, clubbing or cyanosis. Good capillary refill. , Pulses: 2+ ASSESSMENT/PLAN: 1. RLQ abdominal pain - ICD9: 789.03, ICD10: R10.31 (primary diagnosis) Differential Diagnosis includes Appendic itis. Suggested that she be seen in ER and she declined. Will order STAT testin g and pt agreeable to be seen in ER if worsening symptoms. - CT ABD/PEL W IVCON - IV CONTRAST (RADIOLOGY PROCEDURE) - ENTERIC CONTRAST (RADIOLOGY PROCEDURE) - CBC + DIFF - COMP METABOLIC PANEL 2. Periumbilical pain - ICD9: 789.05, ICD10: R10.33 - see above - CT ABD/PEL W IVCON - IV CONTRAST (RADIOLOGY PROCEDURE) - ENTERIC CONTRAST (RADIOLOGY PROCEDURE) - CBC + DIFF - COMP METABOLIC PANEL 3. Diarrhea, unspecified type - ICD9: 787.91, ICD10: R19.7 - see above - if not appendicitis and diarrhea persists, ching l order stool studies to rule out infectious cause - CT ABD/PEL W IVCON - IV CONTRAST (RADIOLOGY PROCEDURE) - ENTERIC CONTRAST (RADIOLOGY PROCEDURE) - CBC + DIFF - COMP METABOLIC PANEL 4. Nausea - ICD9: 787.02, ICD10: R11.0 - see above - CT ABD/PEL W IVCON - IV CONTRAST (RADIOLOGY PROCEDURE) - ENTERIC CONTRAST (RADIOLOGY PROCEDURE) - CBC + DIFF - COMP METABOLIC PANEL 5. Anorexia - ICD9: 783.0, ICD10: R63.0 - see above - CT ABD/PEL W IVCON - IV CONTRAST (RADIOLOGY PROCEDURE) - ENTERIC CONTRAST (RADIOLOGY PROCEDURE) - CBC + DIFF - COMP METABOLIC PANEL 6. Fatigue, unspecified type - ICD9: 780.79, ICD10: R53.83 - see above - CT ABD/PEL W IVCON - IV CONTRAST (RADIOLOGY PROCEDURE) - ENTERIC CONTRAST (RADIOLOGY PROCEDURE) - CBC + DIFF - COMP METABOLIC PANEL Marybeth Richard APRN.SECURITY ANALYST Referring Provider: SELF [[id number]] Allergies As of Date: 01/14/2018 Noted Allergy Reaction CIPRO (CIPROFLOXACIN) 04/21/2007 2 - Rash Comments: Rapid heartbeat, flushed CODEINE [Other] 06/17/2005 4 - Hives DILAUDID (HYDROMORPHONE (BULK)) 06/05/2009 HYOSCYAMINE 01/09/2007 2 - Rash 9 - Itching PENICILLINS 06/17/2005 4 - Hives Date Reviewed: 01/14/2018 Reviewed by: Rosenda Mcdonald Ct - Fully Assessed Reason for Visit: Abdominal Pain [1] Cmt: Right Upper Quadrant abdominal pain x 3 weeks Primary Visit Diagnosis:RLQ abdominal pain [R10.31] Other Visit Diagnoses:Periumbilical pain [R10.33] Diarrhea, unspecified type [R19.7] Nausea [R11.0] Anorexia [R63.0] Fatigue, unspecified type [R53.83] Right lower quadrant abdominal pain [R10.31] Order(s):CT ABD/PEL W IVCON [[id number]] Order #: [id number] FU TURE iv contrast (will be provided with radiology test)CT ABD/PEL -Inject, intravenously, once for 1 dose.No IV access, insert saline l ock prior to the beginning of sedation, infusion, injection of imaging exam. Discontinue saline lock post exam. If Pt. has a central line or IVAD, may access for administration according to line specific cami sing protocol. Once exam is complete flush line and de-access acc ording to line specific nursing protocol in the CT contrast administra tion guidelines link.Disp: 1 EachRfl: 0 enteric contrast (will be provided with radiology test)For C T ABD/PEL W IVCON Routine order Administer, As Directed One Time Only, via Oral, Rectal, both Oral and Rectal, Enteric Tube, Stoma or Indwell ing Catheter, Enteric Contrast as designated per enteric contras t guidelinesDisp: 1 EachRfl: 0 CBC + DIFF [SQCBCDIF] Order #: [id number] FUTURE COMP METABOLIC PANEL [SQCMP] Order #: [id number] FUTURE Prescriptions as of 01/14/2018 Sig: VENTOLIN HFA 90 MCG/ACTUATION* Inhale 2 [...] (VIT B-12) 1,0* Inject 1 mL intramuscularly o * TOPIRAMATE 25 MG TABLET Take 1 tablet by mouth daily * VENLAFAXINE ER 150 MG CAPSULE* Take 1 capsule by mouth once * AMITRIPTYLINE 50 MG TABLET Take 3 tablets by mouth daily* METOPROLOL TARTRATE 25 MG TAB* Take 1 tablet by mouth twice * MECLIZINE 25 MG TABLET Take 1 tablet by mouth three * IV CONTRAST (RADIOLOGY PROCED* CT ABD/PEL -Inject, intraveno * ENTERIC CONTRAST (RADIOLOGY P* For CT ABD/PEL W IVCON Routin * PREDNISONE 10 MG TABLET Take 4 tabs daily for 3 days,* Patient not taking: Reported on 01/13/2018 Problem List As Of Date 01/14/2018 Noted Resolved OBESITY [E66.9] INVALID FOR* MIGRAINE COMMON [G43.009] INVALID FOR* PALPITATIONS [R00.2] INVALID FOR* INSOMNIA NOS [G47.00] INVALID FOR* Type II or unspecified type diabetes mellitus w*INVALID FOR* 06/07/2013 Recurrent major depressive disorder, in partial*INVALID FOR* [...] ordered this encounter Disp Refills Start End IV CONTRAST (RADIOLOGY PROCEDURE) 1 Ea* 0 01/14/2018 018 Class: In Office Sig: CT ABD/PEL -Inject, intravenously, once for 1 dos e.No IV access, insert saline lock prior to the beginning of sedation, infusion, in jection of imaging exam. Discontinue saline lock post exam. If Pt. has a central line or IVAD, may access for administration according to rei e specific nursing protocol. Once exam is complete flush line and de-ac cess according to line specific nursing protocol in the CT contra st administration guidelines link. ENTERIC CONTRAST (RADIOLOGY PROCEDUR* 1 Ea* 0 01/14/201810/2017 Class: In Office Sig: For CT ABD/PEL W IVCON Routine order Administer, As Dir ected One Time Only, via Oral, Rectal, both Oral and Rectal, Enteric Tube, Stoma or Indwelling Catheter, Enteric Contrast as designated per ente kyleigh contrast guidelines Letter Text Marybeth Richard CNP [address], [place] [address] 01/14/2018 TO WHOM IT MAY CONCERN: This is to confirm that Marybeth Phelps had an appointment a nd was seen at the [facility] in the Department of Family Medicine by Jamal Trammell 01/14/2018 and please excuse from work. Sincerely yours, Marybeth Richard CNP Encounter Status:Closed by MARYBETH RICHARD on 01/14/18 ct abd/pel w ivcon on 2018-01-14 CT ABD/PEL W * * *Final Report* * * Normal [facility] IVCON DATE OF EXAM: Jan 14 2018 2:52PM [place] ([id number]) [facility] 0530 - CT ABD/PEL W IVCON / PROCEDURE REASON: multiple diagnoses * * * * Physician Interpretation * * * * EXAMINATION: CT ABDOMEN AND PELVIS WITH IV CONTRAST CLINICAL HISTORY: Abdominal and right lower quadrant pain. R emote cholecystectomy and hysterectomy. TECHNIQUE: CT of the abdomen and pelvis was performed using standard technique, scanning from just above the dome of the diaphrag m to the symphysis pubis. MQ: CTAP_3 Contrast: IV: 135 ml of Omnipaque 300 Oral: 50 ml of 50ML Omnipaque [address] Radiation dose: Integrated Dose-length product (DLP) for this visit = 386 mGy*cm. CT Dose Reduction Employed: Automated exposure control (AEC) COMPARISON: None. RESULT: Liver: No mass. No hepatomegaly Biliary: The gallbladder surgically absent. Negative biliary dilatation. Spleen: No mass. No splenomegaly. Pancreas: No mass or duct dilation. Adrenals: No mass. Kidneys: Both kidneys are normal in size, contour and positi on and promptly and symmetrically excrete contrast material. There are no obstructive changes. There are no suspicious solid masses. GI tract: The bowel gas pattern is nonobstructive with moder ate fecal retention. The appendix is not visualized. There is no appar ent pericecal or right lower quadrant inflammatory process noted . Small sliding-type hiatal hernia. There is no free air, free fluid or abscess. Lymph nodes: No pathologic abdominal or pelvic lymphadenopat hy by size criteria. Shotty central mesenteric and right lower quadrant lymph nodes are likely chronic and post reactive. Mesentery/Peritoneum: No ascites or mass. Retroperitoneum: No mass. Vasculature: The aorta is normal course and caliber. Mesente kyleigh vessels are patent. Pelvis: No mass, ascites or fluid collection. Post hysterect pura changes without interval complication. Bones/Soft Tissues: The bony structures are intact Lower thorax: The lung bases are clear. IMPRESSION: No acute intra-abdominal or pelvic process. Nonobstructive bowel gas pattern with fecal retention. The a ppendix is not visualized. There is no apparent pericecal or right lowe r quadrant inflammatory process noted. Textile Colorist Dyer: [facility] Transcribe Date/Time: Jan 14 2018 3:07P Dictated by : BLAKE ADAN MD This examination was interpreted and the report reviewed and electronically signed by: BLAKE ADAN MD on Jan 14 2018 3:16PM EST [id number] comp metabolic panel on 2018-01-14 Albumin mass conc Test sent to [place] 3.9-4.9 Normal 0 01-14-2018 [facility]. [place] ([id number]) Comment: Result Comment: Account Cred ited HIDE ALP enzyme act/vol Test sent to [place] 32-117 Normal 01-14-2018 [facility]. [place] ([id number]) Comment: Result Comment: Account Cred ited HIDE ALT enzyme act/vol Test sent to [place] 7-38 Normal 01-14-2018 [facility] ([id number]) Comment: Result Comment: Account Cred ited HIDE Anion gap molar Test sent to [place] 18 Normal [facility]. [place] ([id number]) Comment: Result Comment: Account Cred ited HIDE AST enzyme act/vol Test sent to [place] 13-35 Normal 01-14-2018 [facility] ([id number]) Comment: Result Comment: Account Cred ited HIDE Bilirubin mass conc Test sent to 0.2-1.3 Normal 2 018 [facility] ([id number]) [facility]. Comment: Result Comment: Account Cred ited HIDE Calcium mass conc Test sent to 8.5-10.2 Normal 8 [facility] ([id number]) [facility]. Comment: Result Comment: Account Cred ited HIDE Chloride molar conc Test sent to [place] 97-105 Normal 01-14-2018 [facility] ([id number]) Comment: Result Comment: Account Cred ited HIDE CO2 molar conc Test sent to [place] 22-30 Normal [facility]. [place] ([id number]) Comment: Result Comment: Account Cred ited HIDE Creatinine mass Test sent to 0.58-0.96 Normal 01-14-2018 [facility] ([id number]) [facility]. Comment: Result Comment: Account Cred ited HIDE eGFR- Amer. Test sent to [place] Normal 01-14-2018 [facility]. [place] ([id number]) Comment: Result Comment: Account Cred ited HIDE GFR/1.73 sq M Test sent to [place] Normal 01-14 [facility]. [place] ([id number]) non-blacks MDRD vol rate/area (S/P/Bld) Comment: Result Comment: Account Cred ited HIDE Glucose mass conc Test sent to [place] 74-99 Normal 0 01-14-2018 [facility] ([id number]) Comment: Result Comment: Account Cred ited HIDE Potassium molar Test sent to 3.7-5.1 Normal 01-14-2018 [facility] ([id number]) [facility]. Comment: Result Comment: Account Cred ited HIDE Protein mass conc Test sent to [place] 6.3-8.0 Normal 0 01-14-2018 [facility]. [place] ([id number]) Comment: Result Comment: Account Cred ited HIDE Sodium molar conc Test sent to [place] 136-144 Normal 0 01-14-2018 [facility]. [place] ([id number]) Comment: Result Comment: Account Cred ited HIDE Urea nitrogen mass Test sent to [place] 7-21 Normal 01-14-2018 [facility]. [place] ([id number]) Comment: Result Comment: Account Cred ited HIDE cnsw on 2017-12-03 CNSW Social Work (NAVWST) Normal 8 [facility] MARYBETH PHELPS ([id number]) 1970 [facility] Date Time Provider Department ([id number]) 12/03/17 CHIDI ALBA () CLARI During your visit today, we recorded the following informati on about you: JING Tian 01/23/2018 2:00 PM Signed Opened in error Allergies As of Date: 12/03/2017 Noted Allergy Reaction CIPRO (CIPROFLOXACIN) 04/21/2007 2 - Rash Comments: Rapid heartbeat, flushed CODEINE [Other] 06/17/2005 4 - Hives DILAUDID (HYDROMORPHONE (BULK)) 06/05/2009 HYOSCYAMINE 01/09/2007 2 - Rash 9 - Itching PENICILLINS 06/17/2005 4 - Hives Date Reviewed: 12/03/2017 Reviewed by: Adali Dueñas [employer] Operator - Fully Assessed Prescriptions as of 12/03/2017 [...] HFA 90 MCG/* Inhale 2 Puffs as instructe d * X MIRTAZAPINE 15 MG TABLET Take 1 tablet by mouth daily * VENLAFAXINE ER 75 MG CAPSULE,* Take 1 capsule by mouth once * CYANOCOBALAMIN (VIT B-12) 1,0* Inject 1 mL intramuscularly o * TOPIRAMATE 25 MG TABLET Take 1 tablet by mouth daily * VENLAFAXINE ER 150 MG CAPSULE* Take 1 capsule by mouth once * AMITRIPTYLINE 50 MG TABLET Take 3 tablets by mouth daily* X FLUTICASONE 50 MCG/ACTUATION * Use 2 Sprays in each nostri l * METOPROLOL TARTRATE 25 MG TAB* Take 1 tablet by mouth twice * MECLIZINE 25 MG TABLET Take 1 tablet by mouth three * Problem List As Of Date 12/03/2017 Noted Resolved OBESITY [E66.9] INVALID FOR* MIGRAINE COMMON [G43.009] INVALID FOR* PALPITATIONS [R00.2] INVALID FOR* INSOMNIA NOS [G47.00] INVALID FOR* Type II or unspecified type diabetes mellitus w*INVALID FOR* 06/07/2013 DEPRESSIVE DISORDER NEC [F32.9] INVALID FOR* Anxiety [...] Encounter Status:Closed by CHIDI BOOTHE on 01/23/18 ian on 2018-01-06 CNOV Office Visit (FAMP) Normal 01-07-[address] [place] [address] Clinic MATTIE,MARYBETH Allison ([id number]) 1970 [place] Date Time Provider Department ([id number]) 01/06/18 3:20 PM SPEEDY RIOS During your visit today, we recorded the following informati on about you: Pulse Respiration Blood pressure Weight 84/minute 16/minute 100/70 67.2 kg Speedy Rios MD 01/08/2018 5:20 PM Signed Chief Complaint No chief complaint on file. HPI Marybeth Phelps is a 47 year old female who presents here today for medication follow up. Pt here today for a follow up. Insomnia - No improvement with use of Amitriptyl ine 50 mg 3 caps po at one at bedtime. Also taking Remeron 30 mg 0.5 tab hs. Still up 3- 4 hours at night. HTN - Denies checking BP at home. Denies sob. Admits to tightening in her chest from time to time and dizziness. Anxiety/Depression - State that she is still doing hor rible. A lot of stress with her daughter. She is on effexor 225 mg daily, ami triptyline at bedtime, topamax, remeron, ativan. WALKER - States that WALKER are a li ttle more controllable now. States the Imitrex does work to help W[employer]. Skin: complains of erythematous patches, slighty itchy, come and goe Past medical history, appointments, medications, allergies r eviewed. Previous Medical History PAST MEDICAL HISTORY Diagnosis Date - Acute peptic ulcer, unspecified site, with hemorrhage, w ithout mention of obstruction - Anxiety state, unspecified [...] II or unspecified type diabetes mellitus without ment ion of complication, not stated as uncontrolled - [...] 90 mcg/actuation inhaler Inhale 2 Puffs as inst ructed every 4 hours as needed for Wheezing/Shortness [...] mg tablet Take 2 tablets by mouth onc e daily. venlafaxine ER (EFFEXOR XR) 75 mg 24 hr capsule Take 1 capsule by mouth once daily. Take along with 150 mg pill cyanocobalamin 1,000 mcg/mL soln Inject 1 mL intramuscularly once every month. topiramate (TOPAMAX) 25 mg tablet Take 1 tablet by mouth vicki ly at bedtime. venlafaxine XR (EFFEXOR XR) 150 mg 24 hr capsule Take 1 capsule by mouth once daily. amitriptyline (ELAVIL) 50 mg tablet Take 3 table ts by mouth daily at bedtime. metoprolol tartrate, short acting, (LOPRESSOR) 25 mg t ablet Take 1 tablet by mouth twice daily. meclizine (ANTIVERT) 25 mg tab Take 1 tablet by mouth three times daily as needed (dizziness). 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 General Appearance: Well cabrera earing, alert, in no acute distress, well-hydrated, well nourished.. Lungs: Lungs clear to auscultation. No wheezing, rhonchi, ra les. Heart: RRR without murmur, gallop, or rubs. No ectopy. Skin: several faintly erythematous patches on arms, chest Health Maintenance List MAMMOGRAM due on 06/24/2014 INFLUENZA(1) due on 01/10/2018 DIABETES SCREEN due on 10/07/2020 LIPID SCREEN due on 05/01/2022 DTAP,TDAP,TD(3 - Td) due on 05/25/2026 ONE PNEUMOVAX PRIOR TO AGE 65 Completed Data reviewed None ASSESSMENT/PLAN: 1. Dermatitis - ICD9: 692.9, ICD10: L30.9 (primary diagnosis ) Will place on a course of prednisone; appears allergic in na ture - PREDNISONE 10 MG TABLET - PREDNISONE 10 MG TABLET 2. Recurrent major depressive disorder, in partial remission (HCC) - ICD9: 296.35, ICD10: F33.41 Continue current medications. Follow up in 3 months Speedy Rios MD The documentation for this note was completed by Bhavya pepper Ma acting as scribe for Speedy Rios MD. January 06, 2018 3:32 PM. Referring Provider: SPEEDY RIOS [[id number]] Allergies As of Date: 01/06/2018 Noted Allergy Reaction CIPRO (CIPROFLOXACIN) 04/21/2007 2 - Rash Comments: Rapid heartbeat, flushed CODEINE [Other] 06/17/2005 4 - Hives DILAUDID (HYDROMORPHONE (BULK)) 06/05/2009 HYOSCYAMINE 01/09/2007 2 - Rash 9 - Itching PENICILLINS 06/17/2005 4 - Hives Date Reviewed: 01/06/2018 Reviewed by: Bhavya Lynne Ma - Fully Assessed Primary Visit Diagnosis:Dermatitis [L30.9] Other Visit Diagnoses:Recurrent major depressive disorder, i n partial remission (HCC) [F33.41] Anxiety state [F41.1] Postsurgical hypothyroidism [E89.0] Order(s):predniSONE (DELTASONE) 10 mg ta bletTake 4 tabs daily for 3 days, then 2 tabs daily for 3 days, then 1 tab daily for 3 days with fo od.Disp: 21 tabletRfl: 0 Prescriptions as of 01/06/2018 [...] (VIT B-12) 1,0* Inject 1 mL intramuscularly o * TOPIRAMATE 25 MG TABLET Take 1 tablet [...] II or unspecified type diabetes mellitus w*INVALID FOR* 06/07/2013 Recurrent major depressive disorder, in partial*INVALID FOR* [...] 500 mg tablet 60 t* 0 12/03/2017 8 Route: ORAL Sig: Take 1 tablet by mouth twice daily as needed (for pain/inflammation). Take with food. Disc: Adverse Reaction atenolol (TENORMIN) 50 mg tablet 5 09/11/2017 01/06/2018 Class: Historical Med Route: ORAL Sig: Take 100 mg by mouth once daily. Disc: Duplicate Entry predniSONE (DELTASONE) 10 mg tablet 21 t* 0 01/06/2018 018 Sig: Take 4 tabs daily for 3 days, then 2 tabs daily for 3 days, then 1 tab daily for 3 days with food. Disc: Reason for discontinue is not on file. Disposition: Return in about 3 months (around 04/08/2018). Follow-up and Disposition History Recorded Letter Text Speedy Rios MD [address], [place] [address] 01/06/2018 TO WHOM IT MAY CONCERN: This is to confirm that Marybeth Phelps had an appointment a nd was seen at the [facility] by Speedy Rios MDon 01/06/2018. Sincerely yours, Dr. Speedy Rios MD Encounter Status:Closed by SPEEDY RIOS MD on 01/08/18 progress on 2018-01 Protein mass HNO ID: [id number] Normal 01-14-20 [facility] Author: Waldo Bishop [place] ([id number]) Service: (none) Author Type: Physician Type: Progress Notes Filed: 01/13/2018 5:44 PM Note Text: Marybeth hPelps is a 47 year old female who presents for pro blem visit for RLQ pain. RLQ pain started a few weeks ago. Describes it as pressure. Radiates into groin and down the anterior right thigh, to the knee. She re ports it hurts to touch with light pressure over RLQ. No inciting event. Co bon-iux-toqq. She states she has the pain too many times during the day, s o she cannot tell number of episodes that she has in a day. Lasts 20min-1 hr. Sits still and holds a pillow over abdomen, and she says she shifts tashia und until the pain goes away. No diarrhea or constipation. Last BM was today, describes it as watery. No blood in stools. No dysuria or hematuria. No vaginal dischar ge. Occasional spotting since her hysterectomy. +Nausea and fatigue. 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 venlafaxine ER (EFFEXOR XR) 75 mg 24 hr capsule Take 1 capsu le by mouth once daily. Take along with 150 mg pill cyanocobalamin 1,000 mcg/mL soln Inject 1 mL intramuscularly once every month. topiramate (TOPAMAX) 25 mg tablet Take 1 tablet by mouth vicki ly at bedtime. venlafaxine XR (EFFEXOR XR) 150 mg 24 hr capsule Take 1 caps ule by mouth once daily. amitriptyline (ELAVIL) 50 [...] 1 tab daily for 3 days with food . (Patient not taking: Reported on 01/13/2018 ) [...] GENERAL: No fevers or chills. 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, pain MUSCULOSKELETAL: Reports pain radiated into her right leg Allergies and current medication updated:Yes EXAM: BP 90/64 Wt 148 lb 3.2 oz (67.2kg) GENERAL: pleasant, female in no apparent distress HEENT: Normocephalic and atraumatic NECK: full range of motion DERMATOLOGY: Normal and without lesions CHEST: Normal inspiratory effort ABDOMEN: soft, no masses, non-distended, +moderate tendernes s in RLQ, no rebounding, no guarding, no rigidity PELVIC: external genitalia normal, good vaginal support, phy siologic discharge present, normal vaginal cuff and mucosa, [...] peritoneal signs on abdominal exam today. Does no t appear to be acute appendicitis. Patient reports good appetite, and ate o bernice today. No fevers, chills, vomiting. Reviewed to go to the ED or call i f she experiences severe pain, new fevers, loss of appetite, nause a and vomiting ? Encouraged patient to follow up with PCP for other ideas o n what could be causing this RLQ pain radiating into her right leg ? Return for annual exams or sooner if needed Waldo Bishop DO cnov on 2018-01-13 CNOV Office Visit (WOOB) Normal 01-13-2018 [facility] MARYBETH PHELPS ([id number]) 1970 [place] Date Time Provider Department ([id number]) 01/13/18 2:45 PM WALDO BISHOP During your visit today, we recorded the following informati on about you: Blood pressure Weight 90/64 67.2 kg Waldo Bishop MD 01/13/2018 5:44 PM Signed Marybeth Keegan Mattie is a 47 year old female who presents for problem visit for RLQ pain. RLQ pain started a few weeks ago. Describes it as pressure. Radiates into groin and down the anterior right thigh, to the knee. She reports it hurts to touch with light pressure over RLQ . No inciting event. Yuuow-hyu-haym. She states she has the pain too many times during the day, so she cannot te ll number of episodes that she has in a day. Lasts 20 min-1hr. Sits still and holds a pillow over abdomen, and she says she shifts around until the pain goes away. No diarrhea or constipation. Last BM was today, describes it as watery. No blood in stools. No dysuria or hematuria. No vaginal dischar ge. Occasional spotting since her hysterectomy. +Nausea and fatigue. 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 venlafaxine ER (EFFEXOR XR) 75 mg 24 hr capsule Take 1 capsule by mouth once daily. Take along with 150 mg pill cyanocobalamin 1,000 mcg/mL soln Inject 1 mL intramuscularly once every month. topiramate (TOPAMAX) 25 mg tablet Take 1 tablet by mouth vicki ly at bedtime. venlafaxine XR (EFFEXOR XR) 150 mg 24 hr capsule Take 1 capsule by mouth once daily. amitriptyline (ELAVIL) 50 mg tablet Take 3 table ts by mouth daily at bedtime. metoprolol tartrate, short acting, (LOPRESSOR) 25 mg t ablet Take 1 tablet by mouth twice daily. meclizine (ANTIVERT) 25 mg tab Take 1 tablet by mouth three times daily as needed (dizziness). predniSONE (DELTASONE) 10 mg tablet Take 4 tabs daily for 3 days, then 2 tabs daily for 3 days, then 1 tab daily for 3 days wi th food. (Patient not taking: Reported on 01/13/2018 [...] GENERAL: No fevers or chills. 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, pain MUSCULOSKELETAL: Reports pain radiated into her right leg Allergies and current medication updated:Yes EXAM: BP 90/64 Wt 148 lb 3.2 oz (67.2kg) GENERAL: pleasant, female in no apparent distress HEENT: Normocephalic and atraumatic NECK: full range of motion DERMATOLOGY: Normal and without lesions CHEST: Normal inspiratory effort ABDOMEN: soft, no masses, non-distended, +moderate tendernes s in RLQ, no rebounding, no guarding, no rigidity PELVIC: external genitalia normal, good vaginal support, physiologic discharge present, normal vaginal cuff and mucosa, no masses or lesion s noted BIMANUAL: no adnexal masses and non-tender NEURO: alert and oriented x3,exam grossly non-focal EXTREMITIES: normal ASSESSMENT AND PLAN: Encounter Diagnosis ICD-10-CM 1. RLQ abdominal pain R10.31 ? Review prior op notes to confirm history of JAZMÍN, BSO ? Normal pelvic exam today ? No acute peritoneal signs on abdominal exam today. Does no t appear to be acute appendicitis. Patient reports good appetite, and ate o bernice today. No fevers, chills, vomiting. Reviewed to go to the ED or call if she experiences severe pain, new fevers, loss of appetite, nausea and vomiti ng ? Encouraged patient to follow up with PCP for other ideas on what could be causing this RLQ pain radiating into her right leg ? Return for annual exams or sooner if needed Waldo Bishop, DO Referring Provider: SELF [[id number]] Allergies As of Date: 01/13/2018 Noted Allergy Reaction CIPRO (CIPROFLOXACIN) 04/21/2007 2 - Rash Comments: Rapid heartbeat, flushed CODEINE [Other] 06/17/2005 4 - Hives DILAUDID (HYDROMORPHONE (BULK)) 06/05/2009 HYOSCYAMINE 01/09/2007 2 - Rash 9 - Itching PENICILLINS 06/17/2005 4 - Hives Date Reviewed: 01/13/2018 Reviewed by: Veronica Morocho - Fully Assessed Reason for Visit: Abdominal Pain [1] Primary Visit Diagnosis:RLQ abdominal pain [R10.31] Prescriptions as of 01/13/2018 Sig: VENTOLIN HFA 90 MCG/ACTUATION* Inhale 2 [...] (VIT B-12) 1,0* Inject 1 mL intramuscularly o * TOPIRAMATE 25 MG TABLET Take 1 tablet [...] Take 4 tabs daily for 3 days,* Patient not taking: Reported on 01/13/2018 Problem List As Of Date 01/13/2018 Noted Resolved OBESITY [E66.9] INVALID FOR* MIGRAINE COMMON [G43.009] INVALID FOR* PALPITATIONS [R00.2] INVALID FOR* INSOMNIA NOS [G47.00] INVALID FOR* Type II or unspecified type diabetes mellitus w*INVALID FOR* 06/07/2013 Recurrent major depressive disorder, in partial*INVALID FOR* [...] INVALID FOR* POSTSURGICAL HYPOTHYROID [E89.0] INVALID FOR* Level of Service: EST PATIENT VISIT LEVEL 3 [[id number]] Disposition: Return in about 1 year (around 01/13/2019) for we ll woman. Follow-up and Disposition History Recorded Encounter Status:Closed by WALDO BISHOP MD on 01/13/18 cnov on 2017-12-03 CNOV Office Visit (FAMPWS) Normal 12-04-[address] [place] [address] [facility] MARYBETH PHELPS ([id number]) 1970 [facility] Date Time Provider Department ([id number]) 12/03/17 9:00 AM BRIAN SHEPPARD ([facility] During your visit today, we recorded the following informati on about you: Temperature Pulse Blood pressure Weight 98.3 degrees 88/minute 92/58 66.7 kg Brian Sheppard APRN.CNP 12/03/2017 9:55 AM Signed Chief Complaint Patient presents with: Pain HPI Marybeth Phelps is a 47 year old female who presents here to day for Above Complaints.. Patient presents to bilateral hip pain with righ t greater than left. Has been present for approximately 3 weeks. No falls or injury that p receded this complaint. No abnormally new activities. 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 Location is on the lateral side of the hip. Described as pulsating. Inte rmittent, stabbing pain. States that she has difficulty getting off th e ground after being in a laying position with her gran dson. Will walk with a stiff gait when this occurs and then will slowly improve with movement. Has used Advil, Aleve, Bengay, ice, heat, elevation without any improvement. Has a difficult time with finding a comfortable position in bed. Has received cortisone injections to both hips in the past. Past medical history, appointments, medications, allergies r fernanda. Previous Medical History PAST MEDICAL HISTORY Diagnosis Date - Acute peptic ulcer, unspecified site, with hemorrhage, w ithout mention of obstruction - Anxiety state, unspecified [...] II or unspecified type diabetes mellitus without ment ion of complication, not stated as uncontrolled - [...] mg tablet Take 2 tablets by mouth onc e daily. atenolol (TENORMIN) 50 mg tablet Take 100 mg by mouth once d aily. albuterol HFA (VENTOLIN HFA) 90 mcg/actuation inhaler [...] mg tablet Take 1 tablet by mouth vicki ly at bedtime. venlafaxine XR (EFFEXOR XR) 150 mg 24 hr capsule Take 1 capsule by mouth once daily. amitriptyline (ELAVIL) 50 mg tablet Take 3 table ts by mouth daily at bedtime. fluticasone (FLONASE) 50 mcg /actuation nasal spray Use 2 Sprays in each nostril once daily. Rinse mouth after use. metoprolol tartrate, short acting, (LOPRESSOR) 25 mg t ablet Take 1 tablet by mouth twice daily. meclizine (ANTIVERT) 25 mg tab Take 1 tablet by mouth three times daily as needed (dizziness). 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 Reviewed relevant PMHx, PSHx, Social Hx, current medicatio ns and allergies. EXAM: BP 92/58 Pulse 88 Temp 36.8 ?C (98.3 ?F) (Tympanic) Wt 66.7 kg (147 lb) BMI 24.05 kg/m? General Appearance: Well cabrera earing, alert, in no acute distress, well-hydrated, well nourished.. Lungs: Lungs clear to auscultation. No wheezing, rhonchi, ra les. Heart: RRR without murmur, gallop, or rubs. No ectopy. Musculoskeletal: Right hip: Moderate lateral hip pain with palpation. Patient is able to go through ROM with internal and external rotatio n without any restriction. Left hip: Mild lateral hip pain with palp ation. Patient is able to go through ROM with internal and external rot ation without any restriction Health Maintenance List MAMMOGRAM due on 06/24/2014 INFLUENZA(1) due on 01/10/2018 DIABETES SCREEN due on 10/07/2020 LIPID SCREEN due on 05/01/2022 DTAP,TDAP,TD(3 - Td) due on 05/25/2026 ONE PNEUMOVAX PRIOR TO AGE 65 Completed Data reviewed Results Final Report DATE OF EXAM: Jun ?2007 ?3:32PM ? WOX ? [id number] ?- ?XR HIP AP/LAT W/PELVIS B / 228 PROCEDURE REASON: ENTHESOPATHY OF HIP Physician Interpretation RESULT: PELVIS AND BILATERAL HIPS AP view of pelvis and AP and frogleg lateral views of bilate ral hip joints reveal normal bilateral hip joint spaces. ?There is a small lateral osteophyte arising from right acetabulum. ?No bony e rosion. ? Bilateral sacroiliac joints appear unremarkable. ?There is n o fracture or subluxation. ?Remaining pelvic bones and soft tissue do not show any abnormality. IMPRESSION: 1. ?SMALL POSSIBLE DEGENERATIVE OSTEOPHYTE OF RIGHT HIP JOIN T. ? 2. ?NORMAL LEFT HIP JOINT. 3. ?NO OTHER ABNORMALITY OF AP PELVIS. Textile Colorist Dyer: KIMBERLY Transcribe Date/Time: Jun ?3:38P Dictated by : GIDEON WILLIAMSON M.D. This document has been electronically signed by: GIDEON WILLIAMSON M.D. On Jun ?3:38PM ASSESSMENT/PLAN: 1. Hip pain, bilateral - ICD9: 719.45, ICD10: M25.551, M25.5 52 (primary diagnosis) - Etiology includes Bursitis vs less likely arthritic. We wi ll start with daily anti-inflammatories, get imaging o f the joint space and have her see [...] imaging, see ortho for recs. Brian Sheppard APRN.SECURITY ANALYST Referring Provider: SELF [[id number]] Allergies As of Date: 12/03/2017 Noted Allergy Reaction CIPRO (CIPROFLOXACIN) 04/21/2007 2 - Rash Comments: Rapid heartbeat, flushed CODEINE [Other] 06/17/2005 4 - Hives DILAUDID (HYDROMORPHONE (BULK)) 06/05/2009 HYOSCYAMINE 01/09/2007 2 - Rash 9 - Itching PENICILLINS 06/17/2005 4 - Hives Date Reviewed: 12/03/2017 Reviewed by: Adali Dueñas Sandwich And Drink Cart Operator - Fully Assessed Reason for Visit: Pain [78] Primary Visit Diagnosis:Hip pain, bilateral [M25.551, M25.55 2] Other Visit Diagnoses:Screening for breast cancer [Z12.31] Vitamin B 12 deficiency [E53.8] Order(s):[facility] [[id number]] Order #: [id number] FUTURE naproxen (NAPROSYN) 500 mg tabletTake 1 tablet by mouth twic e daily as needed (for pain/inflammation). Take with food.Disp: 60 tabletRfl: 0 XR HIP GENERAL 3V PELV/AP/LAT RT [[id number]] Order #: [id number] FUTURE XR HIP GENERAL 3V PELV/AP/LAT LT [[id number]] Order #: [id number] FUTURE CONSULT TO ORTHOPAEDICS [9026] Order #: [id number]: 1 Prescriptions as of 12/03/2017 Sig: LORAZEPAM [...] (VIT B-12) 1,0* Inject 1 mL intramuscularly o * TOPIRAMATE 25 MG TABLET Take 1 tablet [...] II or unspecified type diabetes mellitus w*INVALID FOR* 06/07/2013 DEPRESSIVE DISORDER NEC [F32.9] INVALID FOR* Anxiety [...] by mouth twice daily as needed (for pain/ inflammation). Take with food. Medications Discontinued During This Encounter omeprazole (PRILOSEC) 20 mg capsule 30 c* 5 05/23/2017 018 Route: ORAL Sig: Take 1 capsule by mouth daily before breakfast. 1/2 hr before meal. Disc: Discontinued by Patient Disposition: Return if symptoms worsen or fail to improve. Follow-up and Disposition History Recorded Encounter Status:Closed by BRIAN SHEPPARD CNP on 12/03/17 cnov on 2017-12-28 CNOV Office Visit (UCWSTR) Normal 12-29-19 [facility] MARYBETH PHELPS ([id number]) 1970 F [facility] Time Provider Department ([id number]) 12/28/17 11:15 AM SAVANA TILLEY ([place]) [facility] During your visit today, we recorded the following informati on about you: Temperature Pulse Respiration Blood pressure 98.5 degrees 74/minute 14/minute 90/60 Weight 67.6 kg Savana Tilley APRN.CNP 12/28/2017 12:17 PM Signed Subjective HPI Marybeth Phelps is a 47 year old female who presents with right sided rib and hip pain after falling down 6 wooden steps at home 5 days ago. She rates the pain a 7/10 and has taken naproxen. The naproxen upsets her stomach. Review of Systems Constitutional: Negative. Negative for fever. Respiratory: Negative. Negative for cough and shortness of b reath. Cardiovascular: Negative. Negative for chest pain. Gastrointestinal: Negative. Negative for abdomin al pain, nausea and vomiting. Genitourinary: Negative. Negative for hematuria. Musculoskeletal: Positive for falls and joint pain. BP 90/60 Pulse 74 Temp 36.9 ?C (98.5 ?F) (Left Tympanic) Resp 14 Wt 67.6 kg (149 lb) BMI 24.38 kg/m? PAST MEDICAL HISTORY Diagnosis Date - Acute peptic ulcer, unspecified site, with hemorrhage, w ithout mention of obstruction - Anxiety state, unspecified [...] II or unspecified type diabetes mellitus without ment ion of complication, not stated as uncontrolled - [...] ECTOPIC ALLERGIES Cipro [Ciprofloxacin]; Codeine [Other]; Dilaudid [ Hydromorphone (Bulk)]; Hyoscyamine; Penicillins MEDICATIONS SUMAtriptan (IMITREX) 25 [...] mg tablet Take 2 tablets by mouth onc e daily. atenolol (TENORMIN) 50 mg tablet Take 100 mg by mouth once d aily. albuterol HFA (VENTOLIN HFA) 90 mcg/actuation inhaler [...] mg tablet Take 1 tablet by mouth vicki ly at bedtime. venlafaxine XR (EFFEXOR XR) 150 mg 24 hr capsule Take 1 capsule by mouth once daily. amitriptyline (ELAVIL) 50 mg tablet Take 3 table ts by mouth daily at bedtime. metoprolol tartrate, short acting, (LOPRESSOR) 25 mg t ablet Take 1 tablet by mouth twice daily. [...] Exam Constitutional: She is well-developed, well-nourished, and i n no distress. Cardiovascular: Normal rate and regular rhythm. Pulmonary/Chest: Effort normal and breath sounds normal. No respiratory distress. She has no wheezes. She has no rales. She ex hibits tenderness. She exhibits no bony tenderness, no crepitus, no deformity and n o swelling. Abdominal: Soft. She exhibits no distension and no mass. The re is no tenderness. There is no guarding. Musculoskeletal: Legs: No bruising Neurological: She is alert. Gait normal. Skin: Skin is warm and dry. Nursing note and vitals reviewed. ASSESSMENT/PLAN: 1. Right hip pain - ICD9: 719.45, ICD10: M25.551 (primary di agnosis) - XR HIP GENERAL 3V PELV/AP/LAT RT. My reading: negative. Ra diologist RESULT: Pelvic ring is intact. ?Hips are located and axial j oint spaces are maintained. ?No fracture. ?No osseous erosion. ?Sacral a la largely obscured by overlying bowel gas. ?SI joints are symmetric. Impression IMPRESSION: No acute/significant pathology. Dictated by : RIA BENEDICT MD 2. Rib pain on right side - ICD9: 786.50, ICD10: R07.81 - XR RIBS/CHEST 3V AP RIB/OBLS/CXR RT. My reading: negative. Radiologist RESULT: No acute rib fracture. ?No pneumothorax. ?No alveola r airspace opacity. ?Heart size and pulmonary vasculature are within no rmal limits. ? Metallic clips in the right upper quadrant. Impression IMPRESSION: No rib fracture. ?No radiographic evidence for a cute cardiopulmonary disease. Dictated by : RIA BENEDICT MD - recommend alternating heat and ice application. - NSAIDS and/or tylenol PRN pain. - Follow-up with your PCP in 3-5 days if symptom s have not improved or sooner if symptoms worsen - Discussed red flags and need for immediate med ical evaluation if any occur. - Discussed supportive care treatment with fluids, rest and analgesia. - Discussed expected course of illness MARY ALICE Child APRN.CNP 12/28/2017 12:05 PM Signed Deep breaths and cough once hourly. Anti inflammatory/tylenol as needed for pain. Recommend alternating heat and ice to painful areas. Referring Provider: SELF [[id number]] Allergies As of Date: 12/28/2017 Noted Allergy Reaction CIPRO (CIPROFLOXACIN) 04/21/2007 2 - Rash Comments: Rapid heartbeat, flushed CODEINE [Other] 06/17/2005 4 - Hives DILAUDID (HYDROMORPHONE (BULK)) 06/05/2009 HYOSCYAMINE 01/09/2007 2 - Rash 9 - Itching PENICILLINS 06/17/2005 4 - Hives Date Reviewed: 12/28/2017 Reviewed by: Savana Tilley - Fully Assessed Primary Visit Diagnosis:Right hip pain [M25.551] Other Visit Diagnosis:Rib pain on right side [R07.81] Order(s):XR RIBS/CHEST 3V AP RIB/OBLS/CXR RT [[id number]] Order #: [id number] FUTURE XR HIP GENERAL 3V PELV/AP/LAT RT [[id number]] Order #: [id number] FUTURE Prescriptions as of 12/28/2017 Sig: SUMATRIPTAN 25 MG TABLET Take 1 tablet [...] (VIT B-12) 1,0* Inject 1 mL intramuscularly o * TOPIRAMATE 25 MG TABLET Take 1 tablet by mouth daily * VENLAFAXINE ER 150 MG CAPSULE* Take 1 capsule by mouth once * AMITRIPTYLINE 50 MG TABLET Take 3 tablets by mouth daily* METOPROLOL TARTRATE 25 MG TAB* Take 1 tablet by mouth twice * MECLIZINE 25 MG TABLET Take 1 tablet by mouth three * Problem List As Of Date 12/28/2017 Noted Resolved OBESITY [E66.9] INVALID FOR* MIGRAINE COMMON [G43.009] INVALID FOR* PALPITATIONS [R00.2] INVALID FOR* INSOMNIA NOS [G47.00] INVALID FOR* Type II or unspecified type diabetes mellitus w*INVALID FOR* 06/07/2013 DEPRESSIVE DISORDER NEC [F32.9] INVALID FOR* Anxiety [...] INVALID FOR* POSTSURGICAL HYPOTHYROID [E89.0] INVALID FOR* Other instructions from your clinician: Deep breaths and cough once hourly. Anti inflammatory/tylenol as needed for pain. Recommend alternating heat and ice to painful areas. Encounter Status:Closed by JUDYSAVANA on 12/28/17 xr rib/chst 3v ap rib/obl/chst r on 2017-12-28 XR RIB/CHST 3V AP * * *Final Report* * * Normal 12-28-2017 [place] RIB/OBL/CHST R DATE OF EXAM: Dec 28 2017 11:49AM [facility] WOX [id number] - XR RIB/CHST 3V AP RIB/OBL/CHST R / [id number] [place] PROCEDURE REASON: Pleurodynia ([id number]) * * * * Physician Interpretation * * * * RIGHT RIBS X-RAY WITH CHEST X-RAY TECHNIQUE: 5 images: AP and oblique views of the ribs; front al view of the chest COMPARISON: No relevant prior INDICATION: Pleurodynia RESULT: No acute rib fracture. No pneumothorax. No alveolar airspace opacity. Heart size and pulmonary vasculature are within nor mal limits. Metallic clips in the right upper quadrant. - IMPRESSION: No rib fracture. No radiographic evidence for ac lummi cardiopulmonary disease. Textile Colorist Dyer: PSCB Transcribe Date/Time: Dec 28 2017 11:51A Dictated by : RIA BENEDICT MD This examination was interpreted and the report reviewed and electronically signed by: RIA BENEDICT MD on Dec 28 2017 11:52AM EST [id number] xr hip 3v pelv+ ap/lat rt on 2017-12-28 XR HIP 3V PELV+ * * *Final Report* * * Normal 0 12-28-[address] [facility] AP/LAT RT DATE OF EXAM: Dec 28 2017 11:49AM [place] ([id number]) WOX 5352 - XR HIP 3V PELV+ AP/LAT RT / PROCEDURE REASON: Pain in right hip * * * * Physician Interpretation * * * * PELVIS X-RAY, RIGHT HIP X-RAY TECHNIQUE: 4 images: AP view of the pelvis and AP and frogleg views of the hip INDICATION: Pain in right hip, fell 5 days ago COMPARISON: 06/16/2007 pelvis and bilateral hip radiograph RESULT: Pelvic ring is intact. Hips are located and axial tara int spaces are maintained. No fracture. No osseous erosion. Sacral ala largely obscured by overlying bowel gas. SI joints are symmetric. - IMPRESSION: No acute/significant pathology. Textile Colorist Dyer: KILEY Transcribe Date/Time: Dec 28 2017 11:52A Dictated by : RIA BENEDICT MD This examination was interpreted and the report reviewed and electronically signed by: RIA BENEDICT MD on Dec 28 2017 11:55AM EST [id number] cnov on 2017-12-22 CNOV Office Visit (FAMPWS) Normal 12-23-19 18 [place] MARYBETH Hussein ([id number]) 1970 [facility] Date Time Provider Department ([id number]) 12/22/17 3:00 PM MARYBETH RICHARD (SECURITY ANALYST) [facility] During your visit today, we recorded the following informati on about you: Pulse Respiration Blood pressure Weight 78/minute 20/minute 118/76 66.7 kg Marybeth Richard APRN.AKBAR 12/22/2017 4:08 PM Signed 12/22/2017 Patient presents with: Headache SUBJECTIVE: This is a 47 year old that is here t rosas for change in headaches. She states that she has had migraines fo r some time and she does not feel that these are the same. She states that these seem to be comin g in clusters and before the relief can completely come, the headache return s. Located in the back of the head and described as an ache. + nausea no vomiting. just feels miserable. She states that it is coming on a few times a day and it is making it really hard to do what needs done. Sh e denies vision changes, weakness, CP, palpitations, SOB. She states that she has tried naproxen, a dvil, tylenol, excedrin, ice/heat. She is t aking her elavil and topamax as ordered. She states that she has had toradol injections in the past and she is wondering if she could try that. PAST MEDICAL HISTORY Diagnosis Date - Acute peptic ulcer, unspecified site, with hemorrhage, w ithout mention of obstruction - Anxiety state, unspecified [...] II or unspecified type diabetes mellitus without ment ion of complication, not stated as uncontrolled - Unspecified constipation Constipation - Unspecified urinary incontinence - Urge incontinence - Urinary calculus, unspecified Renal stones ALLERGIES Cipro [Ciprofloxacin]; Codeine [Other]; Dilaudid [ Hydromorphone (Bulk)]; Hyoscyamine; Penicillins MEDICATIONS Current Outpatient Prescriptions: [...] mg tablet Take 2 tablets by mouth onc e daily. atenolol (TENORMIN) 50 mg tablet Take 100 mg by mouth once d aily. albuterol HFA (VENTOLIN HFA) 90 mcg/actuation inhaler [...] mg tablet Take 1 tablet by mouth vicki ly at bedtime. venlafaxine XR (EFFEXOR XR) 150 mg 24 hr capsule Take 1 capsule by mouth once daily. amitriptyline (ELAVIL) 50 mg tablet Take 3 table ts by mouth daily at bedtime. metoprolol tartrate, short acting, (LOPRESSOR) 25 mg t ablet Take 1 tablet by mouth twice daily. meclizine (ANTIVERT) 25 mg tab Take 1 tablet by mouth three times daily as needed (dizziness). 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 . Vital signs reviewed by this provider. PHYSICAL EXAMINATION: General appearance: Well cabrera earing, alert, in no acute distress, well-hydrated, well nourished. Skin: Skin color, texture, turgor normal, no suspicious rash es or lesions Head: Normocephalic, no masses, lesions, tenderness or abnor malities Eyes: Anicteric sclera. Pupils are equally round and reactiv e to light. Extraocular movements are intact. Ears: External ears normal, canals clear , Positive findings: R TM: haile fluid noted behind TM and bulging, L TM: haile fluid noted behind TM and bulging Neck: Supple, no adenopathy; thyroid symmetric, normal size, no bruits Lungs: Lungs clear to auscultation. No wheezing, rhonchi, ra les Heart: RRR without murmur, gallop, or rubs. No ectopy Extremities: No deformities, edema, skin discolo ration, clubbing or cyanosis. Good capillary refill. , Pulses: 2+ Neuro: Gait normal. Reflexes normal and symmetri c. Sensation grossly intact., Negative findings: speech normal, mental status intact, Romb erg negative, muscle tone normal, muscle s trength normal, rapid alternating movements normal, finger to nose normal ASSESSMENT/PLAN: 1. Intractable cluster headache syndrome, unspecified chroni city pattern - ICD9: 339.00, ICD10: G44.001 (primary diagnosis) - will give toradol today, educated to avoid NSA IDs. Imitrex as needed if the cluster headaches return. Will refer to neuro for the increa se/change in headache symptoms. - SUMATRIPTAN 25 MG TABLET - KETOROLAC 60 MG/2 ML INTRAMUSCULAR SOLUTION - CONSULT TO NEUROLOGY 2. History of migraine - ICD9: V12.49, ICD10: Z86.69 - CONSULT TO NEUROLOGY Marybeth Richard APRN.SECURITY ANALYST Referring Provider: SELF [200] Allergies As of Date: 12/22/2017 Noted Allergy Reaction CIPRO (CIPROFLOXACIN) 04/21/2007 2 - Rash Comments: Rapid heartbeat, flushed CODEINE [Other] 06/17/2005 4 - Hives DILAUDID (HYDROMORPHONE (BULK)) 06/05/2009 HYOSCYAMINE 01/09/2007 2 - Rash 9 - Itching PENICILLINS 06/17/2005 4 - Hives Date Reviewed: 12/22/2017 Reviewed by: Kate Coleman) TRICIA Henson - Fully Assessed Reason for Visit: Headache [52] Primary Visit Diagnosis:Intractable cluster headache syndrom e, unspecified chronicity pattern [G44.001] Other Visit Diagnosis:History of migraine [Z86.69] Order(s):SUMAtriptan (IMITREX) 25 mg tabletTake 1 tabl et by mouth as needed. Ok to repeat once after 2 hoursDisp: 15 tabletRfl: 0 [] ketorolac 60 mg injection (TORADOL)Disp: Rfl: CONSULT TO NEUROLOGY [9019] Order #: [id number]: 1 Prescriptions as of 12/22/2017 Sig: MIRTAZAPINE [...] (VIT B-12) 1,0* Inject 1 mL intramuscularly o * TOPIRAMATE 25 MG TABLET Take 1 tablet [...] II or unspecified type diabetes mellitus w*INVALID FOR* 06/07/2013 DEPRESSIVE DISORDER NEC [F32.9] INVALID FOR* Anxiety [...] mouth as needed. Ok to repeat once aft er 2 hours KETOROLAC 60 MG/2 ML INTRAMUSCULAR S* 12/22/2017 12/22/2017 Route: INTRAMUSCULA Medications Discontinued During This Encounter fluticasone (FLONASE) 50 mcg/actuati* 1 Garrison* 1 03/20/201712/22 Route: EACH NOSTRIL Sig: Use 2 Sprays in each nostril once daily. Rinse mouth af ter use. Disc: Reason for discontinue is not on file. Encounter Status:Closed by MARYBETH RICHARD on 12/22/17 progress on 2017-11 Protein mass HNO ID: [id number] Normal 12-04-19 [facility] Author: Brian (Physical Ther) Hi Mosher ([id number]) Service: (none) Author Type: Nurse Practitioner Type: Progress Notes Filed: 12/03/2017 9:55 AM Note Text: Chief Complaint Patient presents with: Pain HPI Marybeth Phelps is a 47 year old female who presents here to day for Above Complaints.. Patient presents to bilateral hip pain with right greater th an left. Has been present for approximately 3 weeks. No falls or injury t hat preceded this complaint. No abnormally new activities. She is an avid walker. Location is on the lateral side of the hip. Described as pul sating. Intermittent, stabbing pain. States that she has difficulty getting off the ground after being in a laying position with her grandso n. Will walk with a stiff gait when this occurs and then will slowly impr ove with movement. Has used Advil, Aleve, Bengay, ice, heat, elevatio n without any improvement. Has a difficult time with finding a comfortable position in bed. Has received cortisone injections to both hips in the p ast. Past medical history, appointments, medications, allergies r eviewed. Previous Medical History PAST MEDICAL HISTORY Diagnosis Date - Acute peptic ulcer, unspecified site, with hemorrhage, wit hout mention of obstruction - Anxiety state, unspecified [...] II or unspecified type diabetes mellitus without ment ion of complication, not stated as uncontrolled - [...] mg tablet Take 2 tablets by mouth onc e daily. atenolol (TENORMIN) 50 mg tablet Take 100 mg by mouth once d aily. albuterol HFA (VENTOLIN HFA) 90 mcg/actuation inhaler Inhale 2 Puffs as instructed every 4 hours as needed for Wheezing/Shortness of Breath. mirtazapine (REMERON) 15 mg tablet Take 1 tablet by mouth da eric at bedtime. venlafaxine ER (EFFEXOR XR) 75 mg 24 hr capsule Take 1 capsu le by mouth once daily. Take along with 150 mg pill cyanocobalamin 1,000 mcg/mL soln Inject 1 mL intramuscularly once every month. topiramate (TOPAMAX) 25 mg tablet Take 1 tablet by mouth vicki ly at bedtime. venlafaxine XR (EFFEXOR XR) 150 mg 24 hr capsule Take 1 caps ule by mouth once daily. amitriptyline (ELAVIL) 50 mg tablet Take 3 tablets by mouth daily at bedtime. fluticasone (FLONASE) 50 mcg/actuation nasal spray Use 2 Spr ays in each nostril once daily. Rinse mouth after use. metoprolol tartrate, short acting, (LOPRESSOR) 25 mg tablet Take 1 tablet by mouth twice daily. meclizine (ANTIVERT) 25 mg tab Take 1 tablet by mouth three times daily as needed (dizziness). 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 Reviewed relevant PMHx, PSHx, Social Hx, current medications and allergies. EXAM: BP 92/58 Pulse 88 Temp 36.8 ?C (98.3 ?F) (Tympanic) Wt 66.7 kg (147 lb) BMI 24.05 kg/m? General Appearance: Well appearing, alert, in no acute distr ess, well-hydrated, well nourished.. Lungs: Lungs clear to auscultation. No wheezing, rhonchi, ra les. Heart: RRR without murmur, gallop, or rubs. No ectopy. Musculoskeletal: Right hip: Moderate lateral hip pain with p alpation. Patient is able to go through ROM with internal and external rotation without any restriction. Left hip: Mild lateral hip pain wit h palpation. Patient is able to go through [...] ?- ?XR HIP AP/LAT W/PELVIS B / 228 PROCEDURE REASON: ENTHESOPATHY OF HIP Physician Interpretation RESULT: PELVIS AND BILATERAL HIPS AP view of pelvis and AP and frogleg lateral views of bilate ral hip joints reveal normal bilateral hip joint spaces. ?There is a small lateral osteophyte arising from right acetabulum. ?No bony e rosion. ? Bilateral sacroiliac joints appear unremarkable. ?There is n o fracture or subluxation. ?Remaining pelvic bones and soft tissue do not show any abnormality. IMPRESSION: 1. ?SMALL POSSIBLE DEGENERATIVE OSTEOPHYTE OF RIGHT HIP JOIN T. ? 2. ?NORMAL LEFT HIP JOINT. 3. ?NO OTHER ABNORMALITY OF AP PELVIS. Textile Colorist Dyer: PSC Transcribe Date/Time: Jun ?3:38P Dictated by : GIDEON WILLIAMSON M.D. This document has been electronically signed by: GIDEON WILLIAMSON M.D. On Jun ?3:38PM ASSESSMENT/PLAN: 1. Hip pain, bilateral - ICD9: 719.45, ICD10: M25.551, M25.5 52 (primary diagnosis) - Etiology includes Bursitis vs less likely arthritic. We wi ll start with daily anti-inflammatories, get imaging of the joint spa ce and have her see Dr. Cano in ortho for possible treatment. - Discussed rest, demonstrated stretching with patient. - NAPROXEN 500 MG TABLET - XR HIP GENERAL 3V PELV/AP/LAT RT - XR HIP GENERAL 3V PELV/AP/LAT LT - CONSULT TO ORTHOPAEDICS 2. Screening for breast cancer - ICD9: V76.10, ICD10: Z12.31 - YANIRA SCREENING Get imaging, see ortho for recs. Brian Sheppard, DIRECTOR OF PEDIATRIC REHABILITATION.SECURITY ANALYST progress on 2017-10 Protein mass conc HNO ID: [id number] Normal [facility] Author: Rula Baumann LPN [place] ([id number]) Service: (none) Author Type: (none) Type: Progress Notes Filed: 11/07/2017 10:39 AM Note Text: Patient presents for B-12 injection. Denies any problems at this time. Patient instructed on any SE of medication, verbalized under standing and agreed to proceed with treatment. Tolerated injection well. Rula Baumann LPN cnnurse on [facility] Nurse Visit (FAMPWS) Normal 8 [place] MARYBETH Hussein ([id number]) 1970 [facility] Date Time Provider Department ([id number]) 11/07/17 10:30 AM [place] NURSE [facility] During your visit today, we recorded the following informati on about you: Rula Baumann LPN 11/07/2017 10:39 AM Signed Patient presents for B-12 injection. Den ies any problems at this time. Patient instructed on any SE of medication, verbalized understanding and agreed to proceed with treatment. Tolerated injection well. Rula Baumann LPN Referring Provider: SPEEDY RIOS [[id number]] Allergies As of Date: 11/07/2017 Noted Allergy [...] (VIT B-12) 1,0* Inject 1 mL intramuscularly o * TOPIRAMATE 25 MG TABLET Take 1 tablet by mouth daily * VENLAFAXINE ER 150 MG CAPSULE* Take 1 capsule by mouth once * AMITRIPTYLINE 50 MG TABLET Take 3 tablets by mouth daily* OMEPRAZOLE 20 MG CAPSULE,CINDY* Take 1 capsule by mouth daily * Patient not taking: Reported on 10/18/2017 FLUTICASONE [...] II or unspecified type diabetes mellitus w*INVALID FOR* 06/07/2013 DEPRESSIVE DISORDER NEC [F32.9] INVALID FOR* Anxiety [...] RULA BAUMANN LPN on 11/07/17 progress on 2017-10 Protein mass HNO ID: [id number] Normal 10-22-[address] [place] [address] Author: Jamison Sifuentes) [facility] Service: (none) Caridad bass Author Type: Physician Composition [employer] Applier ([id number]) Type: Progress Notes Filed: 10/21/2017 12:54 PM Note Text: Subjective HPI Pt presents with chief complaint of right ear pain. She was here 4 days ago and had an abrasion from a qtip. Her ear canal has start ed to swell and become more painful so she came in for evaluation. She h as been taking 200mg ibuprofen for pain. No nvd. No fever or chills. No cou gh or congestion. Review of Systems HENT: Positive for ear pain. All other systems reviewed and are negative. PAST MEDICAL HISTORY Diagnosis Date - Acute peptic ulcer, unspecified site, with hemorrhage, wit hout mention of obstruction - Anxiety state, unspecified [...] II or unspecified type diabetes mellitus without ment ion of complication, not stated as uncontrolled - Unspecified constipation Constipation - Unspecified urinary incontinence - Urge incontinence - Urinary calculus, unspecified Renal stones Current Outpatient Prescriptions: albuterol HFA (VENTOLIN HFA) 90 mcg/actuation inhaler Inhale 2 Puffs as instructed every 4 hours as needed for Wheezing/Shortness of Breath. Disp: 1 Inhaler Rfl: 0 mirtazapine (REMERON) 15 mg tablet Take 1 tablet by mouth da eric at bedtime. Disp: 30 tablet Rfl: 1 LORazepam (ATIVAN) 1 mg tablet Take 1 tablet by mouth every 8 hours as needed for Anxiety for up to 90 days. Disp: 60 tablet Rfl: 2 venlafaxine ER (EFFEXOR XR) 75 mg 24 hr capsule Take 1 capsu le by mouth once daily. Take along with 150 mg pill Disp: 90 capsule Rfl : 2 cyanocobalamin 1,000 mcg/mL soln Inject 1 mL intramuscularly once every month. Disp: 1 mL Rfl: 12 topiramate (TOPAMAX) 25 mg tablet Take 1 tablet by mouth vicki ly at bedtime. Disp: 30 tablet Rfl: 5 venlafaxine XR (EFFEXOR XR) 150 mg 24 hr capsule Take 1 caps ule by mouth once daily. Disp: 90 capsule Rfl: 3 amitriptyline (ELAVIL) 50 mg tablet Take 3 tablets by mouth daily at bedtime. Disp: 270 tablet Rfl: 1 fluticasone (FLONASE) 50 mcg/actuation nasal spray Use 2 Spr ays in each nostril once daily. Rinse mouth after use. Disp: 1 Bottle Rf l: 1 metoprolol tartrate, short acting, (LOPRESSOR) 25 mg tablet Take 1 tablet by mouth twice daily. Disp: 60 tablet Rfl: 5 meclizine (ANTIVERT) 25 mg tab Take 1 tablet by mouth three times daily as needed (dizziness). Disp: 30 tablet Rfl: 0 qjwjbkdj-jsdhjilfb-vmvtipchrsoouq (CORTISPORIN) 3.5-10,000-1 mg/mL-unit/mL-% otic suspension Use 3 [...] - COLONOSCOPY W/BX 05-24-15 [facility] - EXPLORATORY OF ABDOMEN [...] is oriented to person, place, and time a nd well-developed, well-nourished, and in no distress. HENT: Head: Normocephalic and atraumatic. Right Ear: Tympanic membrane and external ear normal. Left Ear: Tympanic membrane, external ear and ear canal norm al. Right EAC is swollen with erythema and drainage present. Ten kael when I pull on the pinna. Normal TM. Neck: Normal range of motion. Neck supple. Cardiovascular: Normal rate, regular rhythm and normal heart sounds. Pulmonary/Chest: Effort normal and breath sounds normal. Lymphadenopathy: She has no cervical adenopathy. Neurological: She is alert and oriented to person, place, an d time. Skin: Skin is warm and dry. No rash noted. Psychiatric: Affect and judgment normal. Nursing note and vitals reviewed. ASSESSMENT/PLAN: 1. Acute otitis externa of right ear, unspecified type - ICD 9: 380.10, ICD10: H60.501 Will treat with cortisporin otic. Discussed keeping the ear dry and taking ibuprofen and tylenol for pain with appropriate dosing addre ssed. Discussed with patient concerning symptoms to go to the [facility] department or follow up here. Pt agreeable with this plan. Jamison Hines PA-C cnpn on 2017-10-21 CNPN Telephone (FAMPWS) Normal 10-21-2017 [place] MARYBETH Hussein ([id number]) 1970 F [facility] Time Provider Department ([id number]) 10/21/17 SPEEDY RIOS FAMPWS During your visit today, we recorded the following informati on about you: Haroon Bruno RN 10/21/2017 1:40 PM Signed Patient calls stating Cortisporin suspension is expens matthew without insurance. Wondering if you can call in the solution form instead? Merissa henninge. Haroon Hines PA-C 10/21/2017 2:05 PM Signed I switched the suspension to the solutio n. Per pharmacist this should be about $35. [...] Problem [65] Prescriptions as of 10/21/2017 Sig: [id number] * Use 3 Drops in the right ear * ALBUTEROL SULFATE HFA 90 MCG/* Inhale 2 Puffs as instructed * MIRTAZAPINE 15 MG TABLET Take 1 tablet by mouth daily * LORAZEPAM 1 MG TABLET Take 1 tablet by mouth every * VENLAFAXINE ER 75 MG CAPSULE,* Take 1 capsule by mouth once * CYANOCOBALAMIN (VIT B-12) 1,0* Inject 1 mL intramuscularly o * TOPIRAMATE 25 MG TABLET Take 1 tablet by mouth daily * VENLAFAXINE ER 150 MG CAPSULE* Take 1 capsule by mouth once * AMITRIPTYLINE 50 MG TABLET Take 3 tablets by mouth daily* OMEPRAZOLE 20 MG CAPSULE,CINDY* Take 1 capsule by mouth daily * Patient not taking: Reported on 10/18/2017 FLUTICASONE [...] II or unspecified type diabetes mellitus w*INVALID FOR* 06/07/2013 DEPRESSIVE DISORDER NEC [F32.9] INVALID FOR* Anxiety [...] Status:Closed by MILA CUELLAR LPN on 10/21/17 cnov on 2017-10-21 CNOV Office Visit (UCWSTR) Normal 10-22-19 18 [place] MARYBETH Hussein ([id number]) 1970 [place] Date Time Provider Department ([id number]) 10/21/17 11:45 AM JAMISON HINES (KISHORE) [facility] During your visit today, we recorded the following informati on about you: Temperature Pulse Respiration Blood pressure 97.9 degrees 68/minute 16/minute 118/60 Weight 67.6 kg Jamison Hines PA-C 10/21/2017 12:54 PM Signed Subjective HPI Pt presents with chief compl aint of right ear pain. She was here 4 days ago and had an abrasion from a qtip. Her ear canal has started to swell and become more painful so she came in for evaluation. S he has been taking 200mg ibuprofen for pain. No nvd. No fever or chills. No cough or congestion. Review of Systems HENT: Positive for ear pain. All other systems reviewed and are negative. PAST MEDICAL HISTORY Diagnosis Date - Acute peptic ulcer, unspecified site, with hemorrhage, w ithout mention of obstruction - Anxiety state, unspecified [...] II or unspecified type diabetes mellitus without ment ion of complication, not stated as uncontrolled - Unspecified constipation Constipation - Unspecified urinary incontinence - Urge incontinence - Urinary calculus, unspecified Renal stones Current Outpatient Prescriptions: albuterol HFA (VENTOLIN HFA) 90 mcg/actuation inhaler Inhale 2 Puffs as instructed every 4 hours as needed for Wheezing/Shortn ess of Breath. Disp: 1 Inhaler Rfl: 0 [...] mg tablet Take 1 tablet by mouth vicki ly at bedtime. Disp: 30 tablet Rfl: 5 venlafaxine XR (EFFEXOR XR) 150 mg 24 hr capsule Take 1 capsule by mouth once daily. Disp: 90 capsule Rfl: 3 amitriptyline (ELAVIL) 50 mg tablet Take 3 table ts by mouth daily at bedtime. Disp: 270 tablet Rfl: 1 fluticasone (FLONASE) 50 mcg /actuation nasal spray Use 2 Sprays in each nostril once daily. Rinse mouth after use. Disp: 1 Bottle Rfl: 1 metoprolol tartrate, short acting, (LOPRESSOR) 25 mg t ablet Take 1 tablet by mouth twice daily. Disp: 60 tablet Rfl: 5 meclizine (ANTIVERT) 25 mg tab Take 1 tablet by mouth three times daily as needed (dizziness). Disp: 30 tablet Rfl: 0 pwhahehl-mldwxxjhk-agmzmmnuhngmfl (CORTISPORIN) 3.5-10 ,000-1 mg/mL-unit/mL-% otic suspension Use 3 Drops in [...] - COLONOSCOPY W/BX 05-24-15 - [facility] 05-24-15 - EXPLORATORY OF ABDOMEN [...] Physical Exam Constitutional: She is oriented to perso n, place, and time and well-developed, well-nourished, and in no distress. HENT: Head: Normocephalic and atraumatic. Right Ear: Tympanic membrane and external ear normal. Left Ear: Tympanic membrane, external ear and ear canal norm al. Right EAC is swollen with erythema and d rainage present. Tender when I pull on the pinna. Normal TM. Neck: Normal range of motion. Neck supple. Cardiovascular: Normal rate, regular rhythm and normal heart sounds. Pulmonary/Chest: Effort normal and breath sounds normal. Lymphadenopathy: She has no cervical adenopathy. Neurological: She is alert and oriented to person, place, an d time. Skin: Skin is warm and dry. No rash noted. Psychiatric: Affect and judgment normal. Nursing note and vitals reviewed. ASSESSMENT/PLAN: 1. Acute otitis externa of right ear, unspecifie d type - ICD9: 380.10, ICD10: H60.501 Will treat with cortisporin otic. Discussed keeping the ear dry and taking ibuprofen and tylenol for pain with appropriate dosing add ressed. Discussed with patient concerning symp toms to go to the emergency department or [...] externa of right ear, unspecified type [H60.501] Order(s):lxgxxwsb-gnwasmgvl-mbksfmbgyrurir (CORTISPORIN) 3.5 -10,000-1 mg/mL-unit/mL-% otic suspensionUse 3 Drops in the [...] (VIT B-12) 1,0* Inject 1 mL intramuscularly o * TOPIRAMATE 25 MG TABLET Take 1 tablet [...] Take 1 tablet by mouth three * [id number]-[id number]-GAQJOEOQO * Use 3 Drops in the right ear * OMEPRAZOLE 20 MG CAPSULE,CINDY* Take 1 capsule by mouth daily * Patient not taking: Reported on 10/18/2017 Problem List As Of Date 10/21/2017 Noted Resolved OBESITY [E66.9] INVALID FOR* MIGRAINE COMMON [G43.009] INVALID FOR* PALPITATIONS [R00.2] INVALID FOR* INSOMNIA NOS [G47.00] INVALID FOR* Type II or unspecified type diabetes mellitus w*INVALID FOR* 06/07/2013 DEPRESSIVE DISORDER NEC [F32.9] INVALID FOR* Anxiety [...] ordered this encounter Disp Refills Start End PMRENRVI-FUEDHKJDX-FYOVYVLHU 3.5 MG-* 1 [place]* 0 10/21/2017 Route: RIGHT EAR Sig: Use 3 Drops in the right ear four times daily for 7 day s. Encounter Status:Closed by JAMISON HINES PA-C on 10/21/17 Summary Purpose DATE CREATED AUTHOR AUTHOR'S ORGANIZATIO N 10/18/2018 [facility] Family History No Family History Records Found [...] BE BASED ON THE PRIMARY CLINICAL RECORDS. [facility] provides no warranty or guarantee of the accuracy or completeness of information in this document. UNRECOGNIZED CONTENT PROVIDED BELOW FOR UNRECOGNIZED SECTION INFORMATION SOURCE DATE CREATED AUTHOR AUTHOR'S ORGANIZLYNNO N 10/18/2018 [facility]
[2018-11-04 01:35] VITALS: BP 87/54; PULSE 75; RESP 16; TEMP 36.8; O2SAT 94
[2018-11-04] MEDS: Lactated Ringers 1,000 ML 60 ML IV ×2 (01:36→18:06)
[2018-11-04 03:35] VITALS: BP 87/55; PULSE 77; RESP 14; TEMP 36.8; O2SAT 95
[2018-11-04] MEDS: Gabapentin 300 MG Capsule PO ×3 (05:34→22:27)
[2018-11-04] MEDS: Enoxaparin 30 MG/0.3 ML Syringe SC (05:34)
--- OUTSIDE RECORDS SUMMARY | 2018-11-04 05:34 | XMS RPT_ITS | CCD ---
:1970 External Reference #:[id number] Demographics Address [address] [place] [address] Preferred Language Unknown Marital Status Unknown Methodist Affiliation Unknown Race White Ethnic Group Unknown Author Organization [facility] Care Team Providers Name Role Phone Unavailable Unavailable Unavailable Results Result Name Value Range Unit Interpretation Flag Date Location [facility] on 12-20-12 [facility] Patient Outreach (FAMPST) Normal 1 05-24-2017 [place] [facility] MARYBETH PHELPS ([id number]) 1970 [facility] Time Provider Department ([id number]) 03/24/18 SPEEDY RIOS FAMPST During your visit today, we recorded [...] [Z79.899] Order(s):LIPID PANEL BASIC [SQLIPB] Order #: [id number] FUTU RE Prescriptions as of 03/24/2018 Sig: [...] 2018-10-14 [facility] Letter Text Normal 10-14-2018 [facility] ([id number]) cnco on 2018-03-17 [facility] HNO ID: [id number] Normal 03-17-2018 [facility] Author: Mammography Coordinator ([id number]) Service: (none) Author Type: Physician Type: Letter Filed: 03/18/2018 11:33 PM Note Text: March 17, 2018 PID: [id number] Marybeth Phelps [address] [place] [address] Dear Ms. Phelps, We are pleased to [...] report will be kept on file at [facility] as part of your permanent medical record and are available f or your continuing care. Thank you for allowing us to help in meeting your health car e needs. Sincerely, Dr. Alberts Interpreting Radiologist [facility] (Normal over 40) progress on 2018-09 Protein mass conc HNO ID: [id number] Normal [facility] Author: Rula Baumann LPN [place] ([id number]) Service: ? Author Type: ? Type: Progress Notes Filed: 09/28/2018 3:13 PM Note Text: Patient presents for B-12 injection. Denies any problems at this time. Patient instructed on any SE of medication, verbalized under standing and agreed to proceed with treatment. Tolerated injection well. Rula Baumann LPN cnptoutreach on 01-14-21 CNPTOUTREACH Patient Outreach (INTM) Normal 0 09-29-2018 [place] [facility] MARYBETH PHELPS ([id number]) 1970 [facility] Date Time Provider Department ([id number]) 09/29/18 [facility] During your visit today, we recorded the following informati on about you: Allergies As of Date: 09/29/2018 Noted Allergy Reaction CIPRO (CIPROFLOXACIN) 04/21/2007 2 - Rash Comments: Rapid heartbeat, flushed CODEINE [Other] 06/17/2005 4 - Hives DILAUDID (HYDROMORPHONE (BULK)) 06/05/2009 HYOSCYAMINE 01/09/2007 2 - Rash 9 - Itching PENICILLINS 06/17/2005 4 - Hives Date Reviewed: 08/19/2018 Reviewed by: Sarah Camacho Flight Operations Inspector - Fully Assessed Visit Diagnosis:Postsurgical hypothyroidism [E89.0] Order(s):TSH BLD [SQTSH] Order #: [id number] FUTURE Prescriptions as of 09/29/2018 Sig: TOPIRAMATE [...] Encounter Status:Closed by EPIC, PRODUSER on 10/14/18 [facility] screening on 29-03-06 [facility] SCREENING * * *Final Report* * * Normal [facility] DATE OF EXAM: Mar 17 2018 3:26PM [place] ([id number]) [facility] 0581 - [facility] SCREENING / PROCEDURE REASON: Screening for breast cancer * * * * Physician Interpretation * * * * RESULT: #[id number] - [facility] SCREENING BILATERAL DIGITAL SCREENING MAMMOGRAM WITH CAD: 03/17/2018 HISTORY: Screening For Breast Cancer\ Screening Mammogram - patient reports NO breast symptoms /priors available for comparison. RESULT: TECHNIQUE: The study was acquired using full field digital t echnology and interpreted from soft copy. Current study was also evaluated with a Computer Aided Detec tion (CAD). Comparison is made to exams dated: 01/21/2017 mammogram - [facility], 06/24/2013 mammogram - [facility], and 12/16/2007 mammogram. The tissue of both breasts is heterogeneously dense. This ma y lower the sensitivity of mammography. No significant masses, calcifications, or other findings are seen in either breast. There has been no significant interval change. IMPRESSION: NEGATIVE There is no mammographic evidence of malignancy. A [address] reening mammogram is recommended. Machelle Alberts M.D., jr/hoda:03/17/2018 16:45:41 Underwriting Consultant: Jamila Garcia RT(R)(M), [facility] letter sent: Normal over 40 Mammogram [...] providers when to sto p screening mammograms. Hide Inspector And Sorter: Hoda Transcribe Date/Time: Mar 17 2018 3:28P Dictated by: MACHELLE ALBERTS MD This examination was interpreted and the report reviewed and electronically signed by: MACHELLE ALBERTS MD on Mar 17 2018 4:45PM EST [id number] ct brain wo ivcon o n 2018-08-21 CT BRAIN WO * * *Final Report* * * Normal 08-21 [facility] IVCON DATE OF EXAM: Aug 21 2018 3:00PM [place] ([id number]) [facility] 0504 - CT BRAIN WO IVCON [...] of acute intracranial abnormality. No intracranial hemorrhage. Hide Inspector And Sorter: KILEY Transcribe Date/Time: Aug 21 2018 3:17P Dictated by : JP FERRELL MD This examination was interpreted and the report reviewed and electronically signed by: DIONISIO DUQUE MD on Aug 21 2018 3:25PM EST [id number] cnnurse on [facility] Nurse Visit (FAMPWS) Normal 9 [place] MARYBETH Hussein ([id number]) 1970 [facility] Time Provider Department ([id number]) 09/28/18 2:45 PM [place] NURSE FAMPWS During your visit today, we recorded the following informati on about you: Rula Baumann LPN 09/28/2018 3:13 PM Signed Patient presents for B-12 injection. Den ies any problems at this time. Patient instructed on any SE of medication, verbalized understanding and agreed to proceed with treatment. Tolerated injection well. Rula Baumann LPN Referring Provider: SPEEDY RIOS [[id number]] Allergies As of Date: 09/28/2018 Noted Allergy Reaction CIPRO (CIPROFLOXACIN) 04/21/2007 2 - Rash Comments: Rapid heartbeat, flushed CODEINE [Other] 06/17/2005 4 - Hives DILAUDID (HYDROMORPHONE (BULK)) 06/05/2009 HYOSCYAMINE 01/09/2007 2 - Rash 9 - Itching PENICILLINS 06/17/2005 4 - Hives Date Reviewed: 08/19/2018 Reviewed by: Sarah Camacho Flight Operations Inspector - Fully Assessed Reason for Visit: B-12 [...] on 2018-08 Protein mass conc HNO ID: [id number] Normal [facility] Author: Rosenda Holloway [place] ([id number]) Service: ? Author Type: ? Type: Progress [...] August 21, 2018 3:21 PM cnnurse on [facility] Nurse Visit (FAMPWS) Normal 8 [place] [facility] MARYBETH PHELPS ([id number]) 1970 [facility] Time Provider Department ([id number]) 03/17/18 2:45 PM [place] NURSE FAMPWS During your visit today, we recorded the following informati on about you: Rula Baumann LPN 03/17/2018 3:02 PM Signed Patient presents for B-12 injection. Den ies any problems at this time. Patient instructed on any SE of medication, verbalized understanding and agreed to proceed with treatment. Tolerated injection well. Rula Baumann LPN Referring Provider: SPEEDY RISO [[id number]] Allergies As of Date: 03/17/2018 Noted Allergy [...] 2018-08-19 CNOV Office Visit (FAMWS) Normal 08-20-19 [place] MARYBETH Hussein ([id number]) 1970 F [place] Date Time Provider Department ([id number]) 08/19/18 4:00 PM MARYBETH RICHARD (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 Orientation: [...] experience s these symptoms again Marybeth Richard APRN.DIRECTOR OF INFECTION PREVENTION Referring Provider: SELF [200] Allergies As of Date: 08/19/2018 Noted Allergy Reaction CIPRO (CIPROFLOXACIN) 04/21/2007 2 - Rash Comments: Rapid heartbeat, flushed CODEINE [Other] 06/17/2005 4 - Hives DILAUDID (HYDROMORPHONE (BULK)) 06/05/2009 HYOSCYAMINE 01/09/2007 2 - Rash 9 - Itching PENICILLINS 06/17/2005 4 - Hives Date Reviewed: 08/19/2018 Reviewed by: Sarah Camacho Flight Operations Inspector - Fully Assessed Reason for Visit: Seizures [97] Primary Visit Diagnosis:Chronic migraine with aura [G43.109] Other Visit Diagnoses:Syncope and collapse [R55] Thunderclap headache [G44.53] Chronic mixed headache syndrome [G44.89] Convulsions, unspecified convulsion type (HCC) [R56.9] Order(s):CT BRAIN WO IVCON [2456783] Order #: [id number] FUT URE CONSULT TO NEUROLOGY [9019] Order #: [id number]: 1 CBC [SQCBC] Order #: [id number] FUTURE COMP METABOLIC PANEL [SQCMP] Order #: [id number] FUTURE Prescriptions as of 08/19/2018 Sig: TOPIRAMATE [...] mass conc 3.9 3.9-4.9 g/dL Normal 08-19-2018 [facility] (46945) Comment: Performed By: #### CMP, CBC ####[facility] [address] [place] [id number]- [phone] ALP enzyme act/vol 114 34-123 U/L Normal 08-19-2018 [facility] (72607) Comment: Performed By: #### CMP, CBC ####[address] [phone]- [phone] ALT enzyme act/vol 19 7-38 U/L Normal 08-19-2018 [facility] (00726) Comment: Performed By: #### CMP, CBC ####[address] [phone]- [phone] Anion gap molar conc 12 9-18 mmol/L Normal 9 [facility] (81849) Comment: Performed By: #### CMP, CBC ####[address] [phone] AST enzyme act/vol 18 13-35 U/L Normal 08-19-2018 [facility] (28828) Comment: Performed By: #### CMP, CBC ####[address] [phone] Bilirubin mass conc <0.2 0.2-1.3 mg/dL Low 08-19-2018 [facility] (09646) Comment: Performed By: #### CMP, CBC ####[address] [phone] Calcium mass conc 9.1 8.5-10.2 mg/dL Normal 08-19-2018 [facility] (82202) Comment: Performed By: #### CMP, CBC ####[address] [phone] Chloride molar conc 102 97-105 mmol/L Normal 08-19-2018 [facility] (59172) Comment: Performed By: #### CMP, CBC ####[address] [phone]- [phone] CO2 molar conc 22 22-30 mmol/L Normal 08-19-2018 [facility] (64908) Comment: Performed By: #### CMP, CBC ####[facility] [place], [place] [phone]- [phone] Creatinine mass conc 0.73 0.58-0.96 mg/dL Normal 9 [facility] (97478) Comment: Performed By: #### CMP, CBC ####[facility] [place], [place] [phone]- [phone] eGFR- Amer. >60 Normal 08-19-2018 [facility] (66985) Comment: Performed By: #### CMP, CBC ####[address] [phone]- [phone] GFR/1.73 sq M predicted >60 mL/min/{1.73_m2} Normal 08-19-2018 [facility] among non-blacks MDRD [place] (07548) vol rate/area (S/P/Bld) Comment: Result Comment: eGFR [...] actual GFR. Performed By: #### CMP, CBC ####[facility] [place] [address] [phone] Glucose mass conc 101 74-99 mg/dL High 08-19-2018 [facility] (49815) Comment: Result Comment: The [place] Diabetes Association (ADA) provides guidance for cutoff [...] for diagnosis of diabetes. Reference: Standards of [facility] Care in Diabetes 2016, [place] [employer] Association. Diabetes Care. 2016.39(Suppl 1). Performed By: #### CMP, CBC ####[address] [phone] Potassium molar conc 3.3 3.7-5.1 mmol/L Low 9 [facility] (21716) Comment: Performed By: #### CMP, CBC ####[address] [phone] Protein mass conc 6.8 6.3-8.0 g/dL Normal 08-19-2018 [facility] (85093) Comment: Performed By: #### CMP, CBC ####[address] [phone] Sodium molar conc 136 136-144 mmol/L Normal 08-19-2018 [facility] (33280) Comment: Performed By: #### CMP, CBC ####[address] [phone] Urea nitrogen mass conc 8 7-21 mg/dL Normal 2018 [facility] (89424) Comment: Performed By: #### CMP, CBC ####[address] [phone] progress on 2018-08 Protein mass HNO ID: [id number] Normal 08-20-19 19 [place] [facility] Author: Marybeth PutnamEncompass Health Rehabilitation Hospital Of New EnglandSabi Richard [facility] Service: ? 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 0.58 - 0 .96 mg/dL Final Comment: Account Credited HIDE 10/07/2017 0.79 0.58 - 0.96 mg/dL Final 05/01/2017 0.84 0.58 - 0.96 mg/dL Final eGFR-All Other Races Date Value Ref Range Status 01/14/2018 Test sent to [facility]. . Final Comment: Account Credited HIDE eGFR- Date Value Ref Range Status 01/14/2018 Test sent to [facility]. Final Comment: Account Credited HIDE P.O.C.T. RESULTS: [...] 3:16 PM Protein mass conc HNO ID: [id number] Normal [facility] Author: Marybeth (Surveillance Specialist) Hilary [place] ([id number]) Service: (none) Author Type: Nurse Practitioner Type: [...] it better . 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 Speedy Rios MD The documentation for this note was completed by Jaleesa Macedo Ma acting as scribe for Speedy Rios MD. July 14, 2018 11:08 AM. Jaleesa Macedo Ma 07/14/2018 11:00 AM Signed Health Information For Patients and the Community How to Prepare for Your [place] noscopy Using Golytely, Nulytely, Trilyte or Colyte [...] the day before your colonosco py. Designated Level Designer on the Day of Your Exam A responsible family member or friend MUST come with y ou to your colonoscopy and REMAIN in the endoscopy area until you are discharged! You are NOT ALLOWED to drive, take a taxi or bus, or leave the Endoscopy Center ALONE. If you do not have a responsible driver education road instructor (family member or friend) with you to [...] the prescription bowel preparation solution at your [facility]. Three (3) Days Before Your [...] carbonated beverages such as saba marcie or lemon-[place] tribe soda; Gatorade? o r other sports drinks [...] calling after 5:00 PM, please call Nurse bonding machine tender at [phone]. [facility] [address] [address] Index # [id number] Revised 06/2016 3 Colonoscopy Procedure Overview Please [...] of the instructions given to you at [facility] 2 weeks BEFORE your exam. If [...] the nausea persists, please contact nurs e lubrication servicer at [phone]. You may experience skin irri tation around [...] found in the toilet paper area of Adm[place]. ?Sit in a bathtub filled with warm [...] removed or a biopsy was taken, the [facility] sician performing your colonoscopy will tell [...] performed your exam. 6 Revised 06/2016 ?Copyright 3269-9246 [facility]. All rights reserved. Revised 06/2016 Referring Provider: SPEEDY RIOS [[id number]] Allergies As of Date: 07/14/2018 Noted Allergy [...] B 12 deficiency [E53.8] Order(s):CONSULT TO GASTROENTEROLOGY [1971] Order #: [id number] [id number]: 1 topiramate (TOPAMAX) 50 mg tabletTake [...] the day before your colonosco py. Designated Level Designer on the Day of Your Exam A responsible family member or friend MUST come with you to your colonoscopy and REMAIN in the endoscopy area until you are discharged! You are NOT ALLOWED to drive, take a taxi or bus, or leave the Endoscopy Center ALONE. If you do not have a responsible driver education road instructor (family member or fr iend) with you [...] the prescription bowel preparation solution at your [facility] pharmacy or drugstore pharmacy. Three (3) Days [...] carbonated beverages such as saba marcie or lemon-[place] tribe soda; Gatorade? o r other sports drinks [...] calling after 5:00 PM, please call Nurse bonding machine tender at [phone]. [facility] [address] [place] [address] Index # 75624 Revised 06/2016 3 Colonoscopy Procedure Overview Please [...] of the instructions given to you at [facility] 2 weeks BEFORE your exam. If your [...] the nausea persists, please c ontact nurse lubrication servicer at [phone]. You may experience skin irritation around the [...] next 2 weeks, please go to your [facility] emergency room and call the physician who performed your exam. 6 Revised 06/2016 ?Copyright 1794-2258 [facility]. All rights reserved. Revised 06/2016 Prescriptions ordered [...] progress on 2018-07 Protein mass HNO ID: [id number] Normal 07-16-19 [facility] Author: Kimo Hidalgo ([id number]) Service: ? 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 Author Type: ? Type: Progress [...] nRBC <0.01 <0.01 Normal 08-19-2018 [facility] (43513) Comment: Performed By: #### CMP, CBC ####[facility] [place], [place] [phone]- [phone] Erythrocyte distribution 13.1 11.5-15.0 % Normal 08-19 [facility] width Ratio (RBC) Cl [facility] (74052) Comment: Performed By: #### CMP, CBC ####[facility] [place], [place] [phone]- [phone] Hematocrit Volume Fraction 41.7 36.0-46.0 % Normal [facility] (Bld) [place] (17452) Comment: Performed By: #### CMP, CBC ####[place] [address], [place] [id number] [phone] Hemoglobin mass conc 13.7 11.5-15.5 g/dL Normal 9 [facility] (Bld) [place] (14661) Comment: Performed By: #### CMP, CBC ####[place] [address], [place] [phone]- [phone] MCH Entitic mass (RBC) 31.5 26.0-34.0 pG Normal 019 [facility] (90464) Comment: Performed By: #### CMP, CBC ####[address], [place] [phone]- [phone] MCHC mass conc (RBC) 32.9 30.5-36.0 g/dL Normal 9 [facility] (43933) Comment: Performed By: #### CMP, CBC ####[address], [place] [phone]- [phone] MCV Entitic volume 95.9 80.0-100.0 fL Normal 08-19-2018 [facility] (RBC) [place] (34240) Comment: Performed By: #### CMP, CBC ####[address] [place], [place] [phone]- [phone] Platelet mean volume 10.1 9.0-12.7 fL Normal 9 [facility] Entitic volume (Bld) [place] (68470) Comment: Performed By: #### CMP, CBC ####[place] [address], [place] [phone] Platelets #/vol (Bld) 289 150-400 k/uL Normal 08-20-19 19 [facility] (62894) Comment: Performed By: #### CMP, CBC ####[place] [address], [place] [phone] RBC #/vol (Bld) 4.35 3.90-5.20 m/uL Normal 08-19-2018 [facility] (88807) Comment: Performed By: #### CMP, CBC ####[facility] [address] [place], [place] [phone] WBC #/vol (Bld) 7.26 3.70-11.00 k/uL Normal 08-19-2018 [facility] (32241) Comment: Performed By: #### CMP, CBC ####[facility] [address] [place], [place] [phone]- [phone] cnov on 2018-07-15 [facility]OV Office Visit (UC) Normal 07-15-2018 [facility] MARYBETH PHELPS ([id number]) 1970 [facility] Date Time Provider Department ([id number]) 07/15/18 11:00 AM VILLA CANO During your [...] file Social History Narrative 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 Author Type: Physician Type: Progress Notes Filed: 08/19/2018 5:07 PM Note Text: Chief Complaint Patient presents with: F/U 3 Month HPI Marybeth Phelps is a 48 year old female who presents here to [facility] for 3 month follow up. Is excited, son moved back to the [facility], living in [facility] or the next 4 years. [...] will cause anxiety prior to going to [facility]. 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 Speedy Rios MD The documentation for this note was completed by Jaleesa shah Ma acting as scribe for Speedy Rios MD. July 14, 2018 11:08 AM. oneil cbc and diff on 2018-01-14 Eosinophils/100 WBC (Bld) 1.2 % Normal [facility] (37706) Erythrocyte distribution 12.9 11.5-15.0 % Normal 01-14 [facility] width Ratio (RBC) Cl [facility] (58157) Hematocrit Volume Fraction 39.8 36.0-46.0 % Normal [facility] (Bld) [place] (63159) Hemoglobin mass conc (Bld) 13.3 11.5-15.5 g/dL Normal [facility] (27948) Lymphocytes/100 WBC (Bld) 26.5 % Normal [facility] (43204) MCH Entitic mass (RBC) 31.1 26.0-34.0 pg Normal 018 [facility] (51040) MCHC mass conc (RBC) 33.4 30.5-36.0 g/dL Normal 8 [facility] (36923) MCV Entitic volume (RBC) 93.0 80.0-100.0 fL Normal [facility] (62393) Platelet mean volume 9.3 9.0-12.7 fL Normal 8 [facility] Entitic volume (Bld) [place] (38720) Comment: Result Comment: Test perform ed at: [facility], [address] [place], [address] [place], [place] [address]. RBC #/vol (Bld) 4.28 3.90-5.20 m/uL Normal 01-14-2018 [facility] (25606) WBC #/vol (Bld) 8.63 3.70-11.00 k/uL Normal 01-14-2018 [facility] (93594) Oneil Abs Baso 0.03 <0.11 k/uL Normal 01-14-2018 [facility] (15438) Bertrand Abs Eos 0.10 <0.46 k/uL Normal 01-14-2018 [facility] (95527) Bertrand Abs Lymp 2.29 1.00-4.00 k/uL Normal 01-14-2018 [facility] (15921) Oneil Abs Dupage 0.69 <0.87 k/uL Normal 01-14-2018 [facility] (84057) Oneil Abs Neut 5.52 1.45-7.50 k/uL Normal 01-14-2018 [facility] (40984) Bertrand Baso% 0.3 % Normal 01-14-2018 [facility] (57522) Bertrand Dupage% 8.0 % Normal 01-14-2018 [facility] (15327) Bertrand Neut% 64.0 % Normal 01-14-2018 [facility] (44849) Bertrand Platelet Cnt 319 150-400 k/uL Normal 8 [facility] (79006) cnnurse on [facility] Nurse Visit (FAMPWS) Normal 9 [place] [facility] MARYBETH PHELPS ([id number]) 1970 [place] Date Time Provider Department (79752) 06/18/18 1:30 PM [place] [facility] During your visit today, we recorded the following informati on about you: Milagros Salgado 06/18/2018 1:40 PM Signed Patient presents for B-12 injection. Den ies any problems at this time. Patient instructed on any SE of medication, verbalized understanding and agreed to proceed with treatment. Tolerated injection well. Milagros Salgado Referring Provider: SPEEDY RIOS [[id number]] Allergies As of Date: 06/18/2018 Noted Allergy [...] on 2018-07 OBSOLETE Refill (FAMPWS) Normal 07-13-2018 [facility] MARYBETH Hussein ([id number]) 1970 [facility] Time Provider Department ([id number]) 07/13/18 SPEEDY RIOS FAMPWS During your visit [...] on 2018-06 OBSOLETE Refill (FAMPWS) Normal 07-06-2018 [facility] MARYBETH PHELPS ([id number]) 1970 [facility] Time Provider Department ([id number]) 07/06/18 SPEEDY RIOS During your visit today, [...] to refill as ordered MD Adali Ceballos [facility] 07/06/2018 3:01 PM Signed Rx called to [...] 2018-06 OBSOLETE Refill (FAMPWS) Normal 06-29-2018 [facility] MARYBETH PHELPS ([id number]) 1970 [facility] Time Provider Department ([id number]) 06/29/18 SPEEDY RIOS FAMPWS During your visit today, we recorded the following informati on about you: Bhavya Lynne Ma 06/29/2018 5:09 PM Signed Last office visit: 04/09/18 Last refill date 04/09/18 with 9 and 3 refills OARRS report: NA Next office visit: 07/14/18 Bhavya Sheppard APRN.DIRECTOR OF INFECTION PREVENTION 06/30/2018 7:48 AM Signed The following approved [...] OBSOLETE Refill (FAMPWS) Normal 06-23-2018 [facility] MARYBETH PHELPS ([id number]) 1970 [facility] Time Provider Department (54905) 06/23/18 SPEEDY RIOS FAMPWS During your visit today, we recorded the following informati on about you: Adali Dueñas [facility] 06/23/2018 11:40 AM Signed Patient has been [...] daily at bedtime. BILL: No Authorizing Provider: BRIAN SHEPPARD (AKBAR) Adali Dueñas Cma Allergies As [...] on 2018-06 Protein mass conc HNO ID: [id number] Normal [facility] Author: Milagros pringle ([id number]) Service: (none) Author Type: (none) Type: Progress Notes Filed: 06/18/2018 1:40 PM Note Text: Patient presents for B-12 injection. Denies any problems at this time. Patient instructed on any SE of medication, verbalized under standing and agreed to proceed with treatment. Tolerated injection well. 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 General Appearance: Well appearing, alert, [...] on CNNURSE Nurse Visit (FAMPWS) Normal 8 [place] [facility] MARYBETH PHELPS ([id number]) 1970 [facility] Date Time Provider Department (34796) 04/16/18 3:30 PM [place] [facility] During your visit today, we recorded the following informati on about you: Rula Baumann LPN 04/16/2018 3:33 PM Signed Patient presents for B-12 injection. Den ies any problems at this time. Patient instructed on any SE of medication, verbalized understanding and agreed to proceed with treatment. Tolerated injection well. Rula Baumann LPN Referring Provider: SPEEDY RIOS [[id number]] Allergies As of Date: 04/16/2018 Noted Allergy [...] (FAMPWS) Normal 06-17-2018 [facility] MARYBETH Hussein ([id number]) 1970 [place] Date Time Provider Department (79221) 06/17/18 SPEEDY RIOS FAMPWS During your visit today, we recorded the following informati on about you: Speedy Rios MD 06/17/2018 3:10 PM Signed OK to refill as ordered MD Adali Ceballos Flight Operations Inspector 06/17/2018 3:42 PM Signed The following approved [...] on 2018-04 Protein mass conc HNO ID: [id number] Normal [facility] Author: Rula Baumann LPN [place] ([id number]) Service: (none) Author Type: (none) Type: Progress Notes Filed: 04/16/2018 3:33 PM Note Text: Patient presents for B-12 injection. Denies any problems at this time. Patient instructed on any SE of medication, verbalized under standing and agreed to proceed with treatment. Tolerated injection well. Rula Baumann LPN cnnurse on CNNURSE Nurse Visit (FAMPWS) Normal [address] [place] [address] [facility] MARYBETH PHELPS ([id number]) 1970 [facility] Time Provider Department (45140) 05/18/18 9:30 AM [place] NURSE [facility] During your visit today, we recorded the following informati on about you: Rula Baumann LPN 05/18/2018 9:57 AM Signed Patient presents for B-12 injection. Den ies any problems at this time. Patient instructed on any SE of medication, verbalized understanding and agreed to proceed with treatment. Tolerated injection well. Rula Baumann LPN Referring Provider: SPEEDY RIOS [[id number]] Allergies As of Date: 05/18/2018 Noted Allergy [...] on 2018-05 Protein mass conc HNO ID: [id number] Normal [facility] Author: Rula Baumann LPN [place] ([id number]) Service: (none) Author Type: (none) Type: Progress Notes Filed: 05/18/2018 9:57 AM Note Text: Patient presents for B-12 injection. Denies any problems at this time. Patient instructed on any SE of medication, verbalized under standing and agreed to proceed with treatment. Tolerated injection well. Rula Baumann LPN progress on 2018-05 Protein mass HNO ID: [id number] Normal 06-10-19 [facility] conc Author: Villa Cano V [place] ([id number]) Service: (none) Author Type: Physician Type: Progress Notes Filed: 06/10/2018 11:29 AM Note Text: Speedy Rios MD [address] [facility] [address] Ms. 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 PHYSICAL ASSESSMENT: The Pt walks with [...] handout given Villa Cano DO Referring Provider: SPEEDY RIOS [[id number]] Allergies As of Date: 06/10/2018 Noted Allergy [...] on 2017-12 Protein mass conc HNO ID: [id number] Normal [facility] Author: Cecelia Pierre (Rt) Lam Easley ([id number]) Service: (none) Author Type: Balance Truer Type: Progress Notes Filed: 12/28/2017 11:49 AM [...] 11:31 AM Protein mass conc HNO ID: [id number] Normal [facility] Author: Savana PutnamSurveillance Specialist) [facility] ([id number][facility] Service: (none) Author Type: Nurse Practitioner Type: [...] Discussed expected course of illness Savana Tilley APRN.[facility] progress on 2018-01 Protein mass conc HNO ID: [id number] Normal [facility] Author: Chidi Alba (Sw) [place] ([id number]) Service: (none) Author Type: Denture Laboratory Technician Type: Progress Notes Filed: 01/23/2018 2:00 PM Note Text: Opened in error progress on 2018-03 Protein mass conc HNO ID: [id number] Normal [facility] Author: Rula Baumann LPN [place] ([id number]) Service: (none) Author Type: (none) Type: Progress Notes Filed: 03/17/2018 3:02 PM Note Text: Patient presents for B-12 injection. Denies any problems at this time. Patient instructed on any SE of medication, verbalized under standing and agreed to proceed with treatment. Tolerated injection well. 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 Speedy Rios MD The documentation for this note was completed by Jaleesa shah Ma acting as scribe for Speedy Rios MD. April 09, 2018 3:29 PM. 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 Speedy Rios MD The documentation for this note was completed by Jaleesa Macedo Ma acting as scribe for Speedy Rios MD. April 09, 2018 3:29 PM. Referring Provider: SPEEDY RIOS [[id number]] Allergies As of Date: 04/09/2018 Noted Allergy [...] 3 CONSULT TO SLEEP MEDICINE - ADULT [[id number]] Order #: [id number]: 1 Prescriptions as of 04/09/2018 Sig: [...] progress on 2017-12 Protein mass HNO ID: [id number] Normal 12-23-19 18 [facility] Author: Marybeth (Surveillance Specialist) Hilary [place] ([id number]) Service: (none) Author Type: Nurse Practitioner Type: Progress Notes Filed: 12/22/2017 4:08 PM Note Text: 12/22/2017 Patient presents with: Headache SUBJECTIVE: This is a 47 year old that is here today for [facility] nge in headaches. 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 Good capillary refill. , Pulses: [...] 2018-01-14 CNOV Office Visit (FAMPWS) Normal 01-15-[address] [place] [address] MARYBETH Hussein ([id number]) 1970 [facility] Date Time Provider Department ([id number]) 01/14/18 11:00 AM MARYBETH RICHARD ([facility] During your visit today, we recorded [...] it better. 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 GENERAL: No weight [...] DIFF - COMP METABOLIC PANEL Marybeth Richard APRN.DIRECTOR OF INFECTION PREVENTION Referring Provider: SELF [200] Allergies As of [...] abdominal pain [R10.31] Order(s):CT ABD/PEL W IVCON [[id number]] Order #: [id number] FU TURE iv contrast (will be provided [...] 0 CBC + DIFF [SQCBCDIF] Order #: [id number] FUTURE COMP METABOLIC PANEL [SQCMP] Order #: [id number] FUTURE Prescriptions as of 01/14/2018 Sig: VENTOLIN [...] contrast guidelines Letter Text Marybeth Richard CNP [address] [place], [place] [address] 01/14/2018 TO WHOM IT MAY CONCERN: This is to confirm that Marybeth Phelps had an appointment a nd was seen at the [facility] in the Department of Family Medicine by Jamal Trammell 01/14/2018 and please excuse from work. Sincerely yours, Marybeth Richard CNP Encounter Status:Closed by MARYBETH RICHARD on 01/14/18 ct abd/pel w ivcon on 2018-01-14 CT ABD/PEL W * * *Final Report* * * Normal [facility] IVCON DATE OF EXAM: Jan 14 2018 2:52PM [place] ([id number]) [facility] 0530 - CT ABD/PEL W IVCON [...] right lowe r quadrant inflammatory process noted. Hide Inspector And Sorter: [facility] Transcribe Date/Time: Jan 14 2018 3:07P Dictated by : BLAKE ADAN MD This examination was interpreted and the report reviewed and electronically signed by: BLAKE ADAN MD on Jan 14 2018 3:16PM EST [id number] comp metabolic panel on 2018-01-14 Albumin mass conc Test sent to Bertrand 3.9-4.9 Normal 0 01-14-2018 [facility]. [place] ([id number]) Comment: Result Comment: Account Cred ited HIDE ALP enzyme act/vol Test sent to Bertrand 32-117 Normal 01-14-2018 [facility]. [place] ([id number]) Comment: Result Comment: Account Cred ited HIDE ALT enzyme act/vol Test sent to Bertrand 7-38 Normal 01-14-2018 [facility] ([id number]) Comment: Result Comment: Account Cred ited HIDE Anion gap molar Test sent to Bertrand 18 Normal [facility]. [place] (87884) Comment: Result Comment: Account Cred ited HIDE AST enzyme act/vol Test sent to Bertrand 13-35 Normal 01-14-2018 [facility] (59797) Comment: Result Comment: Account Cred ited HIDE Bilirubin mass conc Test sent to 0.2-1.3 Normal 2 018 [facility] (86593) [facility]. Comment: Result Comment: Account Cred ited HIDE Calcium mass conc Test sent to 8.5-10.2 Normal 8 [facility] (62991) [facility]. Comment: Result Comment: Account Cred ited HIDE Chloride molar conc Test sent to Bertrand 97-105 Normal 01-14-2018 [facility] (21321) Comment: Result Comment: Account Cred ited HIDE CO2 molar conc Test sent to Bertrand 22-30 Normal [facility]. [place] ([id number]) Comment: Result Comment: Account Cred ited HIDE Creatinine mass Test sent to 0.58-0.96 Normal 01-14-2018 [facility] (59801) [facility]. Comment: Result Comment: Account Cred ited HIDE eGFR- Amer. Test sent to Bertrand Normal 01-14-2018 [facility]. [place] ([id number]) Comment: Result Comment: Account Cred ited HIDE GFR/1.73 sq M Test sent to Bertrand Normal 01-14 [facility]. [place] (39854) non-blacks MDRD vol rate/area (S/P/Bld) Comment: Result Comment: Account Cred ited HIDE Glucose mass conc Test sent to Bertrand 74-99 Normal 0 01-14-2018 [facility] ([id number]) Comment: Result Comment: Account Cred ited HIDE Potassium molar Test sent to 3.7-5.1 Normal 01-14-2018 [facility] (82625) [facility]. Comment: Result Comment: Account Cred ited HIDE Protein mass conc Test sent to Bertrand 6.3-8.0 Normal 0 01-14-2018 [facility]. [place] ([id number]) Comment: Result Comment: Account Cred ited HIDE Sodium molar conc Test sent to Oneil 136-144 Normal 0 01-14-2018 [facility]. [place] (55339) Comment: Result Comment: Account Cred ited HIDE Urea nitrogen mass Test sent to Bertrand 7-21 Normal 01-14-2018 [facility]. [place] (25709) Comment: Result Comment: Account Cred ited HIDE cnsw on 2017-12-03 CNSW Social Work (NAVWST) Normal 8 [place] [facility] MARYBETH PHELPS ([id number]) 1970 [facility] Date Time Provider Department (25659) 12/03/17 CHIDI ALBA () CLARI During your [...] Date Reviewed: 12/03/2017 Reviewed by: Adali Dueñas Flight Operations Inspector - Fully Assessed Prescriptions as of 12/03/2017 [...] 2018-01-06 CNOV Office Visit (FAMP) Normal 01-07-[address] [place] [address] Clinic MATTIE,MARYBETH Allison ([id number]) 1970 F [place] Date Time Provider Department ([id number]) 01/06/18 3:20 PM SPEEDY RIOS During your [...] hysterectomy 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 General Appearance: Well cabrera earing, [...] Bhavya pepper Ma acting as scribe for Sepedy Rios MD. January 06, 2018 3:32 PM. Referring Provider: SPEEDY RIOS [[id number]] Allergies As of Date: 01/06/2018 Noted Allergy [...] History Recorded Letter Text Speedy Rios MD [address] [place], [place] [address] 01/06/2018 TO WHOM IT MAY CONCERN: This is to confirm that Marybeth Phelps had an appointment a nd was seen at [facility] by Speedy Rios MDon 01/06/2018. Sincerely yours, Dr. Speedy Rios MD Encounter Status:Closed by SPEEDY RIOS MD on 01/08/18 progress on 2018-01 Protein mass HNO ID: [id number] Normal 01-14-20 [facility] Author: Waldo Bishop [place] ([id number]) Service: (none) Author Type: Physician Type: Progress [...] pressure over RLQ. No inciting event. Co exs-hhl-wccg. 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 Positive for fat igue CATALYST OPERATOR GASOLINE: No vaginal discharge, pruritis, pain MUSCULOSKELETAL: Reports [...] 2018-01-13 CNOV Office Visit (WOOB) Normal 01-13-2018 [place] [facility] MARYBETH PHELPS ([id number]) 1970 F [place] Date Time Provider Department (85403) 01/13/18 2:45 PM WALDO BISHOP During your [...] pressure over RLQ . No inciting event. Ozeuy-sxs-brnj. 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 Positive for fat igue CATALYST OPERATOR GASOLINE: No vaginal discharge, pruritis, pain MUSCULOSKELETAL: Reports [...] of Service: EST PATIENT VISIT LEVEL 3 [[id number]] Disposition: Return in about 1 year (around 01/13/2019) for we ll woman. Follow-up and Disposition History Recorded Encounter Status:Closed by WALDO BISHOP MD on 01/13/18 cnov on 2017-12-03 CNOV Office Visit (FAMPWS) Normal 12-04-[address] [place] [address] [facility] MARYBETH PHELPS ([id number]) 1970 [facility] Date Time Provider Department ([id number]) 12/03/17 9:00 AM BRIAN SHEPPARD (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 [...] 3. ?NO OTHER ABNORMALITY OF AP PELVIS. Hide Inspector And Sorter: KIMBERLY Transcribe Date/Time: Jun ?3:38P Dictated by [...] imaging, see ortho for recs. Brian Sheppard APRN.DIRECTOR OF INFECTION PREVENTION Referring Provider: SELF [200] Allergies As of Date: 12/03/2017 Noted Allergy Reaction CIPRO (CIPROFLOXACIN) 04/21/2007 2 - Rash Comments: Rapid heartbeat, flushed CODEINE [Other] 06/17/2005 4 - Hives DILAUDID (HYDROMORPHONE (BULK)) 06/05/2009 HYOSCYAMINE 01/09/2007 2 - Rash 9 - Itching PENICILLINS 06/17/2005 4 - Hives Date Reviewed: 12/03/2017 Reviewed by: Adali Dueñas Flight Operations Inspector - Fully Assessed Reason for Visit: Pain [78] Primary Visit Diagnosis:Hip pain, bilateral [M25.551, M25.55 2] Other Visit Diagnoses:Screening for breast cancer [Z12.31] Vitamin B 12 deficiency [E53.8] Order(s):[facility] SCREENING [[id number]] Order #: [id number] FUTURE naproxen (NAPROSYN) 500 mg tabletTake 1 tablet by mouth twic e daily as needed (for pain/inflammation). Take with food.Disp: 60 tabletRfl: 0 XR HIP GENERAL 3V PELV/AP/LAT RT [[id number]] Order #: [id number] FUTURE XR HIP GENERAL 3V PELV/AP/LAT LT [[id number]] Order #: [id number] FUTURE CONSULT TO ORTHOPAEDICS [9026] Order #: [id number]: 1 Prescriptions as of 12/03/2017 Sig: LORAZEPAM [...] 2017-12-28 CNOV Office Visit (UCWSTR) Normal 12-29-19 [place] MARYBETH PHELPS ([id number]) 1970 [facility] Time Provider Department ([id number]) 12/28/17 11:15 AM SAVANA TILLEY (AKBAR) [facility] During your visit today, we recorded [...] [R07.81] Order(s):XR RIBS/CHEST 3V AP RIB/OBLS/CXR RT [[id number]] Order #: [id number] FUTURE XR HIP GENERAL 3V PELV/AP/LAT RT [[id number]] Order #: [id number] FUTURE Prescriptions as of 12/28/2017 Sig: [...] * *Final Report* * * Normal 12-28-2017 [place] RIB/OBL/CHST R DATE OF EXAM: Dec 28 2017 11:49AM [facility] WOX 5244 - XR RIB/CHST 3V AP RIB/OBL/CHST R / [id number] [place] PROCEDURE REASON: Pleurodynia ([id number]) * * * * Physician Interpretation * [...] rib fracture. No radiographic evidence for ac ysleta del sur cardiopulmonary disease. Hide Inspector And Sorter: PSCB Transcribe Date/Time: Dec 28 2017 11:51A Dictated by : RIA BENEDICT MD This examination was interpreted and the report reviewed and electronically signed by: RIA BENEDICT MD on Dec 28 2017 11:52AM EST [id number] xr hip 3v pelv+ ap/lat rt on 2017-12-28 XR HIP 3V PELV+ * * *Final Report* * * Normal 0 12-28-2017 [facility] AP/LAT RT DATE OF EXAM: Dec 28 2017 11:49AM [place] ([id number]) WOX 5352 - XR HIP 3V PELV+ [...] are symmetric. - IMPRESSION: No acute/significant pathology. 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 REVIEW OF 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 [...] 3. ?NO OTHER ABNORMALITY OF AP PELVIS. Hide Inspector And Sorter: PSC Transcribe Date/Time: Jun ?3:38P Dictated by [...] imaging, see ortho for recs. Brian Sheppard, RECOVERY OPERATOR HELPER.DIRECTOR OF INFECTION PREVENTION progress on 2017-10 Protein mass conc HNO ID: [id number] Normal [facility] Author: Rula Baumann LPN [place] ([id number]) Service: (none) Author Type: (none) Type: Progress Notes Filed: 11/07/2017 10:39 AM Note Text: Patient presents for B-12 injection. Denies any problems at this time. Patient instructed on any SE of medication, verbalized under standing and agreed to proceed with treatment. Tolerated injection well. Rula Baumann LPN cnnurse on [facility] Nurse Visit (FAMPWS) Normal 8 [place] MARYBETH Hussein ([id number]) 1970 [facility] Date Time Provider Department ([id number]) 11/07/17 10:30 AM [place] [facility] During your visit today, we recorded the following informati on about you: Rula Baumann LPN 11/07/2017 10:39 AM Signed Patient presents for B-12 injection. Den ies any problems at this time. Patient instructed on any SE of medication, verbalized understanding and agreed to proceed with treatment. Tolerated injection well. Rula Baumann LPN Referring Provider: SPEEDY RIOS [[id number]] Allergies As of Date: 11/07/2017 Noted Allergy [...] progress on 2017-10 Protein mass HNO ID: [id number] Normal 10-22-[address] [place] [address] Author: Jamison Sifuentes) [facility] Service: (none) Caridad bass Author Type: Physician Health Education Teacher ([id number]) Type: Progress Notes Filed: 10/21/2017 12:54 PM [...] needed (dizziness). Disp: 30 tablet Rfl: 0 akufayrf-zlmlefalb-jjjsfnnvhvyghp (CORTISPORIN) 3.5-10,000-1 mg/mL-unit/mL-% otic suspension Use 3 [...] - COLONOSCOPY W/BX 05-24-15 - [facility]-24-15 - EXPLORATORY OF ABDOMEN [...] patient concerning symptoms to go to the [facility] or follow up here. Pt agreeable with this plan. Jamison Hines PA-C cnpn on 2017-10-21 CNPN Telephone (FAMPWS) Normal 10-21-2017 [place] MARYB[place] Hussein ([id number]) 1970 F [facility] Time Provider Department ([id number]) 10/21/17 SPEEDY RIOS FAMPWS During your visit [...] Problem [65] Prescriptions as of 10/21/2017 Sig: [id number]-[id number] * Use 3 Drops in the right [...] CNOV Office Visit (UCWSTR) Normal 10-22-19 18 [place] MARYBETH Hussein ([id number]) 1970 F [place] Date Time Provider Department ([id number]) 10/21/17 11:45 AM JAMISON HINES (KISHORE) [facility] [...] needed (dizziness). Disp: 30 tablet Rfl: 0 retxdtfr-nlzfgblot-mzpfpzebfksfak (CORTISPORIN) 3.5-10 ,000-1 mg/mL-unit/mL-% otic suspension Use [...] - COLONOSCOPY W/BX 05-24-15 - [facility]X 05-24-15 - EXPLORATORY OF ABDOMEN [...] externa of right ear, unspecified type [H60.501] Order(s):pibpdmah-bgrpgypkk-gcwlgyqqoktxbk (CORTISPORIN) 3.5 -10,000-1 mg/mL-unit/mL-% otic suspensionUse 3 [...] Take 1 tablet by mouth three * WPNXNRXR-LIYZPJVUU-QUQMLLVSA * Use 3 Drops in the right [...] ordered this encounter Disp Refills Start End QWYPKQZQ-MRUXUCHAP-LVTJDATRD 3.5 MG-* 1 [place]* 0 10/21/2017 Route: RIGHT EAR Sig: Use 3 Drops in the right ear four times daily for 7 day s. Encounter Status:Closed by JAMISON HINES PA-C on 10/21/17 Summary Purpose DATE CREATED AUTHOR AUTHOR'S ORGANIZATIO N 10/18/2018 [facility] Family History No Family History Records [...] BE BASED ON THE PRIMARY CLINICAL RECORDS. [facility] provides no warranty or guarantee of the accuracy or completeness of information in this document. UNRECOGNIZED CONTENT PROVIDED BELOW FOR UNRECOGNIZED SECTION INFORMATION SOURCE DATE CREATED AUTHOR AUTHOR'S ORGANIZLYNNO N 10/18/2018 [facility]
[2018-11-04 05:38] VITALS: BP 93/52; PULSE 74; RESP 16; TEMP 36.4; O2SAT 96
[2018-11-04 06:43] LABS: Hematocrit 40.7 % (37-47); Hemoglobin 13.5 g/dl (12.0-15.0); Mean Corp Hgb Conc 33.2 g/gl (32-36); Mean Corpuscular Hgb 30.6 pg (27.0-32.0); Mean Corpuscular Volume 92.3 fL (81-99); Mean Platelet Vol. 9.4 fl (6.2-12.0); Platelet Count 260 K/mm3 (150-450); RBC Distribution Width SD 43.2 fl (35.1-43.9); Red Blood Count 4.41 M/mm3 (4.2-5.4); White Blood Count 11.2 K/mm3 (4.4-11.0)
[2018-11-04 06:46] LABS: Scan Indicated on CBC? Y/N NO
[2018-11-04 06:56] LABS: Anion Gap 8 (5-15); BUN 9 mg/dL (7-18); BUN/Creat Ratio 13.4 RATIO (10-20); Calcium,Total 8.6 mg/dL (8.5-10.1); Chloride 107 mmol/L (98-107); Creatinine, Serum 0.67 mg/dL (0.55-1.02); EST Glomerular Filtration Rate 99 mL/min (>60); Est Glom Filt Rate - Afr Amer 119 mL/min (>60); Estimated Creatinine Clearance 94.04 ml/min; Glucose 92 mg/dL (74-106); Potassium 3.8 mmol/L (3.5-5.1); Prealbumin 15.6 mg/dL (20.0-40.0); Sodium Level 141 mmol/L (136-145)
[2018-11-04] MEDS: oxyCODONE 5 MG Tablet 10 MG PO ×2 (08:40→22:35)
[2018-11-04] MEDS: diazePAM 5 MG Tablet PO ×2 (08:43→18:00)
[2018-11-04 08:44] VITALS: BP 94/44; PULSE 18; RESP 18; TEMP 36.5; O2SAT 97
[2018-11-04] MEDS: Ondansetron 4 MG/2 ML Vial IV ×2 (08:54→18:00)
--- NOTE | 2018-11-04 10:14 | NURSING ---
Pt requesting to have limited visitors today- FARIDEH Lujan placed sign on door notifying anyone to see nurse prior to entering.
[2018-11-04] MEDS: proMETHazine 25 MG Tablet PO (12:21)
[2018-11-04] MEDS: Morphine 4 MG/ML Syringe IV ×2 (12:58→18:00)
[2018-11-04 14:00] VITALS: BP 91/50; PULSE 89; RESP 18; TEMP 37; O2SAT 94
[2018-11-04] MEDS: Acetaminophen 500 MG Tablet PO (18:00)
[2018-11-04 22:22] VITALS: BP 86/49; PULSE 83; RESP 16; TEMP 37.1; O2SAT 93
[2018-11-04] MEDS: Mirtazapine 30 MG Tablet PO (22:27)
[2018-11-04] MEDS: Venlafaxine XR 75 MG Capsule PO (22:27)
[2018-11-04] MEDS: Venlafaxine XR 150 MG Capsule PO (22:27)
[2018-11-04] MEDS: Amitriptyline 100 MG Tablet 150 MG PO (22:27)
[2018-11-04] MEDS: Docusate Sodium 100 MG Capsule PO (22:27)
[2018-11-04] MEDS: Topiramate 25 MG Tablet PO (22:28)
--- NOTE | 2018-11-04 23:46 | PCM.PN.SRG ---
Subjective: Postop #1 Patient complains of incisional pain. Is unsteady on her feet with ambulation. - Physical Exam General: Alert, Oriented x3 HEENT: PERRLA, EOMI Oral: Moist Mucosa Neck: Supple Abdomen: Soft, Non-Distended Skin: Incision - bilateral mastectomy incisions are dry and intact. No clinical evidence of hematoma. Neurological: Cranial nerves II-XII grossly intact Psych/Mental Status: Normal Affect, Appropriate Vital Signs Temp Pulse Resp BP Pulse Ox 98.7 F 83 16 86/49 L 93 11/04/18 22:22 11/04/18 22:22 11/04/18 22:22 11/04/18 22:22 11/04/18 22:22 Oxygen Delivery Method Room Air Weight: 147 lb 7.828 oz Body Mass Index (BMI) 23.8 Intake and Output for Last 24 Hours 11/02/18 11/03/18 11/04/18 23:59 23:59 23:59 Intake Total 2724 / 2724 2304 / 2304 Output Total 1999 / 1999 1940 / 1940 Balance 724 / 724 364 / 364 Drainage 40 ml today. Microbiology Past 72 Hours 11/03/18 13:23 Gram Stain - Final Tissue - Breast Wound Culture - Preliminary No growth-Final to follow 11/03/18 13:23 Gram Stain - Final Tissue - Breast Wound Culture - Preliminary No growth-Final to follow Laboratory Tests Past 24 Hrs 11/04/18 11/04/18 06:16 06:16 WBC 11.2 H RBC 4.41 Hgb 13.5 Hct 40.7 MCV 92.3 MCH 30.6 MCHC 33.2 RDW 13.0 RDW Differential 43.2 Plt Count 260 MPV 9.4 Sodium 141 Potassium 3.8 Chloride 107 Carbon Dioxide 26.0 Anion Gap 8 BUN 9 Creatinine 0.67 Estim Creat Clear Calc 94.04 Est GFR (MDRD) Af Amer 119 Est GFR (MDRD) Non-Af 99 BUN/Creatinine Ratio 13.4 Glucose 92 Calcium 8.6 Prealbumin 15.6 L 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 3. Nonhealing ulcer medial aspect right mastectomy scar. 4. Nonhealing ulcer lateral aspect left mastectomy scar. 5. Family history of breast cancer. 6. Lupus. 7. Immunocompromised state from Humira therapy for Lupus. 8. Inconclusive mammography due to dense breasts. 9. Smoker. 10. s/p surgical preparation right breast mastectomy scar with incision and drainage and excisional debridement nonhealing ulcer with 9 cm complex secondary wound closure and surgical preparation left breast mastectomy scar with incision and drainage and excisional debridement nonhealing ulcer with 5 cm complex secondary wound closure. Mastectomy incisions are dry and intact. No clinical evidence of hematoma. Continue tommie wrap chest wall compression. Has incisional pain. Still needs intermittent IV analgesia. Is a little unsteady on her feet with ambulation. Operative cultures are negative thus far. Continue Cleocin. Will be discharged on antibiotics until the drains are removed in the office. Keep head elevated. Continue lifting restriction. Prealbumin was 15.6. Encourage nutritional supplementation with protein to help the healing process.
[2018-11-05] VITALS (7 sets, daily range): BP systolic 85–106; BP diastolic 46–58; PULSE 84–105; RESP 16–18; TEMP 36.5–37.3; O2SAT 91–96
[2018-11-05] MEDS: Ondansetron 4 MG/2 ML Vial IV ×2 (03:33→23:22)
[2018-11-05] MEDS: oxyCODONE 5 MG Tablet 10 MG PO ×5 (03:33→23:22)
[2018-11-05] MEDS: Gabapentin 300 MG Capsule PO ×3 (05:54→23:01)
[2018-11-05] MEDS: Acetaminophen 500 MG Tablet PO ×2 (05:57→13:00)
[2018-11-05] MEDS: proMETHazine 25 MG Tablet PO (05:58)
[2018-11-05] MEDS: Enoxaparin 30 MG/0.3 ML Syringe SC (05:58)
[2018-11-05] MEDS: diazePAM 5 MG Tablet PO ×2 (05:58→11:26)
[2018-11-05] MEDS: Docusate Sodium 100 MG Capsule PO (08:24)
--- NOTE | 2018-11-05 10:49 | PCM.PN.SRG ---
Subjective: Postop #2 Patient has incisional pain. Still a little unsteady on her feet with ambulation. - Physical Exam General: Alert, Oriented x3 HEENT: PERRLA, EOMI Oral: Moist Mucosa Neck: Supple Abdomen: Soft, Non-Distended Skin: Incision - bilateral mastectomy incisions are dry and intact. No clinical evidence of hematoma. Neurological: Cranial nerves II-XII grossly intact Psych/Mental Status: Normal Affect, Appropriate Vital Signs Temp Pulse Resp BP Pulse Ox 98.8 F 105 H 18 90/54 L 91 11/05/18 07:58 11/05/18 07:58 11/05/18 07:58 11/05/18 07:58 11/05/18 07:58 Oxygen Delivery Method Room Air Weight: 147 lb 7.828 oz Body Mass Index (BMI) 23.8 Intake and Output for Last 24 Hours 11/03/18 11/04/18 11/05/18 23:59 23:59 23:59 Intake Total 2724 / 2724 2304 / 3015 1294 / 1294 Output Total 1999 1940 / 2760 1378 / 1378 Balance 724 / 724 364 / 255 -84 / -84 Drainage 28 ml today. 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 3. Nonhealing ulcer medial aspect right mastectomy scar. 4. Nonhealing ulcer lateral aspect left mastectomy scar. 5. Family history of breast cancer. 6. Lupus. 7. Immunocompromised state from Humira therapy for Lupus. 8. Inconclusive mammography due to dense breasts. 9. Smoker. 10. s/p surgical preparation right breast mastectomy scar with incision and drainage and excisional debridement nonhealing ulcer with 9 cm complex secondary wound closure and surgical preparation left breast mastectomy scar with incision and drainage and excisional debridement nonhealing ulcer with 5 cm complex secondary wound closure. Mastectomy incisions are dry and intact. No clinical evidence of hematoma. Continue tommie wrap chest wall compression. Has incisional pain. Still needs intermittent IV analgesia but less. She is still a little unsteady on her feet with ambulation. Operative cultures are negative thus far. Continue Cleocin. Will be discharged on antibiotics until the drains are removed in the office. Keep head elevated. Continue lifting restriction. Prealbumin was 15.6. Encourage nutritional supplementation with protein to help the healing process.
--- NOTE | 2018-11-05 11:04 | DCINST_ITS ---
You will use the following diet at home:: No restrictions Discharge Activity: May not drive while taking narcotic pain medications., May Not Shower - until the drain is removed in office., - - keep head elevated. no heavy lifting. May shower in (days): 7 - may shower after the drain is remved in the office. May resume sexual activity in: No Restrictions Weight Bearing Status: Weight bearing as tolerated Lifting Restrictions: 20 lbs. Keep extremity elevated above heart level: - - elevate head. Call your doctor if your incision/area has: Continuous Slow Oozing, Sudden Increased Bleeding, Increased Pain/ Swelling, Increased Redness, Foul Smelling Discharge, Swelling at the incision site Call your doctor if you observe: Fever of 101 or Higher, Coldness, Increased Pain, Shortness of breath, Chest pain, Calf discomfort, Uncontrolled pain Suture Line Care: - - dry dressings daily. Change Dressing in (Days):: 1 - dry dressings daily. Cleanse incision/area with: - - may get incisions wet in the shower after her drain is removed in the office. Drain: Suction - kenneth drain to bulb suction. empty and record output daily. Allergies/Adverse Reactions: Allergies codeine Allergy (Verified 10/29/18 11:13) ALLERGY hydromorphone [From Dilaudid] Allergy (Verified 11/04/18 10:50) SOB/HIVES Penicillins Allergy (Verified 10/29/18 11:13) ALLERGY Medications to take at Discharge amitriptyline 50 mg tablet 150 mg PO QHS tab 06/19/18 atenolol 50 mg tablet 50 mg PO DAILY 06/19/18 mirtazapine 30 mg tablet 30 mg PO QHS 06/19/18 sumatriptan 25 mg tablet 25 mg PO ONCE PRN 06/19/18 topiramate 25 mg tablet 25 mg PO QHS 06/19/18 venlafaxine ER 150 mg capsule,extended release 24 hr 225 mg PO QHS 06/19/18 promethazine 25 mg tablet 25 mg PO 4X/DAY PRN PRN #30 tab 09/29/18 gabapentin 300 mg capsule 300 mg PO TID #90 cap 10/20/18 Clindamycin HCl [Cleocin] 300 mg PO TID #30 cap 11/05/18 Diazepam [Valium] 5 mg PO 4X/DAY PRN PRN #30 tab 11/05/18 Docusate Sodium [Colace] 100 mg PO BID cap 11/05/18 Oxycodone HCl/Acetaminophen [Percocet 5/325] 1 tab PO Q4H PRN PRN 7 Days #40 tab 11/05/18 The following prescriptions were given: Clindamycin HCl [Cleocin] 300 mg PO TID #30 cap Prescription Printed Oxycodone HCl/Acetaminophen [Percocet 5/325] 1 tab PO Q4H PRN PRN 7 Days #40 tab PRN Reason: Pain Prescription Printed Diazepam [Valium] 5 mg PO 4X/DAY PRN PRN #30 tab PRN Reason: spasms Prescription Printed Primary Care Physician: Anson Rios MD [Primary Care Provider] - Test Results: Test results from this visit will be discussed in further detail at your follow- up appointment, if applicable. Please Follow Up With: Panfilo Hickman MD When: one week. call [phone] for appt. Proposed Discharge Date: 11/05/18
--- NOTE | 2018-11-05 14:20 | NURSING ---
PT STATING SHE DOES NOT FEEL SHE WELL ENOUGH TO BE DC'D TODAY. MD STATES IF SHE STAYS ANOTHER DAY, INSURANCE MAY OT PAY FOR IT. THIS WAS EXPLAINED TO THE PT. PT STATES THATS OK. THEY CAN BILL ME
--- NOTE | 2018-11-05 14:30 | NURSING ---
DR HOYOS NOTIFIED THAT PT CHOOSES TO SPEND ANOTHER DAY. ALSO THAT PT C/O PAIN 6. PT ONLY HAS IV MORPHINE THAT CAN BE GIVEN @ THIS TIME. BP 85/46. NEW ORDERS RECEIVED.
[2018-11-05] MEDS: Lactated Ringers 1,000 ML 100 ML IV (15:12)
[2018-11-05] MEDS: Ketorolac 15 MG/ML Vial 30 MG IV ×2 (15:12→23:22)
--- NOTE | 2018-11-05 17:09 | NURSING ---
PT RESTING QUIETLY IN BED, EYES CLOSED, RESP EASY
[2018-11-05] MEDS: Amitriptyline 100 MG Tablet 150 MG PO (23:01)
[2018-11-05] MEDS: Venlafaxine XR 150 MG Capsule PO (23:01)
[2018-11-05] MEDS: Venlafaxine XR 75 MG Capsule PO (23:03)
[2018-11-05] MEDS: Mirtazapine 30 MG Tablet PO (23:04)
[2018-11-05] MEDS: Topiramate 25 MG Tablet PO (23:05)
[2018-11-06 05:00] VITALS: BP 108/58; PULSE 99; RESP 18; TEMP 36.6; O2SAT 96
[2018-11-06] MEDS: Enoxaparin 30 MG/0.3 ML Syringe SC (06:19)
[2018-11-06] MEDS: Gabapentin 300 MG Capsule PO ×2 (06:19→14:40)
[2018-11-06] MEDS: Atenolol 50 MG Tablet PO (08:22)
[2018-11-06] MEDS: Docusate Sodium 100 MG Capsule PO (08:22)
[2018-11-06 08:51] VITALS: BP 113/55; PULSE 91; RESP 16; TEMP 36.4; O2SAT 96
[2018-11-06] MEDS: Ondansetron 4 MG/2 ML Vial IV (09:47)
[2018-11-06] MEDS: oxyCODONE 5 MG Tablet 10 MG PO (10:36)
[2018-11-06] MEDS: Lactated Ringers 1,000 ML 100 ML IV (11:36)
[2018-11-06 11:39] VITALS: BP 94/41; PULSE 83; RESP 16; TEMP 36.7; O2SAT 96
[2018-11-06] MEDS: Ketorolac 15 MG/ML Vial 30 MG IV (14:41)
[2018-11-06 15:06] VITALS: BP 102/54; PULSE 81; RESP 16; TEMP 36.4; O2SAT 98
--- NOTE | 2018-11-06 17:19 | PCM.PN.SRG ---
Subjective: Postop #3 Patient is resting comfortably. She is more steady on her feet with ambulation. - Physical Exam General: Alert, Oriented x3 HEENT: PERRLA, EOMI Oral: Moist Mucosa Neck: Supple Abdomen: Soft, Non-Distended Skin: Incision - bilateral mastectomy incisions are dry and intact. No clinical evidence of hematoma. Neurological: Cranial nerves II-XII grossly intact Psych/Mental Status: Normal Affect, Appropriate Vital Signs Temp Pulse Resp BP Pulse Ox 97.5 F L 81 16 102/54 L 98 11/06/18 15:06 11/06/18 15:06 11/06/18 15:06 11/06/18 15:06 11/06/18 15:06 Oxygen Delivery Method Room Air Weight: 147 lb 7.828 oz Body Mass Index (BMI) 23.8 Intake and Output for Last 24 Hours 11/04/18 11/05/18 11/06/18 23:59 23:59 23:59 Intake Total 2304 / 3015 4012 / 4012 1533 / 1533 Output Total 1940 / 2760 2889 / 2889 1000 / 1000 Balance 364 / 255 1123 / 1123 533 / 533 Drainage 39 ml yesterday. Microbiology Past 72 Hours 11/03/18 13:23 Gram Stain - Final Tissue - Breast Wound Culture - Final No growth aerobically. Anaerobic Culture - Preliminary No growth in 48 hours. 11/03/18 13:23 Gram Stain - Final Tissue - Breast Wound Culture - Final No growth aerobically. Anaerobic Culture - Preliminary Checking for anaerobes, further studies to follow. 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 3. Nonhealing ulcer medial aspect right mastectomy scar. 4. Nonhealing ulcer lateral aspect left mastectomy scar. 5. Family history of breast cancer. 6. Lupus. 7. Immunocompromised state from Humira therapy for Lupus. 8. Inconclusive mammography due to dense breasts. 9. Smoker. 10. s/p surgical preparation right breast mastectomy scar with incision and drainage and excisional debridement nonhealing ulcer with 9 cm complex secondary wound closure and surgical preparation left breast mastectomy scar with incision and drainage and excisional debridement nonhealing ulcer with 5 cm complex secondary wound closure. Mastectomy incisions are dry and intact. No clinical evidence of hematoma. Continue tommie wrap chest wall compression. Has incisional pain. She is tolerating po analgesia. She is more steady on her feet with ambulation. Operative cultures are negative thus far. Continue Cleocin. Will be discharged on antibiotics until the drains are removed in the office. Keep head elevated. Continue lifting restriction. Prealbumin was 15.6. Encourage nutritional supplementation with protein to help the healing process. Discharge home today. Wrote script for Cleocin for 10 days until the drains are removed in the office. Wrote scripts for Percocet for pain (40 tabs) and for Valium for spasm (30 tabs). Keep head elevated. Continue lifting restriction. Continue tommie wrap chest wall compression. Followup one week. Encouraged patient to stop smoking as it may have deleterious effects on wound healing.
== END 2018-11-06 18:00 | disposition home or self-care (01) ==
LOC: SDC 14:08
PROVIDERS: Admitting Provider Surgery; Family Provider Family Medicine; PCP Family Medicine; Referring Provider Surgery; Visit Provider Surgery
PROC: (CPT 19020; principal; 2018-11-03 11:15)
DX: L98.492 Non-pressure chronic ulcer of skin of other sites with fat layer exposed (principal); F45.29 Other hypochondriacal disorders; F17.210 Nicotine dependence, cigarettes, uncomplicated; M32.9 Systemic lupus erythematosus, unspecified; R92.2 Inconclusive mammogram; L90.5 Scar conditions and fibrosis of skin; K58.9 Irritable bowel syndrome, unspecified; F41.9 Anxiety disorder, unspecified; Z79.899 Other long term (current) drug therapy; Z80.3 Family history of malignant neoplasm of breast; Z90.13 Acquired absence of bilateral breasts and nipples; Z85.850 Personal history of malignant neoplasm of thyroid; I10 Essential (primary) hypertension
CPT/HCPCS: 00300; 13160; 15002; 36415; 80048; 84134; 85027; 87070; 87075; 87102; 87205; 87206; 88304; 88305; 96361; 96365; 96366; 96372; 96375; 96376; 99218; J7120; G0378; G0379; J2405

== ENCOUNTER → 2018-12-01 | Outpatient (CLI) | payer MEDICAID, SELFPAY ==
[2018-11-20 14:28] VITALS: BMI 23.8
[2018-12-01 18:10] LABS: AST(SGOT) 21 U/L (15-37); Alanine Aminotransfer ALT/SGPT 29 U/L (13-56); Albumin, Serum 3.4 g/dL (3.2-5.0); Alkaline Phosphatase 133 U/L (45-117); Anion Gap 5 (5-15); BUN 12 mg/dL (7-18); BUN/Creat Ratio 14.8 RATIO (10-20); Calcium,Total 8.7 mg/dL (8.5-10.1); Chloride 109 mmol/L (98-107); Creatinine, Serum 0.81 mg/dL (0.55-1.02); EST Glomerular Filtration Rate 79 mL/min (>60); Est Glom Filt Rate - Afr Amer 96 mL/min (>60); Globulin 3.4 g/dL (2.2-4.2); Glucose 93 mg/dL (74-106); Magnesium 2.1 mg/dL (1.6-2.6); Potassium 4.1 mmol/L (3.5-5.1); Protein, Total 6.8 g/dL (6.4-8.2); Sodium Level 139 mmol/L (136-145)
== END | disposition home or self-care (01) ==
LOC: MTLAB 16:06
PROVIDERS: Family Provider Family Medicine; PCP Family Medicine; Referring Provider Nurse Practitioner Family; Visit Provider Nurse Practitioner Family
DX: M32.9 Systemic lupus erythematosus, unspecified (principal); T81.89XA Other complications of procedures, not elsewhere classified, initial encounter; L98.499 Non-pressure chronic ulcer of skin of other sites with unspecified severity
CPT/HCPCS: 36415; 80053; 83735

== ENCOUNTER 2018-12-02 17:44 | Observation (INO) | payer MEDICAID, SELFPAY ==
[2018-12-02] VITALS (9 sets, daily range): BP systolic 102–114; BP diastolic 44–68; PULSE 73–88; RESP 14–17; TEMP 36.4–36.7; O2SAT 98–100; BMI 23.8; BMI 24.4; BMI 24.0; BMI 24.1
--- NOTE | 2018-12-02 18:00 | EKG12_ITS ---
Test Reason : CP Blood Pressure : / mmHG Vent. Rate : 087 BPM Atrial Rate : 087 BPM P-R Int : 126 ms QRS Dur : 092 ms QT Int : 368 ms P-R-T Axes : 030 083 060 degrees QTc Int : 442 ms Normal sinus rhythm Normal ECG Confirmed by DIONISIO DUNCAN ([id number]), editor at large NINO MENDOZA ([id number]) on 12/03/2018 9:47:27 AM Referred By: Mario Kay Confirmed By:DIONISIO DUNCAN
--- NOTE | 2018-12-02 18:00 | CT_ITS ---
STUDY: CTA CHEST REASON FOR EXAM: Female, 48 years old. SOB, CP, DIZZY, RECENT DOUBLE MASTECTOMY, BREAST CA RADIATION DOSAGE (If Supplied By Facility): CTDIvol = ( 5.31 ) mGy, DLP = ( 178.58 ) mGycm TECHNIQUE: The examination was performed with the intravenous administration of 75 IV Isovue 370. Post-processing of the angiographic images was performed, with multiplanar reformation and 3D reconstruction. Individualized dose optimization techniques were used for this CT. COMPARISON: None. FINDINGS: Surgical clips at the level of the GE junction. Left thyroidectomy. Normal enhancement of the main pulmonary artery and right and left pulmonary arteries. Normal enhancement of the bilateral peripheral pulmonary arteries. There is no demonstrated pulmonary embolism. Normal thoracic aorta and visualized great vessels. There is no demonstrated aortic dissection. Normal heart and pericardium. Normal mediastinum. Normal hilar regions. Normal visualized trachea and bronchi. Bilateral lower lobe alveolitis, more extensive on the left. Normal pleura. Normal chest wall structures. Normal osseous structures. 11 mm left adrenal adenoma. CT/CTA Chest W/WO Contrast IMPRESSION: No pulmonary embolus. Bilateral lower lobe alveolitis, more extensive on the left. Electronically Signed: Rui Stafford MD at 18:42 EDT Tel , Service support ,
--- NOTE | 2018-12-02 18:04 | ED.VISSUMM ---
- ER Visit Summary Date of Service: 12/02/18 Chief Complaint: Chest pain, shortness of breath History of Present Illness: The patient is a 48 F presenting with chest pain, shortness of breath. She states this started 2 days ago. Pain has been intermittent. She states it is worsened with deep breathing. She has shortness of breath with exertion. She has nausea with no vomiting. She denies fever or cough. She was seen by a nurse practitioner at Dr. Hickman's office today and was advised to come to the ED to rule out PE. Patient had a mastectomy in August and required additional surgery for infection in October. Physical Examination: Vitals are stable. Patient is afebrile. Alert no acute distress. HEENT exam is unremarkable. Neck is supple. Lungs are clear and equal bilaterally. Incision clean dry and intact Heart is regular rate and rhythm. Abdomen is soft nontender nondistended. Extremities are unremarkable. Skin is warm and dry. No focal neurologic deficit. Remainder of exam is unremarkable. Emergency Department Course and Treatment: Patient given aspirin, morphine, Zofran. EKG is sinus rate of 87. CBC, chemistry unremarkable. Troponin is negative. CTA chest shows no pulmonary embolus. Bilateral lower lobe alveolitis, more extensive on the left. Patient is a smoker and has a family history of early heart disease. She states the pain has been a pressure sensation as if someone is sitting on her chest. She is comfortable on re-evaluation. Discussed with the hospitalist for observation. Disposition: Observation Impression: Chest pain This note was generated with [employer] dictation software. It may contain incorrect words, spelling, and punctuation that were not noted in review of the chart prior to signing ED Disposition - Plan for ED Patient: Referrals: Anson Rios MD [Primary Care Provider] -
[2018-12-02] MEDS: Ondansetron 4 MG/2 ML Vial IV (18:11)
[2018-12-02] MEDS: Aspirin 81 MG TAB.CHEW 324 MG PO (18:12)
[2018-12-02] MEDS: Morphine 4 MG/ML Syringe IV ×2 (18:12→19:08)
[2018-12-02 18:17] LABS: Absolute Neutrophil Count 6.1 X10^3/uL (2.0-7.7); Basophil# 0.04 X10^3/uL; Basophil% 0.4 % (0-1); Eosinophil# 0.26 X10^3/uL; Eosinophils% 2.7 % (0-5); Hematocrit 41.2 % (37-47); Hemoglobin 13.7 g/dL (12.0-15.0); Mean Corp Hgb Conc 33.3 g/dL (32-36); Mean Corpuscular Volume 93.2 fL (81-99); Mean Platelet Vol. 9.5 fl (6.2-12.0); Monocyte# 0.59 X10^3/uL; Monocyte% 6.1 % (0-10); NRBC Flagged by Analyzer 0 % (0-5); Neutrophil # 6.13 X10^3/uL (2.7-7.7); Neutrophil % 63.6 % (47-70); Platelet Count 312 K/mm3 (150-450); RBC Distribution Width CV 12.8 % (11.6-14.6); RBC Distribution Width SD 43.9 fl (35.1-43.9); Red Blood Count 4.42 M/mm3 (4.2-5.4); White Blood Count 9.6 K/mm3 (4.4-11.0)
[2018-12-02 18:29] LABS: Anion Gap 5 (5-15); BUN 11 mg/dL (7-18); BUN/Creat Ratio 13.5 RATIO (10-20); Calcium,Total 8.9 mg/dL (8.5-10.1); Chloride 106 mmol/L (98-107); Creatinine, Serum 0.81 mg/dL (0.55-1.02); EST Glomerular Filtration Rate 79 mL/min (>60); Est Glom Filt Rate - Afr Amer 96 mL/min (>60); Estimated Creatinine Clearance 77.79 ml/min; Glucose 89 mg/dL (74-106); Potassium 3.8 mmol/L (3.5-5.1); Sodium Level 137 mmol/L (136-145)
--- NOTE | 2018-12-02 19:14 | HP.PCM_ITS ---
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 (5) Nonhealing surgical wound Status: Chronic Comment: right central mastectomy wound and left lateral mastectomy wound (6) Inconclusive mammography due to dense breasts Status: Chronic (7) Lupus (systemic lupus erythematosus) Status: Chronic (8) Immunocompromised state due to drug therapy Status: Chronic Comment: Humira for Lupus (9) Smoker Status: Chronic (10) Family history of breast cancer Status: Chronic (11) 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 Patient was sent to ER by Dr. Hickman office for chest pain. Chest pain is more localized, described very severe, associated with shortness of breath, dizziness, and palpitation. Patient also complained of epigastric pain states food does not make any difference in the characteristic of pain although she has decreased appetite for 2 to 3 days. [] In ED, her vitals are stable. EKG shows normal sinus rhythm 87 bpm with no significant ST-T changes as compared to August 2018 EKG. Basic blood work done in ED shows troponin negative. Lipase 72. She further had CT PA which shows bilateral lower lobe cellulitis, groundglass opacity more extensive on the left lower lobe. Patient had a history of smoking and he still smokes.. Past Medical History Past Medical History (Chronic Problems): Chronic Problems (Last Updated 05/26/18 @ 13:17 by Alexandra Vazquez) 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) nonhealing ulcer medial aspect right mastectomy scar nonhealing ulcer lateral aspect left mastectomy scar Prophylactic breast removal (Chronic) 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) Nonhealing surgical wound (Chronic) right central mastectomy wound and left lateral mastectomy wound Inconclusive mammography due to dense breasts (Chronic) Lupus (systemic lupus erythematosus) (Chronic) Immunocompromised state due to drug therapy (Chronic) Humira for Lupus Smoker (Chronic) Family history of breast cancer (Chronic) Cancer phobia (Chronic) bilateral breasts Medical History: Medical History (Last Updated 05/26/18 @ 13:17 by Alexandra Vazquez) Anemia D64.9 Anxiety and depression F41.9, F32.9 Bleeding disorder D69.9 Bone fracture T14.8XXA Breast cancer C50.919 Breast lump N63.0 Cancer C80.1 Frequent headaches R51 Gallstones K80.20 Gastrointestinal problem R19.8 Goiter E04.9 Heart disease I51.9 Heart valve problem I38 SVT History of blood transfusion Z92.89 Hives L50.9 IBS (irritable bowel syndrome) K58.9 Lupus M32.9 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 Pneumonia J18.9 Thyroid cancer C73 Vitamin deficiency E56.9 Allergies codeine Allergy (Verified 12/02/18 17:45) ALLERGY hydromorphone [From Dilaudid] Allergy (Verified 12/02/18 17:45) SOB/HIVES Penicillins Allergy (Verified 12/02/18 17:45) ALLERGY Home Medications: Ambulatory Orders Medication Instructions Recorded amitriptyline 50 mg tablet 150 mg PO QHS tab 06/19/18 atenolol 50 mg tablet 50 mg PO DAILY 06/19/18 mirtazapine 30 mg tablet 30 mg PO QHS 06/19/18 sumatriptan 25 mg tablet 25 mg PO ONCE PRN 06/19/18 topiramate 25 mg tablet 25 mg PO QHS 06/19/18 venlafaxine ER 150 mg 225 mg PO QHS 06/19/18 capsule,extended release 24 hr promethazine 25 mg tablet 25 mg PO 4X/DAY PRN PRN #30 tab 09/29/18 gabapentin 300 mg capsule 300 mg PO TID #90 cap 10/20/18 furosemide 20 mg tablet 20 mg PO DAILY #14 tab 11/11/18 Docusate Sodium [Colace] 100 mg PO BID PRN 12/02/18 Hydrocodone Bitart/Apap 5-325 1 tab PO Q4H PRN PRN 12/02/18 [[place] 5MG-325MG] Surgical History: Surgical History (Last Updated 05/26/18 @ 13:20 by Alexandra Vazquez) History of cholecystectomy Z90.49 DONE AT [facility] History of hysterectomy Z90.710 DONE AT [facility] History of thyroid surgery Z98.890 DONE AT [facility] Smoking Status: Current every day smoker - *Family History Maternal Family History: Family History (Last Reviewed 12/02/18 @ 19:20 by Mario Kay MD) Other Anemia Anesthesia complication Anxiety Bleeding disorder Bowel disease Breast cancer CVA (cerebral vascular accident) Cancer Cervical cancer Colon cancer Depression (emotion) Diabetes Heart disease High cholesterol History of blood transfusion Hypertension Osteoporosis Ovarian cancer Thyroid disorder Paternal Family History: Family History (Last Reviewed 12/02/18 @ 19:20 by Mario Kay MD) Other Anemia Anesthesia complication Anxiety Bleeding disorder Bowel disease Breast cancer CVA (cerebral vascular accident) Cancer Cervical cancer Colon cancer Depression (emotion) Diabetes Heart disease High cholesterol History of blood transfusion Hypertension Osteoporosis Ovarian cancer Thyroid disorder History Items: Heart Disease - I in 60s Review of Systems Constitutional: Denies: Chills, Fever, Weight Change HEENT: Denies: Head Aches, Sinus Congestion, Sinus Drainage Cardiovascular: Reports: Chest Pain. Denies: Palpitations Respiratory: Reports: Shortness of breath upon exertion. Denies: Cough, Shortness of breath at rest, Sputum production Gastrointestinal: Reports: Abdominal Pain. Denies: Hematemesis, Hematochezia, Nausea, Melena, Vomiting Genitourinary: Denies: Dysuria Musculoskeletal: Denies: Joint Pain, Joint Tenderness Skin: Denies: Rash, Wounds Neurological: Denies: Numbness, Tingling, Focal weakness Psychiatric: Denies: Anxiety, Depression, Homicidal Ideations, Suicidal Ideations Hematologic/ Lymphatic: Denies: Easy Bruising, Easy Bleeding VTE Information - Inpt Only VTE Present on Admission: No VTE Mechan Device Prophylaxis: None VTE Pharm Prophylaxis ordered?: Yes Patient Problems: Active and Suspected Problems (Last Updated 05/26/18 @ 13:17 by Alexandra Vazquez) Atypical chest pain (Acute) - Physical Exam General: Alert, Oriented x3, Cooperative HEENT: Atraumatic, PERRLA, EOMI, Normocephalic Neck: Supple, No JVD, Negative Carotid Bruits Lungs: Clear to auscultation, Normal air movement, Diminished - Air entry diminished in bilateral lung bases Cardiovascular: Regular rate, Regular Rhythm, Normal S1, Normal S2, No murmurs Abdomen: Bowel Sounds Present, Soft, Non Tender, Non-Distended Extremities: No edema, Capillary Refill Less than 3 Seconds Skin: No rashes, No breakdown, - - Bilateral mastectomy scar. No discharge from the right mastectomy scar which was infected and wound revision in October 2018. Surrounding areas right mastectomy scar is head char filter tank tender Musculoskeletal: No Tenderness to Palpation of Joints or Extremities, Arthritic Changes Neurological: Cranial nerves II-XII grossly intact, Deep Tendon Reflexes 2+/4 and Symmetrical, Neuro grossly intact, Motor Exam 5/5 strength throughout Psych/Mental Status: Normal Affect, Appropriate Vital Signs Temp Pulse Resp BP Pulse Ox 97.6 F L 81 17 102/58 L 98 12/02/18 17:45 12/02/18 19:07 12/02/18 19:07 12/02/18 19:07 12/02/18 19:07 Oxygen Delivery Method Room Air Weight: 151 lb 7.321 oz Body Mass Index (BMI) 24.4 Laboratory Tests Past 24 Hrs 12/02/18 12/02/18 12/02/18 18:00 18:00 18:00 WBC 9.6 RBC 4.42 Hgb 13.7 Hct 41.2 MCV 93.2 MCH 31.0 MCHC 33.3 RDW Std Deviation 43.9 RDW Coeff of Lali 12.8 Plt Count 312 MPV 9.5 Immature Gran % (Auto) 0.200 Neut % (Auto) 63.6 Lymph % (Auto) 27.0 [place] % (Auto) 6.1 Eos % (Auto) 2.7 Baso % (Auto) 0.4 Absolute Neuts (auto) 6.1 Absolute Lymphs (auto) 2.60 Absolute Nucleated RBC 0.00 Nucleated RBC % 0 Sodium 137 Potassium 3.8 Chloride 106 Carbon Dioxide 26.0 Anion Gap 5 BUN 11 Creatinine 0.81 Estim Creat Clear Calc 77.79 Est GFR (MDRD) Af Amer 96 Est GFR (MDRD) Non-Af 79 BUN/Creatinine Ratio 13.5 Glucose 89 Calcium 8.9 Troponin I < 0.015 Lipase Pending Assessment/Plan All Active Problems (Last Updated 05/26/18 @ 13:17 by Alexandra Vazquez) Atypical chest pain (Acute) The patient is a 48 year old F with multiple comorbidities including prophylactic bilateral mastectomies, history of ulcer surgery in her 1980s, lupus, IBS came to ER for chest pain and epigastric pain for about 48 hours. Chest pain is more localized, described very severe, associated with shortness of breath, dizziness, and palpitation. Patient also complained of epigastric pain states food does not make any difference in the characteristic of pain although she has decreased appetite for 2 to 3 days. [] In ED, her vitals are stable. EKG shows normal sinus rhythm 87 bpm with no significant ST-T changes as compared to August 2018 EKG. Basic blood work done in ED shows troponin negative. Lipase 72. She further had CT PA which shows bilateral lower lobe cellulitis, groundglass opacity more extensive on the left lower lobe. Patient had a history of smoking and she still smokes. 1. Atypical chest pain most probably musculoskeletal from previous mastectomy surgery: Patient is being admitted to rule out acute coronary syndrome. Cycle cardiac enzymes. Treadmill nuclear stress test tomorrow morning. 2. Epigastric pain probably related to gastritis: Patient stated she is not on PPI. Empirically started on Protonix 40 mg daily. Patient had ulcer surgery when she was a teenager but does not remember the details but seems no part of the stomach or bowel removed but nerve was dissected so probably antrectomy. If it does not get better will need outpatient EGD. 3. CT finding of bilateral groundglass opacity and alveolitis, left lower lobe more extensive: Need outpatient PFT to rule out COPD or restrictive lung disease. Smoking cessation advised. On nicotine patch. DuoNeb as needed for shortness of breath. Strong family history of breast cancer status post prophylactic bilateral mastectomy with postoperative wound complication: Both breast scars are well- healed. No discharge but tenderness present on right mastectomy scar. 4. Other chronic comorbidities include SLE, anxiety and depression, migraine headache: The patient is on amitriptyline, sumatriptan, Topamax, gabapentin, mirtazapine, and venlafaxine. Home medication reconciliation done. DVT prophylaxis: On Lovenox 40 mill grams subcu daily. Laboratory Results 12/02/18 18:00: WBC 9.6, RBC 4.42, Hgb 13.7, Hct 41.2, MCV 93.2, MCH 31.0, MCHC 33.3, RDW Std Deviation 43.9, RDW Coeff of Lali 12.8, Plt Count 312, MPV 9.5, Immature Gran % (Auto) 0.200, Neut % (Auto) 63.6, Lymph % (Auto) 27.0, [place] % (Auto) 6.1, Eos % (Auto) 2.7, Baso % (Auto) 0.4, Absolute Neuts (auto) 6.1, Absolute Lymphs (auto) 2.60, Absolute Nucleated RBC 0.00, Nucleated RBC % 0 12/02/18 18:00: Sodium 137, Potassium 3.8, Chloride 106, Carbon Dioxide 26.0, Anion Gap 5, BUN 11, Creatinine 0.81, Estim Creat Clear Calc 77.79, Est GFR (MDRD) Af Amer 96, Est GFR (MDRD) Non-Af 79, BUN/Creatinine Ratio 13.5, Glucose 89, Calcium 8.9, Troponin I < 0.015 12/02/18 18:00: Lipase 72 L Clinical Impression(s) from Imaging Studies Chest CTA 12/02/18 18:00 IMPRESSION: No pulmonary embolus. Bilateral lower lobe alveolitis, more extensive on the left.
[2018-12-02 19:17] LABS: Lipase 72 U/L (73-393)
--- NOTE | 2018-12-02 19:43 | EKG12_ITS ---
Test Reason : CP ADMISSION Blood Pressure : / mmHG Vent. Rate : 065 BPM Atrial Rate : 065 BPM P-R Int : 124 ms QRS Dur : 102 ms QT Int : 394 ms P-R-T Axes : 027 085 063 degrees QTc Int : 409 ms Normal sinus rhythm Normal ECG When compared with ECG of 02-DEC-2018 17:48, MANUAL COMPARISON REQUIRED, DATA IS UNCONFIRMED Confirmed by KATARINA ROSA, ELIJAH ([id number]), multimedia editor JER GIBBS ([id number]) on 12/04/2018 9:47:44 AM Referred By: Mario Kay Confirmed By:NIMESH BRAY MD
[2018-12-02] MEDS: 0.9% Normal Saline 1,000 ML 100 ML IV (20:20)
[2018-12-02] MEDS: Pantoprazole Sodium 40 MG Tablet PO (20:20)
[2018-12-02] MEDS: 0.9% NaCl Peripheral Flush Adult/Peds IV (20:20)
[2018-12-02] MEDS: Enoxaparin 40 MG/0.4 ML Syringe SC (21:29)
[2018-12-02] MEDS: HYDROcodone Bitartrate/Apap 5/325 Tablet PO (21:29)
[2018-12-02] MEDS: Venlafaxine XR 75 MG Capsule PO (21:30)
[2018-12-02] MEDS: Mirtazapine 30 MG Tablet PO (21:31)
[2018-12-02] MEDS: Venlafaxine XR 150 MG Capsule PO (21:31)
[2018-12-02] MEDS: Gabapentin 300 MG Capsule PO (21:31)
[2018-12-02] MEDS: Topiramate 25 MG Tablet PO (21:31)
[2018-12-02] MEDS: Amitriptyline 100 MG Tablet 150 MG PO (21:31)
[2018-12-03] VITALS (7 sets, daily range): BP systolic 101–133; BP diastolic 50–76; PULSE 70–81; RESP 16; TEMP 36.4–36.9; O2SAT 95–98
[2018-12-03] MEDS: Gabapentin 300 MG Capsule PO ×2 (05:47→12:59)
[2018-12-03] MEDS: Aspirin E.C. 81 MG Tablet PO (05:47)
[2018-12-03 05:51] LABS: Cholesterol 151 mg/dL (200); High Density Lipoprotein 49 mg/dL; Thyroid Stim Hormone (TSH) 2.97 uIU/mL (0.358-3.74); Triglycerides 164 mg/dL; Very Low Density Lipoprotein 33 mg/dL (5-40)
--- NOTE | 2018-12-03 05:55 | EKG12_ITS ---
Test Reason : AM EKG Blood Pressure : / mmHG Vent. Rate : 071 BPM Atrial Rate : 071 BPM P-R Int : 128 ms QRS Dur : 102 ms QT Int : 388 ms P-R-T Axes : 026 082 054 degrees QTc Int : 421 ms Normal sinus rhythm Normal ECG When compared with ECG of 02-DEC-2018 20:36, MANUAL COMPARISON REQUIRED, DATA IS UNCONFIRMED Confirmed by KATARINA ROSA, ELIJAH ([id number]), editor magazine JER GIBBS ([id number]) on 12/04/2018 9:47:06 AM Referred By: Mario Kay Confirmed By:NIMESH BRAY MD
--- NOTE | 2018-12-03 09:06 | STRESSREP_ITS ---
Stress Test Report Date: 12/03/2018 Procedure: Pharmacologic stress nuclear imaging study Indications: Chest pain Consent: Per the patient Procedure: The patient underwent exercise stress test according to Jere protocol initially. She was having chest pain prior to the procedure that got worse during the test and so the test was stopped. She was then switched to Lexiscan stress test as she did not reach her target heart rate with exercise. She walked for 5 minutes and 22 seconds on the Jere protocol and achieved a work level of 5.3 minutes. The resting heart rate was 77 bpm which brandy to 122 bpm which represents 71% of maximal age predicted heart rate. Pharmacologic (Regadenoson) evaluation with a peak heart rate of 118 beats per minute (69 %predicted maximal heart rate) and a peak blood pressure of 92/60 mmHg. The baseline ECG demonstrated normal sinus rhythm, no significant ST-T changes. EKG during lexiscan infusion and during peak exercise revealed sinus tachycardia with no significant ST-T changes. EKG post infusion revealed no significant ischemic changes. [There were no cardiac dysrhythmias pretest, during pharmacologic infusion, or recovery]. Patient had chest pain prior to the procedure which got worse with exercise. Patient also had dizziness with exertion. With Lexiscan infusion she had shortness of breath, headache and chest pressure as well. The examination was discontinued secondary to completion of protocol. Impression: 1. Lexiscan stress test test is[negative] for Lexiscan infusion induced EKG changes of ischemia. 2. Lexiscan stress test test is positive for Lexiscan infusion induced chest pressure, which could be a nonspecific response. 3. Treadmill portion of the test was suboptimal due to inability to reach target heart rate. The test was negative for exercise-induced EKG changes of ischemia and positive for worsening of baseline chest discomfort with exercise. 4. Results of the nuclear portion of the test is as below Myocardial perfusion imaging study: Technique: The patient was injected with 11.4 millicuries of technetium 99m Cardiolite and subsequently rest SPECT Cardiolite nuclear imaging was obtained in the horizontal long, vertical long, and short axis views. The patient underwent pharmacologic (Regadenoson) evaluation. Please see above for details. The patient was injected with 32.6 millicuries of technetium 99m Cardiolite and subsequently stress SPECT Cardiolite nuclear imaging was obtained in the horizontal long, vertical long, and short axis views. A gated Cardiolite study at peak stress was obtained. Interpretation: Rest and stress SPECT Cardiolite nuclear imaging status post realignment, normalization, and attenuation correction demonstrate no evidence of significant ischemia or infarction. Gated images reveal no significant regional wall motion abnormalities. The reported LVEF is 69 %. Impression: 1. There is no evidence of significant ischemia or infarction. 2. Estimated ejection fraction is 69%. This note was generated with CallFireation software. It may contain incorrect words, spelling, and punctuation that were not noted in checking the note before signing.
[2018-12-03] MEDS: proMETHazine 25 MG Tablet PO ×2 (09:10→14:20)
[2018-12-03] MEDS: HYDROcodone Bitartrate/Apap 5/325 Tablet PO (09:10)
[2018-12-03] MEDS: Furosemide 20 MG Tablet PO (09:11)
[2018-12-03] MEDS: Atenolol 50 MG Tablet PO (09:12)
[2018-12-03] MEDS: Pantoprazole Sodium 40 MG Tablet PO (09:12)
--- NOTE | 2018-12-03 10:23 | EKG12_ITS ---
Test Reason : CP Blood Pressure : / mmHG Vent. Rate : 081 BPM Atrial Rate : 081 BPM P-R Int : 134 ms QRS Dur : 096 ms QT Int : 366 ms P-R-T Axes : 040 071 064 degrees QTc Int : 425 ms Normal sinus rhythm Normal ECG When compared with ECG of 03-DEC-2018 05:52, MANUAL COMPARISON REQUIRED, DATA IS UNCONFIRMED Confirmed by COLIN ROSA, LAUREN ([id number]), editor house organ NINO MENDOZA ([id number] on 12/09/2018 1:17:42 PM Referred By: Mario Kay Confirmed By:LAUREN SHAW MD
[2018-12-03] MEDS: Acetaminophen 325 MG Tablet 650 MG PO (11:04)
--- NOTE | 2018-12-03 11:34 | DCINST_ITS ---
- Discharge Diagnoses Current Active Problems: Current Active and Chronic Problems (Last Updated 05/26/18 @ 13:17 by Alexandra Vazquez) Atypical chest pain (Acute) You will use the following diet at home:: Cardiac Your food should be the consistency of: Regular Your liquids should be the consistency of: Regular/Thin Discharge Activity: - - activity restrictions as directed by your plastic surgeon. Allergies/Adverse Reactions: Allergies codeine Allergy (Verified 12/02/18 17:45) ALLERGY hydromorphone [From Dilaudid] Allergy (Verified 12/02/18 17:45) SOB/HIVES Penicillins Allergy (Verified 12/02/18 17:45) ALLERGY Medications to take at Discharge amitriptyline 50 mg tablet 150 mg PO QHS tab 06/19/18 atenolol 50 mg tablet 50 mg PO DAILY 06/19/18 mirtazapine 30 mg tablet 30 mg PO QHS 06/19/18 sumatriptan 25 mg tablet 25 mg PO DAILY PRN 06/19/18 topiramate 25 mg tablet 25 mg PO QHS 06/19/18 venlafaxine ER 150 mg capsule,extended release 24 hr 225 mg PO QHS 06/19/18 promethazine 25 mg tablet 25 mg PO 4X/DAY PRN PRN #30 tab 09/29/18 gabapentin 300 mg capsule 300 mg PO TID #90 cap 10/20/18 furosemide 20 mg tablet 20 mg PO DAILY #14 tab 11/11/18 Diazepam [Valium] 5 mg PO TID PRN 12/02/18 Docusate Sodium [Colace] 100 mg PO BID PRN 12/02/18 Lidocaine 1 ea TOPICAL DAILY PRN #14 adh..patch 12/03/18 The following prescriptions were given: Lidocaine 1 ea TOPICAL DAILY PRN #14 adh..patch PRN Reason: Pain Prescription Printed Primary Care Physician: Anson Rios MD [Primary Care Provider] - Please follow up with your Primary Care Physician in: 1-2 weeks Test Results: Test results from this visit will be discussed in further detail at your follow- up appointment, if applicable. Please Follow Up With: Panfilo Hickman MD When: As directed Please Follow Up With: Jere Hunt MD When: 3-4 weeks Proposed Discharge Date: 12/03/18
[2018-12-03] MEDS: Lidocaine 5% Patch 1 PATCH TOPICAL (12:53)
--- NOTE | 2018-12-03 13:11 | DS.PCM_ITS ---
<Buddy Wiggins - Last Filed: 12/03/18 13:11> Discharge Date and Diagnosis - Problem List Patient Problems: Active and Suspected Problems (Last Updated 05/26/18 @ 13:17 by Alexandra Vazquez) Atypical chest pain (Acute) Date of Admission: 12/02/18 Date of Discharge: 12/03/18 - Primary Discharge Diagnosis Active and Suspected Problems (Last Updated 05/26/18 @ 13:17 by Alexandra Vazquez) Atypical chest pain (Acute) - musculoskeletal Prophylactic bilateral mastectomy SLE Nicotine abuse Suspected COPD Hx gastritis and ulcer - Secondary Discharge Diagnosis Chronic Problems (Last Updated 05/26/18 @ 13:17 by Alexandra Vazquez) 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) nonhealing ulcer medial aspect right mastectomy scar nonhealing ulcer lateral aspect left mastectomy scar Prophylactic breast removal (Chronic) 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 There is no evidence of significant ischemia or infarction. 2. Estimated ejection fraction is 69%. CT/CTA Chest W/WO Contrast IMPRESSION: No pulmonary embolus. Bilateral lower lobe alveolitis, more extensive on the left. Operations: None Procedures: Stress test Summary of Care Provided: Hospital course: The patient is a 48 year old F with past medical history as above most notably with recent mastectomy surgery for prophylaxis of breast cancer by Dr. Hickman, last surgery performed 11/03/2018, who presented to the emergency room from Dr. Hickman's office for chest pain. Pain was described as a midsternal pressure with radiation into the neck and associated shortness of breath. She underwent EKG, CTA of the chest, chest x-ray, and routine lab work including troponin I, all of which were negative for acute process. Her CTA did show bilateral lower lobe alveolitis more extensive on the left. She continues to smoke despite her severe concerns about developing cancer. She continued to have significant chest pain and was admitted to the PCU for chest pain work-up. Troponin was repeated x3 and remained negative. Repeat EKGs were unremarkable. She had no events on telemetry. The following morning she underwent a stress test which was unremarkable. On further exam the patient's chest pain is reproducible with palpation bilaterally. I advised acetaminophen and ibuprofen as needed for chest pain, and if those do not work she can try Lidoderm patch. Pain was felt to be musculoskeletal secondary to her recent mastectomies. She was discharged home in stable condition and will need to follow-up with her PCP in 1 to 2 weeks, with Dr. Hickman as directed, and I have also advised her to follow-up with pulmonary medicine as she likely has underlying COPD. I reemphasized smoking cessation. This patient was seen by Buddy Wiggins PA-C under the supervision of Doctor Funez. [] Patient Problems: Active and Suspected Problems (Last Updated 05/26/18 @ 13:17 by Alexandra Vazquez) Atypical chest pain (Acute) - Physical Exam General: Alert, Oriented x3, Cooperative HEENT: Atraumatic, PERRLA, EOMI, Normocephalic Neck: Supple, No JVD, Negative Carotid Bruits Lungs: Normal air movement, No rales - BL bases Cardiovascular: Regular rate, No murmurs Abdomen: Bowel Sounds Present, Soft, Non Tender Extremities: No edema, Capillary Refill Less than 3 Seconds Skin: No rashes, No breakdown Musculoskeletal: No Tenderness to Palpation of Joints or Extremities Neurological: Cranial nerves II-XII grossly intact Psych/Mental Status: Normal Affect, Appropriate Vital Signs Temp Pulse Resp BP Pulse Ox 97.6 F L 81 16 133/76 H 98 12/03/18 10:22 12/03/18 10:22 12/03/18 10:22 12/03/18 10:22 12/03/18 10:22 Oxygen Delivery Method Room Air Weight: 149 lb 11.102 oz Body Mass Index (BMI) 24.0 Intake and Output for Last 24 Hours 12/01/18 12/02/18 12/03/18 23:59 23:59 23:59 Intake Total 968 / 968 708 / 708 Balance 968 / 968 708 / 708 Laboratory Tests Past 24 Hrs 12/02/18 12/02/18 12/02/18 18:00 18:00 18:00 WBC 9.6 RBC 4.42 Hgb 13.7 Hct 41.2 MCV 93.2 MCH 31.0 MCHC 33.3 RDW Std Deviation 43.9 RDW Coeff of Lali 12.8 Plt Count 312 MPV 9.5 Immature Gran % (Auto) 0.200 Neut % (Auto) 63.6 Lymph % (Auto) 27.0 [place] % (Auto) 6.1 Eos % (Auto) 2.7 Baso % (Auto) 0.4 Absolute Neuts (auto) 6.1 Absolute Lymphs (auto) 2.60 Absolute Nucleated RBC 0.00 Nucleated RBC % 0 Sodium 137 Potassium 3.8 Chloride 106 Carbon Dioxide 26.0 Anion Gap 5 BUN 11 Creatinine 0.81 Estim Creat Clear Calc 77.79 Est GFR (MDRD) Af Amer 96 Est GFR (MDRD) Non-Af 79 BUN/Creatinine Ratio 13.5 Glucose 89 Calcium 8.9 Troponin I < 0.015 Triglycerides Cholesterol LDL Cholesterol VLDL Cholesterol HDL Cholesterol Lipase 72 L TSH 12/02/18 12/03/18 12/03/18 21:15 00:00 05:20 WBC RBC Hgb Hct MCV MCH MCHC RDW Std Deviation RDW Coeff of Lali Plt Count MPV Immature Gran % (Auto) Neut % (Auto) Lymph % (Auto) [place] % (Auto) Eos % (Auto) Baso % (Auto) Absolute Neuts (auto) Absolute Lymphs (auto) Absolute Nucleated RBC Nucleated RBC % Sodium Potassium Chloride Carbon Dioxide Anion Gap BUN Creatinine Estim Creat Clear Calc Est GFR (MDRD) Af Amer Est GFR (MDRD) Non-Af BUN/Creatinine Ratio Glucose Calcium Troponin I < 0.015 < 0.015 Triglycerides 164 Cholesterol 151 LDL Cholesterol 69 VLDL Cholesterol 33 HDL Cholesterol 49 Lipase TSH 2.97 Discharge Diet: Low fat/ Low Cholesterol, 2000 mg Sodium Diet Discharge Activity: Return to Normal Activity, - - activity restrictions as directed by your plastic surgeon. Home Medications: Medications to take at Discharge amitriptyline 50 mg tablet 150 mg PO QHS tab 06/19/18 atenolol 50 mg tablet 50 mg PO DAILY 06/19/18 mirtazapine 30 mg tablet 30 mg PO QHS 06/19/18 sumatriptan 25 mg tablet 25 mg PO DAILY PRN 06/19/18 topiramate 25 mg tablet 25 mg PO QHS 06/19/18 venlafaxine ER 150 mg capsule,extended release 24 hr 225 mg PO QHS 06/19/18 promethazine 25 mg tablet 25 mg PO 4X/DAY PRN PRN #30 tab 09/29/18 gabapentin 300 mg capsule 300 mg PO TID #90 cap 10/20/18 furosemide 20 mg tablet 20 mg PO DAILY #14 tab 11/11/18 Diazepam [Valium] 5 mg PO TID PRN 12/02/18 Docusate Sodium [Colace] 100 mg PO BID PRN 12/02/18 Lidocaine 1 ea TOPICAL DAILY PRN #14 adh..patch 12/03/18 Following Prescrptions Were Given to Patient: Lidocaine 1 ea TOPICAL DAILY PRN #14 adh..patch PRN Reason: Pain Prescription Printed Primary Care Physician: Anson Rios MD [Primary Care Provider] - Please follow up with your Primary Care Physician in: 1-2 weeks Please Follow Up With: Panfilo Hickman MD When: As directed Please Follow Up With: Jere Hunt MD When: 3-4 weeks Disposition: Home Minutes spent on discharge:: 35 Patient Condition:: Stable Medical Necessity - Tobacco Use Smoking Status: Current every day smoker Meaningful Use Info Meaningful Use Diagnoses (Choose all that apply): None applicable <Rylie Funez - Last Filed: 12/03/18 13:33> Discharge Date and Diagnosis - Primary Discharge Diagnosis Active and Suspected Problems (Last Updated 05/26/18 @ 13:17 by Alexandra Vazquez) Atypical chest pain (Acute) - Secondary Discharge Diagnosis Chronic Problems (Last Updated 05/26/18 @ 13:17 by Alexandra Vazquez) 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) nonhealing ulcer medial aspect right mastectomy scar nonhealing ulcer lateral aspect left mastectomy scar Prophylactic breast removal (Chronic) 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) Nonhealing surgical wound (Chronic) right central mastectomy wound and left lateral mastectomy wound Inconclusive mammography due to dense breasts (Chronic) Lupus (systemic lupus erythematosus) (Chronic) Immunocompromised state due to drug therapy (Chronic) Humira for Lupus Smoker (Chronic) Family history of breast cancer (Chronic) Cancer phobia (Chronic) bilateral breasts Hospital Course and Treatment Imaging Results: 12/03/18 05:55 Nuclear Stress Test - Chemical [NM] Routine Summary of Care Provided: Hospitalist note: Discharge summary above reviewed and I concur with the above discharge treatment plan. Patient was admitted for atypical chest pain for evaluation. EKG revealed no acute ischemic changes. Troponin was negative x3. Chest x-ray showed no acute findings. Patient underwent nuclear stress test that revealed no evidence of stress-induced myocardial ischemia. ACS ruled out. Patient had a history of recent bilateral mastectomy and her pain is probably due to musculoskeletal pain. Her vital signs were stable. Patient discharged home in a stable medical condition, discharged on her previous home medications without any changes, recommended to use [id number] Tylenol or ibuprofen as needed for pain, recommended follow-up with her surgeon who performed the ostectomy, follow-up with PCP in 1 to 2 weeks. - Physical Exam General: Alert, Oriented x3, Cooperative, No apparent distress. HEENT: Atraumatic, PERRLA, EOMI. Neck: Supple, No JVD, Negative Carotid Bruits, Trachea Midline, Thyroid Normal. Lungs: Clear to auscultation, Normal air movement, No rhonchi, No wheeze, No rales. Cardiovascular: Regular rate, Regular Rhythm, Normal S1, Normal S2, PMI Normal. Abdomen: Bowel Sounds Present, Soft, Non Tender, Non-Distended, No Hepato- splenomegaly. Extremities: No clubbing, No cyanosis, No edema Skin: No rashes, No breakdown Neurological: Neuro grossly intact Vital Signs are stable. This note was generated with [employer] dictation software. It may contain incorrect words, spelling, and punctuation that were not noted in checking the note before signing. - Physical Exam Vital Signs Temp Pulse Resp BP Pulse Ox 97.6 F L 81 16 133/76 H 98 12/03/18 10:22 12/03/18 10:22 12/03/18 10:22 12/03/18 10:22 12/03/18 10:22 Oxygen Delivery Method Room Air Weight: 149 lb 11.102 oz Body Mass Index (BMI) 24.0 Intake and Output for Last 24 Hours 12/01/18 12/02/18 12/03/18 23:59 23:59 23:59 Intake Total 968 / 968 708 / 708 Balance 968 / 968 708 / 708 Laboratory Tests Past 24 Hrs 12/02/18 12/02/18 12/02/18 18:00 18:00 18:00 WBC 9.6 RBC 4.42 Hgb 13.7 Hct 41.2 MCV 93.2 MCH 31.0 MCHC 33.3 RDW Std Deviation 43.9 RDW Coeff of Lali 12.8 Plt Count 312 MPV 9.5 Immature Gran % (Auto) 0.200 Neut % (Auto) 63.6 Lymph % (Auto) 27.0 [place] % (Auto) 6.1 Eos % (Auto) 2.7 Baso % (Auto) 0.4 Absolute Neuts (auto) 6.1 Absolute Lymphs (auto) 2.60 Absolute Nucleated RBC 0.00 Nucleated RBC % 0 Sodium 137 Potassium 3.8 Chloride 106 Carbon Dioxide 26.0 Anion Gap 5 BUN 11 Creatinine 0.81 Estim Creat Clear Calc 77.79 Est GFR (MDRD) Af Amer 96 Est GFR (MDRD) Non-Af 79 BUN/Creatinine Ratio 13.5 Glucose 89 Calcium 8.9 Troponin I < 0.015 Triglycerides Cholesterol LDL Cholesterol VLDL Cholesterol HDL Cholesterol Lipase 72 L TSH 12/02/18 12/03/18 12/03/18 21:15 00:00 05:20 WBC RBC Hgb Hct MCV MCH MCHC RDW Std Deviation RDW Coeff of Lali Plt Count MPV Immature Gran % (Auto) Neut % (Auto) Lymph % (Auto) [place] % (Auto) Eos % (Auto) Baso % (Auto) Absolute Neuts (auto) Absolute Lymphs (auto) Absolute Nucleated RBC Nucleated RBC % Sodium Potassium Chloride Carbon Dioxide Anion Gap BUN Creatinine Estim Creat Clear Calc Est GFR (MDRD) Af Amer Est GFR (MDRD) Non-Af BUN/Creatinine Ratio Glucose Calcium Troponin I < 0.015 < 0.015 Triglycerides 164 Cholesterol 151 LDL Cholesterol 69 VLDL Cholesterol 33 HDL Cholesterol 49 Lipase TSH 2.97 Disposition: Home Minutes spent on discharge:: 24 Patient Condition:: Stable Meaningful Use Info Meaningful Use Diagnoses (Choose all that apply): None applicable Code Visit OBSV E&M: 47783 Observation care discharge
== END 2018-12-03 15:20 | disposition home or self-care (01) ==
LOC: ED 18:22 → PCU 19:06
PROVIDERS: Admitting Provider Internal Medicine; Emergency Provider Emergency Medicine; Family Provider Family Medicine; PCP Family Medicine; Referring Provider Internal Medicine; Visit Provider Hospitalist
DX: R07.89 Other chest pain (principal); R06.02 Shortness of breath; M32.9 Systemic lupus erythematosus, unspecified; F41.9 Anxiety disorder, unspecified; I51.9 Heart disease, unspecified; K58.9 Irritable bowel syndrome, unspecified; F32.9 Major depressive disorder, single episode, unspecified; E56.9 Vitamin deficiency, unspecified; Z85.850 Personal history of malignant neoplasm of thyroid; Z79.899 Other long term (current) drug therapy; Z85.3 Personal history of malignant neoplasm of breast; G43.909 Migraine, unspecified, not intractable, without status migrainosus
CPT/HCPCS: 36415; 71275; 78452; 80048; 80061; 83690; 84443; 84484; 85025; 93005; 93017; 96361; 96372; 96374; 96375; 96376; 99218; 99285; 99406; A9500; J7030; Q9967; A4216; G0378; J2405; J2785

== ENCOUNTER → 2019-05-10 13:41 | Outpatient (CLI) | payer MEDICAID, SELFPAY ==
[2019-05-09 12:52] VITALS: BMI 24.0
== END ==
PROVIDERS: Family Provider Family Medicine; PCP Family Medicine; Referring Provider Physician Assistant Medical; Visit Provider Physician Assistant Medical
DX: J02.9 Acute pharyngitis, unspecified (principal)
CPT/HCPCS: 87070

== ENCOUNTER 2019-07-15 17:26 | Emergency (ER) | payer MEDICAID, SELFPAY ==
[2019-05-09 12:52] VITALS: BMI 24.0
[2019-07-15 17:27] VITALS: BP 107/60; PULSE 91; RESP 16; TEMP 36.8; O2SAT 100; BMI 24.8
[2019-07-15 17:43] VITALS: BP 102/57; PULSE 88; RESP 16; TEMP 36.5; O2SAT 100
--- NOTE | 2019-07-15 18:11 | CT_ITS ---
STUDY: CT BRAIN WITHOUT CONTRAST REASON FOR EXAM: Female, 49 years old. HYPOTENSION, SEIZURE RADIATION DOSAGE (If Supplied By Facility): CTDIvol = ( 44.99 ) mGy, DLP = ( 745.49 ) mGycm TECHNIQUE: Transaxial CT imaging of the brain was performed without administration of intravenous contrast material. Individualized dose optimization techniques were used for this CT. COMPARISON: November 02, 2013 FINDINGS: Normal soft tissue structures. Normal calvarium. Normal size ventricles and extra-axial spaces for the patient''s age. Normal white matter tracts of the cerebral hemispheres. Normal basal ganglia and thalami. Normal brainstem. Normal cerebellum. There is no intracranial hemorrhage. There are no findings of an acute ischemic infarction. Normal visualized paranasal sinuses. CT/Brain/Head without Contrast IMPRESSION: No acute intracranial process. Electronically Signed: Inessa Thomas MD at 19:42 EST Tel , Service support ,
[2019-07-15] MEDS: 0.9% Normal Saline 1,000 ML 1000 ML IV (18:28)
[2019-07-15] MEDS: Ondansetron 4 MG/2 ML Vial IV (18:28)
[2019-07-15] MEDS: Morphine 4 MG/ML Syringe IV (18:28)
[2019-07-15 18:57] LABS: Absolute Lymphocyte Count 2.59 X10^3/uL (0.83-4.51); Absolute Neutrophil Count 4.5 X10^3/uL (2.0-7.7); Basophil# 0.07 X10^3/uL; Basophil% 0.9 % (0-1); Eosinophil# 0.17 X10^3/uL; Eosinophils% 2.1 % (0-5); Hemoglobin 13.5 g/dL (12.0-15.0); Lymphocyte # 2.59 X10^3/ul (4.0); Lymphocyte % 31.8 % (19-41); Mean Corp Hgb Conc 32.9 g/dL (32-36); Mean Corpuscular Hgb 30.8 pg (27.0-32.0); Mean Corpuscular Volume 93.6 fL (81-99); Mean Platelet Vol. 9.2 fl (6.2-12.0); Monocyte# 0.79 X10^3/uL; Monocyte% 9.7 % (0-10); NRBC Flagged by Analyzer 0 % (0-5); Neutrophil # 4.48 X10^3/uL (2.7-7.7); Neutrophil % 54.9 % (47-70); Platelet Count 307 K/mm3 (150-450); RBC Distribution Width CV 12.9 % (11.6-14.6); RBC Distribution Width SD 44.3 fl (35.1-43.9); Red Blood Count 4.38 M/mm3 (4.2-5.4); White Blood Count 8.2 K/mm3 (4.4-11.0)
[2019-07-15 19:05] LABS: AST(SGOT) 13 U/L (15-37); Alanine Aminotransfer ALT/SGPT 21 U/L (13-56); Albumin, Serum 3.4 g/dL (3.2-5.0); Alkaline Phosphatase 110 U/L (45-117); Anion Gap 5 (5-15); BUN 8 mg/dL (7-18); BUN/Creat Ratio 10.2 RATIO (10-20); Calcium,Total 8.3 mg/dL (8.5-10.1); Chloride 106 mmol/L (98-107); Creatinine, Serum 0.79 mg/dL (0.55-1.02); EST Glomerular Filtration Rate 82 mL/min (>60); Est Glom Filt Rate - Afr Amer 99 mL/min (>60); Estimated Creatinine Clearance 78.87 ml/min; Globulin 3.4 g/dL (2.2-4.2); Glucose 61 mg/dL (74-106); Lipase 58 U/L (73-393); Potassium 3.5 mmol/L (3.5-5.1); Protein, Total 6.8 g/dL (6.4-8.2); Sodium Level 137 mmol/L (136-145)
[2019-07-15 19:53] VITALS: PULSE 71; RESP 18; O2SAT 97
--- NOTE | 2019-07-15 21:49 | ED.VISSUMM ---
- ER Visit Summary Date of Service: 07/15/19 Chief Complaint: Diarrhea History of Present Illness: The patient is a [address] Acosta. She reports she has diarrhea that began a week ago. States she is having this 8-9 times per day. No blood in her stools or black tarry stools. She has sharp epigastric abdominal pain that is 10 on 10 at worst and 6 out of 10 currently. Nothing makes this better or worse. She is had nausea without vomiting. No dysuria or frequency. Patient denies sick contacts. Has not been camping out of the country. No possible bad food exposure. Does not drink well water. No recent antibiotic use. Family reports that yesterday patient had 2 seizures. These were tonic-clonic episodes. The first of these lasted 30 seconds the second lasted 1 minute. She did not have any urine incontinence or bite her tongue. However she was postictal. Patient reports he is on Topamax for these. She has never been worked up for these. Physical Examination: Vitals: Stable. Afebrile. General: Well-nourished and well-developed. Head: Normocephalic atraumatic. Neck: Supple, no lymphadenopathy. No JVD. Nontender. Cardiovascular: Regular rate and rhythm. No murmurs. Respiratory: No respiratory distress. Clear to auscultation bilaterally. Abdominal: Soft, mild epigastric tenderness to palpation, nondistended, normal bowel sounds. No guarding, rebound, or peritoneal signs. Back: Nontender. Extremities: Nontender, no edema. Skin: Normal color, no rash. Neurologic: Alert and oriented ?3. Cranial nerves II through XII are intact. Normal strength and sensation. Psych: Normal affect. Test Results: CBC is normal. Chem-7 is marked for glucose of 61 and calcium of 8.3. Left is more for an AST of 13. Lipase is normal. CT the brain shows no acute disease. Emergency Department Course and Treatment: Patient was given a liter of normal saline. She is given Zofran and morphine IV. She is unable to give any stool sample while here. Treatment Plan: Patient reports she does have a history of C. difficile 2 years ago. I have instructed her that if she continues to have diarrhea she needs to follow-up with primary care physician get checked for this. I also discussed her that with the seizures that she is having that she cannot drive her car until she is cleared by a neurologist. She is instructed to follow-up with her primary care physician soon as possible. Return to the emergency department for any worsening symptoms. Disposition: To home in improved and stable condition. Impression: 1. Diarrhea. 2. Seizure, recurrent. This note was generated with [employer] dictation software. It may contain incorrect words, spelling, and punctuation that were not noted in review of the chart prior to signing ED Disposition - Plan for ED Patient: Disposition: Home or Assisted Living Instructions: DIARRHEA, Unk Cause (Adult) Report Pendg Prescriptions: Ondansetron [Zofran Odt] 4 mg PO Q8H PRN PRN #10 tab PRN Reason: Nausea Prescription Printed Referrals: Anson Rios MD [Primary Care Provider] - 1-2 Days if not improving
[2019-07-15 22:11] VITALS: BP 101/52; PULSE 71; RESP 18; O2SAT 97
== END 2019-07-15 22:12 | disposition home or self-care (01) ==
LOC: ED 18:09
PROVIDERS: Emergency Provider Emergency Medicine; PCP Family Medicine
DX: R19.7 Diarrhea, unspecified (principal); G40.909 Epilepsy, unspecified, not intractable, without status epilepticus; R10.13 Epigastric pain; I47.1 Supraventricular tachycardia; Z86.19 Personal history of other infectious and parasitic diseases; Z79.899 Other long term (current) drug therapy; F17.200 Nicotine dependence, unspecified, uncomplicated
CPT/HCPCS: 70450; 80053; 83690; 85025; 96361; 96374; 96375; 99282; J7030; A4216; J2405

== ENCOUNTER → 2019-12-24 18:05 | Outpatient (CLI) | payer MEDICAID, SELFPAY | PROVIDERS: PCP Family Medicine; Referring Provider Family Medicine; Visit Provider Family Medicine | DX: R19.7 Diarrhea, unspecified (principal); R53.83 Other fatigue; L98.9 Disorder of the skin and subcutaneous tissue, unspecified; Z20.828 Contact with and (suspected) exposure to other viral communicable diseases | CPT/HCPCS: 87635; 94799; U0003 ==

== ENCOUNTER 2020-01-24 18:46 | Observation (INO) | payer MEDICAID, SELFPAY ==
[2020-01-24] VITALS (9 sets, daily range): BP systolic 85–110; BP diastolic 54–64; PULSE 76–94; RESP 14–18; TEMP 36.6–36.8; O2SAT 94–99; BMI 25.6; BMI 25.4; BMI 25.5
--- NOTE | 2020-01-24 19:07 | EKG12_ITS ---
Test Reason : DYSRHYTHMIA Blood Pressure : / mmHG Vent. Rate : 078 BPM Atrial Rate : 078 BPM P-R Int : 140 ms QRS Dur : 096 ms QT Int : 390 ms P-R-T Axes : 032 087 071 degrees QTc Int : 444 ms Normal sinus rhythm Normal ECG Confirmed by COLIN ROSA, LAUREN ([id number]), metropolitan editor JER GIBBS ([id number]) on 01/26/2020 11:09:50 AM Referred By: TRACY Confirmed By:LAUREN SHAW MD
--- NOTE | 2020-01-24 19:08 | ED.VIS.GEN ---
History of Present Illness Chief Complaint: Chest Pain Informant: Patient Onset: Yesterday Context: Gradual Onset Timing: Waxes and wanes Current Severity: Moderate Maximum Severity: Severe Narrative: Patient presents with cycles of chest pressure that started last evening. She does have some intermittent chest pain. She reports a history of SVT but no history of cardiac disease. She spoke with Dr. Buck on the phone who sent her to the ER to be evaluated. I received a phone call from him stating that the patient had been diagnosed with Covid last week. When I asked the patient about this she states she was actually diagnosed with Covid a couple of months ago and fully recovered from that prior to the onset of any chest pain. - Past Medical History (1) Hypertension Status: Chronic (2) Breast cancer Status: Resolved (3) Lupus (systemic lupus erythematosus) Status: Chronic (4) Paroxysmal supraventricular tachycardia Status: Chronic (5) Thyroid cancer Status: Resolved Past Medical History - Allergies and Home Meds Allergies/Adverse Reactions: Allergies codeine Allergy (Verified 01/24/20 18:48) Anaphylaxis hydromorphone [From Dilaudid] Allergy (Verified 01/24/20 18:48) SOB/HIVES hydromorphone HCl [From Dilaudid] Adverse Reaction (Verified 01/24/20 18:48) Other pt states she got jittery Penicillins Adverse Reaction (Verified 01/24/20 18:48) Hives Primary Care Physician: Anson Rios MD [Primary Care Provider] - Prior records reviewed: Yes Surgical History: cholecystectomy, hysterectomy, - - partial thyroidectomy Lives: Spouse/ Significant Other Smoking Status: Former smoker - Family History Paternal Family History: Family History (Last Reviewed 11/03/19 @ 14:15 by Leanna Parikh) Other Anemia Anesthesia complication Anxiety Bleeding disorder Bowel disease Breast cancer CVA (cerebral vascular accident) Cancer Cervical cancer Colon cancer Depression (emotion) Diabetes Heart disease High cholesterol History of blood transfusion Hypertension Osteoporosis Ovarian cancer Thyroid disorder Family History: Reports: Heart Disease - I in 60s Maternal Family History: Family History (Last Reviewed 11/03/19 @ 14:15 by Leanna Parikh) Other Anemia Anesthesia complication Anxiety Bleeding disorder Bowel disease Breast cancer CVA (cerebral vascular accident) Cancer Cervical cancer Colon cancer Depression (emotion) Diabetes Heart disease High cholesterol History of blood transfusion Hypertension Osteoporosis Ovarian cancer Thyroid disorder Family History: Reports: Hypertension Review of Systems General: Denies: Chills, Fever Eyes: Denies: Visual changes - bilaterally ENT: Denies: Bilateral ear pain Cardiovascular: Reports: Chest pain. Denies: Palpitations Respiratory: Reports: Dyspnea. Denies: Cough Gastrointestinal: Denies: Abdominal pain, Nausea, Vomiting, Diarrhea Musculoskeletal: Denies: Extremity Pain Skin: Denies: Rash Neurological: Denies: Headache Hematologic: Denies: Easy bruising, Easy bleeding Allergy: Denies: Uticaria Physical Exam Vital Signs/Narrative: Vital Signs Temp Pulse Resp Pulse Ox 01/24/20 18:46 98.3 F 94 18 99 Inital Vital Signs reviewed: Yes General: Well nourished, Well developed Head: Normocephalic ENT: Moist mucous membranes Neck: Supple Cardiovascular: Regular rate, Regular rhythm Respiratory: No distress, CTA bilaterally Abdomen: Soft, Nontender Back: Nontender Extremities: Nontender Skin: Normal color, No rash Neurological: Alert, Oriented x3 Psychological: Normal affect Diagnostic/Tx/Re-eval Impressions Chest X-Ray 01/24/20 19:25 IMPRESSION: Normal x-ray examination of the chest. Electronically Signed: Dariel Dc DO at 19:45 EDT Tel [phone], Service support , 01/24/20 19:25 Chest 1 View (Portable) [RAD] Stat Laboratory Results 01/24/20 01/24/20 01/24/20 18:50 18:50 18:50 WBC 10.1 RBC 4.41 Hgb 13.8 Hct 41.5 MCV 94.1 MCH 31.3 MCHC 33.3 RDW Std Deviation 45.6 H RDW Coeff of Lali 13.2 Plt Count 373 MPV 9.5 Immature Gran % (Auto) 0.300 Neut % (Auto) 48.7 Lymph % (Auto) 38.9 [place] % (Auto) 8.0 Eos % (Auto) 3.1 Baso % (Auto) 1.0 Absolute Neuts (auto) 4.9 Absolute Lymphs (auto) 3.94 Nucleated RBC % 0 D-Dimer Quant (PE/DVT) <= 0.27 Sodium 136 Potassium 4.2 Chloride 106 Carbon Dioxide 26.0 Anion Gap 4 L BUN 7 Creatinine 0.86 Estim Creat Clear Calc 72.45 Est GFR (MDRD) Af Amer 89 Est GFR (MDRD) Non-Af 74 BUN/Creatinine Ratio 8.2 L Glucose 82 Calcium 9.4 Troponin I < 0.015 TSH 8.30 H COVID-19 (JESSICA) 01/24/20 19:18 WBC RBC Hgb Hct MCV MCH MCHC RDW Std Deviation RDW Coeff of Lali Plt Count MPV Immature Gran % (Auto) Neut % (Auto) Lymph % (Auto) [place] % (Auto) Eos % (Auto) Baso % (Auto) Absolute Neuts (auto) Absolute Lymphs (auto) Nucleated RBC % D-Dimer Quant (PE/DVT) Sodium Potassium Chloride Carbon Dioxide Anion Gap BUN Creatinine Estim Creat Clear Calc Est GFR (MDRD) Af Amer Est GFR (MDRD) Non-Af BUN/Creatinine Ratio Glucose Calcium Troponin I TSH COVID-19 (JESSICA) Negative - EKG Initial EKG Interpretation: Sinus Rhythm - Sinus 87 with no acute ischemia. Follow-up EKG Interpretation: Sinus Rhythm - Sinus at 78 with no acute ischemia. - Medical Decision Making Patient was given aspirin and IV fluid boluses secondary to relative hypotension on arrival. Patient had recurrence of chest pain while here and repeat EKG did not show any acute changes. She was given a small dose of fentanyl to help control pain. I was unable to give nitroglycerin secondary to her systolic blood pressure still being in the 90s. At this time blood pressure is in the 110's systolic. Her chest pain story is concerning. Her Covid test is negative. I will speak with hospitalist regarding admission. ED Disposition - Plan for ED Patient: Disposition: Acute Care Hospital [facility] Diagnosis: Chest pain Referrals: Anson Rios MD [Primary Care Provider] -
[2020-01-24] MEDS: Aspirin 81 MG TAB.CHEW 324 MG PO (19:18)
[2020-01-24 19:22] LABS: Absolute Lymphocyte Count 3.94 X10^3/uL (0.83-4.51); Absolute Neutrophil Count 4.9 X10^3/uL (2.0-7.7); Eosinophil# 0.31 X10^3/uL; Eosinophils% 3.1 % (0-5); Hematocrit 41.5 % (37-47); Hemoglobin 13.8 g/dL (12.0-15.0); Lymphocyte # 3.94 X10^3/ul (4.0); Lymphocyte % 38.9 % (19-41); Mean Corp Hgb Conc 33.3 g/dL (32-36); Mean Corpuscular Hgb 31.3 pg (27.0-32.0); Mean Corpuscular Volume 94.1 fL (81-99); Mean Platelet Vol. 9.5 fl (6.2-12.0); Monocyte# 0.81 X10^3/uL; NRBC Flagged by Analyzer 0 % (0-5); Neutrophil # 4.94 X10^3/uL (2.7-7.7); Neutrophil % 48.7 % (47-70); Platelet Count 373 K/mm3 (150-450); RBC Distribution Width CV 13.2 % (11.6-14.6); RBC Distribution Width SD 45.6 fl (35.1-43.9); Red Blood Count 4.41 M/mm3 (4.2-5.4); White Blood Count 10.1 K/mm3 (4.4-11.0)
--- NOTE | 2020-01-24 19:25 | RAD_ITS ---
STUDY: X-RAY CHEST REASON FOR EXAM: Female, 49 years old. Chest pain, tested positive for COVID last week. TECHNIQUE: Frontal view COMPARISON: None. FINDINGS: The lungs are clear and expanded. There is no demonstrated pleural abnormality. Normal size heart. Normal mediastinum and selene. Normal visualized pulmonary arteries. Normal visualized aortic arch and descending thoracic aorta. Normal visualized thoracic spine. Normal visualized ribs, clavicles, and shoulders. There is no demonstrated abnormality of the visualized soft tissue structures of the upper abdomen. RAD/Chest 1 View (Portable) IMPRESSION: Normal x-ray examination of the chest. Electronically Signed: Dariel Dc DO at 19:45 EDT Tel [phone], Service support ,
[2020-01-24] MEDS: 0.9% Normal Saline 1,000 ML 150 ML IV (19:49)
[2020-01-24 19:52] LABS: Anion Gap 4 (5-15); BUN 7 mg/dL (7-18); BUN/Creat Ratio 8.2 RATIO (10-20); Calcium,Total 9.4 mg/dL (8.5-10.1); Chloride 106 mmol/L (98-107); Creatinine, Serum 0.86 mg/dL (0.55-1.02); EST Glomerular Filtration Rate 74 mL/min (>60); Est Glom Filt Rate - Afr Amer 89 mL/min (>60); Estimated Creatinine Clearance 72.45 ml/min; Glucose 82 mg/dL (74-106); Potassium 4.2 mmol/L (3.5-5.1); Sodium Level 136 mmol/L (136-145)
--- NOTE | 2020-01-24 20:16 | EKG12_ITS ---
Test Reason : CP Blood Pressure : / mmHG Vent. Rate : 087 BPM Atrial Rate : 087 BPM P-R Int : 132 ms QRS Dur : 094 ms QT Int : 370 ms P-R-T Axes : 031 084 070 degrees QTc Int : 445 ms Normal sinus rhythm Normal ECG Confirmed by COLIN ROSA, LAUREN ([id number]), news assignment editor JER GIBBS ([id number]) on 01/26/2020 11:10:05 AM Referred By: TRACY Confirmed By:LAUREN SHAW MD
[2020-01-24] MEDS: fentaNYL 100 MCG/2 ML Ampul 25 MCG IV (20:36)
[2020-01-24 20:52] LABS: D-Dimer Quantitative (DVT/PE) <= 0.27 FEU/ug/m (0.27-0.49)
[2020-01-24 21:46] LABS: Probe Check PASS; Specimen Processing Control PASS
--- NOTE | 2020-01-24 22:01 | HP.PCM_ITS ---
Problem List (1) Chest pain Status: Acute History of Present Illness Date of Admission: 01/24/20 Chief Complaint: CHEST PAIN The patient is a 49 year old F with a significant history of SVT anxiety and depression; breast cancer status post bilateral mastectomy and chemotherapy; lupus; and seizure disorder who presents emergency department with excruciating progressively worsening episodic chest pain that started a day before presentation. Her mass occurred of more than 3 times but less than 5 times. Her chest pain radiates to her left shoulder and into her left forearm. She denies any ameliorating factors to the chest pain. She thinks that bending forward worsens her chest pain. Patient called Dr. Buck and she was instructed to come to the emergency department for better evaluation. Patient was diagnosed with COVID about a month ago. Past Medical History Past Medical History (Chronic Problems): Chronic Problems (Last Reviewed 01/24/20 @ 23:[address] 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) Z90.13 Prophylactic breast removal (Chronic) Z40.01 Breast cancer (Resolved) C50.919 Thyroid cancer (Resolved) C73 Abnormal CT scan, colon R93.3 Anemia D64.9 Anxiety and depression F41.9, F32.9 Bleeding disorder D69.9 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 Family history of breast cancer Z80.3 Frequent headaches R51 Gallstones K80.20 Gastrointestinal problem R19.8 Goiter E04.9 History of Clostridium difficile colitis Z86.19 states she has had C Diff 8 times History of blood transfusion Z92.89 IBS (irritable bowel syndrome) K58.9 Immunocompromised state due to drug therapy Z79.899 Humira for Lupus Inconclusive mammography due to dense breasts R92.2 Migraine G43.909 Non-pressure chronic ulcer of skin of other sites with fat layer exposed L98.492 nonhealing ulcer medial aspect right mastectomy scar nonhealing ulcer lateral aspect left mastectomy scar 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 Peptic ulcer disease K27.9 Seizure R56.9 Vitamin deficiency E56.9 Bone fracture T14.8XXA Breast lump N63.0 Diarrhea R19.7 Difficulty balancing R29.818 Hives L50.9 Pneumonia J18.9 Fatigue R53.83 Allergies codeine Allergy (Verified 01/24/20 18:48) Anaphylaxis hydromorphone [From Dilaudid] Allergy (Verified 01/24/20 18:48) SOB/HIVES hydromorphone HCl [From Dilaudid] Adverse Reaction (Verified 01/24/20 18:48) Other pt states she got jittery Penicillins Adverse Reaction (Verified 01/24/20 18:48) Hives Home Medications: Ambulatory Orders Medication Instructions Recorded Lorazepam [Ativan] 0.5 mg PO TID PRN PRN 07/08/14 Ondansetron [Zofran Odt] 4 mg PO Q8H PRN PRN #10 tab 04/14/15 amitriptyline 50 mg tablet 150 mg PO QHS tab 06/19/18 mirtazapine 30 mg tablet 30 mg PO QHS 06/19/18 sumatriptan succinate 25 mg tablet 25 mg PO DAILY PRN 06/19/18 topiramate 25 mg tablet 100 mg PO QHS 06/19/18 venlafaxine 150 mg 225 mg PO QHS 06/19/18 capsule,extended release 24 hr Gabapentin [Neurontin] 600 mg PO BID 07/15/19 Ondansetron [Zofran Odt] 4 mg PO Q8H PRN PRN #10 tab 07/15/19 atenolol 50 mg tablet 100 mg PO DAILY tab 11/03/19 Surgical History: Surgical History (Last Reviewed 01/24/20 @ 23:[address] Mp Ram MD) History of cholecystectomy Z90.49 DONE AT [facility] History of hysterectomy Z90.710 DONE AT [facility] History of partial thyroidectomy E89.0 History of thyroid surgery Z98.890 DONE AT [facility] Surgical History: cholecystectomy, hysterectomy, - - partial thyroidectomy Psychiatric History: Anxiety [employer] History: No pertinent [employer] history Lives: Spouse/ Significant Other Smoking Status: Former smoker - *Family History Paternal Family History: Family History (Last Reviewed 01/24/20 @ 23:[address] Mp Ram MD) Other Anemia Anesthesia complication Anxiety Bleeding disorder Bowel disease Breast cancer CVA (cerebral vascular accident) Cancer Cervical cancer Colon cancer Depression (emotion) Diabetes Heart disease High cholesterol History of blood transfusion Hypertension Osteoporosis Ovarian cancer Thyroid disorder History Items: Heart Disease - I in 60s Maternal Family History: Family History (Last Reviewed 01/24/20 @ 23:[address] Mp Ram MD) Other Anemia Anesthesia complication Anxiety Bleeding disorder Bowel disease Breast cancer CVA (cerebral vascular accident) Cancer Cervical cancer Colon cancer Depression (emotion) Diabetes Heart disease High cholesterol History of blood transfusion Hypertension Osteoporosis Ovarian cancer Thyroid disorder History Items: Hypertension Review of Systems Constitutional: Denies: Chills, Fever, Weight Change HEENT: Denies: Head Aches, Sinus Congestion, Sinus Drainage Cardiovascular: Reports: Chest Pain. Denies: Palpitations Respiratory: Denies: Cough, Shortness of breath at rest, Sputum production Gastrointestinal: Denies: Abdominal Pain, Nausea, Vomiting Genitourinary: Denies: Dysuria Musculoskeletal: Denies: Joint Pain, Joint Tenderness Skin: Denies: Rash, Wounds Neurological: Denies: Numbness, Tingling, Focal weakness Psychiatric: Denies: Anxiety, Depression, Homicidal Ideations, Suicidal Ideations Hematologic/ Lymphatic: Denies: Easy Bruising, Easy Bleeding VTE Information - Inpt Only VTE Present on Admission: No VTE Mechan Device Prophylaxis: SCD's VTE Pharm Prophylaxis ordered?: No Patient Problems: Active and Suspected Problems (Last Reviewed 01/24/20 @ 23:[address] Mp Ram MD) Chest pain (Acute) Chest pain (Acute) - Physical Exam Vitals/I&O's: Vital Signs Temp Pulse Resp BP Pulse Ox 98.3 F 78 14 110/64 94 01/24/20 18:46 01/24/20 21:34 01/24/20 21:34 01/24/20 21:34 01/24/20 21:34 Oxygen Delivery Method Room Air Weight: 72 kg Body Mass Index (BMI) 25.6 Intake and Output for Last 24 Hours 01/22/20 01/23/20 01/24/20 23:59 23:59 23:59 Intake Total 1000 / 1000 Balance 1000 / 1000 General: Alert, Oriented x3, Cooperative HEENT: Atraumatic, PERRLA, EOMI, Normocephalic Neck: Supple, No JVD, Negative Carotid Bruits Lungs: Clear to auscultation, Normal air movement Cardiovascular: Regular rate, Regular Rhythm, Normal S1, Normal S2, No murmurs Abdomen: Bowel Sounds Present, Soft, Non Tender Extremities: No edema, Capillary Refill Less than 3 Seconds Skin: No rashes, No breakdown Musculoskeletal: No Tenderness to Palpation of Joints or Extremities Neurological: Cranial nerves II-XII grossly intact Psych/Mental Status: Normal Affect, Appropriate Laboratory Results 01/24/20 18:50: WBC 10.1, RBC 4.41, Hgb 13.8, Hct 41.5, MCV 94.1, MCH 31.3, MCHC 33.3, RDW Std Deviation 45.6 H, RDW Coeff of Lali 13.2, Plt Count 373, MPV 9.5, Immature Gran % (Auto) 0.300, Neut % (Auto) 48.7, Lymph % (Auto) 38.9, Scurry % (Auto) 8.0, Eos % (Auto) 3.1, Baso % (Auto) 1.0, Absolute Neuts (auto) 4.9, Absolute Lymphs (auto) 3.94, Nucleated RBC % 0 01/24/20 18:50: D-Dimer Quant (PE/DVT) <= 0.27 01/24/20 18:50: Sodium 136, Potassium 4.2, Chloride 106, Carbon Dioxide 26.0, Anion Gap 4 L, BUN 7, Creatinine 0.86, Estim Creat Clear Calc 72.45, Est GFR (MDRD) Af Amer 89, Est GFR (MDRD) Non-Af 74, BUN/Creatinine Ratio 8.2 L, Glucose 82, Calcium 9.4, Troponin I < 0.015, TSH 8.30 H 09/14/20 19:18: COVID-19 (JESSICA) Negative Current Medications Sodium Chloride () 1,000 mls @ 150 mls/hr IV .[id number] [facility] Last Admin: 01/24/20 19:49 Dose: 150 mls/hr Documented by: Assessment/Plan All Active Problems (Last Reviewed 01/24/20 @ 23:[address] Mp Ram MD) Chest pain (Acute) Chest pain (Acute) Breast cancer (Resolved) Thyroid cancer (Resolved) Abdominal pain (Resolved) Atypical chest pain (Resolved) Diarrhea (Resolved) The patient is a 49 year old F with a significant history of SVT; anxiety and depression; breast cancer status post bilateral mastectomy and chemotherapy; lupus; and seizure disorder who presents emergency department with excruciating progressively worsening episodic chest pain that started a day before presentation. Chest pain Place on a monitored bed at PCU Actual CXR image was independently visualized. No acute cardiopulmonary process was noted. Actual EKG tracing was independently visualized. EKG tracing showed rhythm without any ST or T wave abnormalities. Aspirin 324 mg given at emergency department. Also patient received fentanyl IV. ASA 81 mg p.o. daily ordered Because of hypotension nitroglycerin was not given at emergency department. No nitroglycerin will be ordered inpatient. Morphine as needed for pain ordered We will check lipid panel. Serial cardiac enzymes ordered Stat EKG as needed for chest pain Chemical stress test in the AM if the cardiac enzymes are negative Review of old records: Stress test on 0 ?25-19 was unrevealing Patient reports a history of cardiac cath at outside hospital. Tobacco abuse Counseled Nicotine patch prescribed. History of SVT Patient on atenolol. Because of hypotension at the emergency department atenolol will be held at this time. Hypotension Lowest systolic blood pressure 85. Lower diastolic blood pressure 59. Patient received normal saline bolus at emergency department and and was started on maintenance rate at 150 mL's per hour. Continue patient on normal saline 150 mL's per hour. Epilepsy Topiramate continued Depression/anxiety Amitriptyline and venlafaxine continued. Elevated TSH Patient with a history of partial thyroidectomy. Check free T4. DVT prophylaxis SCD OBSV E&M: 99013 Initial observation care L3
--- NOTE | 2020-01-24 22:56 | EKG12_ITS ---
Test Reason : CP Blood Pressure : / mmHG Vent. Rate : 090 BPM Atrial Rate : 090 BPM P-R Int : 138 ms QRS Dur : 096 ms QT Int : 352 ms P-R-T Axes : 056 066 077 degrees QTc Int : 430 ms Normal sinus rhythm Nonspecific T wave abnormality Abnormal ECG Confirmed by COLIN ROSA, LAUREN ([id number]), associate editor JER GIBBS ([id number]) on 01/27/2020 1:14:15 PM Referred By: CLAYTON Confirmed By:LAUREN SHAW MD
[2020-01-25] VITALS (17 sets, daily range): BP systolic 98–113; BP diastolic 48–64; PULSE 70–92; RESP 12–16; TEMP 36.3–36.7; O2SAT 96–100
[2020-01-25] MEDS: 0.9% Normal Saline 1,000 ML 150 ML IV ×2 (00:19→06:39)
[2020-01-25] MEDS: 0.9% Saline Lock 10 ML Syringe IV ×2 (00:19→11:33)
[2020-01-25] MEDS: Morphine 2 MG/ML Syringe IV ×2 (00:19→06:18)
[2020-01-25] MEDS: Gabapentin 600 MG Tablet PO ×3 (00:21→20:53)
[2020-01-25] MEDS: Topiramate 100 MG Tablet PO ×2 (00:22→20:54)
[2020-01-25] MEDS: Amitriptyline 100 MG Tablet 150 MG PO ×2 (00:23→20:53)
[2020-01-25] MEDS: Mirtazapine 30 MG Tablet PO ×2 (00:24→20:53)
[2020-01-25] MEDS: Venlafaxine HCl 75 MG Tablet 225 MG PO ×2 (00:26→20:54)
[2020-01-25 05:45] LABS: Cholesterol 182 mg/dL (200); High Density Lipoprotein 59 mg/dL; T4 Free Direct 0.89 ng/dL (0.76-1.46); Triglycerides 116 mg/dL; Very Low Density Lipoprotein 23 mg/dL (5-40)
--- NOTE | 2020-01-25 05:55 | EKG12_ITS ---
Test Reason : AM EKG Blood Pressure : / mmHG Vent. Rate : 087 BPM Atrial Rate : 087 BPM P-R Int : 136 ms QRS Dur : 096 ms QT Int : 344 ms P-R-T Axes : 027 076 063 degrees QTc Int : 413 ms Normal sinus rhythm Nonspecific T Wave Abnormality Confirmed by COLIN ROSA, LAUREN ([id number]), development editor JER GIBBS ([id number]) on 01/27/2020 1:11:03 PM Referred By: DR HOFFMAN Confirmed By:LAUREN SHAW MD
[2020-01-25] MEDS: Aspirin E.C. 81 MG Tablet PO (06:17)
[2020-01-25] MEDS: Rizatriptan Benzoate 5 MG Tablet PO (06:36)
--- NOTE | 2020-01-25 10:51 | EKG12_ITS ---
Test Reason : CP ADMIT Blood Pressure : / mmHG Vent. Rate : 071 BPM Atrial Rate : 071 BPM P-R Int : 134 ms QRS Dur : 098 ms QT Int : 392 ms P-R-T Axes : 032 078 062 degrees QTc Int : 425 ms Normal sinus rhythm Normal ECG Confirmed by COLIN ROSA, LAUREN ([id number]), art editor JER GIBBS ([id number]) on 01/27/2020 1:15:40 PM Referred By: DR HOFFMAN Confirmed By:LAUREN SHAW MD
[2020-01-25] MEDS: Nitroglycerin (INPATIENT USE) 0.4 MG TAB.SUBL SUBLINGUAL (11:30)
--- NOTE | 2020-01-25 11:36 | STRESSREP ---
Stress Test Report Date: 01-25-2020 Procedure: Pharmacologic stress nuclear imaging study Indications: Chest pain; history of SVT; history of breast carcinoma status post bilateral mastectomy and subsequent breast reconstruction surgery Consent: Per the patient Procedure: The patient underwent pharmacologic (Regadenoson) evaluation with a peak heart rate of 110 beats per minute (65 %predicted maximal heart rate) and a peak blood pressure of 112/70 mmHg. The baseline ECG demonstrated normal sinus rhythm. The peak pharmacologic ECG demonstrated no obvious ECG changes. There were no cardiac dysrhythmias pretest, during pharmacologic infusion, or recovery. There was no complaint of chest discomfort during pharmacologic infusion or recovery. The examination was discontinued secondary to completion of protocol. Impression: 1. Pharmacologic (Regadenoson) evaluation 2. Peak pharmacologic ECG with no obvious ECG changes. 3. There were no cardiac dysrhythmias pretest, during pharmacologic infusion, or recovery. 4. Nuclear images pending Myocardial perfusion imaging study: Technique: The patient was injected with 11.0 millicuries of technetium 99m Cardiolite and subsequently rest SPECT Cardiolite nuclear imaging was obtained in the horizontal long, vertical long, and short axis views. The patient underwent pharmacologic (Regadenoson) evaluation with a peak heart rate of 110 beats per minute (65 % percent predicted maximal heart rate) and a peak blood pressure of 112/70 mmHg. The patient was injected with 32.9 millicuries of technetium 99m Cardiolite and subsequently stress SPECT Cardiolite nuclear imaging was obtained in the horizontal long, vertical long, and short axis views. A gated Cardiolite study at peak stress was obtained. Interpretation: Rest and stress SPECT Cardiolite nuclear imaging status post realignment, normalization, and attenuation correction demonstrate at rest relative uniform tracer uptake and myocardial perfusion appearing within normal limits. Status post stress there is an area of diminished myocardial perfusion/tracer uptake in portions of the distal lateral/lateral apical segments. There is end systolic thickening and brightening. The gated Cardiolite study demonstrates myocardial thickening and inward wall motion. The reported LVEF is 72 %. Impression: 1. Rest and stress SPECT Cardiolite nuclear imaging demonstrate myocardial perfusion changes concerning for an area of stress-induced myocardial ischemia involving portions of the distal lateral/lateral apical segments. 2. The gated Cardiolite study reports an LVEF of 72 %. This note was generated with [employer] software. It may contain incorrect words, spelling, and punctuation that were not noted in checking the note before signing.
[2020-01-25] MEDS: Acetaminophen 325 MG Tablet 650 MG PO (12:16)
--- NOTE | 2020-01-25 12:21 | PN_ITS ---
Patient Problems: Active and Suspected Problems (Last Reviewed 01/24/20 @ 23:[address] Mp Ram MD) Chest pain (Acute) Chest pain (Acute) Reason for Visit: chest pain Subjective: still with chest pain. improved after NTG. Has had headache. Vitals/I&O's: Vital Signs Temp Pulse Resp BP Pulse Ox 36.5 C L 84 12 98/50 L 98 01/25/20 08:09 01/25/20 11:30 01/25/20 08:09 01/25/20 11:30 01/25/20 08:09 Oxygen Delivery Method Room Air Weight: 71.6 kg Body Mass Index (BMI) 25.4 Intake and Output for Last 24 Hours 01/23/20 01/24/20 01/25/20 23:59 23:59 23:59 Intake Total 1845 / 1845 1265 / 1265 Balance 1845 / 1845 1265 / 1265 General: Alert, No apparent distress HEENT: Atraumatic, Normocephalic Oral: Moist Mucosa, No Gingival or Mucosal Lesions/ Ulcerations Neck: No Nodes, Thyroid Normal Size and Texture Lungs: Clear to auscultation, Normal air movement, No rhonchi, No wheeze Cardiovascular: Regular rate, Regular Rhythm, Normal S1, Normal S2, No murmurs Abdomen: Bowel Sounds Present, Soft, Non Tender, Non-Distended, No Hepato- splenomegaly Extremities: No edema, No Calf Tenderness Psych/Mental Status: Normal Affect, Appropriate Laboratory Results 01/24/20 18:50: WBC 10.1, RBC 4.41, Hgb 13.8, Hct 41.5, MCV 94.1, MCH 31.3, MCHC 33.3, RDW Std Deviation 45.6 H, RDW Coeff of Lali 13.2, Plt Count 373, MPV 9.5, Immature Gran % (Auto) 0.300, Neut % (Auto) 48.7, Lymph % (Auto) 38.9, Vilas % (Auto) 8.0, Eos % (Auto) 3.1, Baso % (Auto) 1.0, Absolute Neuts (auto) 4.9, Absolute Lymphs (auto) 3.94, Nucleated RBC % 0 01/24/20 18:50: D-Dimer Quant (PE/DVT) <= 0.27 01/24/20 18:50: Sodium 136, Potassium 4.2, Chloride 106, Carbon Dioxide 26.0, Anion Gap 4 L, BUN 7, Creatinine 0.86, Estim Creat Clear Calc 72.45, Est GFR (MDRD) Af Amer 89, Est GFR (MDRD) Non-Af 74, BUN/Creatinine Ratio 8.2 L, Glucose 82, Calcium 9.4, Troponin I < 0.015, TSH 8.30 H 01/24/20 19:18: COVID-19 (JESSICA) Negative 01/24/20 23:15: Troponin I < 0.015 01/25/20 01:29: Troponin I < 0.015 01/25/20 05:00: Troponin I < 0.015, Triglycerides 116, Cholesterol 182, LDL Cholesterol 100, VLDL Cholesterol 23, HDL Cholesterol 59, Free T4 0.89 Current Medications Acetaminophen (Tylenol) 650 mg PO Q6H PRN PRN PRN Reason: Pain Score 1-10/Temp > 100.7 F Last Admin: 01/25/20 12:16 Dose: 650 mg Documented by: Amitriptyline HCl (Elavil) 150 mg PO QHS [facility] Last Admin: 01/25/20 00:23 Dose: 150 mg Documented by: Aspirin (Ecotrin) 81 mg PO DAILY@0800 [facility] Last Admin: 01/25/20 06:17 Dose: 81 mg Documented by: Gabapentin (Neurontin) 600 mg PO BID [facility] Last Admin: 01/25/20 00:21 Dose: 600 mg Documented by: Sodium Chloride () 250 mls @ 15 mls/hr IV .[id number] PRN PRN Reason: Saline Flush Sodium Chloride () 250 mls @ 15 mls/hr IV .[id number] PRN PRN Reason: Additional IVPB Infusion Lorazepam (Ativan) 0.5 mg PO TID PRN PRN PRN Reason: ANXIETY Mirtazapine (Remeron) 30 mg PO QHS [facility] Last Admin: 01/25/20 00:24 Dose: 30 mg Documented by: Morphine Sulfate () 2 mg IV Q3H PRN PRN PRN Reason: Pain Score 6-10/10 Last Admin: 01/25/20 06:18 Dose: 2 mg Documented by: Nicotine (Nicoderm Cq (Pbkc)) 21 mg TRANSDERM. DAILY [facility] Nitroglycerin (Nitrostat) 0.4 mg SUBLINGUAL Q5M PRN PRN Reason: CARDIAC/CHEST PAIN Last Admin: 01/25/20 11:30 Dose: 0.4 mg Documented by: Ondansetron HCl (Zofran) 4 mg IV Q8H PRN PRN PRN Reason: NAUSEA/VOMITING Rizatriptan Benzoate (Maxalt) 5 mg PO DAILY PRN PRN PRN Reason: MIGRAINE SYMPTOMS Last Admin: 01/25/20 06:36 Dose: 5 mg Documented by: Senna/Docusate Sodium (Senokot-S, Namita-Colace) 2 tablet PO BID PRN PRN PRN Reason: Constipation Sodium Chloride () 10 - 40 ml IV UD PRN PRN Reason: SALINE FLUSH Last Admin: 01/25/20 11:33 Dose: 10 ml Documented by: Topiramate (Topamax) 100 mg PO QHS [facility] Last Admin: 01/25/20 00:22 Dose: 100 mg Documented by: Venlafaxine HCl (Effexor) 225 mg PO QHS [facility] Last Admin: 01/25/20 00:26 Dose: 225 mg Documented by: STROKE Vital Signs/Narrative: Vital Signs Pulse BP 01/25/20 11:30 84 98/50 L Medical Necessity - Tobacco Use Smoking Status: Former smoker Assessment/Plan All Active Problems (Last Reviewed 01/24/20 @ 23:[address] Mp Ram MD) Chest pain (Acute) Chest pain (Acute) Breast cancer (Resolved) Thyroid cancer (Resolved) Abdominal pain (Resolved) Atypical chest pain (Resolved) Diarrhea (Resolved) 1. unstable angina * repeat EKG normal. troponins normal * stress test abnormal * consult cardiology. Discussed with Dr. Rivera * On aspirin * Discussed with patient about the stress test results and potential need for a cardiac catheterization. 2. migraine * ongoing * advised acetaminophen. I acknowledged that it may be ineffective but I would not give her any triptan's at this time because of the potential for cardiac ischemia. She agreed to try it. Hold off on any NSAIDs in case patient does require clopidogrel. 3. VTE prophylaxis: Low risk at this time. Await cardiac catheterization to determine disposition. OBSV E&M: 96127 Subsequent observation care L2
--- NOTE | 2020-01-25 12:58 | CASEMGMT ---
According to the [place] website, the following are in-network tertiary facilities: [facility], [place], [facility], [place], [facility], [facility], [facility], [place], [facility], and . Fanny GONG CM
--- NOTE | 2020-01-25 13:14 | PCM.CONS.C ---
Problem List (1) Abnormal stress test Status: Acute (2) Angina pectoris Status: Acute (3) Paroxysmal supraventricular tachycardia Status: Chronic (4) Hypertension Status: Chronic (5) Breast cancer Status: Resolved (6) Prophylactic breast removal Status: Chronic Reason for Consult Date of Consultation: 01/25/20 History of Present Illness: The patient is a 49 year old white female with a past medical history of hypertension, SVT, possible CAD, right sided breast carcinoma status post right-sided mastectomy and prophylactic left-sided mastectomy, status post chemotherapy (no radiation therapy), who is referred for evaluation of an abnormal stress test and symptoms concerning for angina pectoris. She states she underwent diagnostic cardiac catheterization several years ago at [facility] and was told she would eventually need reevaluation and some form of therapy for her heart. She states she has not been following with anybody from cardiology on any routine basis. She states that for the last month she has had chest discomfort. She states she feels as if someone is kneeling on her chest. She becomes short of breath, nauseated, and diaphoretic. She states these episodes can last for up to an hour. With these episodes she feels radiation of the symptoms from her central chest to her left shoulder and then down her left upper extremity. She notes that her hands and feet feel cold. She states her fingertips become bluish . She contacted cardiology on-call yesterday for advice. She was asked to report to the emergency department for further evaluation. She did so. Since being in the hospital she has undergone cardiac enzymes which have been negative. She had ECGs demonstrating sinus rhythm with no obvious ECG changes. She had a chest x-ray which reportedly demonstrated no acute changes. She had a d-dimer level which was negative. In the past at [facility] she has had a previous transthoracic echocardiogram and stress nuclear imaging study performed. The results are as noted below. During this hospitalization she had a repeat pharmacologic stress nuclear imaging study. This did demonstrate a change compared to before raising concern of an area of no cardial ischemia in the lateral/apical distribution. Cardiology was consulted for further evaluation and care. She has denied ongoing orthopnea or PND. There is been no ongoing peripheral pitting edema. There is been no near syncope or syncope. She states that she is breast cancer free. She does not require any continued follow-up/medical therapy. [] Past Medical History Allergies/Adverse Reactions: Allergies codeine Allergy (Verified 01/24/20 18:48) Anaphylaxis hydromorphone [From Dilaudid] Allergy (Verified 01/24/20 18:48) SOB/HIVES hydromorphone HCl [From Dilaudid] Adverse Reaction (Verified 01/24/20 18:48) Other pt states she got jittery Penicillins Adverse Reaction (Verified 01/24/20 18:48) Hives Home Medications: Ambulatory Orders Medication Instructions Recorded Lorazepam [Ativan] 0.5 mg PO TID PRN PRN 07/08/14 Ondansetron [Zofran Odt] 4 mg PO Q8H PRN PRN #10 tab 04/14/15 amitriptyline 50 mg tablet 150 mg PO QHS tab 06/19/18 mirtazapine 30 mg tablet 30 mg PO QHS 06/19/18 sumatriptan succinate 25 mg tablet 25 mg PO PRN PRN 06/19/18 topiramate 25 mg tablet 100 mg PO QHS 06/19/18 venlafaxine 150 mg 225 mg PO QHS 06/19/18 capsule,extended release 24 hr Gabapentin [Neurontin] 600 mg PO BID 07/15/19 Ondansetron [Zofran Odt] 4 mg PO Q8H PRN PRN #10 tab 07/15/19 atenolol 50 mg tablet 100 mg PO DAILY tab 11/03/19 Past Medical History (Chronic Problems): Chronic Problems (Last Reviewed 01/24/20 @ 23:[address] 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 Mp Ram MD) Other Anemia Anesthesia complication Anxiety Bleeding disorder Bowel disease Breast cancer CVA (cerebral vascular accident) Cancer Cervical cancer Colon cancer Depression (emotion) Diabetes Heart disease High cholesterol History of blood transfusion Hypertension Osteoporosis Ovarian cancer Thyroid disorder History Items: Heart Disease - I in 60s Maternal Family History: Family History (Last Reviewed 01/24/20 @ 23:[address] Mp Ram MD) Other Anemia Anesthesia complication Anxiety Bleeding disorder Bowel disease Breast cancer CVA (cerebral vascular accident) Cancer Cervical cancer Colon cancer Depression (emotion) Diabetes Heart disease High cholesterol History of blood transfusion Hypertension Osteoporosis Ovarian cancer Thyroid disorder History Items: Hypertension Lives: Spouse/ Significant Other Smoking Status: Former smoker Alcohol: None Drugs: None Review of Systems - Review of Systems General: Denies: Fever, Night Sweats, Fatigue Cardiovascular: Reports: Chest Discomfort, Chest Discomfort at Rest, Chest Discomfort with Exertion, Shortness of Breath, Shortness of Breath at Rest, Shortness of Breath with Exertion. Denies: Orthopnea, PND, Peripheral Edema, Palpitations, Lightheadedness, Dizziness, Near Syncope, Syncope Respiratory: Denies: Cough, Sputum Production, Hemoptysis Gastrointestinal: Denies: Hematemesis, Hematochezia, Melena Genitourinary: Denies: Dysuria, Hematuria Skin: Denies: Rash Subjectve: This is a 49-year-old white female who appears to be resting comfortably at the moment in no acute distress.. Objective: Vital Signs Temp Pulse Resp BP Pulse Ox 97.7 F L 84 12 98/50 L 98 01/25/20 08:09 01/25/20 11:30 01/25/20 08:09 01/25/20 11:30 01/25/20 08:09 Oxygen Delivery Method Room Air Weight: 157 lb 13.616 oz Body Mass Index (BMI) 25.4 Intake and Output for Last 24 Hours 01/23/20 01/24/20 01/25/20 23:59 23:59 23:59 Intake Total 1845 / 1845 1645 / 1645 Balance 1845 / 1845 1645 / 1645 General: Awake, Alert, Oriented x 3, Cooperative, No Acute Distress HEENT: Atraumatic, Normocephalic, PERRL, EOMI, Sclera Non Icteric Neck: Supple, Good ROM, No JVD Lungs: Clear to auscultation Cardiovascular: Regular Rhythm, Normal S1, Normal S2 Abdomen: Bowel Sounds Present, Soft, Non Tender Extremities: No edema Psych/Mental Status: Appropriate 01/24/20 18:50: WBC 10.1, RBC 4.41, Hgb 13.8, Hct 41.5, MCV 94.1, MCH 31.3, MCHC 33.3, Plt Count 373, MPV 9.5, Immature Gran % (Auto) 0.300, Neut % (Auto) 48.7, Lymph % (Auto) 38.9, [place]ackelford % (Auto) 8.0, Eos % (Auto) 3.1, Baso % (Auto) 1.0, Absolute Neuts (auto) 4.9, Nucleated RBC % 0 01/24/20 18:50: D-Dimer Quant (PE/DVT) <= 0.27 01/24/20 18:50: Sodium 136, Potassium 4.2, Chloride 106, Carbon Dioxide 26.0, Anion Gap 4 L, BUN 7, Creatinine 0.86, Est GFR (MDRD) Af Amer 89, Est GFR (MDRD) Non-Af 74, BUN/Creatinine Ratio 8.2 L, Glucose 82, Calcium 9.4, Troponin I < 0.015 01/24/20 23:15: Troponin I < 0.015 01/25/20 01:29: Troponin I < 0.015 01/25/20 05:00: Troponin I < 0.015, Triglycerides 116, Cholesterol 182, LDL Cholesterol 100, VLDL Cholesterol 23, HDL Cholesterol 59 Rhythm: Sinus rhythm EKG: Sinus rhythm; no acute ECG changes ECHO: 06-09-2014 Interpretation Summary Normal LV size. Left ventricular systolic function is normal. The estimated ejection fraction is 65 %. Structurally normal valves. Stress Test: ??20 19 Considered negative for stress-induced myocardial ischemia with a reported gated LVEF of 69% Stress Test Report Date: 01-25-2020 Procedure: Pharmacologic stress nuclear imaging study Indications: Chest pain; history of SVT; history of breast carcinoma status post bilateral mastectomy and subsequent breast reconstruction surgery Consent: Per the patient Procedure: The patient underwent pharmacologic (Regadenoson) evaluation with a peak heart rate of 110 beats per minute (65 %predicted maximal heart rate) and a peak blood pressure of 112/70 mmHg. The baseline ECG demonstrated normal sinus rhythm. The peak pharmacologic ECG demonstrated no obvious ECG changes. There were no cardiac dysrhythmias pretest, during pharmacologic infusion, or recovery. There was no complaint of chest discomfort during pharmacologic infusion or recovery. The examination was discontinued secondary to completion of protocol. Impression: 1. Pharmacologic (Regadenoson) evaluation 2. Peak pharmacologic ECG with no obvious ECG changes. 3. There were no cardiac dysrhythmias pretest, during pharmacologic infusion, or recovery. 4. Nuclear images pending Myocardial perfusion imaging study: Technique: The patient was injected with 11.0 millicuries of technetium 99m Cardiolite and subsequently rest SPECT Cardiolite nuclear imaging was obtained in the horizontal long, vertical long, and short axis views. The patient underwent pharmacologic (Regadenoson) evaluation with a peak heart rate of 110 beats per minute (65 % percent predicted maximal heart rate) and a peak blood pressure of 112/70 mmHg. The patient was injected with 32.9 millicuries of technetium 99m Cardiolite and subsequently stress SPECT Cardiolite nuclear imaging was obtained in the horizontal long, vertical long, and short axis views. A gated Cardiolite study at peak stress was obtained. Interpretation: Rest and stress SPECT Cardiolite nuclear imaging status post realignment, normalization, and attenuation correction demonstrate at rest relative uniform tracer uptake and myocardial perfusion appearing within normal limits. Status post stress there is an area of diminished myocardial perfusion/tracer uptake in portions of the distal lateral/lateral apical segments. There is end systolic thickening and brightening. The gated Cardiolite study demonstrates myocardial thickening and inward wall motion. The reported LVEF is 72 %. Impression: 1. Rest and stress SPECT Cardiolite nuclear imaging demonstrate myocardial perfusion changes concerning for an area of stress-induced myocardial ischemia involving portions of the distal lateral/lateral apical segments. 2. The gated Cardiolite study reports an LVEF of 72 %. Cardiac Cath: Previous report unavailable for review CXR: Per radiology: No acute cardiopulmonary disease appreciated Chest CT Scan: 12-02-2018 FINDINGS: Surgical clips at the level of the GE junction. Left thyroidectomy. Normal enhancement of the main pulmonary artery and right and left pulmonary arteries. Normal enhancement of the bilateral peripheral pulmonary arteries. There is no demonstrated pulmonary embolism. Normal thoracic aorta and visualized great vessels. There is no demonstrated aortic dissection. Normal heart and pericardium. Normal mediastinum. Normal hilar regions. Normal visualized trachea and bronchi. Bilateral lower lobe alveolitis, more extensive on the left. Normal pleura. Normal chest wall structures. Normal osseous structures. 11 mm left adrenal adenoma. CT/CTA Chest W/WO Contrast IMPRESSION: No pulmonary embolus. Bilateral lower lobe alveolitis, more extensive on the left. Assessment/Plan 1. Abnormal stress test The patient does have an abnormal stress nuclear imaging study. It is unclear at this time whether or not this will route returner to represent true CAD with myocardial ischemia versus a false positive study. However based upon the patient's history, ongoing symptoms, and her stress test findings, it was felt prudent that she undergo further evaluation and care. This will include medical therapy as deemed appropriate and further diagnostic evaluation with cardiac catheterization. The procedure and risks were discussed with her and she was agreeable to this approach. 2. Angina pectoris She does have symptoms concerning for angina pectoris. They have been occurring both at rest and with exertion. They have been increasing over the last month. Thus far there is been no other explanation for her chest discomfort from a noncardiac etiology. Thus with her current findings with the abnormal stress nuclear imaging study was felt prudent to proceed with the evaluation and care as noted above. 3. Hypertension She has a history of hypertension. She will need to continue medical management as deemed appropriate. 4. SVT She states she has a history of SVT Her cardiac rhythm is being monitored. 5. Breast carcinoma status post [id number] chemotherapy. She does have history of breast carcinoma status post the aforementioned evaluation care. She states she is cancer free. She states she no longer requires follow-up or medical therapy. However it is unclear as to whether or not any of her symptoms are related to her previous surgeries and associated musculoskeletal discomfort. Comment: The patient's case was discussed and reviewed the patient and Dr. Oconnell. This note was generated using a voice recognition system and there may be incorrect words, spelling or punctuation that were not noted when reviewing the office note prior to saving. Procedure Criteria Procedure Type: Elective COVID Risk Discussion: The surgeon/proceduralist and patient have discussed in detail the risk of exposure to and/or potential harm posed by the COVID-19 virus with having a surgery/procedure at this time versus the risk of delaying the surgery/procedure. It is not possible to know either the risk of delaying the surgery or procedure or chance of getting an infection with perfect accuracy, but a joint decision was made between the patient and the surgeon/proceduralist to proceed at this time with the scheduled surgery/procedure as indicated on the consent form.
[2020-01-25] MEDS: TICAGRELOR 90 MG TABLET 180 MG PO (13:17)
--- NOTE | 2020-01-25 14:34 | CL.D_ITS ---
Patient Name: ERNST PHELPS Study Date: 01/25/2020 Performing: Shamir Rivera MD Ht: 66.14 inches 168 cm : 1970 Wt: 158.73 lbs 72 kg Age: 49 Gender: female BSA: 1.82 PROCEDURE(S) PERFORMED [id number] CLINICAL PROFILE AND INDICATIONS Indications: Suspected CAD Heart Failure: None Stress/Imaging Date: 01/25/2020 Angina Classification Anginal Classification w/in 2 Weeks: CCS IV CAD Presentations: Unstable angina. CONCLUSIONS Elevated Left Ventricular End Diastolic Pressure Normal LV size, wall motion,and systolic function LVEF: by LV gram 60 % Normal coronary arteries RECOMMENDATIONS Risk factor modification Medical therapy DESCRIPTION OF PROCEDURE The patient arrived to the procedure lab. The risks and benefits of the procedure as well as a full d escription of our services here and current unavailability of surgical backup were fully explained to the patient and/or their significant other prior to the catheterization. The Timeout was completed, verifying the correct patient and procedure. The patient's procedural site was prepped and draped in the usual fashion. Local anesthetic was given subcutaneously to right radial region with Lidocaine 2% . Using a modified Seldinger technique, arterial access was obtained via the right radial artery, a 6 Fr sheath was inserted. Left Coronary Artery selective angiography was performed in multiple views u sing a 5 Fr. AL 1 catheter. Right Coronary Artery selective angiography was then performed in multipl e views using a 5 Fr. 3DRC (Anshu) catheter. Left Ventriculography was performed in PRESCOTT projection using a 5 Fr. Pigtail catheter. LV to AO pullback pressures were then recorded.The arterial sheath was pulled and a TR Band was applied for hemostasis CORONARY ANGIOGRAPHY DOMINANCE: Right Dominant LEFT HEART ASSESSMENT Left Ventricular Ejection Fraction: by LV Gram 60 % Normal LV wall motion Elevated Left Ventricular End Diastolic Pressure LVEDP: 35 mmHg LEFT MAIN: Angiographically normal LEFT ANTERIOR DESCENDING ARTERY: Angiographically normal CIRCUMFLEX ARTERY: Angiographically normal RAMUS: Angiographically normal RIGHT CORONARY ARTERY: Angiographically normal AORTIC ROOT: Angiographically normal COMPLICATIONS No Complications PROCEDURE MEDICATIONS Versed 1 mg IV Fentanyl 50 mcg IV Versed 1 mg IV Fentanyl 50 mcg IV Oxygen: 2 L/min via nasal cannula Heparin given IA 01/25/2020 13:54:12 Verapamil 2.5mg, Ntg 100mcgs, 2000 units of Heparin given IA 01/25/2020 13:54:12 SUMMARY OF HEMODYNAMIC DATA Time AIR REST ECG 13:38:46 AO 105/71 (87) SA 13:56:07 LV 140/5, 38 14:15:22 LV 141/4, 35 14:15:29 LV 134/11, 29 14:16:19 LV 140/3, 34 14:16:26 LVp 137/3, 34 14:16:33 AOp 137/78 (107) 14:16:38 Signed By Shamir Rivera MD On 01/25/2020 14:33:04 Shamir Rivera MD
--- NOTE | 2020-01-25 15:29 | DCINST_ITS ---
- Discharge Diagnoses Current Active Problems: Current Active and Chronic Problems (Last Reviewed 01/24/20 @ 23:[address] Mp Ram MD) Chest pain (Acute) Chest pain (Acute) Abnormal stress test (Acute) Angina pectoris (Acute) You will use the following diet at home:: No restrictions Your food should be the consistency of: Regular Your liquids should be the consistency of: Regular/Thin Discharge Activity: Return to Normal Activity Instructions: ED Chest Pain NonCardiac Allergies/Adverse Reactions: Allergies codeine Allergy (Verified 01/24/20 18:48) Anaphylaxis hydromorphone [From Dilaudid] Allergy (Verified 01/24/20 18:48) SOB/HIVES hydromorphone HCl [From Dilaudid] Adverse Reaction (Verified 01/24/20 18:48) Other pt states she got jittery Penicillins Adverse Reaction (Verified 01/24/20 18:48) Hives Medications to take at Discharge Lorazepam [Ativan] 0.5 mg PO TID PRN PRN 07/08/14 Ondansetron [Zofran Odt] 4 mg PO Q8H PRN PRN #10 tab 04/14/15 amitriptyline 50 mg tablet 150 mg PO QHS tab 06/19/18 mirtazapine 30 mg tablet 30 mg PO QHS 06/19/18 sumatriptan succinate 25 mg tablet 25 mg PO PRN PRN 06/19/18 topiramate 25 mg tablet 100 mg PO QHS 06/19/18 venlafaxine 150 mg capsule,extended release 24 hr 225 mg PO QHS 06/19/18 Gabapentin [Neurontin] 600 mg PO BID 07/15/19 Ondansetron [Zofran Odt] 4 mg PO Q8H PRN PRN #10 tab 07/15/19 atenolol 50 mg tablet 100 mg PO DAILY tab 11/03/19 Omeprazole 20 mg PO DAILY #30 tab 01/25/20 The following prescriptions were given: Omeprazole 20 mg PO DAILY #30 tab Primary Care Physician: Anson Rios MD [Primary Care Provider] - Within 1 Week Test Results: Test results from this visit will be discussed in further detail at your follow- up appointment, if applicable. Proposed Discharge Date: 01/25/20
--- NOTE | 2020-01-25 15:30 | DS.PCM_ITS ---
Discharge Date and Diagnosis - Problem List Patient Problems: Active and Suspected Problems (Last Reviewed 01/24/20 @ 23:[address] Mp Ram MD) Chest pain (Acute) Chest pain (Acute) Abnormal stress test (Acute) Angina pectoris (Acute) Date of Admission: 01/24/20 Date of Discharge: 01/25/20 - Primary Discharge Diagnosis Acute Problems: Active Problems (Last Reviewed 01/24/20 @ 23:[address] Mp Ram MD) Chest pain (Acute) Chest pain (Acute) Abnormal stress test (Acute) Angina pectoris (Acute) - Secondary Discharge Diagnosis Chronic Problems: Chronic Problems (Last Reviewed 01/24/20 @ 23:[address] 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 Rest and stress SPECT Cardiolite nuclear imaging demonstrate myocardial perfusion changes concerning for an area of stress-induced myocardial ischemia involving portions of the distal lateral/lateral apical segments. 2. The gated Cardiolite study reports an LVEF of 72 %. Summary of Care Provided: The patient is a 49 year old F with midsternal chest pain radiating to her shoulder. Patient was evaluated for cardiac rule out. Troponin series as well as serial EKGs were all unremarkable. She did undergo a nuclear stress imaging that showed areas are concerning for stress-induced myocardial ischemia. Patient underwent a left heart catheterization today that showed normal coronaries. Is felt that her chest pain is noncardiac but may be GI related or possibly panic attack associated. Recommended to the patient that she take omeprazole at home and the follow-up with her primary care doctor. If patient still having symptoms several weeks out, then she may need referral to a corsetier. Patient denies any history, however, reflux type symptoms. Patient is on lorazepam as well as venlafaxine, which does raise the concern for this being psychiatric or panic attack induced. [] Patient Problems: Active and Suspected Problems (Last Reviewed 01/24/20 @ 23:[address] Mp Ram MD) Chest pain (Acute) Chest pain (Acute) Abnormal stress test (Acute) Angina pectoris (Acute) - Physical Exam Vitals/I&O's: Vital Signs Temp Pulse Resp BP Pulse Ox 36.4 C L 77 16 106/52 L 100 01/25/20 14:35 01/25/20 15:20 01/25/20 15:20 01/25/20 15:20 01/25/20 15:20 Oxygen Delivery Method Room Air Weight: 71.6 kg Body Mass Index (BMI) 25.4 Intake and Output for Last 24 Hours 01/23/20 01/24/20 01/25/20 23:59 23:59 23:59 Intake Total 1844 / 1844 1906.5 / 1906.5 Balance 1844.5 / 1906. General: Alert, No apparent distress HEENT: Atraumatic, Normocephalic Oral: Moist Mucosa, No Gingival or Mucosal Lesions/ Ulcerations Neck: No Nodes, Thyroid Normal Size and Texture Lungs: Clear to auscultation, Normal air movement, No rhonchi, No wheeze, No rales Cardiovascular: Regular rate, Regular Rhythm, Normal S1, Normal S2, No murmurs Abdomen: Bowel Sounds Present, Soft, Non Tender, Non-Distended, No Hepato-splenomegaly Extremities: No edema, No Calf Tenderness Psych/Mental Status: Normal Affect, Appropriate Laboratory Results 01/24/20 18:50: WBC 10.1, RBC 4.41, Hgb 13.8, Hct 41.5, MCV 94.1, MCH 31.3, MCHC 33.3, RDW Std Deviation 45.6 H, RDW Coeff of Lali 13.2, Plt Count 373, MPV 9.5, Immature Gran % (Auto) 0.300, Neut % (Auto) 48.7, Lymph % (Auto) 38.9, [place] % (Auto) 8.0, Eos % (Auto) 3.1, Baso % (Auto) 1.0, Absolute Neuts (auto) 4.9, Absolute Lymphs (auto) 3.94, Nucleated RBC % 0 01/24/20 18:50: D-Dimer Quant (PE/DVT) <= 0.27 01/24/20 18:50: Sodium 136, Potassium 4.2, Chloride 106, Carbon Dioxide 26.0, Anion Gap 4 L, BUN 7, Creatinine 0.86, Estim Creat Clear Calc 72.45, Est GFR (MDRD) Af Amer 89, Est GFR (MDRD) Non-Af 74, BUN/Creatinine Ratio 8.2 L, Glucose 82, Calcium 9.4, Troponin I < 0.015, TSH 8.30 H 01/24/20 19:18: COVID-19 (JESSICA) Negative 01/24/20 23:15: Troponin I < 0.015 01/25/20 01:29: Troponin I < 0.015 01/25/20 05:00: Troponin I < 0.015, Triglycerides 116, Cholesterol 182, LDL Cholesterol 100, VLDL Cholesterol 23, HDL Cholesterol 59, Free T4 0.89 Current Medications Acetaminophen (Tylenol) 650 mg PO Q6H PRN PRN PRN Reason: Pain Score 1-10/Temp > 100.7 F Last Admin: 01/25/20 12:16 Dose: 650 mg Documented by: Amitriptyline HCl (Elavil) 150 mg PO QHS [facility] Last Admin: 01/25/20 00:23 Dose: 150 mg Documented by: Aspirin (Ecotrin) 81 mg PO DAILY@0800 [facility] Last Admin: 01/25/20 06:17 Dose: 81 mg Documented by: Gabapentin (Neurontin) 600 mg PO BID [facility] Last Admin: 01/25/20 15:08 Dose: 600 mg Documented by: Sodium Chloride () 250 mls @ 15 mls/hr IV .[id number] PRN PRN Reason: Saline Flush Sodium Chloride () 250 mls @ 15 mls/hr IV .[id number] PRN PRN Reason: Additional IVPB Infusion Sodium Chloride () 1,000 mls @ 15 mls/hr IV .Q48H [facility] Sodium Chloride () 1,000 mls @ 75 mls/hr IV .[id number] [facility] Lorazepam (Ativan) 0.5 mg PO TID PRN PRN PRN Reason: ANXIETY Mirtazapine (Remeron) 30 mg PO QHS [facility] Last Admin: 01/25/20 00:24 Dose: 30 mg Documented by: Morphine Sulfate () 2 mg IV Q3H PRN PRN PRN Reason: Pain Score 6-10/10 Last Admin: 01/25/20 06:18 Dose: 2 mg Documented by: Nicotine (Nicoderm Cq (Pbkc)) 21 mg TRANSDERM. DAILY [facility] Last Admin: 01/25/20 15:08 Dose: 21 mg Documented by: Nitroglycerin (Nitrostat) 0.4 mg SUBLINGUAL Q5M PRN PRN Reason: CARDIAC/CHEST PAIN Last Admin: 01/25/20 11:30 Dose: 0.4 mg Documented by: Ondansetron HCl (Zofran) 4 mg IV Q8H PRN PRN PRN Reason: NAUSEA/VOMITING Pantoprazole Sodium (Protonix) 40 mg PO X1 ONE Stop: 01/25/20 15:28 Senna/Docusate Sodium (Senokot-S, Namita-Colace) 2 tablet PO BID PRN PRN PRN Reason: Constipation Sodium Chloride () 10 - 40 ml IV UD PRN PRN Reason: SALINE FLUSH Last Admin: 01/25/20 11:33 Dose: 10 ml Documented by: Topiramate (Topamax) 100 mg PO QHS [facility] Last Admin: 01/25/20 00:22 Dose: 100 mg Documented by: Venlafaxine HCl (Effexor) 225 mg PO QHS [facility] Last Admin: 01/25/20 00:26 Dose: 225 mg Documented by: Discharge Diet: No Restrictions Discharge Activity: Return to Normal Activity Home Medications: Medications to take at Discharge Lorazepam [Ativan] 0.5 mg PO TID PRN PRN 07/08/14 Ondansetron [Zofran Odt] 4 mg PO Q8H PRN PRN #10 tab 04/14/15 amitriptyline 50 mg tablet 150 mg PO QHS tab 06/19/18 mirtazapine 30 mg tablet 30 mg PO QHS 06/19/18 sumatriptan succinate 25 mg tablet 25 mg PO PRN PRN 06/19/18 topiramate 25 mg tablet 100 mg PO QHS 06/19/18 venlafaxine 150 mg capsule,extended release 24 hr 225 mg PO QHS 06/19/18 Gabapentin [Neurontin] 600 mg PO BID 07/15/19 Ondansetron [Zofran Odt] 4 mg PO Q8H PRN PRN #10 tab 07/15/19 atenolol 50 mg tablet 100 mg PO DAILY tab 06/24/20 Omeprazole 20 mg PO DAILY #30 tab. 01/25/20 Following Prescriptions Were Given to Patient: Omeprazole 20 mg PO DAILY #30 tab. Primary Care Physician: Anson Rios MD [Primary Care Provider] - Within 1 Week Patient Instructions: ED Chest Pain NonCardiac Disposition: Home Minutes spent on discharge:: 32 Patient Condition:: Good Medical Necessity - Tobacco Use Smoking Status: Former smoker Meaningful Use Info Meaningful Use Diagnoses (Choose all that apply): None applicable OBSV E&M: 87349 Observation care discharge
[2020-01-25] MEDS: Pantoprazole Sodium 40 MG Tablet PO (15:43)
[2020-01-25] MEDS: LORazepam 0.5 MG Tablet PO ×2 (16:25→20:53)
--- NOTE | 2020-01-25 17:38 | CT_ITS ---
STUDY: CTA CHEST REASON FOR EXAM: Female, 49 years old. CHEST PAIN, HX BREAST CANCER W/ DOUBLE MASTECTOMY-CHEMO RADIATION DOSAGE (If Supplied By Facility): CTDIvol = ( 4.17 ) mGy, DLP = ( 108.92 ) mGycm TECHNIQUE: The examination was performed with the intravenous administration of IV 100mL Isovue-370. Post-processing of the angiographic images was performed, with multiplanar reformation and 3D reconstruction. Individualized dose optimization techniques were used for this CT. COMPARISON: None. FINDINGS: Normal enhancement of the main pulmonary artery and right and left pulmonary arteries. Normal enhancement of the bilateral peripheral pulmonary arteries. There is no demonstrated pulmonary embolism. Normal thoracic aorta and visualized great vessels. Limited visualization of the distal portion of the left subclavian artery. There is no demonstrated aortic dissection. Normal heart and pericardium. Normal mediastinum. Normal hilar regions. Normal visualized trachea and bronchi. The lungs are well expanded. Left lower lobe interstitial density. Normal pleura. Normal chest wall structures. Normal osseous structures. Small hiatal hernia. Previous gastric surgery. CT/CTA Chest W/WO Contrast IMPRESSION: No demonstrated pulmonary embolism or arterial dissection. Left lower lobe interstitial density. Hiatal hernia. Electronically Signed: Dariel Dc DO at 18:51 EDT Tel [phone], Service support ,
--- NOTE | 2020-01-25 18:39 | NURSING ---
all documentation, care, and medication administration completed by Rosa Chapin RN, done under the supervision of this RN.
--- NOTE | 2020-01-25 20:07 | PCM.PN.CARD ---
Subjectve: The patient is status post diagnostic cardiac catheterization. She has continued with waxing and waning chest discomfort. She is undergone chest CT scan with no evidence of great vessel disease or thromboembolic disease, however, did demonstrate findings compatible with a hiatal hernia. Objective: Vital Signs Temp Pulse Resp BP Pulse Ox 97.4 F L 89 16 113/48 L 100 01/25/20 17:05 01/25/20 19:00 01/25/20 17:05 01/25/20 17:05 01/25/20 17:05 Oxygen Delivery Method Room Air Weight: 157 lb 13.616 oz Body Mass Index (BMI) 25.4 Intake and Output for Last 24 Hours 01/23/20 01/24/20 01/25/20 23:59 23:59 23:59 Intake Total 1845 / 1845 2853.75 / 2853.75 Balance 1845 / 1845 2853.75 / 2853.75 General: Awake, Alert, Oriented x 3, Cooperative, No Acute Distress HEENT: Atraumatic, Normocephalic, PERRL, EOMI, Sclera Non Icteric Neck: Supple, Good ROM, No JVD Lungs: Clear to auscultation Cardiovascular: Regular Rhythm, Normal S1, Normal S2 Vascular: Normal Radial Pulses Abdomen: Bowel Sounds Present, Soft Extremities: No edema Psych/Mental Status: Appropriate 01/24/20 18:50: D-Dimer Quant (PE/DVT) <= 0.27 01/24/20 23:15: Troponin I < 0.015 01/25/20 01:29: Troponin I < 0.015 01/25/20 05:00: Troponin I < 0.015, Triglycerides 116, Cholesterol 182, LDL Cholesterol 100, VLDL Cholesterol 23, HDL Cholesterol 59 Rhythm: Sinus rhythm Cardiac Cath: CONCLUSIONS Elevated Left Ventricular End Diastolic Pressure Normal LV size, wall motion,and systolic function LVEF: by LV gram 60 % Normal coronary arteries RECOMMENDATIONS Risk factor modification Medical therapy DESCRIPTION OF PROCEDURE The patient arrived to the procedure lab. The risks and benefits of the procedure as well as a full description of our services here and current unavailability of surgical backup were fully explained to the patient and/or their significant other prior to the catheterization. The Timeout was completed, verifying the correct patient and procedure. The patient's procedural site was prepped and draped in the usual fashion. Local anesthetic was given subcutaneously to right radial region with Lidocaine 2%. Using a modified Seldinger technique, arterial access was obtained via the right radial artery, a 6Fr sheath was inserted. Left Coronary Artery selective angiography was performed in multiple views using a 5 Fr. AL 1 catheter. Right Coronary Artery selective angiography was then performed in multiple views using a 5 Fr. 3DRC (Anshu) catheter. Left Ventriculography was performed in PRESCOTT projection using a 5 Fr. Pigtail catheter. LV to AO pullback pressures were then recorded.The arterial sheath was pulled and a TR Band was applied for hemostasis CORONARY ANGIOGRAPHY DOMINANCE: Right Dominant LEFT HEART ASSESSMENT Left Ventricular Ejection Fraction: by LV Gram 60 % Normal LV wall motion Elevated Left Ventricular End Diastolic Pressure LVEDP: 35 mmHg LEFT MAIN: Angiographically normal LEFT ANTERIOR DESCENDING ARTERY: Angiographically normal CIRCUMFLEX ARTERY: Angiographically normal RAMUS: Angiographically normal RIGHT CORONARY ARTERY: Angiographically normal AORTIC ROOT: Angiographically normal Medical Necessity - Tobacco Use Smoking Status: Former smoker Assessment/Plan 1. Abnormal stress test Patient has undergone evaluation with diagnostic cardiac catheterization. Her cardiac catheterization demonstrated what appeared to be angiographically normal-appearing coronary arteries and overall preserved left ventricular systolic function. At the present time she needs to be considered for continued non-CAD/noncardiac evaluation of her chest discomfort. This may include further gastrointestinal evaluation for her hiatal hernia and/or other concerns such as possible esophageal vasospasm. 2. Chest discomfort Again the patient does appear to have non-CAD related chest discomfort. She will need continued non-CAD/noncardiac evaluation. 3. Hypertension She has a history of hypertension. She will need to continue medical management as deemed appropriate. 4. SVT She states she has a history of SVT Her cardiac rhythm is being monitored. She can continue medical therapy as deemed appropriate. 5. Breast carcinoma status post [id number] chemotherapy. She does have history of breast carcinoma status post the aforementioned evaluation care. She states she is cancer free. She states she no longer requires follow-up or medical therapy. However it is unclear as to whether or not any of her symptoms are related to her previous surgeries and associated musculoskeletal discomfort. Of note, the patient did note following her cardiac catheterization and placement of the TR band and subsequent release and removal of the TR band the sensation of paresthesias in her right hand area. Upon evaluation she had positive radial and ulnar artery pulses, good capillary refill, good color of the right hand, the right hand was warm to the touch, and there was no appearance of obvious motor or sensory deficits. Her sensation may be secondary to placement of the TR band and for a compression of not only the vascular structures but the surrounding neuro tissue. At the present time she will continue to be observed with respect to this sensation as she recuperates from the procedure with additional evaluation care as deemed appropriate. This note was generated using a voice recognition system and there may be incorrect words, spelling or punctuation that were not noted when reviewing the office note prior to saving.
[2020-01-26] VITALS (16 sets, daily range): BP systolic 100–119; BP diastolic 60–78; PULSE 75–110; RESP 16–18; TEMP 36.4–36.7; O2SAT 94–99
[2020-01-26] MEDS: Aspirin E.C. 81 MG Tablet PO (08:36)
--- NOTE | 2020-01-26 08:48 | PN.CARD_ITS ---
Subjectve: The patient is awake and alert this morning. She appears more restful. She states she has no ongoing discomforts at this time. She also notes that her right hand paresthesia type sensation appears to have resolved. Objective: Vital Signs Temp Pulse Resp BP Pulse Ox 97.7 F L 86 16 106/68 99 01/26/20 05:21 01/26/20 07:00 01/26/20 05:21 01/26/20 05:21 01/26/20 07:12 Oxygen Delivery Method Room Air Weight: 157 lb 13.616 oz Body Mass Index (BMI) 25.4 Intake and Output for Last 24 Hours 01/24/20 01/25/20 01/26/20 23:59 23:59 23:59 Intake Total 1845 / 1845 2853.75 / 3093.75 360 / 360 Balance 1845 / 1845 2853.75 / 3093.75 360 / 360 General: Awake, Alert, Oriented x 3, Cooperative, No Acute Distress HEENT: Atraumatic, Normocephalic, PERRL, EOMI, Sclera Non Icteric Neck: Supple, Good ROM, No JVD Lungs: Clear to auscultation Cardiovascular: Regular Rhythm, Normal S1, Normal S2 Vascular: Normal Radial Pulses Abdomen: Bowel Sounds Present, Soft Extremities: No edema Neurological: No Focal Motor or Sensory Deficit Psych/Mental Status: Appropriate Rhythm: Sinus rhythm Medical Necessity - Tobacco Use Smoking Status: Former smoker Assessment/Plan 1. Abnormal stress test The patient has undergone evaluation with diagnostic cardiac catheterization. Her cardiac catheterization demonstrated what appeared to be angiographically normal-appearing coronary arteries and overall preserved left ventricular systolic function. At the present time she needs to be considered for continued non-CAD/noncardiac evaluation of her chest discomfort. This may include further gastrointestinal evaluation for her hiatal hernia and/or other concerns such as possible esophageal vasospasm. 2. Chest discomfort Again the patient does appear to have non-CAD related chest discomfort. She will need continued non-CAD/noncardiac evaluation. 3. Hypertension She has a history of hypertension. She will need to continue medical management as deemed appropriate. 4. SVT She states she has a history of SVT Her cardiac rhythm is being monitored. Based upon the PCU monitor she has remained in sinus rhythm. She can continue medical therapy as deemed appropriate. 5. Breast carcinoma status post [id number] chemotherapy. She does have history of breast carcinoma status post the aforementioned evaluation care. She states she is cancer free. She states she no longer requires follow-up or medical therapy. However it is unclear as to whether or not any of her symptoms are related to her previous surgeries and associated m usculoskeletal discomfort. Of note, the patient did note following her cardiac catheterization and placement of the TR band and subsequent release and removal of the TR band the sensation of paresthesias in her right hand area. Upon evaluation evening and today she had positive radial and ulnar artery pulses, good capillary refill, good color of the right hand, the right hand was warm to the touch, and there was no appearance of obvious motor or sensory deficits. Her sensation may have been secondary to placement of the TR band and for a compression of not only the vascular structures but the surrounding neuro tissue. At the present time she she states these sensations have resolved and she has returned to her baseline status. Thus it does not appear she requires additional evaluation/care at this time with respect to this issue. This note was generated using a voice recognition system and there may be incorrect words, spelling or punctuation that were not noted when reviewing the office note prior to saving.
[2020-01-26] MEDS: 0.9% Saline Lock 10 ML Syringe IV ×2 (10:14→10:53)
--- NOTE | 2020-01-26 10:28 | CON.PCM_ITS ---
Problem List (1) Hypertension Status: Chronic (2) Chest pain Status: Acute (3) Paroxysmal supraventricular tachycardia Status: Chronic (4) Nicotine dependence Status: Chronic (5) Lupus (systemic lupus erythematosus) Status: Chronic (6) Breast reconstruction deformity Status: Chronic (7) Breast cancer Status: Resolved (8) Thyroid cancer Status: Resolved Reason for Consult Date of Consultation: 01/26/20 Reason for Consultation: Abnormal CT scan History of Present Illness: The patient is a 49 year old F, with past medical history listed below, who presented with [facility] on 01/24/2020 secondary to cycles of chest pressure that started on the day of presentation. Patient described the pain as squeezing and located to the middle of her chest. Patient states this radiated into the left shoulder and arm. Patient had been seen at the request of Dr. Buck. Patient did have a COVID test last week, but reportedly had made it back to baseline. In the ER, patient was noted to be relatively hypotensive and received fluid boluses. Patient did have recurrence of chest pain, but EKG was unremarkable. Patient systolic blood pressure was reportedly in the 90s and did respond to fluid. Patient was admitted for a cardiac work-up. Throughout the hospitalization, patient has remained hemodynamically stable. Patient does have episodes of tachycardia on review of telemetry. Patient states that she has intermittent sensation of pain, but does not believe it is changed much in character. Prior to hospitalization, patient denies any productive cough, fever, chills, but has had some diaphoresis that she associates with her age. Patient is not reporting any lower extremity edema. Patient has had a stress test and a heart catheterization that was relatively unremarkable. Patient's heart catheterization showed no coronary artery disease, but she did have an elevated LVEDP. Patient does report a 20+ pack year history of smoking. Patient also has a history of lupus, breast cancer and breast surgery, but is never been evaluated by a lung specialist. Patient is unaware of any previous PFT. Patient has neve r required supplemental oxygen. 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 Patient denies any exposure to asbestos or TB. Patient does have a dog, but denies any exposure to birds. Patient does not report any exposures associated with hobbies such as pottery, carpentry or glass blowing. Review of systems otherwise negative from a constitutional, HEENT, respiratory, cardiovascular, GI, genitourinary, musculoskeletal, skin, neurologic, psychiatric and hematologic system unless stated above. 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) Prophylactic breast removal (Chronic) Medical History: Medical History (Last Updated 01/26/20 @ 09:07 by Clarita Davis) Paroxysmal supraventricular tachycardia (Chronic) I47.1 Nicotine dependence (Chronic) F17.200 Lupus (systemic lupus erythematosus) (Chronic) M32.9 Disproportion of reconstructed breast (Chronic) N65.1 Breast reconstruction deformity (Chronic) N65.0 Nonhealing surgical wound (Chronic) T81.89XA right central mastectomy wound and left lateral mastectomy wound 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) Z90.13 Prophylactic breast removal (Chronic) Z40.01 Breast cancer (Resolved) C50.919 Thyroid cancer (Resolved) C73 History of left heart catheterization (LHC) Onset Date: ~01/25/20 Z98.890 LEFT MAIN: Angiographically normal; LEFT ANTERIOR DESCENDING ARTERY: Angiographically normal; CIRCUMFLEX ARTERY: Angiographically normal; RAMUS: Angiographically normal; RIGHT CORONARY ARTERY: Angiographically normal; AORTIC ROOT: Angiographically normal per cath 01/25/[address] scan, colon R93.3 Anemia D64.9 Anxiety and depression F41.9, F32.9 Bleeding disorder D69.9 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 Family history of breast cancer Z80.3 Frequent headaches R51 Gallstones K80.20 Gastrointestinal problem R19.8 Goiter E04.9 History of Clostridium difficile colitis Z86.19 states she has had C Diff 8 times History of blood transfusion Z92.89 IBS (irritable bowel syndrome) K58.9 Immunocompromised state due to drug therapy Z79.899 Humira for Lupus Inconclusive mammography due to dense breasts R92.2 Migraine G43.909 Non-pressure chronic ulcer of skin of other sites with fat layer exposed L98.492 nonhealing ulcer medial aspect right mastectomy scar nonhealing ulcer lateral aspect left mastectomy scar 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 Peptic ulcer disease K27.9 Seizure R56.9 Vitamin deficiency E56.9 Bone fracture T14.8XXA Breast lump N63.0 Diarrhea R19.7 Difficulty balancing R29.818 Hives L50.9 Pneumonia J18.9 Fatigue R53.83 Allergies codeine Allergy (Verified 01/24/20 18:48) Anaphylaxis hydromorphone [From Dilaudid] Allergy (Verified 01/24/20 18:48) SOB/HIVES hydromorphone HCl [From Dilaudid] Adverse Reaction (Verified 01/24/20 18:48) Other pt states she got jittery Penicillins Adverse Reaction (Verified 01/24/20 18:48) Hives Home Medications: Ambulatory Orders Medication Instructions Recorded Lorazepam [Ativan] 0.5 mg PO TID PRN PRN 07/08/14 Ondansetron [Zofran Odt] 4 mg PO Q8H PRN PRN #10 tab 04/14/15 amitriptyline 50 mg tablet 150 mg PO QHS tab 06/19/18 mirtazapine 30 mg tablet 30 mg PO QHS 06/19/18 sumatriptan succinate 25 mg tablet 25 mg PO PRN PRN 06/19/18 topiramate 25 mg tablet 100 mg PO QHS 06/19/18 venlafaxine 150 mg 225 mg PO QHS 06/19/18 capsule,extended release 24 hr Gabapentin [Neurontin] 600 mg PO BID 07/15/19 Ondansetron [Zofran Odt] 4 mg PO Q8H PRN PRN #10 tab 07/15/19 atenolol 50 mg tablet 100 mg PO DAILY tab 11/03/19 Omeprazole 20 mg PO DAILY #30 tab. 01/25/20 Surgical History: Surgical History (Last Reviewed 01/24/20 @ 23:[address] Mp Ram MD) History of cholecystectomy Z90.49 DONE AT [facility] History of hysterectomy Z90.710 DONE AT [facility] History of partial thyroidectomy E89.0 History of thyroid surgery Z98.890 DONE AT [facility] Surgical History: cholecystectomy, hysterectomy, - - partial thyroidectomy Psychiatric History: Anxiety TOWN PLANNER History: No pertinent TOWN PLANNER history Lives: Spouse/ Significant Other Smoking Status: Former smoker Alcohol: None Drugs: None - *Family History Paternal Family History: Family History (Last Reviewed 01/24/20 @ 23:[address] Mp Ram MD) Other Anemia Anesthesia complication Anxiety Bleeding disorder Bowel disease Breast cancer CVA (cerebral vascular accident) Cancer Cervical cancer Colon cancer Depression (emotion) Diabetes Heart disease High cholesterol History of blood transfusion Hypertension Osteoporosis Ovarian cancer Thyroid disorder History Items: Heart Disease - I in 60s Maternal Family History: Family History (Last Reviewed 01/24/20 @ 23:[address] Mp Ram MD) Other Anemia Anesthesia complication Anxiety Bleeding disorder Bowel disease Breast cancer CVA (cerebral vascular accident) Cancer Cervical cancer Colon cancer Depression (emotion) Diabetes Heart disease High cholesterol History of blood transfusion Hypertension Osteoporosis Ovarian cancer Thyroid disorder History Items: Hypertension Review of Systems Comment: See HPI Patient Problems: Active and Suspected Problems (Last Updated 01/26/20 @ 09:07 by Clarita Davis) Chest pain (Acute) Chest pain (Acute) Abnormal stress test (Acute) Angina pectoris (Acute) Objective: All imaging was personally reviewed. CT scan of the chest shows no emphysematous changes or bronchiectasis. Patient does have increased interstitial markings in the left lower lobe. Patient also has a hiatal hernia, but no PE or aortic dissection is appreciated. - Physical Exam Vitals/I&O's: Vital Signs Temp Pulse Resp BP Pulse Ox 36.4 C L 110 H 18 100/65 96 01/26/20 10:05 01/26/20 10:05 01/26/20 10:05 01/26/20 10:05 01/26/20 10:05 Oxygen Delivery Method Room Air Weight: 71.6 kg Body Mass Index (BMI) 25.4 Intake and Output for Last 24 Hours 01/24/20 01/25/20 01/26/20 23:59 23:59 23:59 Intake Total 1844 1845 2853.75 / 3093.75 360 / 360 Balance 184 / 1845 2853.75 / 3093.75 360 / 360 General: Alert, Oriented x3, Cooperative, No apparent distress, Well developed, Well nourished, - - No conversational dyspnea. HEENT: Atraumatic, PERRLA, EOMI, Normocephalic, - - No scleral icterus or injection noted Oral: Moist Mucosa, No Gingival or Mucosal Lesions/ Ulcerations Neck: Supple, No JVD, No Nodes, Trachea Midline Lungs: No rhonchi, No wheeze, Diminished, Rales - Left base, - - Symmetric expansion Cardiovascular: Normal S1, Normal S2, No murmurs, No rub noted, No Gallop, Tachycardic Abdomen: Bowel Sounds Present, Soft, Non Tender, Non-Distended Extremities: No clubbing, No cyanosis, No edema, Capillary Refill Less than 3 Seconds Skin: No rashes, No breakdown Musculoskeletal: No Tenderness to Palpation of Joints or Extremities Lymphatic: No Cervical, Supraclavicular, or Inguinal Adenopathy Neurological: Cranial nerves II-XII grossly intact, Neuro grossly intact, Motor Exam 5/5 strength throughout Psych/Mental Status: Alert and oriented to time, place, person, mood and affect Current Medications Acetaminophen (Tylenol) 650 mg PO Q6H PRN PRN PRN Reason: Pain Score 1-10/Temp > 100.7 F Last Admin: 01/25/20 12:16 Dose: 650 mg Documented by: Amitriptyline HCl (Elavil) 150 mg PO QHS [facility] Last Admin: 01/25/20 20:53 Dose: 150 mg Documented by: Aspirin (Ecotrin) 81 mg PO DAILY@0800 [facility] Last Admin: 01/26/20 08:36 Dose: 81 mg Documented by: Gabapentin (Neurontin) 600 mg PO BID [facility] Last Admin: 01/25/20 20:53 Dose: 600 mg Documented by: Sodium Chloride () 250 mls @ 15 mls/hr IV .[id number] PRN PRN Reason: Saline Flush Sodium Chloride () 250 mls @ 15 mls/hr IV .[id number] PRN PRN Reason: Additional IVPB Infusion Lorazepam (Ativan) 0.5 mg PO TID PRN PRN PRN Reason: ANXIETY Last Admin: 01/25/20 20:53 Dose: 0.5 mg Documented by: Mirtazapine (Remeron) 30 mg PO QHS [facility] Last Admin: 01/25/20 20:53 Dose: 30 mg Documented by: Nicotine (Nicoderm Cq (Pbkc)) 21 mg TRANSDERM. DAILY [facility] Last Admin: 01/26/20 10:14 Dose: 21 mg Documented by: Nitroglycerin (Nitrostat) 0.4 mg SUBLINGUAL Q5M PRN PRN Reason: CARDIAC/CHEST PAIN Last Admin: 01/25/20 11:30 Dose: 0.4 mg Documented by: Ondansetron HCl (Zofran) 4 mg IV Q8H PRN PRN PRN Reason: NAUSEA/VOMITING Senna/Docusate Sodium (Senokot-S, Namita-Colace) 2 tablet PO BID PRN PRN PRN Reason: Constipation Sodium Chloride () 10 - 40 ml IV UD PRN PRN Reason: SALINE FLUSH Last Admin: 01/26/20 10:14 Dose: 10 ml Documented by: Topiramate (Topamax) 100 mg PO QHS [facility] Last Admin: 01/25/20 20:54 Dose: 100 mg Documented by: Venlafaxine HCl (Effexor) 225 mg PO QHS [facility] Last Admin: 01/25/20 20:54 Dose: 225 mg Documented by: Clinical Impression(s) from Imaging Studies Chest CTA 01/25/20 17:38 IMPRESSION: No demonstrated pulmonary embolism or arterial dissection. Left lower lobe interstitial density. Hiatal hernia. Electronically Signed: Dariel Dc DO at 18:51 EDT Tel [phone], Service support , Assessment/Plan All Active Problems (Last Updated 01/26/20 @ 09:07 by Clarita Davis) Chest pain (Acute) Chest pain (Acute) Abnormal stress test (Acute) Angina pectoris (Acute) Breast cancer (Resolved) Thyroid cancer (Resolved) Abdominal pain (Resolved) Atypical chest pain (Resolved) Diarrhea (Resolved) RECOMMENDATIONS: 1. Aggressive rate control 2. One-time diuretic therapy 3. Walking oximetry prior to discharge 4. Outpatient complete PFT and formal walking oximetry IMPRESSIONS: 1. Abnormal CT scan Unclear etiology at this time. Patient had a normal heart catheterization except for an elevated LVEDP. This could be suggestive of type II pulmonary hypertension. Will attempt a trial of diuretics. Patient should have a walking oximetry prior to discharge. Given patient's preserved ejection fraction, diastolic dysfunction would be a consideration for elevated LVEDP. This would suggest that patient would benefit from better rate control. Cardiology is following. Other possibilities include early interstitial lung disease, so outpatient complete pulmonary function test and walking oximetry would be appropriate. Can evaluate for possible sleep disordered breathing as an outpatient also. Patient does have a significant smoking history, but emphysematous changes do not appear to be too pronounced on CT scan. Patient does have a history of breast cancer, but findings on CT scan are not suggestive of radiation injury and there is no concomitant change on the right lower lobe to suggest chemotherapy-induced pulmonary fibrosis. 2. Unstable angina/migraine/smoking history/history of breast cancer Complicates care, management, recovery and prognosis. Inpatient E&M: 64304 Init Hosp L2
[2020-01-26] MEDS: Gabapentin 600 MG Tablet PO ×2 (10:53→21:35)
[2020-01-26] MEDS: Furosemide 20 MG/2 ML VIAL IV (10:53)
[2020-01-26] MEDS: Metoprolol Tartrate 25 MG Tablet PO ×2 (12:27→21:35)
--- NOTE | 2020-01-26 14:22 | PN_ITS ---
Patient Problems: Active and Suspected Problems (Last Updated 01/26/20 @ 09:07 by Clarita Davis) Chest pain (Acute) Chest pain (Acute) Abnormal stress test (Acute) Angina pectoris (Acute) Reason for Visit: chest pain Subjective: Still having intermittent chest pain. Patient states that him before she contracted COVID, patient was having issues in regards to shortness of breath and dyspnea on exertion. She says about 2 years ago she was walking miles upon miles without difficulty and then over the past several months, has noted increasing dyspnea and palpitations. Vitals/I&O's: Vital Signs Temp Pulse Resp BP Pulse Ox 36.5 C L 98 16 104/72 98 01/26/20 12:25 01/26/20 12:27 01/26/20 12:25 01/26/20 12:27 01/26/20 12:25 Oxygen Delivery Method Room Air Weight: 71.6 kg Body Mass Index (BMI) 25.4 Intake and Output for Last 24 Hours 01/24/20 01/25/20 01/26/20 23:59 23:59 23:59 Intake Total 1845 / 1845 2853.75 / 3093.75 600 / 600 Output Total 900 / 900 Balance 1845 / 1845 2853.75 / 3093.75 -300 / -300 General: Alert, No apparent distress HEENT: Atraumatic, Normocephalic Oral: Moist Mucosa, No Gingival or Mucosal Lesions/ Ulcerations Neck: No Nodes, Thyroid Normal Size and Texture Lungs: Clear to auscultation, Normal air movement, No rhonchi, No wheeze Cardiovascular: Regular rate, Regular Rhythm, Normal S1, Normal S2 Abdomen: Bowel Sounds Present, Soft, Non Tender, Non-Distended, No Hepato- splenomegaly Extremities: No edema, No Calf Tenderness Skin: No rashes, No breakdown Musculoskeletal: - - reproducible anterior chest pain Current Medications Acetaminophen (Tylenol) 650 mg PO Q6H PRN PRN PRN Reason: Pain Score 1-10/Temp > 100.7 F Last Admin: 01/25/20 12:16 Dose: 650 mg Documented by: Amitriptyline HCl (Elavil) 150 mg PO QHS [facility] Last Admin: 01/25/20 20:53 Dose: 150 mg Documented by: Aspirin (Ecotrin) 81 mg PO DAILY@0800 [facility] Last Admin: 01/26/20 08:36 Dose: 81 mg Documented by: Gabapentin (Neurontin) 600 mg PO BID [facility] Last Admin: 01/26/20 10:53 Dose: 600 mg Documented by: Sodium Chloride () 250 mls @ 15 mls/hr IV .[id number] PRN PRN Reason: Saline Flush Sodium Chloride () 250 mls @ 15 mls/hr IV .[id number] PRN PRN Reason: Additional IVPB Infusion Ibuprofen (Motrin) 600 mg PO Q6H PRN PRN PRN Reason: Pain Score 1-10/10 Lorazepam (Ativan) 0.5 mg PO TID PRN PRN PRN Reason: ANXIETY Last Admin: 01/25/20 20:53 Dose: 0.5 mg Documented by: Metoprolol Tartrate (Lopressor (Beta Hussein)) 25 mg PO BID [facility] Mirtazapine (Remeron) 30 mg PO QHS [facility] Last Admin: 01/25/20 20:53 Dose: 30 mg Documented by: Nicotine (Nicoderm Cq (Pbkc)) 21 mg TRANSDERM. DAILY [facility] Last Admin: 01/26/20 10:14 Dose: 21 mg Documented by: Nitroglycerin (Nitrostat) 0.4 mg SUBLINGUAL Q5M PRN PRN Reason: CARDIAC/CHEST PAIN Last Admin: 01/25/20 11:30 Dose: 0.4 mg Documented by: Ondansetron HCl (Zofran) 4 mg IV Q8H PRN PRN PRN Reason: NAUSEA/VOMITING Senna/Docusate Sodium (Senokot-S, Namita-Colace) 2 tablet PO BID PRN PRN PRN Reason: Constipation Sodium Chloride () 10 - 40 ml IV UD PRN PRN Reason: SALINE FLUSH Last Admin: 01/26/20 10:53 Dose: 10 ml Documented by: Topiramate (Topamax) 100 mg PO QHS [facility] Last Admin: 01/25/20 20:54 Dose: 100 mg Documented by: Venlafaxine HCl (Effexor) 225 mg PO QHS [facility] Last Admin: 01/25/20 20:54 Dose: 225 mg Documented by: STROKE Vital Signs/Narrative: Vital Signs Temp Pulse Resp BP Pulse Ox 01/26/20 12:27 98 104/72 01/26/20 12:25 36.5 C L 98 16 104/72 98 01/26/20 11:00 104 H Medical Necessity - Tobacco Use Smoking Status: Former smoker Assessment/Plan All Active Problems (Last Updated 01/26/20 @ 09:07 by Clarita Davis) Chest pain (Acute) Chest pain (Acute) Abnormal stress test (Acute) Angina pectoris (Acute) Breast cancer (Resolved) Thyroid cancer (Resolved) Abdominal pain (Resolved) Atypical chest pain (Resolved) Diarrhea (Resolved) 1. chest pain * stress test abnormal * Cardiac catheterization was normal. CTA was negative for pulmonary emboli, dissection nor aneurysm. * Discussed with the patient that this could be musculoskeletal or GI related. Patient has been started on PPI yesterday. Advised patient follow-up with gastroenterology as outpatient. * May also be component of psychosomatic as well and patient has required a lot of reassurance during this hospitalization. 2. migraine * Stable. 3. 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 Could be related with some volume overload versus infiltrate. Patient did have COVID about a month ago so this possible this could be some residual changes associated with that infection. * Follow-up with pulmonology for further evaluation. 4. Dyspnea * Follow-up pulmonology for further testing, including PFTs and polysomnogram. 5. Tachycardia * Slight elevation. Start metoprolol tartrate. Reevaluate as patient's blood pressure is on low end of normal. 6. Disposition: Plan is for home on the if remained stable. Greater than 35 minutes of which greater than 50% of time discussing the patient about chest pain, the fact that it is not myocardial infarction, pulmonary embolism, etc. This could be GI and recommending GI evaluation or musculoskeletal. OBSV E&M: 87376 Subsequent observation care L3
[2020-01-26] MEDS: Topiramate 100 MG Tablet PO (21:34)
[2020-01-26] MEDS: Amitriptyline 100 MG Tablet 150 MG PO (21:34)
[2020-01-26] MEDS: Venlafaxine HCl 75 MG Tablet 225 MG PO (21:34)
[2020-01-26] MEDS: Mirtazapine 30 MG Tablet PO (21:35)
[2020-01-26] MEDS: LORazepam 0.5 MG Tablet PO (22:20)
[2020-01-27 03:00] VITALS: PULSE 75
[2020-01-27 03:30] VITALS: BP 98/49; PULSE 75; RESP 16; TEMP 36.9; O2SAT 100
[2020-01-27 06:38] VITALS: PULSE 77
[2020-01-27] MEDS: Aspirin E.C. 81 MG Tablet PO (07:28)
--- NOTE | 2020-01-27 08:27 | PCM.DC ---
- Discharge Diagnoses Current Active Problems: Current Active and Chronic Problems (Last Updated 01/26/20 @ 09:07 by Clarita Davis) Chest pain (Acute) Chest pain (Acute) Abnormal stress test (Acute) Angina pectoris (Acute) You will use the following diet at home:: No restrictions Discharge Activity: Return to Normal Activity Instructions: ED Chest Pain NonCardiac Allergies/Adverse Reactions: Allergies codeine Allergy (Verified 01/24/20 18:48) Anaphylaxis hydromorphone [From Dilaudid] Allergy (Verified 01/24/20 18:48) SOB/HIVES hydromorphone HCl [From Dilaudid] Adverse Reaction (Verified 01/24/20 18:48) Other pt states she got jittery Penicillins Adverse Reaction (Verified 01/24/20 18:48) Hives Medications to take at Discharge Lorazepam [Ativan] 0.5 mg PO TID PRN PRN 07/08/14 Ondansetron [Zofran Odt] 4 mg PO Q8H PRN PRN #10 tab 04/14/15 amitriptyline 50 mg tablet 150 mg PO QHS tab 06/19/18 mirtazapine 30 mg tablet 30 mg PO QHS 06/19/18 sumatriptan succinate 25 mg tablet 25 mg PO PRN PRN 06/19/18 topiramate 25 mg tablet 100 mg PO QHS 06/19/18 venlafaxine 150 mg capsule,extended release 24 hr 225 mg PO QHS 06/19/18 Gabapentin [Neurontin] 600 mg PO BID 07/15/19 Ondansetron [Zofran Odt] 4 mg PO Q8H PRN PRN #10 tab 07/15/19 atenolol 50 mg tablet 100 mg PO DAILY tab 11/03/19 Omeprazole 20 mg PO DAILY #30 tab 01/25/20 Metoprolol Tartrate [Lopressor (beta kingsley)] 25 mg PO BID #60 tab 01/27/20 The following prescriptions were given: Metoprolol Tartrate [Lopressor (beta kingsley)] 25 mg PO BID #60 tab Transmission Status: Pending to [facility] #30 Omeprazole 20 mg PO DAILY #30 tab. Primary Care Physician: Anson Rios MD [Primary Care Provider] - Within 1 Week Test Results: Test results from this visit will be discussed in further detail at your follow-up appointment, if applicable. Please Follow Up With: Gastroenterology 4-6 weeks When: Dr. Cervantes [phone]. or Alexandra Ramirez [phone]. or other physician Proposed Discharge Date: 01/25/20
--- NOTE | 2020-01-27 08:30 | DS.PCM_ITS ---
Discharge Date and Diagnosis - Problem List Patient Problems: Active and Suspected Problems (Last Updated 01/26/20 @ 09:07 by Clarita Davis) Lung mass (Acute) Dyspnea (Acute) Chest pain (Acute) Chest pain (Acute) Abnormal stress test (Acute) Angina pectoris (Acute) Date of Admission: 01/24/20 Date of Discharge: 01/27/20 - Primary Discharge Diagnosis Acute Problems: Active Problems (Last Updated 01/26/20 @ 09:07 by Clarita Davis) Chest pain (Acute) Chest pain (Acute) Abnormal stress test (Acute) Angina pectoris (Acute) - Secondary Discharge Diagnosis Chronic Problems: Chronic Problems (Last Updated 01/26/20 @ 09:07 by Clarita Davis) Hypertension (Chronic) Paroxysmal supraventricular tachycardia (Chronic) Nicotine dependence (Chronic) Lupus (systemic lupus erythematosus) (Chronic) Disproportion of reconstructed breast (Chronic) Breast reconstruction deformity (Chronic) Nonhealing surgical wound (Chronic) right central mastectomy wound and left lateral mastectomy wound 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 Electronically Signed: Dariel Dc DO at 19:45 EDT Tel [phone], Service support , Chest CTA 01/25/20 17:38 IMPRESSION: No demonstrated pulmonary embolism or arterial dissection. Left lower lobe interstitial density. Hiatal hernia. Electronically Signed: Dariel Dc DO at 18:51 EDT Tel [phone], Service support , [place], cardiology [place], Pulmonology Operations: None Procedures: 2-D Echocardiogram - Elevated Left Ventricular End Diastolic Pressure Normal LV size, wall motion,and systolic function LVEF: by LV gram 60 % Normal coronary arteries, Stress test - 1. Pharmacologic (Regadenoson) evaluation 2. Peak pharmacologic ECG with no obvious ECG changes. 3. There were no cardiac dysrhythmias pretest, during pharmacologic infusion, or recovery. 4. Nuclear images pending Summary of Care Provided: The patient is a 49 year old F presents with chest pain.[] 1. chest pain * stress test abnormal * Cardiac catheterization was normal. CTA was negative for pulmonary emboli, dissection nor aneurysm. * Discussed with the patient that this could be musculoskeletal or GI related. Patient has been started on PPI. Advised patient follow-up with gastroenterology as outpatient. * Less likely psychosomatic though patient has required a lot of reassurance during this hospitalization. 2. migraine * Stable. 3. 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 Could be related with some volume overload versus infiltrate. Patient did have COVID about a month ago so this possible this could be some residual changes associated with that infection. * Follow-up with pulmonology for further evaluation. 4. Dyspnea * Follow-up pulmonology for further testing, including PFTs and polysomnogram. 5. Tachycardia * Slight elevation. Metoprolol tartrate 25 BID. * Tolerated. BP stable. Patient Problems: Active and Suspected Problems (Last Updated 01/26/20 @ 09:07 by Clarita Davis) Lung mass (Acute) Dyspnea (Acute) Chest pain (Acute) Chest pain (Acute) Abnormal stress test (Acute) Angina pectoris (Acute) - Physical Exam Vitals/I&O's: Vital Signs Temp Pulse Resp BP Pulse Ox 36.9 C 77 16 98/49 L 100 01/27/20 03:30 01/27/20 06:38 01/27/20 03:30 01/27/20 03:30 01/27/20 03:30 Oxygen Delivery Method Room Air Weight: 71.6 kg Body Mass Index (BMI) 25.4 Intake and Output for Last 24 Hours 01/25/20 01/26/20 01/27/20 23:59 23:59 23:59 Intake Total 2853.75 / 3093.75 1380 / 1380 200 / 200 Output Total 1250 / 1250 500 / 500 Balance 2853.75 / 3093.75 130 / 130 -300 / -300 General: Alert, No apparent distress HEENT: Atraumatic, Normocephalic Oral: Moist Mucosa, No Gingival or Mucosal Lesions/ Ulcerations Neck: No Nodes, Thyroid Normal Size and Texture Lungs: Clear to auscultation, Normal air movement, No rhonchi, No wheeze, No rales Cardiovascular: Regular rate, Regular Rhythm, Normal S1, Normal S2, No murmurs Abdomen: Bowel Sounds Present, Soft, Non Tender, Non-Distended, No Hepato- splenomegaly Psych/Mental Status: Normal Affect, Appropriate Current Medications Acetaminophen (Tylenol) 650 mg PO Q6H PRN PRN PRN Reason: Pain Score 1-10/Temp > 100.7 F Last Admin: 01/25/20 12:16 Dose: 650 mg Documented by: Amitriptyline HCl (Elavil) 150 mg PO QHS REPLACED BY [facility] Last Admin: 01/26/20 21:34 Dose: 150 mg Documented by: Aspirin (Ecotrin) 81 mg PO DAILY@0800 REPLACED BY [facility] Last Admin: 01/27/20 07:28 Dose: 81 mg Documented by: Gabapentin (Neurontin) 600 mg PO BID REPLACED BY [facility] Last Admin: 01/26/20 21:35 Dose: 600 mg Documented by: Sodium Chloride () 250 mls @ 15 mls/hr IV .[id number] PRN PRN Reason: Saline Flush Sodium Chloride () 250 mls @ 15 mls/hr IV .[id number] PRN PRN Reason: Additional IVPB Infusion Ibuprofen (Motrin) 600 mg PO Q6H PRN PRN PRN Reason: Pain Score 1-10/10 Lorazepam (Ativan) 0.5 mg PO TID PRN PRN PRN Reason: ANXIETY Last Admin: 01/26/20 22:20 Dose: 0.5 mg Documented by: Metoprolol Tartrate (Lopressor (Beta Hussein)) 25 mg PO BID REPLACED BY [facility] Last Admin: 01/26/20 21:35 Dose: 25 mg Documented by: Mirtazapine (Remeron) 30 mg PO QHS REPLACED BY [facility] Last Admin: 01/26/20 21:35 Dose: 30 mg Documented by: Nicotine (Nicoderm Cq (Pbkc)) 21 mg TRANSDERM. DAILY REPLACED BY [facility] Last Admin: 01/26/20 10:14 Dose: 21 mg Documented by: Nitroglycerin (Nitrostat) 0.4 mg SUBLINGUAL Q5M PRN PRN Reason: CARDIAC/CHEST PAIN Last Admin: 01/25/20 11:30 Dose: 0.4 mg Documented by: Ondansetron HCl (Zofran) 4 mg IV Q8H PRN PRN PRN Reason: NAUSEA/VOMITING Senna/Docusate Sodium (Senokot-S, Namita-Colace) 2 tablet PO BID PRN PRN PRN Reason: Constipation Sodium Chloride () 10 - 40 ml IV UD PRN PRN Reason: SALINE FLUSH Last Admin: 01/26/20 10:53 Dose: 10 ml Documented by: Topiramate (Topamax) 100 mg PO QHS REPLACED BY [facility] Last Admin: 01/26/20 21:34 Dose: 100 mg Documented by: Venlafaxine HCl (Effexor) 225 mg PO QHS REPLACED BY [facility] Last Admin: 01/26/20 21:34 Dose: 225 mg Documented by: Discharge Diet: No Restrictions Discharge Activity: Return to Normal Activity Call your doctor if you observe: Shortness of breath Home Medications: Medications to take at Discharge Lorazepam [Ativan] 0.5 mg PO TID PRN PRN 07/08/14 Ondansetron [Zofran Odt] 4 mg PO Q8H PRN PRN #10 tab 04/14/15 amitriptyline 50 mg tablet 150 mg PO QHS tab 06/19/18 mirtazapine 30 mg tablet 30 mg PO QHS 06/19/18 sumatriptan succinate 25 mg tablet 25 mg PO PRN PRN 06/19/18 topiramate 25 mg tablet 100 mg PO QHS 06/19/18 venlafaxine 150 mg capsule,extended release 24 hr 225 mg PO QHS 06/19/18 Gabapentin [Neurontin] 600 mg PO BID 07/15/19 Ondansetron [Zofran Odt] 4 mg PO Q8H PRN PRN #10 tab 07/15/19 atenolol 50 mg tablet 100 mg PO DAILY tab 11/03/19 Omeprazole 20 mg PO DAILY #30 tab 01/25/20 Metoprolol Tartrate [Lopressor (beta hussein)] 25 mg PO BID #60 tab 01/27/20 Following Prescriptions Were Given to Patient: Metoprolol Tartrate [Lopressor (beta hussein)] 25 mg PO BID #60 tab Transmission Status: Pending to [facility] #30 Omeprazole 20 mg PO DAILY #30 tab Primary Care Physician: Anson Rios MD [Primary Care Provider] - Within 1 Week Please Follow Up With: Gastroenterology 4-6 weeks When: Dr. Cervantes [phone]. or Alexandra Ramirez [phone]. or other physician Please Follow Up With: Jere Hunt MD When: 2-4 weeks Patient Instructions: ED Chest Pain NonCardiac Disposition: Home Minutes spent on discharge:: 32 Patient Condition:: Good Medical Necessity - Tobacco Use Smoking Status: Former smoker Meaningful Use Info Meaningful Use Diagnoses (Choose all that apply): None applicable OBSV E&M: 89990 Observation care discharge
[2020-01-27 08:56] VITALS: BP 106/82; PULSE 87; RESP 14; TEMP 36.8; O2SAT 99
[2020-01-27 09:40] VITALS: PULSE 87
[2020-01-27] MEDS: Metoprolol Tartrate 25 MG Tablet PO (09:40)
[2020-01-27] MEDS: Gabapentin 600 MG Tablet PO (09:40)
[2020-01-27 09:58] VITALS: PULSE 122
== END 2020-01-27 13:50 | disposition home or self-care (01) ==
LOC: ED 21:55 → PCU 22:26
PROVIDERS: Admitting Provider Hospitalist; Emergency Provider Emergency Medicine; PCP Family Medicine
DX: I25.110 Atherosclerotic heart disease of native coronary artery with unstable angina pectoris (principal); I10 Essential (primary) hypertension; M32.9 Systemic lupus erythematosus, unspecified; I47.1 Supraventricular tachycardia; G40.909 Epilepsy, unspecified, not intractable, without status epilepticus; F32.9 Major depressive disorder, single episode, unspecified; F41.9 Anxiety disorder, unspecified; I95.9 Hypotension, unspecified; G43.909 Migraine, unspecified, not intractable, without status migrainosus; K58.9 Irritable bowel syndrome, unspecified; Z85.850 Personal history of malignant neoplasm of thyroid; Z85.3 Personal history of malignant neoplasm of breast; Z79.899 Other long term (current) drug therapy; Z87.891 Personal history of nicotine dependence; R91.8 Other nonspecific abnormal finding of lung field
CPT/HCPCS: 36415; 71045; 71275; 78452; 80048; 80061; 84439; 84443; 84484; 85025; 85379; 87635; 93005; 93017; 93458; 96361; 96365; 96375; 96376; 99152; 99153; 99218; 99285; A9500; C9803; J7030; Q9967; A4216; C1769; C1894; G0378; J1940; J2785; U0003

== ENCOUNTER 2020-07-25 09:33 | Outpatient (RCR) | payer MEDICAID, SELFPAY ==
[2020-02-23 10:55] VITALS: BMI 25.4
[2020-07-25] MEDS: COVID-19 VACC, MRNA(PFIZER)/PF 30 MCG/0.3 ML SYRINGE IM (11:39)
[2020-08-15] MEDS: COVID-19 VACC, MRNA(PFIZER)/PF 30 MCG/0.3 ML SYRINGE IM (11:32)
== END 2020-10-17 23:59 ==
LOC: IMMUN 09:33
PROVIDERS: PCP Family Medicine; Visit Provider Family Medicine
DX: Z23 Encounter for immunization (principal)
CPT/HCPCS: 0001A; 0002A; 91300

== ENCOUNTER 2020-11-08 14:57 | Emergency (ER) | payer MEDICAID, SELFPAY ==
[2020-02-23 10:55] VITALS: BMI 25.4
[2020-11-08 14:59] VITALS: BP 120/70; PULSE 88; RESP 12; TEMP 35.7; O2SAT 98; BMI 27.3
--- NOTE | 2020-11-08 15:09 | EKG12_ITS ---
Test Reason : REPEAT-CP Blood Pressure : / mmHG Vent. Rate : 070 BPM Atrial Rate : 070 BPM P-R Int : 154 ms QRS Dur : 104 ms QT Int : 420 ms P-R-T Axes : 047 067 051 degrees QTc Int : 453 ms Normal sinus rhythm Normal ECG Confirmed by COLIN ROSA, LAUREN ([id number]), brands editor PAULINO CHOPRA ([id number]) on 11/15/2020 1:07:48 PM Referred By: [place] Confirmed By:LAUREN SHAW MD
--- NOTE | 2020-11-08 15:18 | VDLE_ITS ---
Reason For Study: SWELLING Procedure LEFT This is a venous duplex using B-mode, color GSV is normal. flow and spectral Doppler. CFV is compressible, spontaneous, phasic, Exam performed portable in ED. competent, and demonstrates normal A preliminary report was called and/or faxed augmentation. to ED. FV is compressible, spontaneous, phasic, competent and demonstrates normal augmentation. POP V is compressible, spontaneous, phasic, competent and demonstrates normal augmentation. T/P Trunk is compressible. PTV is compressible. LT PerV is compressible. VL/Venous Duplex US, Unilateral Interpretation Summary There is no evidence of left lower extremity deep vein thrombosis. Left great s aphenous vein appears patent and compressible segmentally. Ordering Physician: Stephon Banks Referring Physician: Anson Rios Performed By: Sherrell June RVT, RDCS and Student
--- NOTE | 2020-11-08 15:19 | CT_ITS ---
HISTORY: chest pain. TECHNIQUE: Helically acquired images of the chest following IV contrast as per pulmonary angiogram protocol with 2D and 3D reconstructions. A radiation dose optimization technique was used for this scan. IV Contrast dosage and agent: 100 mL [id number]. # of images incl. paperwork: 1085. COMPARISON: XR same day, CTA 01/25/2020. FINDINGS: CENTRAL AIRWAYS: Patent. LUNGS: Alveolar and groundglass opacities in the left lower lobe. Mild linear and groundglass opacities in the lingula, right middle, and right lobes. PLEURA: No pneumothorax or pleural effusion. PULMONARY ARTERIES: No filling defect. HEART/PERICARDIUM: Heart within normal limits in size. No significant pericardial effusion. AORTA: No aortic aneurysm or dissection flap. MEDIASTINUM/BATSHEVA: No enlarged lymph nodes. OSSEOUS STRUCTURES: Intact. SOFT TISSUES: Partial thyroidectomy. UPPER ABDOMEN: Small hiatal hernia with adjacent surgical clips. CT/CTA Chest W/WO Contrast IMPRESSION: No evidence for pulmonary embolism. Left lower lobe pneumonia or pneumonitis. Additional mild groundglass opacities in the lingula, right middle, and right lower lobes. Individualized dose optimization techniques were used for this CT. at 1637 Reported and signed by: Brianna Gross MD Electronically Signed: Brianna Gross MD at 16:35 EDT Tel , Service support ,
--- NOTE | 2020-11-08 15:19 | ED.VIS.CHEST ---
HPI History of Present Illness Chief Complaint: Chest Pain Narrative Narrative: 50-year-old female presenting with 3 days of chest pain. She states when it initially came on it was central and radiated up over the right shoulder and was excruciating for about 20 minutes. After this she has had constant pain in the center of her chest in the right upper chest since then. She states she wears 3 L of oxygen at baseline. She states she has not been severely dyspneic. She does note that she has left lower extremity swelling which is new. Patient has a history of breast cancer and thyroid cancer and states she is in remission. Patient also has a past medical history of SVT. Other than this she denies any cardiac history. Denies history of DVT/PE. 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 COPD (chronic obstructive pulmonary disease) Depression Diarrhea Difficulty balancing Disproportion of reconstructed breast Family history of breast cancer Fatigue Frequent headaches Gallstones Gastrointestinal problem GI bleed Goiter History of blood transfusion History of Clostridium difficile colitis Hives Hypertension IBS (irritable bowel syndrome) Immunocompromised state due to drug therapy Inconclusive mammography due to dense breasts Kidney stones Lung adhesion Lupus (systemic lupus erythematosus) Migraine Migraines Nicotine dependence Non-pressure chronic ulcer of skin of other sites with fat layer exposed Nonhealing surgical wound On home oxygen therapy Parathyroid abnormality Paroxysmal supraventricular tachycardia Peptic ulcer disease Pneumonia Prophylactic breast removal Seizure Seizures Smoker SVT (supraventricular tachycardia) Thyroid cancer TIA (transient ischemic attack) Vitamin deficiency Home Medications ondansetron 4 mg PO Q8H PRN PRN #10 tab 04/14/15 [Rx Last Taken 11/07/20] mirtazapine 30 mg tablet 15 mg PO QHS 06/19/18 [History Last Taken 11/07/20] venlafaxine 150 mg capsule,extended release 24 hr 150 mg PO QHS 06/19/18 [History Last Taken 11/07/20] metoprolol tartrate 25 mg PO BID #60 tab 01/27/20 [Rx Last Taken 11/08/20] amitriptyline 150 mg PO QHS 11/08/20 [History Last Taken 11/06/20] azithromycin 500 mg PO DAILY 10 Days #10 tab 11/08/20 [Rx Last Taken Unknown] cefdinir 300 mg PO BID #14 cap 11/08/20 [Rx Last Taken Unknown] gabapentin 600 mg PO BID 11/08/20 [History Last Taken 11/08/20] lorazepam 1 mg PO TID PRN PRN 11/08/20 [History Last Taken 11/08/20] pregabalin 150 mg PO BID 11/08/20 [History Last Taken 11/08/20] sumatriptan succinate 100 mg PO DAILY PRN 11/08/20 [History Last Taken 11/07/20] topiramate 100 mg PO QHS 11/08/20 [History Last Taken 11/07/20] venlafaxine 75 mg PO QHS 11/08/20 [History Last Taken 11/07/20] Allergy/AdvReac Type Severity Reaction Status Date / Time codeine Allergy Anaphylaxis Verified 11/08/20 14:59 hydromorphone [From Dilaudid] Allergy SOB/HIVES Verified 11/08/20 14:59 hydromorphone HCl AdvReac Other Verified 11/08/20 14:59 [From Dilaudid] Penicillins AdvReac Hives Verified 11/08/20 14:59 Family History Other Anemia Anesthesia complication Anxiety Bleeding disorder Bowel disease Breast cancer CVA (cerebral vascular accident) Cancer Cervical cancer Colon cancer Depression (emotion) Diabetes Heart disease High cholesterol History of blood transfusion Hypertension Osteoporosis Ovarian cancer Thyroid disorder Surgical History History of cholecystectomy History of hysterectomy History of left heart catheterization (LHC) (~01/25/20) History of partial thyroidectomy History of thyroid surgery Social History Smoking Status: Current some day smoker tobacco type: cigarettes alcohol intake: never substance use type: does not use additional social history: DOES USE ASPIRIN DOES USE IBUPROFEN ROS ROS ED Constitutional Constitutional ED: Denies chills, fever(s) or sweats Eyes Eyes: Denies blurry vision or change in vision ENT ENT ED: Denies rhinorrhea or sore throat Cardiovascular Cardiovascular: Reports chest pain Respiratory/Chest Respiratory/Chest: Denies cough or sputum Gastrointestinal Gastrointestinal: Denies abdominal pain, nausea or vomiting Genitourinary Genitourinary ED: Denies dysuria or hematuria Musculoskeletal Musculoskeletal: Reports other Details: Left calf pain and swelling ; Denies arthralgias, back pain, myalgias or neck pain Integumentary Denies abscess or rash Neurologic Neurologic: Denies headache(s), paresthesias or weakness Psychiatric Psychiatric: Denies anxiety or depression EXAM Physical Exam Const Vital Signs: 11/08/20 14:59 11/08/20 15:09 Temperature 96.3 F L Temperature Source Temporal Pulse Rate 88 Respiratory Rate 12 Respiratory Effort Normal Non-Labored Blood Pressure 120/70 Blood Pressure Mean 86 Pulse Ox 98 Oxygen Delivery Method Room Air Room Air Positive well nourished General Appearance ED: NAD HEENT normocephalic and atraumatic Eyes PERRL and EOMs intact bilaterally Chest Wall inspection of chest normal and palpation of chest normal Resp normal respiratory effort Effort and Inspection: respiratory distress Cardio regular rate and regular rhythm Extremity Extremity Narrative: Tenderness and swelling of the left medial calf. No cords are palpated. Villareal's appears soft. General Extremety ED: Yes tenderness Neuro oriented x3 Sensorium / Orientation: awake and alert Psych mental status grossly normal Skin no rashes or lesions noted and no wounds Heart Score History: Slightly/Non-Suspicious ECG: Normal Age: </= 45 years Risk Factors: 1 or 2 Risk Factors Troponin: </= Normal Limit Score: 1 MDM MDM MDM Narrative Medical decision making narrative: Patient presenting for chest pain and leg swelling. She also stated later that she had some diarrhea and felt generally unwell. Patient has no history of DVT or PE. She states he does not have any cardiac history either other than SVT. Patient has not had a fever. She has had her COVID-19 vaccines. Patient had EKG performed on arrival which is sinus rhythm at 81 beats per minute without signs of ischemia or dysrhythmia on my interpretation. Lab work-up shows a normal white blood cell count. Hemoglobin hematocrit are stable. Renal function is normal. Sodium is noted to be 128. High-sensitivity troponin is negative after 3 days of constant pain so I do not believe she needs another troponin. I did obtain a Doppler of the left lower extremity which has been swollen and this is negative for DVT. Chest x-ray shows mild bibasilar pulmonary infiltrates on my interpretation and radiologist does agree. Prior to CTA of the chest patient was still complaining of the chest pain and I repeated her EKG which is 70 bpm without significant change from previous in the ED today. Patient was given Dilaudid for her pain. She was given Benadryl with this as she states she has no allergies because of her itch. CTA of the chest shows multiple areas of pneumonia versus pneumonitis in the right and left lobes. Patient is not hypoxic. She is wearing her 3 L of baseline oxygen. She does not appear to be in stress. Given patient's recent diarrhea, hyponatremia, pneumonia I did consider Legionella in my differential. Since she is essentially ruled out from a cardiac standpoint and pulmonary embolism standpoint and she is otherwise stable I will start her on cefdinir and azithromycin as she is comfortable enough to be discharged home. I did send for urine samples of strep and Legionella. Patient is counseled if she has worsening of her symptoms such as pain/fever, or worsening shortness of breath she should return to the ED for repeat evaluation. Patient acknowledges understanding. Impression: 1. Multiple lobe pneumonia 2. Chest pain 3. Left lower extremity swelling Lab Data Labs: Laboratory Results - last 24 hr 11/08/20 11/08/20 15:25 15:25 WBC 7.5 RBC 4.26 Hgb 13.0 Hct 38.4 MCV 90.1 MCH 30.5 MCHC 33.9 RDW Std Deviation 42.2 RDW Coeff of Lali 12.8 Plt Count 314 MPV 9.3 Immature Gran % (Auto) 0.700 Neut % (Auto) 62.7 Lymph % (Auto) 26.4 [place] % (Auto) 7.8 Eos % (Auto) 1.7 Baso % (Auto) 0.7 Absolute Neuts (auto) 4.7 Absolute Lymphs (auto) 1.97 Nucleated RBC % 0 Sodium 128 L Potassium 3.5 Chloride 95 L Carbon Dioxide 25.0 Anion Gap 8 BUN 5 L Creatinine 0.79 Estim Creat Clear Calc 77.98 Est GFR (MDRD) Af Amer 99 Est GFR (MDRD) Non-Af 82 BUN/Creatinine Ratio 6.4 L Glucose 86 Calcium 8.8 Troponin I High Sens < 3.0 L Radiography Diagnostic Testing: Radiology Impression Chest CTA 11/08/20 15:19 IMPRESSION: No evidence for pulmonary embolism. Left lower lobe pneumonia or pneumonitis. Additional mild groundglass opacities in the lingula, right middle, and right lower lobes. Individualized dose optimization techniques were used for this CT. at 1637 Reported and signed by: Brianna Gross MD Electronically Signed: Brianna Gross MD at 16:35 EDT Tel , Service support , Chest X-Ray 11/08/20 16:00 IMPRESSION: Mild bibasilar atelectasis or pneumonia. Recommend follow-up to resolution. at 1622 Reported and signed by: Brianna Gross MD Electronically Signed: Brianna Gross MD at 16:21 EDT Tel , Service support , Discharge Plan Triage Chief Complaint: Chest Pain ED Provider: Stephon Banks Dx/Rx/DC Orders Instructions: ED Chest Pain, Noncardiac, ED Pneumonia (Adult) Prescriptions: New cefdinir 300 mg capsule 300 mg PO BID Qty: 14 RF: 0 azithromycin 500 mg tablet 500 mg PO DAILY 10 Days Qty: 10 RF: 0 No Action venlafaxine 150 mg capsule,extended release 24hr 150 mg PO QHS RF: 0 mirtazapine 30 mg tablet 15 mg PO QHS RF: 0 ondansetron 4 MG tablet 4 mg PO Q8H PRN PRN (Reason: Nausea) Qty: 10 RF: 0 metoprolol tartrate 25 MG tablet 25 mg PO BID Qty: 60 RF: 0 venlafaxine 75 mg capsule,extended release 24hr 75 mg PO QHS RF: 0 gabapentin 600 mg tablet 600 mg PO BID RF: 0 sumatriptan succinate 100 mg tablet 100 mg PO DAILY PRN (Reason: Migraine Headache) RF: 0 lorazepam 1 mg tablet 1 mg PO TID PRN PRN (Reason: Anxiety) RF: 0 topiramate 100 mg tablet 100 mg PO QHS RF: 0 amitriptyline 100 mg tablet 150 mg PO QHS RF: 0 pregabalin 150 mg capsule 150 mg PO BID RF: 0 Primary Care Provider: Anson Rios Referrals: Anson Rios MD [Primary Care Provider] - Disposition Disposition: Home, Self Care
[2020-11-08] MEDS: Aspirin 81 MG TAB.CHEW 324 MG PO (15:39)
[2020-11-08 15:48] LABS: Absolute Lymphocyte Count 1.97 X10^3/uL (0.83-4.51); Absolute Neutrophil Count 4.7 X10^3/uL (2.0-7.7); Basophil# 0.05 X10^3/uL; Basophil% 0.7 % (0-1); Eosinophil# 0.13 X10^3/uL; Eosinophils% 1.7 % (0-5); Hematocrit 38.4 % (37-47); Lymphocyte # 1.97 X10^3/ul (0.83-4.51); Lymphocyte % 26.4 % (19-41); Mean Corp Hgb Conc 33.9 g/dL (32-36); Mean Corpuscular Hgb 30.5 pg (27.0-32.0); Mean Corpuscular Volume 90.1 fL (81-99); Mean Platelet Vol. 9.3 fl (6.2-12.0); Monocyte# 0.58 X10^3/uL; Monocyte% 7.8 % (0-10); NRBC Flagged by Analyzer 0 % (0-5); Neutrophil # 4.67 X10^3/uL (2.7-7.7); Neutrophil % 62.7 % (47-70); Platelet Count 314 K/mm3 (150-450); RBC Distribution Width CV 12.8 % (11.6-14.6); RBC Distribution Width SD 42.2 fl (35.1-43.9); Red Blood Count 4.26 M/mm3 (4.2-5.4); White Blood Count 7.5 K/mm3 (4.4-11.0)
--- NOTE | 2020-11-08 16:00 | RAD_ITS ---
HISTORY: chest pain. TECHNIQUE: XR Chest 1 View. # of images incl. paperwork: 1. COMPARISON: 01/24/2020. FINDINGS: CARDIOMEDIASTINAL STRUCTURES: Cardiac silhouette not enlarged. Mediastinal contour unremarkable. Surgical clips at the left thoracic inlet again seen. LUNGS: Mild bibasilar opacities. PLEURA: No pleural effusion or pneumothorax. OSSEOUS STRUCTURES: Degenerative change. RAD/Chest 1 View (Portable) IMPRESSION: Mild bibasilar atelectasis or pneumonia. Recommend follow-up to resolution. at 1622 Reported and signed by: Brianna Gross MD Electronically Signed: Brianna Gross MD at 16:21 EDT Tel , Service support ,
[2020-11-08 16:04] LABS: Anion Gap 8 (5-15); BUN 5 mg/dL (7-18); BUN/Creat Ratio 6.4 RATIO (10-20); Calcium,Total 8.8 mg/dL (8.5-10.1); Chloride 95 mmol/L (98-107); Creatinine, Serum 0.79 mg/dL (0.55-1.02); EST Glomerular Filtration Rate 82 mL/min (>60); Est Glom Filt Rate - Afr Amer 99 mL/min (>60); Estimated Creatinine Clearance 77.98 ml/min; Glucose 86 mg/dL (74-106); Potassium 3.5 mmol/L (3.5-5.1); Sodium Level 128 mmol/L (136-145); Troponin-I HS < 3.0 pg/mL (3.0-53.7)
--- NOTE | 2020-11-08 16:27 | NURSING ---
Pt with worsening CP, RT notified to get repeat EKG. Dr. Banks to be made aware and to ask about pain medication per pt request.
--- NOTE | 2020-11-08 16:28 | EKG12_ITS ---
Test Reason : CP Blood Pressure : / mmHG Vent. Rate : 081 BPM Atrial Rate : 081 BPM P-R Int : 144 ms QRS Dur : 100 ms QT Int : 370 ms P-R-T Axes : 057 078 061 degrees QTc Int : 429 ms Normal sinus rhythm Nonspecific ST abnormality Abnormal ECG Confirmed by COLIN ROSA, LAUREN ([id number]), book editor PAULINO CHOPRA ([id number]) on 11/15/2020 1:07:36 PM Referred By: MADDIE Confirmed By:LAUREN SHAW MD
[2020-11-08] MEDS: HYDROmorphone 0.5 MG/0.5 ML SYRINGE IV (16:44)
[2020-11-08] MEDS: DiphenhydrAMINE 50 MG/ML Syringe 25 MG IV (16:45)
[2020-11-08] MEDS: Ondansetron 4 MG/2 ML Vial IV (16:45)
--- NOTE | 2020-11-08 17:10 | NURSING ---
DR SMITH FOR DR HO
[2020-11-08] MEDS: Azithromycin 250 MG Tablet 500 MG PO (17:34)
[2020-11-08 17:35] VITALS: BP 110/49; PULSE 69; RESP 17; O2SAT 94
[2020-11-08] MEDS: Cefdinir 300 MG Capsule PO (17:54)
[2020-11-08 18:05] VITALS: BP 124/61; PULSE 78; RESP 17; O2SAT 96
== END 2020-11-08 18:06 | disposition home or self-care (01) ==
PROVIDERS: Emergency Provider Student in an Organized Health Care Education/Training Program; PCP Family Medicine
DX: J44.0 Chronic obstructive pulmonary disease with (acute) lower respiratory infection (principal); J18.9 Pneumonia, unspecified organism; M79.89 Other specified soft tissue disorders; I10 Essential (primary) hypertension; F41.9 Anxiety disorder, unspecified; F32.9 Major depressive disorder, single episode, unspecified; K58.9 Irritable bowel syndrome, unspecified; I47.1 Supraventricular tachycardia; G43.909 Migraine, unspecified, not intractable, without status migrainosus; Z86.2 Personal history of diseases of the blood and blood-forming organs and certain disorders involving the immune mechanism; Z85.3 Personal history of malignant neoplasm of breast; Z87.11 Personal history of peptic ulcer disease; Z87.19 Personal history of other diseases of the digestive system; Z87.442 Personal history of urinary calculi; Z86.73 Personal history of transient ischemic attack (TIA), and cerebral infarction without residual deficits; Z85.850 Personal history of malignant neoplasm of thyroid; Z99.81 Dependence on supplemental oxygen; Z90.13 Acquired absence of bilateral breasts and nipples; Z79.899 Other long term (current) drug therapy; F17.210 Nicotine dependence, cigarettes, uncomplicated
CPT/HCPCS: 71045; 71275; 80048; 84484; 85025; 87449; 93005; 93971; 96374; 96375; 99285; Q9967; A4216; J2405

== ENCOUNTER 2021-06-28 13:41 | Outpatient (CLI) | payer MEDICAID, SELFPAY ==
--- NOTE | 2021-06-28 13:48 | US_ITS ---
STUDY: ULTRASOUND BREAST - RIGHT REASON FOR EXAM: Female, 51 years old. Bilateral axillary masses. Prior bilateral mastectomy. TECHNIQUE: Axial and longitudinal images of the RIGHT breast were performed with a high resolution ultrasound transducer. # OF IMAGES: 65 COMPARISON: None. FINDINGS: RIGHT Breast: There is a 1.5 cm x 1.1 cm x 0.9 cm lymph node in the right axilla. This corresponds to the palpable abnormality. A fatty hilum is seen. IMPRESSION: 1.5 cm x 1.1 cm x 0.9 cm lymph node in the right axilla. There is evidence of a fatty hilum. ASSESSMENT CATEGORY: BIRADS Category 2: Benign. A letter regarding these results will be sent to the patient by the facility within 30 days. Electronically Signed: Kaiden Bueno MD at 14:43 EST , STUDY: ULTRASOUND BREAST - LEFT REASON FOR EXAM: Female, 51 years old. Palpable left axillary mass. TECHNIQUE: Axial and longitudinal images of the LEFT breast were performed with a high resolution ultrasound transducer. # OF IMAGES: 65 COMPARISON: None. FINDINGS: LEFT Breast: The palpable area mildly corresponds to a 2.2 cm x 1.2 cm x 1 cm lymph node. A fatty hilum is seen. US/Breast Limited Unilateral IMPRESSION: 2.2 cm x 1.2 sign by 1 cm lymph node in the left axilla. There is evidence of a fatty hilum. ASSESSMENT CATEGORY: BIRADS Category 2: Benign. A letter regarding these results will be sent to the patient by the facility within 30 days. Electronically Signed: Kaiden Bueno MD at 14:44 EST ,
== END 2021-06-28 23:59 | disposition home or self-care (01) ==
PROVIDERS: PCP Family Medicine; Referring Provider Surgery; Visit Provider Surgery
DX: N63.31 Unspecified lump in axillary tail of the right breast (principal); N63.32 Unspecified lump in axillary tail of the left breast; Z90.13 Acquired absence of bilateral breasts and nipples
CPT/HCPCS: 76642

== ENCOUNTER 2021-07-03 09:48 | Outpatient (CLI) | payer MEDICAID, SELFPAY | END 2021-07-03 23:59 | disposition home or self-care (01) | PROVIDERS: PCP Family Medicine; Referring Provider Surgery; Visit Provider Surgery | DX: Z01.818 Encounter for other preprocedural examination (principal); Z86.14 Personal history of Methicillin resistant Staphylococcus aureus infection | CPT/HCPCS: 87081 ==

== ENCOUNTER 2021-07-25 14:39 | Outpatient (CLI) | payer MEDICAID, SELFPAY ==
--- NOTE | 2021-07-25 14:41 | CT_ITS ---
INDICATION: Abdominal pain, hernia EXAMINATION: CT ABDOMEN AND PELVIS WITH CONTRAST - CT Abdomen And Pelvis W/ Contrast Injection TECHNIQUE: Helically acquired images were obtained of the abdomen and pelvis following IV contrast. A radiation dose optimization technique was used for this scan. IV Contrast dosage and agent: 100 mL [id number] Oral contrast: None. COMPARISON: CTA chest from 11/08/2020. CT abdomen and pelvis with contrast from 02/02/2020. FINDINGS: Lower thorax: There are diffuse groundglass opacities in the dependent portion of the left lung base which may relate to atelectasis or pneumonitis. Right sided dependent atelectasis. Remainder of the visualized lungs are unremarkable. Liver: Normal morphology. No masses. No acute findings. Gallbladder: Status post cholecystectomy. No significant bowel dilation. Spleen: There are a few splenules. Spleen is otherwise unremarkable. Pancreas: Fatty infiltration of the pancreatic parenchyma. No significant duct dilation. Adrenal glands: 1.1 and 1.2 cm low-attenuation left adrenal nodules are stable from CT chest on 11/08/2020 but are incompletely characterized on this study. No right adrenal mass. Kidneys: No cystic or solid masses. No hydronephrosis. No acute findings. Bladder: Normal appearance. GI tract: No significant wall thickening or bowel dilation. Moderate hiatal hernia with stable postoperative changes at the gastroesophageal junction. Peritoneum/mesentery/retroperitoneum: No free air or free fluid. No lymphadenopathy. Small fat-containing umbilical hernia. Tiny fat-containing right upper ventral wall hernia. Pelvis: No free air free fluid. No lymphadenopathy. Vasculature: The main portal vein is mildly dilated measuring up to 1.5 cm in width. No abdominal aortic or iliac aneurysm. Bones/soft tissues: No acute fracture or subluxation. No destructive osseous lesions. Soft tissues are otherwise unremarkable. CT/Abdomen/Pelvis W IV Cont ONLY IMPRESSION: 1. No acute intra-abdominal findings. 2. There are 1.1 and 1.2 cm low-attenuation left adrenal nodules that are stable from CT chest on 11/08/2020 but are incompletely characterized on this study. These were not seen on CT abdomen/pelvis from 02/02/2016. Although these may relate to adrenal adenomas, given patient''s history of breast cancer, follow-up with nonemergent CT with adrenal protocol in 3 months is recommended to assess temporal stability and to further characterize. 3. Mildly dilated portal vein measuring up to 1.5 cm in width could relate to portal hypertension. 4. Diffuse groundglass opacities in the visualized dependent portion of the left lung base may relate to atelectasis or pneumonitis. Electronically Signed: Riki Mead, at 15:52 EDT ,
[2021-07-25 15:07] LABS: CREATININE FINGERSTICK 0.9 mg/dL (0.55-1.02); EGFR FINGERSTICK > 60.0000 mL/min (>60)
== END 2021-07-25 23:59 | disposition home or self-care (01) ==
LOC: CT 14:40
PROVIDERS: PCP Family Medicine; Referring Provider Surgery; Visit Provider Surgery
DX: K42.9 Umbilical hernia without obstruction or gangrene (principal); R10.9 Unspecified abdominal pain
CPT/HCPCS: 74177; Q9967

== ENCOUNTER 2021-08-09 05:50 | Day surgery (SDC) | payer MEDICAID, SELFPAY ==
[2021-08-09] VITALS (9 sets, daily range): BP systolic 96–114; BP diastolic 41–68; PULSE 77–89; RESP 16; TEMP 35.9–37; O2SAT 90–98; BMI 27.6
[2021-08-09] MEDS: Lactated Ringers 1,000 ML 15 ML IV ×3 (06:42→11:04)
[2021-08-09 06:44] LABS: Hematocrit 42.6 % (37-47); Hemoglobin 14.6 g/dL (12.0-15.0); Mean Corp Hgb Conc 34.3 g/dL (32-36); Mean Corpuscular Hgb 31.6 pg (27.0-32.0); Mean Corpuscular Volume 92.2 fL (81-99); Mean Platelet Vol. 9.5 fl (6.2-12.0); Platelet Count 330 K/mm3 (150-450); RBC Distribution Width CV 13.4 % (11.6-14.6); RBC Distribution Width SD 45.7 fl (35.1-43.9); Red Blood Count 4.62 M/mm3 (4.2-5.4); White Blood Count 10.5 K/mm3 (4.4-11.0)
[2021-08-09 06:58] LABS: Anion Gap 6 (5-15); BUN 7 mg/dL (7-18); BUN/Creat Ratio 7.7 RATIO (10-20); Chloride 109 mmol/L (98-107); Creatinine, Serum 0.91 mg/dL (0.55-1.02); EST Glomerular Filtration Rate 69 mL/min (>60); Est Glom Filt Rate - Afr Amer 83 mL/min (>60); Estimated Creatinine Clearance 66.93 ml/min; Glucose 105 mg/dL (74-106); Potassium 4.1 mmol/L (3.5-5.1); Sodium Level 138 mmol/L (136-145)
--- NOTE | 2021-08-09 07:25 | PCM.HP.BLA ---
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: No Is patient in pain?: No Allergies codeine Allergy (Verified 08/02/21 13:56) Anaphylaxis hydromorphone [From Dilaudid] Allergy (Verified 08/02/21 13:56) SOB/HIVES hydromorphone HCl [From Dilaudid] Adverse Reaction (Verified 08/02/21 13:56) Other Penicillins Adverse Reaction (Verified 08/02/21 13:56) Hives Medications ondansetron 4 mg PO Q8H PRN PRN #10 tab 04/14/15 [Rx Confirmed 08/02/21] mirtazapine 30 mg tablet 15 mg PO QHS 06/19/18 [History Confirmed 08/02/21] amitriptyline 150 mg PO QHS 11/08/20 [History Confirmed 08/02/21] gabapentin 600 mg PO BID 11/08/20 [History Confirmed 08/02/21] lorazepam 1 mg PO TID PRN PRN 11/08/20 [History Confirmed 08/02/21] sumatriptan succinate 100 mg PO DAILY PRN 11/08/20 [History Confirmed 08/02/21] topiramate 100 mg PO QHS 11/08/20 [History Confirmed 08/02/21] escitalopram oxalate 10 mg tablet 10 mg PO DAILY 07/03/21 [History Confirmed 08/02/21] metoprolol tartrate 50 mg tablet 50 mg PO BID #60 tab 07/03/21 [Rx Confirmed 08/02/21] nitroglycerin 0.4 mg sublingual tablet 0.4 mg SUBLINGUAL Q5-15M PRN 07/03/21 [History Confirmed 08/02/21] Is last menstrual period known: No Post menopausal: Yes Patient : No PFSH Medical History Abnormal CT scan, colon Acquired absence of bilateral breasts and nipples Anemia Anxiety Anxiety and depression Bleeding disorder Bone fracture Breast lump 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 COPD (chronic obstructive pulmonary disease) COVID-19 Depression Diarrhea Difficulty balancing Disproportion of reconstructed breast Family history of breast cancer Fatigue Frequent headaches Gallstones Gastrointestinal problem GI bleed Goiter History of blood transfusion History of Clostridium difficile colitis History of MRSA infection Hives Hypertension IBS (irritable bowel syndrome) Immunocompromised state due to drug therapy Inconclusive mammography due to dense breasts Kidney stones Lung adhesion Lupus (systemic lupus erythematosus) Migraine Nicotine dependence Non-pressure chronic ulcer of skin of other sites with fat layer exposed Nonhealing surgical wound On home oxygen therapy Parathyroid abnormality Paroxysmal supraventricular tachycardia Peptic ulcer disease Pneumonia Prophylactic breast removal Seizure Seizures Smoker SVT (supraventricular tachycardia) Thyroid cancer TIA (transient ischemic attack) Vitamin deficiency Surgical History History of cholecystectomy History of hysterectomy History of left heart catheterization (LHC) (~01/25/20) History of partial thyroidectomy History of thyroid surgery Family History Other Anemia Anesthesia complication Anxiety Bleeding disorder Bowel disease Breast cancer CVA (cerebral vascular accident) Cancer Cervical cancer Colon cancer Depression (emotion) Diabetes Heart disease High cholesterol History of blood transfusion Hypertension Osteoporosis Ovarian cancer Thyroid disorder Social History Smoking Status: Former smoker alcohol intake: never substance use type: does not use additional social history: DOES USE ASPIRIN DOES USE IBUPROFEN HPI HPI HPI: ERNST PHELPS, is a 51 F who presents to the office today for review of her recent CT imaging and preoperative discussions related to plans for repair of a umbilical hernia. Knowledges that she continued to have some discomfort following several phone calls to our office related to abdominal pains about the area of her umbilical hernia. She states that this pain was associated with some diarrhea that is now slowing. She also notes some associated nausea but no vomiting. Lastly she relates that she is experienced some bleeding from deep within her umbilical fold and has been applying triple antibiotic ointment so that the bleeding has now stopped. She denies any recent fevers, chills, headaches, or other constitutional symptoms to suggest more systemic illness. She has just a single question related to management for her enlarged axillary lymph nodes. ROS General General: Yes weight change and breast cancer; No appetite, fatigue, colon cancer or weakness HEENT HEENT: No difficulty swallowing, eye injury, eye surgery, swollen glands or hoarseness Endo Endocrine: Yes thyroid disease; No diabetes mellitus, thyroid cancer, Hair loss, heat intolerance or cold intolerance Skin Skin: No rash or changing moles Musc Musculoskeletal: No back problems, arthritis, rheumatoid arthritis, gout or joint pain Cardio Cardiovascular: No murmur, pacemaker, heart disease, atrial fibrillation, high blood pressure, heart attack, heart stent, palpitations, shortness of breat with exertion or chest pain Psych Psychiatric: Yes depression and anxiety; No hearing voices Resp Respiratory: No shortness of breath, No sleep apnea, No cough, No COPD, No asthma, No emphysema and No wheezing Gastro Gastrointestinal: Yes abdominal pain, Yes nausea or vomiting, Yes diarrhea, No constipation, No blood in stool, No acid reflux, No hemorrhoids, Yes ulcers, No gallbladder problem and No black,tarry stools Ian Hematologic: No blood thinners, No blood disorders, No bleeding, No anemia and No blood clots Neuro Neurologic: No system reviewed and no additional complaints, except as documented, No as per HPI, No abnormal gait, No abnormal hearing, No abnormal movements, No abnormal speech, No behavioral changes, No burning sensations, No confusion, No convulsions, No disequilibrium, No dizziness, No localized weakness, No frequent falls, No headache(s), No lack of coordination, No loss of vision, No memory loss, No numbness, No other visual disturbances, No radicular pain, No restless legs, No sensory deficit, No syncope, Yes tingling (double mastectomy), No tremor(s), No weakness and No other Exam Const General: cooperative, healthy appearing, comfortable and anxious Nutritional Appearance: average body habitus and well nourished Resp Effort & Inspection: normal respiratory effort GI Other: Nondistended, right subcostal and midline supraumbilical laparotomy scars well-healed. Clear evidence of umbilical hernia on inspection. Hernia contents are soft and easily reducible with some discomfort to the patient during palpation. She has otherwise nontender to palpation of the remaining abdominal quadrants. Assessment and Plan Assessment and Plan (1) Umbilical hernia: Status: Acute Comment: This is a 51-year-old female with a complex past medical/past surgical history who presents with newly?noted umbilical hernia. Recent CT imaging from earlier this month just shows contents of peritoneal fat. Exam today confirms that this is easily reducible. Fascial defect measures approximately 2.[address] imaging. At this size, I have recommended placement of mesh with any hernia repair the patient to better distribute tension. Patient did complete requested preoperative cardiac clearance with the heart group on 07/03/2021. She was given the go ahead for surgery at that time since her SVT was stable and blood pressures are well controlled. Plan - Dr. Too Giraldo MD: ?We will plan to schedule open umbilical hernia repair with mesh placement in the coming weeks under general anesthesia. Patient is instructed to notify me if she feels ill in any way prior to the procedure. We also discussed postoperative expectations to include no lifting greater than 10 pounds for 6 weeks. She agreed to these latter restrictions and expressed a desire to proceed as described. (2) Axillary lymphadenopathy: Status: Acute Comment: This is a 51-year-old female who presents with bilateral axillary adenopathy two and half years following bilateral prophylactic mastectomy. Patient confirms she underwent removal of both breasts secondary to her concern over her risk for breast cancer with her significant family history. She had a BI-RADS 2 rating with recent ultrasound given the presence of fatty hilum. I recommended repeat ultrasound in 3 months to monitor for stability. Plan - Dr. Too Giraldo MD: Repeat axillary ultrasound in September 2021 I have re-examined the patient. There are no clinical changes since date of exam. Confirmed postoperative lifting expectations. We will proceed to the operating room for planned umbilical hernia repair using mesh.
[2021-08-09] MEDS: Clindamycin 900 MG/50 ML BAG 75 MG IV (07:30)
[2021-08-09] MEDS: Bupivacaine Mpf 0.5% 30 ML VIAL (09:15)
--- NOTE | 2021-08-09 09:18 | OP.PCM_ITS ---
Report of Operation Date of Procedure: 08/09/21 Pre-Operative Diagnosis: Incisional hernia at umbilicus Post-Operative Diagnosis: Incisional hernias x2 at umbilicus Surgery/Procedure Performed:: Primary repair of inferior (smaller) incisional hernia and repair with mesh of superior (larger incisional hernia) Description of Surgical Findings:: ?Dense scar tissue around the umbilicus ?Separate fascial defects measuring 2 cm x 2 cm superiorly and 1.5 cm x 1.5 cm inferiorly ?Placement of Ventralex ST hernia patch reference #[id number], lot number [id number] expiration 03/08/2023 Surgeon: Too Giraldo salesforce developer: Ruchi Pineda Type of Anesthesia: General/Supplemental Anesthesiologist: Aron Burrell Specimen's removed: None Estimated Blood Loss (mL): 50 Description of Procedure: After appropriate identification in the preoperative holding area, the patient was brought to the operating room where she was positioned supine on the operating room table. Preoperative antibiotics were being administered during this time. Patient was then induced with a general anesthetic and her abdomen was prepped and draped in usual sterile fashion. A formal timeout was conducted to confirm both patient and the procedure amongst those present. Observing the patient's prior scars, I elected to use a infraumbilical scar for our incision line and performed a local block along this tissue using half percent Marcaine. This incision was made sharply and deepened down through the dermis and subcutaneous tissue with use of electrocautery. We quickly encountered abundant scar tissue as we approached the umbilical stalk and fascia. I used a hemostat to bluntly dissect out and encircled the umbilical stalk and took great care to avoid injury to the overlying skin. Gradually this was freed from the underlying scar and soft tissue attachments u ntil we were able to visualize patient's fascial defect. This measured 2 cm x 2 cm round. As the fascia was completely cleared of overlying attachments, I was able to visualize that there was actually a second hernia defect approximately 2 cm inferior to the index defect and measured 1.5 x 1.5 cm with more of a rectangular appearance. Using blunt dissection, I circumferentially freed the hernia contents from the edge of the fascia. With the smaller size of the more inferior hernia defect, I elected to close this primarily with interrupted 0 Ethibond suture in a [id number] fashion. A total of 4 sutures were required. For the larger defect, given the appearance of somewhat attenuated fascia, I elected to incorporate a mesh closure. A 6.[address] hernia patch was used for this purpose. The mesh was placed through the hernia opening in a folded confirmation and then allowed to assume a flat position under the fascia. The tails of the mesh were split and were tacked to the fascia superiorly and inferiorly using 2-0 Prolene. Then the fascial defect was closed with 0 Ethibond sutures in an interrupted fashion using a [id number] technique. This resulted in a nice closure of the fascial defects with a mesh underlay. The skin of the umbilical stalk was tacked down to the fascia with a interrupted 3-0 Vicryl. The same 3-0 Vicryl was used to perform a number of interrupted sutures along Cecil's fascia and the dermis to reapproximate the wound and close down some of the space that was created from our initial dissection. Lastly, a 4-0 Monocryl was used to close the skin in a running subcuticular technique. Steri's were applied and a rolled Telfa was placed into the umbilical concavity. A OpSite dressing was placed atop this and the area around the Telfa roll was evacuated to provide a bit of a compressive dressing. This concluded the formal portion of the case and the patient was allowed to awaken from general anesthetic. She was taken to PACU for ongoing recovery. Grafts/Implants Used: Ventralex ST patch reference #[id number], lot number [id number] exp 03/08/23 Complications None
--- NOTE | 2021-08-09 09:51 | EX.PCM.DISCH ---
Discharge Instructions Diet Discharge Diet: No restrictions Activity Discharge Activity: May Not Drive (No driving while using narcotic pain medication) and May Shower (24 hours after surgery, no bathing in bathtubs or hot tubs) May shower in (days): 1 Ice area for (Minutes): 20 Lifting Restrictions: No lifting greater than 10 pounds for the first 6 weeks after surgery Dressing / Incision Call your doctor if your incision/area has: Continuous Slow Oozing, Sudden Increased Bleeding, Increased Pain/ Swelling, Increased Redness, Foul Smelling Discharge and Swelling at the incision site Call your doctor if you observe: Fever of 101 or Higher Remove Dressing in: 3 days (Please remove outer clear dressing in 3 days but leave Steri-Strips intact) Cleanse incision/area with: Soap & Water Follow Up Care Please Follow Up With: Too Giraldo MD When: 7 to 10 days postop Test Results: Test results from this visit will be discussed in further detail at your follow-up appointment, if applicable. Discharge Plan Admission Primary Reason for Your Visit: Umbilical hernia repair Attending Provider: Too Giraldo Primary Care Provider: Anson Rios Instructions Patient Instructions: Umbilical Hernia Repair After Discharge Orders/Prescriptions Prescriptions: New oxycodone 5 mg tablet 5 mg PO Q6H PRN (Reason: pain) 7 Days Qty: 20 RF: 0 Continued mirtazapine [Remeron] 30 mg tablet 15 mg PO QHS RF: 0 escitalopram oxalate [Lexapro] 10 mg tablet 10 mg PO DAILY RF: 0 nitroglycerin 0.4 mg tablet, sublingual 0.4 mg sublingual Q5-15M PRN (Reason: Chest Pain) RF: 0 metoprolol tartrate 50 mg tablet 50 mg PO BID Qty: 60 RF: 11 ondansetron 4 MG tablet 4 mg PO Q8H PRN PRN (Reason: Nausea) Qty: 10 RF: 0 gabapentin 600 mg tablet 800 mg PO TID RF: 0 sumatriptan succinate 100 mg tablet 100 mg PO DAILY PRN (Reason: Migraine Headache) RF: 0 lorazepam 1 mg tablet 1 mg PO TID PRN PRN (Reason: Anxiety) RF: 0 topiramate 100 mg tablet 100 mg PO QHS RF: 0 amitriptyline 100 mg tablet 150 mg PO QHS RF: 0 venlafaxine 75 mg capsule,extended release 24hr 75 mg PO DAILY RF: 0 venlafaxine 150 mg capsule,extended release 24hr 150 mg PO DAILY RF: 0 albuterol sulfate 90 mcg/actuation HFA aerosol inhaler 1 puff INHALATION PRN PRN (Reason: ASTHMA) RF: 0 Referrals / Follow Up: Anson Rios MD [Primary Care Provider] - Disposition Disposition (needs filled in before D/C Order can be placed): Home, Self Care
[2021-08-09] MEDS: oxyCODONE 5 MG Tablet PO (11:04)
== END 2021-08-09 23:59 | disposition home or self-care (01) ==
LOC: SDC 05:52 → AC 05:52
PROVIDERS: Anesthesiology; PCP Family Medicine; Referring Provider Surgery; Visit Provider Surgery
PROC: (CPT 49560; principal; 2021-08-09 07:15)
DX: K43.2 Incisional hernia without obstruction or gangrene (principal); M32.9 Systemic lupus erythematosus, unspecified; J44.9 Chronic obstructive pulmonary disease, unspecified; I47.1 Supraventricular tachycardia; G40.909 Epilepsy, unspecified, not intractable, without status epilepticus; K42.9 Umbilical hernia without obstruction or gangrene; Z87.891 Personal history of nicotine dependence; F41.9 Anxiety disorder, unspecified; F32.A Depression, unspecified; Z86.16 Personal history of COVID-19; Z87.19 Personal history of other diseases of the digestive system; Z86.14 Personal history of Methicillin resistant Staphylococcus aureus infection; K58.9 Irritable bowel syndrome, unspecified; G43.909 Migraine, unspecified, not intractable, without status migrainosus; Z99.81 Dependence on supplemental oxygen; Z86.73 Personal history of transient ischemic attack (TIA), and cerebral infarction without residual deficits; Z85.850 Personal history of malignant neoplasm of thyroid; Z87.11 Personal history of peptic ulcer disease; Z87.01 Personal history of pneumonia (recurrent); I10 Essential (primary) hypertension; Z79.899 Other long term (current) drug therapy; Z87.442 Personal history of urinary calculi
CPT/HCPCS: 49560; 49568; 00832; 80048; 85027; 87426; C1781; C9803; J7120; J2405

== ENCOUNTER → 2021-09-17 | Outpatient (CLI) | payer MEDICAID, SELFPAY ==
[2021-09-17 14:46] LABS: Absolute Lymphocyte Count 2.24 X10^3/uL (0.83-4.51); Absolute Neutrophil Count 5.1 X10^3/uL (2.0-7.7); Basophil# 0.09 X10^3/uL; Basophil% 1.1 % (0-1); Eosinophil# 0.26 X10^3/uL; Eosinophils% 3.2 % (0-5); Hematocrit 44.4 % (37-47); Hemoglobin 14.6 g/dL (12.0-15.0); Lymphocyte # 2.24 X10^3/ul (0.83-4.51); Lymphocyte % 27.2 % (19-41); Mean Corp Hgb Conc 32.9 g/dL (32-36); Mean Corpuscular Hgb 30.4 pg (27.0-32.0); Mean Corpuscular Volume 92.3 fL (81-99); Mean Platelet Vol. 8.7 fl (6.2-12.0); Monocyte# 0.52 X10^3/uL; Monocyte% 6.3 % (0-10); NRBC Flagged by Analyzer 0 % (0-5); Neutrophil % 61.7 % (47-70); Platelet Count 321 K/mm3 (150-450); RBC Distribution Width CV 13.3 % (11.6-14.6); RBC Distribution Width SD 45.8 fl (35.1-43.9); Red Blood Count 4.81 M/mm3 (4.2-5.4); White Blood Count 8.3 K/mm3 (4.4-11.0)
== END | disposition home or self-care (01) ==
LOC: PAVLAB 14:28
PROVIDERS: PCP Family Medicine; Referring Provider Surgery; Visit Provider Surgery
DX: Z09 Encounter for follow-up examination after completed treatment for conditions other than malignant neoplasm (principal)
CPT/HCPCS: 36415; 85025

== ENCOUNTER 2022-06-22 18:36 | Emergency (ER) | payer MEDICAID, SELFPAY ==
[2022-06-22 18:37] VITALS: BP 106/33; PULSE 88; RESP 15; TEMP 36.2; O2SAT 96; BMI 26.9
[2022-06-22 18:48] VITALS: BP 98/58
--- NOTE | 2022-06-22 19:15 | CT_ITS ---
INDICATION: ams EXAMINATION: CT BRAIN - CT Head or Brain W/O Contrast Injection TECHNIQUE: Multiple axial images were obtained of the head without intravenous contrast. A radiation dose optimization technique was used for this scan. IV Contrast dosage and agent: None. COMPARISON: 07/15/2019 FINDINGS: BRAIN PARENCHYMA: No intra- or extra-axial hemorrhage. No evidence of acute infarct. No intracranial mass or mass effect. Posterior fossa structures are unremarkable. CSF SPACES: Appropriate for age. No hydrocephalus. Basal cisterns are patent. CALVARIUM, SKULL BASE, PARANASAL SINUSES AND MASTOID AIR CELLS: Clear. No discrete lytic or blastic abnormalities. ORBITS: Both globes, extraocular muscles, optic nerves and retrobulbar fat appear unremarkable. CT/Brain/Head without Contrast IMPRESSION: No acute intracranial findings. Electronically Signed: Martinez Chen MD at 19:56 EST ,
--- NOTE | 2022-06-22 19:16 | EKG12_ITS ---
Test Reason : DYSRHYTHMIA Blood Pressure : / mmHG Vent. Rate : 078 BPM Atrial Rate : 078 BPM P-R Int : 160 ms QRS Dur : 106 ms QT Int : 376 ms P-R-T Axes : 043 040 095 degrees QTc Int : 428 ms Normal sinus rhythm T wave abnormality, consider anterior ischemia Abnormal ECG Confirmed by SAMIA ROSA, JERROD ([id number]), editor index JER GIBBS ([id number]) on 06/24/2022 12:16:51 PM Referred By: JOSÉ MIGUEL Confirmed By:JERROD GRACIA MD
[2022-06-22] MEDS: 0.9% Normal Saline 1,000 ML 1000 ML IV (19:18)
--- NOTE | 2022-06-22 19:19 | EDS_ITS ---
HPI History of Present Illness Chief Complaint: Alt LOC Narrative Narrative: 52-year-old female presenting with altered mental status. reports that he came home and found her this way. He states that he went to go to grocery shopping with his son at about 3 AM when he came back around 6 she was slumped over in a chair. She was not really responding to him. He called EMS. She was transported to the ED. He states that she was a little bit tired before they left for the grocery store. He also states he has a history of breast cancer and indicates this to the right breast. She he states that there is some metastasis to the axillary region. He does state that his would not do any kind of chemotherapy. He does state that the patient does not do any drugs. [facility] Medical History Abnormal CT scan, colon Acquired absence of bilateral breasts and nipples Anemia Anxiety Anxiety and depression Asthma Bleeding disorder Bone fracture Breast lump Breast reconstruction deformity Cancer Cancer phobia Cardiology follow-up encounter Clostridium difficile carrier COPD (chronic obstructive pulmonary disease) COVID-19 Depression Diarrhea Difficulty balancing Disproportion of reconstructed breast Family history of breast cancer Fatigue Former smoker Frequent headaches Gallstones Gastric reflux Gastrointestinal problem GI bleed Goiter History of bleeding ulcers History of blood transfusion History of Clostridium difficile colitis History of diverticulitis History of echocardiogram History of IBS History of MRSA infection History of stress test History of ulceration Hives Hypertension IBS (irritable bowel syndrome) Immunocompromised state due to drug therapy Inconclusive mammography due to dense breasts Kidney stones Lung adhesion Lupus (systemic lupus erythematosus) Migraine Migraine headache Nicotine dependence Non-pressure chronic ulcer of skin of other sites with fat layer exposed Nonhealing surgical wound On home oxygen therapy Parathyroid abnormality Paroxysmal supraventricular tachycardia Peptic ulcer disease Pneumonia Post-menopausal Prophylactic breast removal Seizure Seizures Smoker SVT (supraventricular tachycardia) Thyroid cancer TIA (transient ischemic attack) Vitamin deficiency Wears contact lenses Wears glasses Home Medications ondansetron 4 mg disintegrating tablet 4 mg PO Q8H PRN PRN Nausea #10 tabs 04/14/15 [Rx Last Taken 11/07/20] mirtazapine 30 mg tablet (Remeron) 15 mg PO QHS sleeping pill 06/19/18 [History Last Taken 11/07/20] amitriptyline 100 mg tablet 150 mg PO QHS 11/08/20 [History Last Taken 11/06/20] gabapentin 600 mg tablet 800 mg PO TID 11/08/20 [History Last Taken 08/09/21] lorazepam 1 mg tablet 1 mg PO TID PRN PRN Anxiety 11/08/20 [History Last Taken 11/08/20] sumatriptan succinate 100 mg tablet 100 mg PO DAILY PRN Migraine Headache 11/08/20 [History Last Taken 11/07/20] topiramate 100 mg tablet 100 mg PO QHS SLEEP 11/08/20 [History Last Taken 11/07/20] escitalopram oxalate 10 mg tablet (Lexapro) 10 mg PO DAILY 07/03/21 [History Last Taken Unknown] metoprolol tartrate 50 mg tablet 50 mg PO BID #60 tabs 07/03/21 [Rx Last Taken 08/09/21] nitroglycerin 0.4 mg sublingual tablet 0.4 mg sublingual Q5-15M PRN Chest Pain 07/03/21 [History Last Taken Unknown] albuterol sulfate 90 mcg/actuation aerosol inhaler 1 puff inhalation PRN PRN ASTHMA 08/03/21 [History Last Taken Unknown] venlafaxine 150 mg capsule,extended release 24 hr 150 mg PO DAILY 08/03/21 [History Last Taken Unknown] venlafaxine 75 mg capsule,extended release 24 hr 75 mg PO DAILY 08/03/21 [History Last Taken Unknown] potassium chloride 20 mEq tablet,extended release 40 meq PO DAILY #1 TAB 06/22/22 [Rx Last Taken Unknown] Allergy/AdvReac Type Severity Reaction Status Date / Time codeine Allergy Anaphylaxis Verified 06/22/22 18:44 hydromorphone [From Dilaudid] Allergy SOB/HIVES Verified 06/22/22 18:44 Penicillins Allergy Hives Verified 06/22/22 18:44 hydromorphone HCl AdvReac Other Verified 06/22/22 18:44 [From Dilaudid] Family History Other Anemia Anesthesia complication Anxiety Bleeding disorder Bowel disease Breast cancer CVA (cerebral vascular accident) Cancer Cervical cancer Colon cancer Depression (emotion) Diabetes Heart disease High cholesterol History of blood transfusion Hypertension Osteoporosis Ovarian cancer Thyroid disorder Surgical History History of cardiac catheterization History of cholecystectomy History of hysterectomy History of incisional hernia repair History of left heart catheterization (LHC) (~01/25/20) History of partial thyroidectomy History of thyroid surgery Hx of tubal ligation Social History Smoking Status: Current every day smoker tobacco type: cigarettes alcohol intake: never substance use type: does not use additional social history: DOES USE ASPIRIN DOES USE IBUPROFEN ROS ROS ED Review of Systems ROS Unobtainable: due to mental status EXAM Physical Exam Const Vital Signs: 06/22/22 18:37 06/22/22 18:48 06/22/22 19:41 Temperature 97.2 F L 97.2 F L Temperature Source Oral Temporal Pulse Rate 88 85 Respiratory Rate 15 14 Blood Pressure 106/33 L 98/58 L 99/41 L Blood Pressure Mean 57 71 60 Pulse Ox 96 98 Oxygen Delivery Method Room Air Room Air 06/22/22 20:12 06/22/22 21:00 06/22/22 21:59 Temperature 98.1 F Temperature Source Oral Pulse Rate 77 69 65 Respiratory Rate 11 L 11 L 14 Blood Pressure 97/62 96/50 L 90/50 L Blood Pressure Mean 73 65 63 Pulse Ox 97 97 98 Oxygen Delivery Method Room Air Room Air Room Air Positive well nourished General Appearance ED: NAD; Negative for pallor HEENT Reports moist mucous membranes and dry mucous membranes Mouth ED: Yes dry mucous membranes Mouth: dry mucous membranes Eyes PERRL and EOMs intact bilaterally Neck no lymphadenopathy Chest Wall inspection of chest normal and palpation of chest normal Resp normal respiratory effort and clear to auscultation bilaterally Auscultation: Negative for rales, rhonchi or wheezes Cardio regular rate and regular rhythm GI normal to inspection, nondistended, normoactive bowel sounds Palpation: soft Neuro oriented x3 and CN's II-XII intact bilaterally Sensorium / Orientation: alert Motor Exam: strength 5/5 throughout and general weakness Psych mental status grossly normal Skin no rashes or lesions noted and no wounds General Skin Exam: elasticity normal; Negative for jaundice or pallor MDM MDM MDM Narrative Medical decision making narrative: 52-year-old female normally responsive. Apparently this started while the patient's family was away shopping. Patient was found slouched over in a chair. Differential at this point includes but not limited to seizure stroke, ACS, drug overdose, hyperammonemia, pneumonia, UTI, brain metastasis due to 's report of history of breast cancer. Patient is able to awaken and open her eyes and talk. Vital signs are stable and she is afebrile. EKG was obtained and on my interpretation this is a normal sinus rhythm with a ventricular rate of 78 bpm. High-sensitivity troponin is 5. I do not believe she needs a delta troponin. Vital signs are completely stable. Chest x-ray on my interpretation shows no acute process. Radiology interprets this as atelectasis versus infection. Patient not have any hypoxia, tachypnea, cough, fever. I do not believe she has pneumonia. CBC to assess leukocytosis, hemoglobin, differential. This is essentially normal. CMP to assess for liver function, renal function, electrolytes, glucose, anion gap. Alkaline phosphatase is the only elevated liver enzyme. Glucose 99 without anion gap. Potassium slightly low at 2.8 which was repleted orally. Patient will be given a second dose for home. Ammonia level was checked and this is also within normal limits. Urinalysis shows no evidence of infection. Urine drug screen does show cannabinoids. I did obtain a CT brain which was essentially negative. I did obtain a lactic acid to ensure patient has not had a seizure and this is essentially normal patient was able to get up and use the bedside commode. She then went back to sleep. I discussed with the patient's that she had cannabinoids in her system and he said that she has a THC vape pen. I asked him if this could be the source of her confusion and he did believe it could be, but she does not usually smoke too much. Other than low potassium I find no other reason to be causing her confusion. Impression: 1. Hypokalemia 2. Cannabinoid use 3. Generalized weakness Lab Data Attestation: I reviewed the patient's lab results. Labs: Laboratory Results - last 24 hr 06/22/22 06/22/22 06/22/22 19:20 19:20 19:20 WBC 9.3 RBC 4.77 Hgb 14.5 Hct 44.4 MCV 93.1 MCH 30.4 MCHC 32.7 RDW Std Deviation 45.1 H RDW Coeff of Lali 13.1 Plt Count 301 MPV 9.4 Immature Gran % (Auto) 0.800 Neut % (Auto) 71.2 H Lymph % (Auto) 15.0 L [place] % (Auto) 6.5 Eos % (Auto) 5.6 H Baso % (Auto) 0.9 Absolute Neuts (auto) 6.6 Absolute Lymphs (auto) 1.39 Nucleated RBC % 0 Sodium 136 Potassium 2.8 L Chloride 102 Carbon Dioxide 25.0 Anion Gap 9 BUN 5 L Creatinine 0.89 Estim Creat Clear Calc 67.65 Est GFR (MDRD) Af Amer 85 Est GFR (MDRD) Non-Af 70 BUN/Creatinine Ratio 5.6 L Glucose 99 Lactic Acid 0.8 Calcium 8.9 Total Bilirubin 0.30 AST 37 ALT 31 Alkaline Phosphatase 122 H Ammonia Troponin I High Sens 5 Total Protein 7.1 Albumin 3.6 Globulin 3.5 Albumin/Globulin Ratio 1.0 Urine Color Urine Clarity Urine pH Ur Specific [place] Urine Protein Urine Glucose (UA) Urine Ketones Urine Occult Blood Urine Nitrite Urine Bilirubin Urine Urobilinogen Ur Leukocyte Esterase Urine RBC Urine WBC Ur Squamous Epith Cells Urine Bacteria Urine Mucus Urine Opiates Screen Urine Methadone Screen Ur Barbiturates Screen Ur Phencyclidine Scrn Ur Amphetamines Screen MDMA (Ecstasy) Screen U Benzodiazepines Scrn Urine Cocaine Screen U Cannabinoids Screen Ur Drug Screen Comment Ethyl Alcohol 06/22/22 06/22/22 06/22/22 19:20 19:20 19:55 WBC RBC Hgb Hct MCV MCH MCHC RDW Std Deviation RDW Coeff of Lali Plt Count MPV Immature Gran % (Auto) Neut % (Auto) Lymph % (Auto) [place] % (Auto) Eos % (Auto) Baso % (Auto) Absolute Neuts (auto) Absolute Lymphs (auto) Nucleated RBC % Sodium Potassium Chloride Carbon Dioxide Anion Gap BUN Creatinine Estim Creat Clear Calc Est GFR (MDRD) Af Amer Est GFR (MDRD) Non-Af BUN/Creatinine Ratio Glucose Lactic Acid Calcium Total Bilirubin AST ALT Alkaline Phosphatase Ammonia 14.0 Troponin I High Sens Total Protein Albumin Globulin Albumin/Globulin Ratio Urine Color Urine Clarity Urine pH Ur Specific [place] Urine Protein Urine Glucose (UA) Urine Ketones Urine Occult Blood Urine Nitrite Urine Bilirubin Urine Urobilinogen Ur Leukocyte Esterase Urine RBC Urine WBC Ur Squamous Epith Cells Urine Bacteria Urine Mucus Urine Opiates Screen NEGATIVE Urine Methadone Screen NEGATIVE Ur Barbiturates Screen NEGATIVE Ur Phencyclidine Scrn NEGATIVE Ur Amphetamines Screen NEGATIVE MDMA (Ecstasy) Screen NEGATIVE U Benzodiazepines Scrn NEGATIVE Urine Cocaine Screen NEGATIVE U Cannabinoids Screen POSITIVE H Ur Drug Screen Comment Ethyl Alcohol < 3.0 06/22/22 19:55 WBC RBC Hgb Hct MCV MCH MCHC RDW Std Deviation RDW Coeff of Lali Plt Count MPV Immature Gran % (Auto) Neut % (Auto) Lymph % (Auto) [place] % (Auto) Eos % (Auto) Baso % (Auto) Absolute Neuts (auto) Absolute Lymphs (auto) Nucleated RBC % Sodium Potassium Chloride Carbon Dioxide Anion Gap BUN Creatinine Estim Creat Clear Calc Est GFR (MDRD) Af Amer Est GFR (MDRD) Non-Af BUN/Creatinine Ratio Glucose Lactic Acid Calcium Total Bilirubin AST ALT Alkaline Phosphatase Ammonia Troponin I High Sens Total Protein Albumin Globulin Albumin/Globulin Ratio Urine Color Yellow Urine Clarity Clear Urine pH 6.0 Ur Specific [place] 1.010 Urine Protein Negative Urine Glucose (UA) Normal Urine Ketones Negative Urine Occult Blood Negative Urine Nitrite Negative Urine Bilirubin Negative Urine Urobilinogen Normal Ur Leukocyte Esterase 100 H Urine RBC 0 SEEN Urine WBC 0-5 SEEN Ur Squamous Epith Cells 0-5 SEEN Urine Bacteria 0 SEEN Urine Mucus 0 SEEN Urine Opiates Screen Urine Methadone Screen Ur Barbiturates Screen Ur Phencyclidine Scrn Ur Amphetamines Screen MDMA (Ecstasy) Screen U Benzodiazepines Scrn Urine Cocaine Screen U Cannabinoids Screen Ur Drug Screen Comment Ethyl Alcohol Radiography Diagnostic Testing: Clinical Impression(s) from Imaging Studies Brain CT 06/22/22 19:15 IMPRESSION: No acute intracranial findings. Electronically Signed: Martinez Chen MD at 19:56 EST , Chest X-Ray 06/22/22 19:25 IMPRESSION: Bibasilar airspace disease, atelectasis and/or infection. Recommend short-term follow-up for resolution. Electronically Signed: Martinez Chen MD at 19:57 EST , Discharge Plan Triage Chief Complaint: Alt LOC ED Provider: Stephon Banks Dx/Rx/DC Orders Instructions: ED ALOC, ED Hypokalemia, ED Marijuana Abuse Prescriptions: New potassium chloride 20 mEq tablet extended release 40 meq PO DAILY Qty: 1 0RF No Action mirtazapine [Remeron] 30 mg tablet 15 mg PO QHS Label Comments: 1/2 A TABLET AT BEDTIME escitalopram oxalate [Lexapro] 10 mg tablet 10 mg PO DAILY nitroglycerin 0.4 mg tablet, sublingual 0.4 mg sublingual Q5-15M PRN (Reason: Chest Pain) Rx Instructions: do not exceed 3 doses per episode metoprolol tartrate 50 mg tablet 50 mg PO BID Qty: 60 11RF ondansetron 4 MG tablet 4 mg PO Q8H PRN PRN (Reason: Nausea) Qty: 10 0RF Label Comments: nausea gabapentin 600 mg tablet 800 mg PO TID Label Comments: TAKE 1 TABLET BY MOUTH THREE TIMES DAILY sumatriptan succinate 100 mg tablet 100 mg PO DAILY PRN (Reason: Migraine Headache) Label Comments: Take 1 tablet by mouth as needed. lorazepam 1 mg tablet 1 mg PO TID PRN PRN (Reason: Anxiety) Label Comments: Take 1 (ONE) tablet by mouth three times daily as needed topiramate 100 mg tablet 100 mg PO QHS Label Comments: TAKE 1 TABLET DAILY AT BEDTIME amitriptyline 100 mg tablet 150 mg PO QHS Label Comments: Take 1 & 1/2 tablets daily at bedtime. venlafaxine 75 mg capsule,extended release 24hr 75 mg PO DAILY Label Comments: TAKE 1 CAPSULE BY MOUTH EVERY DAY along with 150mg venlafaxine 150 mg capsule,extended release 24hr 150 mg PO DAILY Label Comments: Take 1 capsule by mouth once daily. albuterol sulfate 90 mcg/actuation HFA aerosol inhaler 1 puff INHALATION PRN PRN (Reason: ASTHMA) Label Comments: Inhale 2 Puffs as instructed every 6 hours as needed for Wheezing/Shortness of Breath. Primary Care Provider: Anson Rios Referrals: Anson Rios MD [Primary Care Provider] - Disposition Disposition: Home, Self Care
--- NOTE | 2022-06-22 19:25 | RAD_ITS ---
INDICATION: ams EXAMINATION/TECHNIQUE: X-RAY - portable upright AP chest x-ray COMPARISON: 11/08/2020 FINDINGS: LINES/DEVICES: None. LUNGS: Hazy bibasilar airspace opacities without consolidation or pleural effusion. No vascular congestion. MEDIASTINUM AND CARDIOVASCULAR STRUCTURES: Cardiac silhouette not enlarged. Central airways and mediastinal contour are unremarkable. BONES AND SOFT TISSUES: No acute changes. RAD/Chest 1 View (Portable) IMPRESSION: Bibasilar airspace disease, atelectasis and/or infection. Recommend short-term follow-up for resolution. Electronically Signed: Martinez Chen MD at 19:57 EST ,
[2022-06-22 19:36] LABS: Absolute Lymphocyte Count 1.39 X10^3/uL (0.83-4.51); Absolute Neutrophil Count 6.6 X10^3/uL (2.0-7.7); Basophil# 0.08 X10^3/uL; Basophil% 0.9 % (0-1); Eosinophil# 0.52 X10^3/uL; Eosinophils% 5.6 % (0-5); Hematocrit 44.4 % (37-47); Hemoglobin 14.5 g/dL (12.0-15.0); Lymphocyte # 1.39 X10^3/ul (0.83-4.51); Mean Corp Hgb Conc 32.7 g/dL (32-36); Mean Corpuscular Hgb 30.4 pg (27.0-32.0); Mean Corpuscular Volume 93.1 fL (81-99); Mean Platelet Vol. 9.4 fl (6.2-12.0); Monocyte% 6.5 % (0-10); NRBC Flagged by Analyzer 0 % (0-5); Neutrophil # 6.62 X10^3/uL (2.7-7.7); Neutrophil % 71.2 % (47-70); Platelet Count 301 K/mm3 (150-450); RBC Distribution Width CV 13.1 % (11.6-14.6); RBC Distribution Width SD 45.1 fl (35.1-43.9); Red Blood Count 4.77 M/mm3 (4.2-5.4); White Blood Count 9.3 K/mm3 (4.4-11.0)
[2022-06-22 19:41] VITALS: BP 99/41; PULSE 85; RESP 14; TEMP 36.2; O2SAT 98
[2022-06-22 19:49] LABS: AST(SGOT) 37 U/L (15-37); Alanine Aminotransfer ALT/SGPT 31 U/L (13-56); Albumin, Serum 3.6 g/dL (3.2-5.0); Alkaline Phosphatase 122 U/L (45-117); Anion Gap 9 (5-15); BUN 5 mg/dL (7-18); BUN/Creat Ratio 5.6 RATIO (10-20); Calcium,Total 8.9 mg/dL (8.5-10.1); Chloride 102 mmol/L (98-107); Creatinine, Serum 0.89 mg/dL (0.55-1.02); EST Glomerular Filtration Rate 70 mL/min (>60); Est Glom Filt Rate - Afr Amer 85 mL/min (>60); Estimated Creatinine Clearance 67.65 ml/min; Globulin 3.5 g/dL (2.2-4.2); Glucose 99 mg/dL (74-106); Potassium 2.8 mmol/L (3.5-5.1); Protein, Total 7.1 g/dL (6.4-8.2); Sodium Level 136 mmol/L (136-145); Troponin-I HS 5 pg/mL (3.0-54.0)
[2022-06-22 20:10] LABS: Bacteria 0 SEEN /hpf (None Seen); Mucous, Urine 0 SEEN /hpf (<or=2+); Red Blood Cells-Urine 0 SEEN /hpf (0-5)
[2022-06-22 20:12] VITALS: BP 97/62; PULSE 77; RESP 11; O2SAT 97
[2022-06-22 20:15] LABS: Color, Urine Yellow (Yellow); Glucose, Dipstick Normal (Normal); Ketone-Dipstick Negative (Negative); Leukocyte Esterase-Dipstick 100 /ul (Negative); Nitrite-Dipstick Negative (Negative); Occult Blood-Urine Negative /ul (Negative); Protein-Dipstick Negative (Negative); Urine Bilirubin Dipstick Negative (Negative); Urine Clarity Clear (Clear); Urine Urobilinogen Normal (Normal)
[2022-06-22 20:19] LABS: Alcohol, Blood (Medical)-Serum < 3.0 mg/dL
[2022-06-22 20:20] LABS: Lactic Acid 0.8 mmol/L (0.4-1.9)
[2022-06-22 20:23] LABS: Squamous Epithelial Cells - UA 0-5 SEEN /hpf (5-10); White Blood Cells 0-5 SEEN /hpf (0-5)
[2022-06-22 20:28] LABS: Amphetamine Urine VISTA NEGATIVE (<1000 ng/mL); Barbiturate Urine VISTA NEGATIVE (< 200 ng/mL); Benzodiazepine Urine VISTA NEGATIVE (< 200 ng/mL); Cocaine Urine VISTA NEGATIVE (< 300 ng/mL); Ecstacy Urine VISTA NEGATIVE (< 500 ng/mL); Methadone Urine VISTA NEGATIVE (< 300 ng/mL); PCP Urine VISTA NEGATIVE (< 25 ng/mL); THC Urine VISTA POSITIVE (< 50 ng/mL); Vista UDS pH Range 5
[2022-06-22 21:00] VITALS: BP 96/50; PULSE 69; RESP 11; O2SAT 97
[2022-06-22 21:59] VITALS: BP 90/50; PULSE 65; RESP 14; TEMP 36.7; O2SAT 98
[2022-06-22] MEDS: Potassium Chloride Oral Tablet 20 MEQ 40 MEQ PO (22:03)
== END 2022-06-22 22:09 | disposition home or self-care (01) ==
PROVIDERS: Emergency Provider Student in an Organized Health Care Education/Training Program; PCP Family Medicine; Visit Provider Student in an Organized Health Care Education/Training Program
DX: E87.6 Hypokalemia (principal); C79.89 Secondary malignant neoplasm of other specified sites; M32.9 Systemic lupus erythematosus, unspecified; J44.9 Chronic obstructive pulmonary disease, unspecified; C50.911 Malignant neoplasm of unspecified site of right female breast; R53.1 Weakness; R41.82 Altered mental status, unspecified; Z86.16 Personal history of COVID-19; Z87.891 Personal history of nicotine dependence; K21.9 Gastro-esophageal reflux disease without esophagitis; Z86.14 Personal history of Methicillin resistant Staphylococcus aureus infection; I10 Essential (primary) hypertension; Z79.899 Other long term (current) drug therapy
CPT/HCPCS: 70450; 71045; 80053; 80307; 81001; 82077; 82140; 83605; 84484; 85025; 93005; 96360; 99285; A4216

== ENCOUNTER → 2023-10-15 | Outpatient (CLI) | payer MEDICAID, SELFPAY ==
[2023-10-15 12:22] LABS: Absolute Lymphocyte Count 1.27 X10^3/uL (0.83-4.51); Absolute Neutrophil Count 14.4 X10^3/uL (2.0-7.7); Basophil# 0.06 X10^3/uL; Basophil% 0.4 % (0-1); Hematocrit 45.1 % (37-47); Hemoglobin 15.1 g/dL (12.0-15.0); Lymphocyte # 1.27 X10^3/ul (0.83-4.51); Lymphocyte % 7.8 % (19-41); Mean Corp Hgb Conc 33.5 g/dL (32-36); Mean Corpuscular Hgb 30.4 pg (27.0-32.0); Mean Corpuscular Volume 90.7 fL (81-99); Mean Platelet Vol. 9.7 fl (6.2-12.0); Monocyte# 0.31 X10^3/uL; Monocyte% 1.9 % (0-10); NRBC Flagged by Analyzer 0 % (0-5); Neutrophil # 14.39 X10^3/uL (2.7-7.7); Platelet Count 306 K/mm3 (150-450); RBC Distribution Width CV 13.5 % (11.6-14.6); RBC Distribution Width SD 45.5 fl (35.1-43.9); Red Blood Count 4.97 M/mm3 (4.2-5.4); White Blood Count 16.3 K/mm3 (4.4-11.0)
[2023-10-15 12:26] LABS: Partial Thromboplast Time 27.8 Seconds (24.1-36.2); Prothrombin Time (Protime)PT. 12.9 SECONDS (11.7-14.9)
[2023-10-15 13:44] LABS: ALB/GLOB Ratio 0.9 RATIO (0.9-2.4); AST(SGOT) 23 U/L (15-37); Alanine Aminotransfer ALT/SGPT 51 U/L (13-56); Albumin, Serum 3.7 g/dL (3.2-5.0); Alkaline Phosphatase 150 U/L (45-117); Anion Gap 10 (5-15); BUN 6 mg/dL (7-18); BUN/Creat Ratio 6.3 RATIO (10-20); Calcium,Total 9.7 mg/dL (8.5-10.1); Chloride 105 mmol/L (98-107); Cholesterol 231 mg/dL (200); Creatinine, Serum 0.95 mg/dL (0.55-1.02); EST Glomerular Filtration Rate 65 mL/min (>60); Est Glom Filt Rate - Afr Amer 78 mL/min (>60); Glucose 122 mg/dL (74-106); High Density Lipoprotein 46 mg/dL; Potassium 4.1 mmol/L (3.5-5.1); Protein, Total 7.7 g/dL (6.4-8.2); Sodium Level 133 mmol/L (136-145); Thyroid Stim Hormone (TSH) 1.16 uIU/mL (0.358-3.74); Triglycerides 145 mg/dL; Very Low Density Lipoprotein 29 mg/dL (5-40)
[2023-10-15 14:09] LABS: Hemoglobin A1c 5.3 % (3.8-5.6)
== END | disposition home or self-care (01) ==
PROVIDERS: Referring Provider Nurse Practitioner Family; Visit Provider Nurse Practitioner Family
DX: R23.3 Spontaneous ecchymoses (principal); E66.9 Obesity, unspecified
CPT/HCPCS: 36415; 80053; 80061; 83036; 84443; 85025; 85610; 85730

== ENCOUNTER → 2024-09-09 | Outpatient (CLI) | payer MEDICAID, SELFPAY ==
[2024-09-09 16:01] LABS: Absolute Lymphocyte Count 3.24 X10^3/uL (0.83-4.51); Absolute Neutrophil Count 5.9 X10^3/uL (2.0-7.7); Basophil# 0.08 X10^3/uL; Basophil% 0.8 % (0-1); Eosinophil# 0.17 X10^3/uL; Eosinophils% 1.7 % (0-5); Hemoglobin 14.2 g/dL (12.0-15.0); Lymphocyte # 3.24 X10^3/ul (0.83-4.51); Mean Corp Hgb Conc 33.8 g/dL (32-36); Mean Corpuscular Hgb 31.1 pg (27.0-32.0); Mean Corpuscular Volume 91.9 fL (81-99); Mean Platelet Vol. 9.3 fl (6.2-12.0); Monocyte# 0.37 X10^3/uL; Monocyte% 3.8 % (0-10); NRBC Flagged by Analyzer 0 % (0-5); Neutrophil # 5.93 X10^3/uL (2.7-7.7); Neutrophil % 60.4 % (47-70); Platelet Count 311 K/mm3 (150-450); RBC Distribution Width CV 13.3 % (11.6-14.6); RBC Distribution Width SD 45.2 fl (35.1-43.9); Red Blood Count 4.57 M/mm3 (4.2-5.4); White Blood Count 9.8 K/mm3 (4.4-11.0)
[2024-09-09 16:42] LABS: ALB/GLOB Ratio 1.5 RATIO (0.9-2.4); AST(SGOT) 23 U/L (<=31); Alanine Aminotransfer ALT/SGPT 18 U/L (<=34); Alkaline Phosphatase 123 U/L (35-104); Anion Gap 13 (5-15); BUN 8 mg/dL (4-19); BUN/Creat Ratio 9.1 RATIO (10-20); Calcium,Total 8.9 mg/dL (7.6-11.0); Carbon Dioxide 17.8 mmol/L (21.0-32.0); Chloride 101 mmol/L (98-108); Cholesterol 183 mg/dL (<=200); Creatinine, Serum 0.91 mg/dL (0.70-1.20); EST Glomerular Filtration Rate 74 (>60); Globulin 2.8 g/dL (2.2-4.2); Glucose 171 mg/dL (70-99); High Density Lipoprotein 45 mg/dL; Low Density Lipoprotein Calc. 61 mg/dL; Potassium 3.2 mmol/L (3.3-5.1); Protein, Total 6.7 g/dL (5.9-8.4); Sodium Level 132 mmol/L (133-145); Total Bilirubin 0.16 mg/dL (0.00-1.30); Triglycerides 390 mg/dL; Very Low Density Lipoprotein 78 mg/dL (5-40); cholesterol:hdl ratio screen 4.11
[2024-09-09 19:47] LABS: Iron 83 ug/dL (50-170)
[2024-09-09 19:53] LABS: Ferritin 45 ng/mL (22-378); Vitamin B12 < 150 pg/mL (180-914); Vitamin D,25 Hydroxy < 6.0 ng/mL (30-100)
== END | disposition home or self-care (01) ==
LOC: VSLAB 15:35
PROVIDERS: PCP Family Medicine; Visit Provider Nurse Practitioner
DX: F41.1 Generalized anxiety disorder (principal)
CPT/HCPCS: 36415; 80053; 80061; 82306; 82607; 82728; 83540; 84207; 84443; 85025

== ENCOUNTER → 2024-09-21 | Outpatient (CLI) | payer MEDICAID, SELFPAY ==
[2024-09-21 13:40] LABS: Osmolality, Serum 285 mOsm/KG (275-295); Osmolality, Urine 126 mOsm/KG
[2024-09-21 13:56] LABS: Urine Sodium < 20 mmol/L (Not Establ.)
[2024-09-21 15:14] LABS: Anion Gap 13 (5-15); BUN 5 mg/dL (4-19); BUN/Creat Ratio 7.5 RATIO (10-20); Calcium,Total 9.5 mg/dL (7.6-11.0); Carbon Dioxide 20.8 mmol/L (21.0-32.0); Chloride 103 mmol/L (98-108); Creatinine, Serum 0.72 mg/dL (0.70-1.20); EST Glomerular Filtration Rate 98 (>60); Free T3 2.4 pg/mL (2.18-3.98); Glucose 80 mg/dL (70-99); Potassium 3.7 mmol/L (3.3-5.1); Sodium Level 136 mmol/L (133-145)
[2024-09-23 04:07] LABS: C-Peptide 1.9 ng/mL (1.1-4.4); Insulin Level 3.8 uIU/mL (2.6-24.9)
== END | disposition home or self-care (01) ==
LOC: VSLAB 10:33
PROVIDERS: PCP Family Medicine; Visit Provider Family Medicine
DX: E03.9 Hypothyroidism, unspecified (principal); E87.1 Hypo-osmolality and hyponatremia; R73.09 Other abnormal glucose; E87.6 Hypokalemia
CPT/HCPCS: 36415; 80048; 82533; 83525; 83930; 83935; 84300; 84439; 84443; 84481; 84681

== ENCOUNTER → 2024-12-06 | Outpatient (CLI) | payer MEDICAID, SELFPAY ==
--- NOTE | 2024-12-06 08:44 | US_ITS ---
PROCEDURE: EXT NON VASC LIMITED/SOFT TISS 12/06/2024 REASON FOR EXAM: AXILLARY LYMPADENOPATHY TECHNIQUE: EXT NON VASC LIMITED/SOFT TISS COMPARISON: None FINDINGS: Multiple benign-appearing lymph nodes are seen in the left axilla. The largest measures 2.5 cm x 2.6 cm 1 cm. There is a 2.2 mm cortex. US/Ext Non Vasc Limited/Soft Tiss IMPRESSION: Multiple left axillary lymph nodes. The largest measures 2.5 cm 2.6 cm 1 cm. Reading Location: [id number]
--- NOTE | 2024-12-06 08:46 | US_ITS ---
PROCEDURE: CHEST 12/06/2024 REASON FOR EXAM: AXILLARY LYMPHADENOPATHY, CHEST PAIN The patient is status post bilateral mastectomy. Pain at the mastectomy sites. TECHNIQUE: Imaging of the right mastectomy site was obtained. I suspect a 4 mm x 5 mm x 2 mm benign-appearing lymph node in the inferior lateral aspect. Imaging of the left mastectomy site, there is a 8 mm x 10 mm x 3 mm well-defined hypoechoic benign-appearing lymph node. COMPARISON: None US/Chest IMPRESSION: The findings suggestive of 2, small benign-appearing lymph nodes at the mastect pura sites. Reading Location: [id number]
--- NOTE | 2024-12-06 08:46 | US_ITS ---
PROCEDURE: EXT NON VASC LIMITED/SOFT TISS 12/06/2024 REASON FOR EXAM: AXILLARY LYMPHADENOPATHY TECHNIQUE: EXT NON VASC LIMITED/SOFT TISS COMPARISON: None FINDINGS: Imaging of the right axilla was obtained. Multiple lymph nodes are seen. The largest in the right axilla measures 2.9 cm 1.8 cm 1.5 cm. A central fatty hilum is seen. The cortex measures 2 mm. US/Ext Non Vasc Limited/Soft Tiss IMPRESSION: Axillary lymphadenopathy. Reading Location: [id number]
== END | disposition home or self-care (01) ==
LOC: OPUS 08:43
PROVIDERS: PCP Family Medicine; Referring Provider Surgery Plastic and Reconstructive Surgery; Visit Provider Surgery Plastic and Reconstructive Surgery
DX: R59.0 Localized enlarged lymph nodes (principal)
CPT/HCPCS: 76604; 76882

== ENCOUNTER → 2025-01-21 | Outpatient (CLI) | payer MEDICAID, SELFPAY ==
--- NOTE | 2025-01-21 14:04 | US_ITS ---
PROCEDURE: US NEEDLE BIOPSY/SOFT TISSUE 01/21/2025 REASON FOR EXAM: R22.31 - LOCALIZED SWELLING, MASS AND LUMP, RIGHT UPPER LIMB TECHNIQUE: Procedure Code: [id number] Modality: US Procedure: US NEEDLE BIOPSY/SOFT TISSUE. Under direct sonographic guidance, the surgeon performed core biopsies of the right axillary lymph node. COMPARISON: Prior sonogram dated December 06, 2024. FINDINGS: Sonographic guidance for right axillary lymph node biopsy. US/US Needle Biopsy/Soft Tissue IMPRESSION: Sonographic guidance for right axillary lymph node biopsy. Reading Location: [place] [id number]
--- NOTE | 2025-01-21 15:42 | AXNB_PTH ---
PATIENT: ERNST PHELPS LOC: [facility]#:[id number] AGE/SX: 54/F ROOM: RE01/21/[address]: Dr. Too Giraldo MD : [id number] BED: DIS: 01/21/2025 SPEC #: [id number] RECD: 01/21/25 16:04 STATUS: MICHAEL CRIS #: [id number] AMANDA: 01/21/25 15:[address]: Too Giraldo DEPT: SURGICAL PATHOLOGY RECD BY: Haroon Webb ENTERED: 01/24/25 12:58 SP TYPE: AX NODE BX OTHR DR: Halie Bermudez, [facility], DO Tissues: A - Axillary lymph node, NOS Procedures: Surgery Specimen Level V HEADER OPERATION: Ultrasound guided right axilla core biopsy PRE-OP DIAGNOSIS: Right axilla mass TISSUE SUBMITTED: A- Right axilla mass biopsy MICROSCOPIC DIAGNOSIS A. Axilla, right, mass, ultrasound-guided core biopsy: - Small benign lymph node (2 mm), mature adipose - see note. Note: If this biopsy represents only a portion of a larger mass lesion, the findings may not be field support representative. Clinical correlation recommended. MICROSCOPIC DESCRIPTION Slides are reviewed. GROSS DESCRIPTION A. Received in formalin labeled with the patient's name and date of . Designated as RT axilla node are 3 fragmented betts-yellow tissue cores, 1.0 cm to 1.9 cm in length by 0.1 cm in diameter. Entirely submitted in 1 cassette. [place] 01/24/2025 CPT:29526
--- NOTE | 2025-01-21 16:29 | PCM.OPRPT ---
Operative Report (Standard) Operative Information Date of Procedure: 01/21/25 Pre-Operative Diagnosis: Bilateral axillary adenopathy Post-Operative Diagnosis: Same Surgery/Procedure Performed: Ultrasound-guided core needle biopsy of right axillary lymph node stock [place] supervisor: No Type of Anesthesia: Local (6 mL of 2% lidocaine plain) Procedure Start Time: 15:35 Procedure Stop Time: 15:55 Select all DRAINS/GRAFTS/IMPLANTS that apply: None Estimated Blood Loss: 5 Specimen collected: Yes Description of specimen(s) removed: Cores of right axillary lymph node x 2 Description of surgery: Procedure: Core needle biopsy of right axillary lymph node Description: After ultrasound had the opportunity to really localize the 2 cm lymph node in the right axilla patient consents were confirmed. The site was then sterilely prepped and a formal timeout was conducted to confirm patient and procedure. Locally 2% lidocaine was infiltrated about the lymph node of interest using ultrasound guidance. Once the area was sufficiently anesthetized, a small stab incision was made in the skin and the 14-gauge ACHIEVE core needle device was introduced percutaneously. Ultrasound was used to guide the needle within the lymph node. Then the node was serially sampled with 2 cores which were placed in solution for pathologic processing. Pressure was applied until hemostasis was obtained and follow-up ultrasound revealed no evidence of ongoing bleeding/hematoma. The skin was cleaned and Steri-Strips were applied over the stab incision for the biopsy procedure. An OpSite bandage was applied as a dressing. Patient tolerated the procedure with [no/few/detail] complications Surgical Findings: [place] lymph node measuring just over 2 cm in sagittal cut within the right axilla. Complications Complications: No
== END | disposition home or self-care (01) ==
LOC: US 14:03
PROVIDERS: PCP Family Medicine; Referring Provider Surgery; Visit Provider Surgery
DX: R22.31 Localized swelling, mass and lump, right upper limb (principal)
CPT/HCPCS: 38500; 76942; 88307

== ENCOUNTER → 2025-03-15 | Outpatient (CLI) | payer MEDICAID, SELFPAY ==
[2025-03-15 12:25] LABS: Hematocrit 45.1 % (37-47); Hemoglobin 15.5 g/dL (12.0-15.0); Immature Granulocytes Count 0.030 X10^3/uL (0.0-0.0); Mean Corp Hgb Conc 34.4 g/dL (32-36); Mean Corpuscular Volume 91.7 fL (81-99); Mean Platelet Vol. 10.0 fl (6.2-12.0); NRBC Flagged by Analyzer 0 % (0-5); Platelet Count 296 K/mm3 (150-450); RBC Distribution Width CV 12.8 % (11.6-14.6); RBC Distribution Width SD 43.1 fl (35.1-43.9); Red Blood Count 4.92 M/mm3 (4.2-5.4); White Blood Count 7.8 K/mm3 (4.4-11.0)
[2025-03-15 13:10] LABS: AST(SGOT) 21 U/L (<=31); Alanine Aminotransfer ALT/SGPT 9 U/L (<=34); Albumin, Serum 4.2 g/dL (3.5-5.0); Alkaline Phosphatase 102 U/L (35-104); Anion Gap 12 (5-15); BUN 3 mg/dL (4-19); BUN/Creat Ratio 4.4 RATIO (10-20); Calcium,Total 9.3 mg/dL (7.6-11.0); Carbon Dioxide 21.9 mmol/L (21.0-32.0); Chloride 95 mmol/L (98-108); Ferritin 67 ng/mL (22-378); Globulin 2.7 g/dL (2.2-4.2); Glucose 77 mg/dL (70-99); Iron 61 ug/dL (50-170); Iron Binding Capacity,Unsat 409 ug/dL (228-428); Potassium 3.7 mmol/L (3.3-5.1); Vitamin D,25 Hydroxy 56.5 ng/mL (30-100)
[2025-03-15 13:22] LABS: FOLATES,SERUM (FOLIC ACID) 6.14 ng/mL (4.60-34.80)
[2025-03-15 13:33] LABS: Iron Binding Capacity,Total 470 ug/dL (250-450)
== END | disposition home or self-care (01) ==
PROVIDERS: PCP Family Medicine; Referring Provider Nurse Practitioner; Visit Provider Nurse Practitioner
DX: F41.1 Generalized anxiety disorder (principal)
CPT/HCPCS: 83550; 36415; 80053; 82306; 82728; 82746; 83540; 84443; 85025

== ENCOUNTER → 2025-04-13 | Outpatient (CLI) | payer MEDICAID, SELFPAY ==
[2025-04-13 13:19] LABS: AST(SGOT) 19 U/L (<=31); Alanine Aminotransfer ALT/SGPT 15 U/L (<=34); Albumin, Serum 4.2 g/dL (3.5-5.0); Alkaline Phosphatase 99 U/L (35-104); Anion Gap 14 (5-15); BUN 4 mg/dL (4-19); BUN/Creat Ratio 5.0 RATIO (10-20); CORTISOL AM 6.71 ug/dL (6.02-18.40); Calcium,Total 9.5 mg/dL (7.6-11.0); Carbon Dioxide 19.9 mmol/L (21.0-32.0); Chloride 101 mmol/L (98-108); Globulin 2.7 g/dL (2.2-4.2); Glucose 93 mg/dL (70-99); Potassium 3.3 mmol/L (3.3-5.1)
[2025-04-13 15:57] LABS: Osmolality, Urine 103 mOsm/KG
== END | disposition home or self-care (01) ==
LOC: VSLAB 10:26
PROVIDERS: PCP Family Medicine; Referring Provider Nurse Practitioner Family; Visit Provider Nurse Practitioner Family
DX: E87.1 Hypo-osmolality and hyponatremia (principal)
CPT/HCPCS: 36415; 80053; 82024; 82533; 83935; 84300